=== PATIENT | female | born 1950 | race Caucasian/White ===

== ENCOUNTER 2019-09-27 13:09 | Inpatient (IN) | payer MEDICARE, SELFPAY ==
[2019-09-27] VITALS (14 sets, daily range): BP systolic 127–173; BP diastolic 53–88; PULSE 77–88; RESP 16–20; TEMP 36.3–37.6; O2SAT 97–100; BMI 18.9
--- NOTE | ~2019-09-27 | CT_ITS ---
EXAMINATION: CT brain wo con DATE: 09/27/2019 13:40 INDICATION: Syncope. Patient fell and struck head. TECHNIQUE: Computed tomography (CT) of the head was performed without intravenous contrast. The mA wa s adjusted according to patient size. Iterative reconstruction technique was employed. Exam dose: 60 5.33 mGy-cm total exam DLP. COMPARISON: 12/30/2018 CT brain FINDINGS: Bilateral vertebral artery and prominent carotid siphon internal carotid artery calcificati ons are noted. There is nonspecific diminished attenuation of the cerebral white matter, likely due to chronic small vessel ischemic changes. There are central and cortical cerebral and cerebellar atrophy. No intracranial mass lesion or hemorrhage or cerebrovascular accident is evident. No midline shift or mass effect. No subdural or epidural hematoma is detected. No fracture or bone destruction of the cranial vault. The mastoid air cells and sinuses are unremarkable. IMPRESSION: Cerebral atherosclerosis and chronic small vessel ischemic changes of the cerebral white matter Reviewed, dictated and finalized at [facility]. Reviewed, dictated and finalized at location [facility].
--- NOTE | ~2019-09-27 | US_ITS ---
EXAMINATION: US retroperitoneal comp EXAM DATE: 09/28/2019 09:46 INDICATION: Abnormal CT scan. TECHNIQUE: Multiple grayscale and Doppler images of the kidneys were obtained (by a technologist who performed the scan) and subsequently reviewed. Correlation is made to yesterday's CT abdomen pelvis. FINDINGS: Right kidney: There is normal contour and echogenicity. It measures 9.0 x 3.9 x 4.5 centimeters. Th ere are no focal renal lesions identified. There is no hydronephrosis. Left kidney: Measures 10.3 x 7.0 x 7.7. Lobular contour with shadowing from renal pelvic, calyceal st aghorn calculus, and heterogeneous complex fluid collection identified laterally to it, difficult to measure given its shape. There is debris layering within the bladder, correlate with urinalysis. Mild diffuse bladder wall thi ckening. Some fluid posterior to the bladder, probably free pelvic fluid. IMPRESSION: 1. Left renal staghorn calculus with lobular contour and adjacent complex fluid collections. Differ ential diagnosis includes acute or chronic infection/abscesses, hematoma, seroma. 2. Debris layering within bladder, correlate with urinalysis. Reviewed, dictated and finalized at location [facility]. IMPRESSION: 1. Left renal staghorn calculus with lobular contour and adjacent complex flui d collections. Differential diagnosis includes acute or chronic infection/absc esses, hematoma, seroma. 2. Debris layering within bladder, correlate with urinalysis.
--- NOTE | ~2019-09-27 | CT_ITS ---
EXAMINATION: CT abdomen pelvis wo con EXAM DATE: 09/27/2019 15:18 INDICATION: Generalized weakness. TECHNIQUE: Spiral CT of the abdomen and pelvis was performed without contrast. Axial, coronal and s agittal images were reviewed. The dose-length product (DLP) for this examination was 168.61 mGy-cm. The exposure was tailored according to patient size (auto mA exposure control), and iterative recons truction (ASIR) was used as additional dose reduction technique. Comparison is made to prior examinat ion from 07/26/2012. FINDINGS: The liver, spleen, adrenal glands and pancreas are unremarkable. Gallbladder is unremarkab le. No biliary obstruction. Large calcification casting the left renal calyces and pelvis with expa nded appearance to the left kidney, probably the result of chronic obstructive nephropathy, with lobu lar regions along the renal capsule posteriorly and laterally which could be complex cystic fluid col lections extending beyond the renal capsule. No emphysema/gas within these. These lobulations involve the posterior aspect of the abdominal wall, and also extend superficial to the left iliac crest, wit h this region measuring about 7 cm x 4 cm in greatest axial dimension. Nonspecific but could be hemat omas, seromas, chronic infection/abscess or less likely malignancy. The uterus is unremarkable. Th e bladder is unremarkable. There is no retroperitoneal or pelvic lymphadenopathy. There is extensi ve scattered arterial sclerotic disease. The appendix is normal. There is small to moderate-sized gastroesophageal hiatal hernia. There is e xpected amount of colonic stool. No free intraperitoneal gas. Small left pleural effusion. Linea r bibasilar atelectasis. There are no osteoblastic or osteolytic lesions identified. There is comple te loss of the T12 vertebral body height centrally with some retropulsion posteriorly, a chronic-appe aring burst fracture but new compared to prior study. Again there are mild to moderate compression fr actures at T11 and L2. T10 and L5 vertebral body compression fractures have been treated with vertebr oplasty. IMPRESSION: Left renal staghorn calculus with likely chronically expanded cyst, inflamed appearance t o the left kidney with multiple lobulations/collections extending posteriorly and inferiorly to the l eft renal capsule, involving the left flank wall and extending superficially just above the left carlos c crest. Fluid could be hematomas, seromas, chronic infection/abscess, less likely malignancy. Contra st-enhanced exam would be helpful, or if if patient unable to have intravenous contrast than ultrasou nd of the left kidney and this left lower back/flank fluid collection should be considered. Consider urinalysis, consult. Reviewed, dictated and finalized at location [facility]. IMPRESSION: Left renal staghorn calculus with likely chronically expanded cyst, inflamed appearance to the left kidney with multiple lobulations/collections e xtending posteriorly and inferiorly to the left renal capsule, involving the le ft flank wall and extending superficially just above the left iliac crest. Flui d could be hematomas, seromas, chronic infection/abscess, less likely malignanc y. Contrast-enhanced exam would be helpful, or if if patient unable to have int ravenous contrast than ultrasound of the left kidney and this left lower back/f lank fluid collection should be considered. Consider urinalysis, consult.
--- NOTE | ~2019-09-27 | NM_ITS ---
EXAMINATION: NM renal flow and function DATE: 09/29/2019 13:39 INDICATION: Left-sided xanthogranulomatous pyelonephritis. TECHNIQUE: 8.3 mCi Tc-99m MAG3 was administered IV. The patient was scanned in the supine position. A posterior abdominal radionuclide angiogram was obtained. A subsequent time course of static images of the kidneys, ureters, and bladder was obtained. COMPARISON: CT abdomen and pelvis 09/27/2019 FINDINGS: The posterior abdominal radionuclide angiogram and sequential static images show absence of the left kidney. Peak renal parenchymal uptake was 2 min in right kidney (normal peak 3-5 minutes). The relative early renal uptake was 100% on the right and 0% on the left (<40% is abnormal). No abn ormalities of the ureters or bladder are seen. T1/2 for clearance of activity from the right kidney and proximal collecting system was >>20 minutes. IMPRESSION: 1. Nonfunctioning left kidney. 2. Delayed contrast clearance from right kidney, likely secondary to decreased renal function and swain [place] patient positioning. Reviewed, dictated and finalized at location A. IMPRESSION: 1. Nonfunctioning left kidney. 2. Delayed contrast clearance from right kidney, likely secondary to decreased renal function and supine patient positioning.
--- NOTE | ~2019-09-27 | XR_ITS ---
XR chest 1V DATE: 09/27/2019 13:43 INDICATION: Syncope. Weakness. Patient fell and struck head. TECHNIQUE: AP chest COMPARISON: 07/04/2018 PA and lateral chest FINDINGS: Borderline heart size. Aortic calcification and unfolding. No hilar or mediastinal enlargem ent. There is a surgical clip at the base of the right lung. There is mild to moderate elevation of the ri ght leaf of the diaphragm and minimal atelectasis or fibrotic change at the right lung base. No pulmonary infiltrate or consolidation, pleural effusion or pulmonary vascular congestion or pneumo thorax is detected. Vertebroplasty at approximately T10. Probable compression fracture deformity at T6. Additional fractu res of the thoracic and lumbar spine are demonstrated to better advantage on the 2 view chest radiogr aphic examination of 07/04/2018. Diffuse osteopenia. IMPRESSION: No active pulmonary disease or significant change since 07/04/2018 Reviewed, dictated and finalized at location A.
--- NOTE | 2019-09-27 13:20 | ED.SYNCOPE ---
HPI - Syncope General Chief Complaint: Syncope Stated Complaint: syncopal episode Time Seen by Provider: 09/27/19 13:14 Source: patient Mode of arrival: EMS Limitations: no limitations History of Present Illness HPI narrative: A 69 y/o female presents to the ED, via EMS, with c/o gen weak, dizz, nausea no vomiting, diarrhea, decreased food and liquid intake. 1 week so SOB fel night cougdnt get up there all noght Related Data Home Medications Medication Instructions Recorded Confirmed alendronate 70 mg PO WEEKLY 09/27/19 sertraline 100 mg PO DAILY 09/27/19 tramadol 50 mg PO BID PRN 09/27/19 Allergies Allergy/AdvReac Type Severity Reaction Status Date / Time No Known Allergies Allergy Unknown Verified 09/27/19 13:12 [facility] Family History Family History (Updated 02/23/17 @ 14:45 by DOCTOR UNKNOWN) Mother Diabetes mellitus, Onset Age: 89 Cerebrovascular accident Father Family history of cardiovascular disease, Onset Age: 87 Acute myocardial infarction, Onset Age: 87 Family history of heart disease in male family member before age 55 Social History Social History Smoking status: Smoker, status unknown Alcohol intake: never Discharge Plan Discharge Prescriptions: No Action alendronate 70 mg Tablet 70 mg PO WEEKLY RF: 0 sertraline 100 mg Tablet 100 mg PO DAILY RF: 0 tramadol 50 mg Tablet 50 mg PO BID PRN (Reason: Pain) RF: 0
--- NOTE | 2019-09-27 13:23 | ED.WEAKNESS ---
HPI - Weakness General Chief complaint: Syncope Stated complaint: syncopal episode Time Seen by Provider: 09/27/19 13:14 Source: patient Mode of arrival: EMS Limitations: no limitations History of Present Illness HPI Narrative: A 69 y/o female presents to the ED, via EMS, with c/o generalized weakness. Pt states that the generalized weakness started 1 week ago and has been progressively worsening since. She notes that she fell on 09/23/19 and slept on the floor all night because she could not get up. Pt adds that yesterday EMS came to her home, but she did not want to be evaluated further at that time. Today the generalized weakness became severe, so she decided to come to the ED. She reports dizziness and nausea, but denies vomiting, diarrhea, urinary frequency, SOB, hematuria, dysuria, and decreased food and liquid intake. Complaint: generalized weakness Onset (ago): week(s) (1) Duration: progressively worsening Location: generalized Severity: severe Associated symptoms: other (dizziness, nausea) Related Data Home Medications Medication Instructions Recorded Confirmed alendronate 70 mg PO WEEKLY 09/27/19 sertraline 100 mg PO DAILY 09/27/19 tramadol 50 mg PO BID PRN 09/27/19 Allergies Allergy/AdvReac Type Severity Reaction Status Date / Time No Known Allergies Allergy Unknown Verified 09/27/19 13:12 Review of Systems Review of Systems: All systems reviewed & are unremarkable except as noted in HPI and below Constitutional: Constitutional: Reports weakness (generalized) and Denies other (decreased food and liquid intake) Respiratory: Respiratory: Denies dyspnea Gastrointestinal: Gastrointestinal: Denies diarrhea, Reports nausea and Denies vomiting Genitourinary: Genitourinary: Denies hematuria, Denies nocturia and Denies dysuria Neurologic: Reports dizziness PMFSH Past Medical History Medical History (Updated 09/27/19 @ 15:57 by Rj Baer MD) C. difficile diarrhea Chronic back pain COPD (chronic obstructive pulmonary disease) Depression Emphysema of lung GERD (gastroesophageal reflux disease) History of blood transfusion HTN (hypertension) Kidney stones Osteoarthritis Pleural effusion Rectal polyp Shingles Shoulder fracture, left Transverse myelitis UTI (urinary tract infection) Surgical History Surgical History (Updated 09/27/19 @ 14:02 by Rosalba Spencer) History of section History of lithotripsy Family History Family History Mother Diabetes mellitus, Onset Age: 89 Cerebrovascular accident Father Family history of cardiovascular disease, Onset Age: 87 Acute myocardial infarction, Onset Age: 87 Family history of heart disease in male family member before age 55 Social History Social History (Updated 09/27/19 @ 14:02 by Rosalba Spencer) Smoking status: Current every day smoker Tobacco type: cigarettes Second hand tobacco smoke exposure: Yes Alcohol intake: never Gender identity (if verbalized by the patient): Female Exam Const: General: ill appearing chronically and other (frail, elderly) HENMT: Mouth: Yes lip normal and Yes dry mucous membranes Eyes: Conjunctivae: conjunctivae normal Pupils: Equal, round and reactive pupils present Resp: Effort & Inspection: normal respiratory effort Auscultation: clear to auscultation bilaterally Cardio: Rate: regular rate Rhythm: regular rhythm Heart sounds: no murmurs GI: GI Palp: Yes Soft to palpation and No Tenderness to palpation present (GI) Auscultation: normal bowel sounds Back/Spine/Pelvis: Back: other (full ROM) Skin: General skin exam: dry skin, ecchymosis (scattered) and other (warm) Wounds: wounds noted laceration size (2cm) and other (superficial to left eyebrow) Neuro: General: patient oriented x3 (alert) Speech: normal speech Extrem: General: full ROM Psych: Mental Status: mental status grossly normal Affect: normal affect
--- NOTE | 2019-09-27 13:31 | ECG_ITS ---
Measurements Intervals [place] Rate: 83 P: 32 WV: 128 QRS: -27 QRSD: 82 T: 16 QT: 350 QTc: 413 Interpretive Statements SINUS RHYTHM LEFT VENTRICULAR HYPERTROPHY AND ST-T CHANGE BORDERLINE T WAVE ABNORMALITY- INFERIOR LEADS BASELINE ARTIFACT- AVF, V4-V6 BORDERLINE ECG Electronically Signed On 09-27-2019 14:44:02 CDT by Miguel Macias D.O.
[2019-09-27] MEDS: SODIUM CHLORIDE 0.9% IV 1,000 ML 999 ML IV CONT (13:50)
[2019-09-27 14:20] LABS: Immature Platelet Fraction Pct 1.7 % (0.9-11.2); Mean Corpuscular Hemoglobin 17.3 pg (26-34); Mean Corpuscular Volume 64.1 fl (80-100); Mean Platelet Volume 9.5 fl (7.4-10.4); Platelet Count Result 589 k/mm3 (150-375); Red Blood Count 3.12 M/mm3 (4.2-5.4); Red Cell Distribution Width 19.7 % (11.5-14.5); White Blood Count 35.1 K/mm3 (4.5-10.0)
[2019-09-27 14:24] LABS: Add Urine Microscopic? YES; Appearance Urine Turbid (Clear); Bilirubin Urine Negative (Negative); Blood Urine 1+ (Negative); Color Urine Yellow (Yellow); Glucose Urine UA Negative (Negative); Ketones Urine Negative (Negative); Leukocyte Esterase Ur 2+ LEU/UL (Negative); Mucus Urine Few /lpf; Nitrate Urine Negative (Negative); Protein Urine 3+ mg/dL (Negative); RBC Urine >75 /hpf (0-2); Specific Grav Ur 1.017 (1.001-1.035); Squamous Epithelial Cell Urine Many /hpf (Few); Urobilinogen Urine Negative mg/dL (<2.0); WBC Clumps Urine Present /HPF; WBC Urine >75 /hpf
[2019-09-27 14:27] LABS: Alanine Aminotransferase 30 U/L (4-35); Alkaline Phosphatase 233 U/L (38-126); Aspartate Amino Transferase 39 U/L (14-36); Bilirubin,Total 0.3 mg/dL (0.2-1.3); Blood Urea Nitrogen 42 mg/dL (7-17); Calcium 8.6 mg/dL (8.4-10.2); Carbon Dioxide 25 mmol/L (22-30); Chloride 102 mmol/L (98-107); Estimated CRCL calculation 20 ml/min; Estimated Glomerular Filt Rate 30; Glucose 176 mg/dL (65-105); Sodium 135 mmol/L (137-145)
[2019-09-27 14:49] LABS: Hemoglobin 5.4 g/dL (12.0-15.0)
[2019-09-27 14:53] LABS: Band Neutrophils Percent 7 % (0-6); Monocytes Absolute Manual 1.05 K/mm3 (0.1-0.90); Monocytes Percent Manual 3 % (3-9); Neutrophils Absolute Manual 32.64 K/mm3 (1.7-7.2); Neutrophils Percent Manual 86 % (46-73); Total Cells Counted 100
[2019-09-27 14:54] LABS: Platelet Estimate Increased (Adequate)
[2019-09-27 14:55] LABS: Anisocytosis 3+ (NORMAL); Hypochromasia 3+ (NORMAL)
[2019-09-27 14:56] LABS: Ovalocytes 1+ (NORMAL)
[2019-09-27 15:58] LABS: Hematocrit 17.1 % (37.0-47.0); Hemoglobin 4.8 g/dL (12.0-15.0)
--- NOTE | 2019-09-27 16:45 | ADMGEN ---
This patient, Kaylen Alva, was admitted to Medical Room 246-. Patient/family oriented to hospital policies and general routines including ID bracelet, bed and alarms, visiting hours, pain management, procedures, bathroom and other care routines, personal items, smoking policy, room service/diet, and visiting hours. Valuables list has been completed. Information on how to activate the Rapid Response Team has been discussed. Patient/Family are encouraged to report perceived risks to care and to ask questions if they do not understand what they are told or what they should do.
[2019-09-27 17:17] LABS: Folic Acid 10.4 ng/mL (2.76->20); Vitamin B12 > 1000.0 pg/mL (239-931)
[2019-09-27 17:38] LABS: Iron 12 ug/dL (37-170); Percent Iron Saturation 6 % (20-50)
--- NOTE | 2019-09-27 18:03 | PM.IMHP ---
H&P: HPI History of Present Illness Chief complaint: Anemia/weakness/UTI Narrative: Kaylen Alva is a 69 year old female who has a history of myelitis and has chronic back pain and chronic weakness weakness to her lower extremities. The patient has also had a history of having kidney stones in the past. The patient has had 2 falls since 09/23/2019. The patient fell on 09/22 20 in above the floor all night could get up. EMS came yesterday to her home and she did want any further evaluation at that time. Today she is very weak and has a laceration to her left forehead. No nausea no vomiting no diarrhea no fever no chills. Her temperature was normal. Her H&H is noted to be 5.4 and 20.0. Creatinine was noted to be 1.7. Blood sugar 176. Patient was found to be positive for UTI and was started on ceftriaxone. CT of the brain was read as her approval atherosclerosis and chronic small vessel ischemic changes of the cerebral white matter. Chest x-ray no active pulmonary disease or significant change since 07/04/2018 CT scan of the abdomen shows a left renal staghorn calculus which likely is chronic expanded cyst, inflamed appearance the left kidney with with multiple lobulations, collections extending posteriorly and inferiorly to the left renal capsule, involving the left flank wall and extending superficially just above the left iliac crest. Recommend CT scan with dye or ultrasound should consider consult. Date of service 09/27/2019 Review of Systems Review of Systems: Narrative: Patient is hard of hearing. All systems reviewed & are unremarkable except as noted in HPI and below Constitutional: Constitutional: Reports as per HPI and Reports no additional constitutional complaints Eyes: Eyes: Reports as per HPI and Reports no additional eye complaints ENT: Reports system reviewed and no additional complaints, except as documented and Reports Normal hearing present Cardiovascular: Cardiovascular: Reports no additional cardiovascular complaints Respiratory: Respiratory: Reports no additional respiratory complaints and Reports no additional respiratory complaints Gastrointestinal: Gastrointestinal: Reports as per HPI and Reports no additional gastrointestinal complaints Musculoskeletal: Musculoskeletal: Reports no additional musculoskeletal complaints Integumentary/Breasts: Skin/Breast: Reports system reviewed and no additional complaints, except as docu and Reports as per HPI Neurologic: Reports system reviewed and no additional complaints, except as documented (Hard of hearing left ear hearing aids at home.), Reports as per HPI and Reports dizziness Psychiatric: Psychiatric: Reports no additional psychiatric complaints and Reports as per HPI Comments: History of depression after Endocrine: Endocrine: Reports no additional endocrine complaints Hematologic/Lymphatic: Hematologic/Lymphatic: Reports no additional hematologic/lymphatic complaints Allergic/Immunologic: Allergic/Immunologic: Reports no additional allergic/immunologic complaints [facility] Past Medical History Medical History (Updated 09/27/19 @ 18:39 by Brooklynn Carson NP) C. difficile diarrhea Chronic back pain Depression Emphysema of lung Empyema Patient stated she had her lung script at least 3 times GERD (gastroesophageal reflux disease) History of blood transfusion HTN (hypertension) Kidney stones With a history of 2 lithotripsies and chronic kidney stones Myelitis Osteoarthritis Osteoporosis Pleural effusion Rectal polyp Shingles Shoulder fracture, left No surgery performed Transverse myelitis UTI (urinary tract infection) Surgical History Surgical History (Updated 09/27/19 @ 18:27 by Brooklynn Carson NP) H/O kyphoplasty History of section X1 History of lithotripsy X2 Family History Family History (Updated 09/27/19 @ 18:28 by Brooklynn Carson NP) Mother Diabetes mellitus, Onset Age: 89 Cerebrovascular acci
[2019-09-27 20:06] LABS: Immature Reticulocyte Fraction 20.5 % (3.0-15.9); Reticulocyte Hemoglobin Conten 16.5 pg (28.2-35.7); Reticulocyte Percent 1.57 % (0.7-4.3); Reticulocytes Absolute 0.04 B/L (32.2-175.7)
[2019-09-27 20:06] LABS: Hemoglobin 4.9 g/dL (12.0-15.0)
[2019-09-27 20:07] LABS: Hematocrit 17.4 % (37.0-47.0)
[2019-09-28] VITALS (18 sets, daily range): BP systolic 112–166; BP diastolic 56–86; PULSE 79–125; RESP 12–20; TEMP 35.7–37.4; O2SAT 96–100
--- NOTE | 2019-09-28 03:02 | PC.NURSE ---
This patient, Kaylen Alva, was received from room 246-1 on 09/27/19 at 2120. Personal belongings sent with patient. Belongings list checked and signed with receiving. Report received from Annie COLINDRES. Appropriate documentation sent with patient. Pt arrived to unit with blood Transfusing. Pt has no C/O pain/discomfort at time of arrival. Will continue to monitor pt closely. 09/27/19 2150- BERNADINE Valencia states that she spoke with pt's son, Messi. Messi was updated with pt's condition and informed of transfer.
--- NOTE | 2019-09-28 03:02 | PC.NURSE ---
pt transferred to [facility] room 207 at 09/27/2019 at 0778
[2019-09-28 04:03] LABS: Hematocrit 31.6 % (37.0-47.0); Hemoglobin 9.8 g/dL (12.0-15.0)
[2019-09-28] MEDS: TRAMADOL HCL 50 MG TABLET PO ×2 (05:58→14:48)
[2019-09-28] MEDS: LACTATED RINGERS 1,000 ML 50 ML IV CONT (05:59)
[2019-09-28 08:53] LABS: Hematocrit 32.3 % (37.0-47.0); Hemoglobin 10.2 g/dL (12.0-15.0)
[2019-09-28] MEDS: SERTRALINE HCL 50 MG TABLET 100 MG PO (09:55)
--- NOTE | 2019-09-28 10:43 | WPDURCON ---
Assessment and Plan Assessment and plan (1) UTI (urinary tract infection): Code(s): N39.0 - Urinary tract infection, site not specified Status: Acute Assessment and Plan: f/u U culture (2) Kidney stones: Code(s): N20.0 - Calculus of kidney Status: Chronic Assessment and Plan: Will need outpatient treatment (3) Anemia: Qualifiers: Anemia type: unspecified type Qualified Code(s): D64.9 - Anemia, unspecified Code(s): D64.9 - Anemia, unspecified Status: Acute Assessment and Plan: Kaylen Alva is a 69 year old female who has a h/o kidney stones. She has seen Dr Asencio in the past, last in 2017. She presented to the ER with generalized weakness and dizziness, especially with standing and walking. A CT stone study was performed that shows a 7 cm LEFT staghorn calculus and an edematous, hydronephrotic vs hematoma vs mass/lymphoma LEFT kidney. There are small RIGHT side kidney stones. I personally reviewed the images and report. Her Hgb was ~5 in the ER and I had them repeat this on the floor stat from the arm without the IV and this was accurate. She has been HDS. She received 2 U PRBC and has responded, most recent Hgb 10.2. Cr yesterday elevated at 1.7 so I did not get a CT with IV contrast. She denies a personal or family history of kidney or bladder cancer. No family h/o kidney stones. She denies gross hematuria or flank pain. No dysuria. She has preexisting incontinence. She denies feeling like she has a UTI. She has low back pain, in the middle. No abd pain, nausea, vomiting. Continue serial H&H. she has responded to 2U PRBC. Follow Cr and will plan to get CT urogram when possible. She is iron deficient and has elevated WBC. Consider iron replacement. If she is to clinically deteriorate or requires multiple blood transfusions, will need to transfer her to higher level of care in case there is a need to embolize her LEFT kidney and IR is not available at [facility]. Otherwise, if she clinically remains stable, will proceed with her care at [place]. Patient is aware and agrees. Urology Consult Note HPI Date Seen: 09/28/19 Requesting Physician: Rebecca William PA-C Primary Care Provider: Jovon Alvarez MD Consult Narrative Reason for consult: kidney stone, abnormal CT imaging, anemia Narrative: Kaylen Alva is a 69 year old female who has a h/o kidney stones. She has seen Dr Asencio in the past, last in 2017. She presented to the ER with generalized weakness and dizziness, especially with standing and walking, present for several weeks. A CT stone study 09/27/19 was performed that shows a 7 cm LEFT staghorn calculus and an edematous, hydronephrotic vs hematoma vs mass LEFT kidney. There are small RIGHT side kidney stones. I personally reviewed the images and report. Her Hgb was ~5 in the ER and I had them repeat this on the floor stat from the arm without the IV and this was accurate. She has been HDS. She received 2 U PRBC and has responded, most recent Hgb 10.2. Cr yesterday elevated at 1.7 so I did not get a CT with IV contrast. She denies a personal or family history of kidney or bladder cancer. No family h/o kidney stones. She denies gross hematuria or flank pain. No dysuria. She has preexisting incontinence. She denies feeling like she has a UTI. She has low back pain, in the middle. No abd pain, nausea, vomiting. mental status stable. She denies taking blood thinners. Review of Systems Review of Systems: All systems reviewed & are unremarkable except as noted in HPI and below (HPI) [facility] Past Medical History Medical History (Updated 09/27/19 @ 18:39 by Brooklynn Carson NP) C. difficile diarrhea Chronic back pain Depression Emphysema of lung Empyema Patient stated she had her lung script at least 3 times GERD (gastroesophageal reflux disease) History of blood transfusion HTN (hypertension) Kidney sto
--- NOTE | 2019-09-28 14:50 | PM.IMPN ---
Progress Note: A&P Assessment and Plan (1) UTI (urinary tract infection): Code(s): N39.0 - Urinary tract infection, site not specified Status: Acute Assessment and Plan: Patient was started on ceftriaxone after abnormal urinalysis. Cultures are pending. She has had multiple UTI's in the past. She reports feeling better today after some IV fluids and antibiotics. Will continue monitoring patients symptoms and continue IV antibiotics (2) Anemia: Qualifiers: Anemia type: unspecified type Qualified Code(s): D64.9 - Anemia, unspecified Code(s): D64.9 - Anemia, unspecified Status: Acute Assessment and Plan: Acute severe anemia on arrival with a hemoglobin at 4.8. She was given 2 Units of PRBCs with improvement of H&H to 9.8 this morning and then 10.2. I did anemia profile which showed anemia of chronic disease. Hematology was consulted for the profound anemia and leukocytosis. She is not currently on any blood thinners, and denies NSAID use, hematochezia, melena. Check stool for occult blood. Continue to monitor H&H daily since it is stable after transfusion. Transfuse again as needed. (3) Leukocytosis: Qualifiers: Leukocytosis type: unspecified Qualified Code(s): D72.829 - Elevated white blood cell count, unspecified Code(s): D72.829 - Elevated white blood cell count, unspecified Status: Acute Assessment and Plan: Patient's leukocytosis on arrival was 35. She denies any history of elevated white blood cell count the past. Hematology has been consulted for further evaluation and treatment. Will recheck CBC with diff in the morning. (4) Kidney stones: Code(s): N20.0 - Calculus of kidney Status: Chronic Assessment and Plan: Strain all urine. The patient has had lithotripsy x2 in the past. I did consult Urology as patient has a kidney stone and they recommended outpatient treatment. 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 Plus she has multiple low be relations, collections extending posteriorly and inferiorly to the left renal capsule. Renal US showed Left renal staghorn calculus with lobular contour and adjacent complex fluid collections. Differential diagnosis includes acute or chronic infection/abscesses, hematoma, seroma. Debris layering within bladder, correlate with urinalysis. Continue monitoring patients symptoms and urology's input is greatly appreciated. (5) Generalized weakness: Code(s): R53.1 - Weakness Status: Acute Assessment and Plan: Most likely related to the anemia. She also has a history of myelitis. Will order PT and OT for further evaluation on her weakness. She lives alone and may need a skilled rehab facility after discharge due to recent falls (6) Chronic back pain: Code(s): M54.9 - Dorsalgia, unspecified; G89.29 - Other chronic pain Status: Chronic Assessment and Plan: Continue tramadol. (7) Depression: Code(s): F32.9 - Major depressive disorder, single episode, unspecified Status: Chronic Assessment and Plan: Continue with sertraline (8) Multiple falls: Code(s): R29.6 - Repeated falls Status: Acute Assessment and Plan: Will order physical and occupational therapy. She may need skilled rehab facility for further treatment and to prevent further falls since she lives alone. Time Spent With Patient Time with patient: 25 - 35 minutes Subjective Date/time seen: 09/28/19 14:50 Interval history: Date of Service 09/28/2019: The patient reports feeling better today. She reports ove
[2019-09-28 16:20] LABS: Hematocrit 31.8 % (37.0-47.0); Hemoglobin 9.9 g/dL (12.0-15.0)
[2019-09-28 16:31] LABS: Blood Urea Nitrogen 32 mg/dL (7-17); Calcium 7.9 mg/dL (8.4-10.2); Carbon Dioxide 22 mmol/L (22-30); Chloride 106 mmol/L (98-107); Estimated Glomerular Filt Rate 34; Glucose 159 mg/dL (65-105); Potassium 3.7 mmol/L (3.4-5.0); Sodium 136 mmol/L (137-145)
[2019-09-29] VITALS (9 sets, daily range): BP systolic 135–159; BP diastolic 62–82; PULSE 68–92; RESP 16–20; TEMP 36.3–36.9; O2SAT 97–100; BMI 19.9
[2019-09-29 00:54] LABS: Hematocrit 31.7 % (37.0-47.0); Hemoglobin 9.9 g/dL (12.0-15.0)
[2019-09-29] MEDS: LACTATED RINGERS 1,000 ML 50 ML IV CONT (03:29)
[2019-09-29] MEDS: TRAMADOL HCL 50 MG TABLET PO (04:36)
[2019-09-29 05:01] LABS: Blood Urea Nitrogen 30 mg/dL (7-17); Calcium 7.8 mg/dL (8.4-10.2); Carbon Dioxide 23 mmol/L (22-30); Chloride 108 mmol/L (98-107); Estimated Glomerular Filt Rate 34; Glucose 96 mg/dL (65-105); Sodium 137 mmol/L (137-145)
--- NOTE | 2019-09-29 07:36 | WPDUROPN2 ---
Progress Note: A&P Assessment and Plan (1) UTI (urinary tract infection): Code(s): N39.0 - Urinary tract infection, site not specified Status: Acute Assessment and Plan: Cultures grown out E coli. Continue culture specific antibiotics. (2) Kidney stones: Code(s): N20.0 - Calculus of kidney Status: Chronic Assessment and Plan: Large staghorn calculus without obstruction. (3) Renal mass: Code(s): N28.89 - Other specified disorders of kidney and ureter Status: Acute Assessment and Plan: Diagnostic considerations are acute hemorrhage versus with xanthogranulomatous pyelonephritis. Will get a renal scan to evaluate function of the left kidney. Time Spent With Patient Time with patient: 15 - 25 minutes Subjective Subjective Date/Time Seen: 09/29/19 07:36 Resting comfortably this morning. Has few complaints. No dysuria. No flank pain. No fevers. I reviewed her CT scan it appears consistent with either hemorrhage or xanthogranulomatous pyelonephritis Review of Systems Constitutional: Constitutional: Reports weakness Respiratory: Respiratory: Reports no additional respiratory complaints Genitourinary: Genitourinary: Denies dysuria and Denies flank pain Exam Const: General: no acute distress Resp: Effort & Inspection: normal respiratory effort Psych: Affect: normal affect Objective Data Vital Signs Vital Signs: Vital Signs - 24 hr 09/28/19 08:00 09/28/19 08:40 09/28/19 10:00 Temperature 96.2 F L Pulse Rate 86 84 82 Respiratory Rate 16 Blood Pressure 141/63 H Pulse Oximetry 98 09/28/19 11:51 09/28/19 12:30 09/28/19 16:00 Temperature 96.7 F L 98.2 F Pulse Rate 81 81 92 Respiratory Rate 12 20 Blood Pressure 145/83 H 143/80 H Pulse Oximetry 99 100 09/28/19 16:54 09/28/19 18:00 09/28/19 20:00 Temperature 98.7 F Pulse Rate 88 82 79 Respiratory Rate 18 Blood Pressure 112/73 Pulse Oximetry 98 09/28/19 22:00 09/29/19 00:00 09/29/19 02:00 Temperature 97.4 F L Pulse Rate 86 68 81 Respiratory Rate 20 Blood Pressure 159/82 H Pulse Oximetry 98 09/29/19 04:00 09/29/19 05:46 Temperature 98.4 F Pulse Rate 79 78 Respiratory Rate 18 Blood Pressure 144/62 H Pulse Oximetry 99 Intake/Output Intake/Output: Intake & Output 09/26/19 09/27/19 09/28/19 09/29/19 23:59 23:59 23:59 23:59 Intake Total 1550 1120 760 Output Total 300 Balance 1250 1120 760 Meds/Results Medications: Active Medications Generic Name Dose Route Start Last Admin Trade Name Freq PRN Reason Stop Dose Admin Alendronate Sodium 70 mg 10/03/19 06:30 Fosamax PO Fr@0630 VINNY Lactated Ringer's 1,000 mls @ 50 mls/hr 09/27/19 15:15 09/29/19 03:29 Lr - Lactated Ringers Iv IV CONT 50 mls/hr .Q20H VINNY Administration Ceftriaxone Sodium/Dextrose 1 gm in 50 mls @ 100 mls/hr 09/28/19 14:00 09/28/19 15:30 Rocephin 1 Gm/D5w 50 Ml IVPB Infused Q24H VINNY Infusion Sertraline HCl 100 mg 09/28/19 09:00 09/28/19 09:55 Zoloft PO 100 mg DAILY VINNY Administration Tramadol HCl 50 mg 09/27/19 18:32 09/29/19 04:36 Ultram PO 50 mg BID PRN Administration Pain Radiology Results: ITS Impressions Head CT 09/27/19 13:41 IMPRESSION: Cerebral atherosclerosis and chronic small vessel ischemic changes of the cerebral white matter Chest X-Ray 09/27/19 13:46 IMPRESSION: No active pulmonary disease or significant change since 07/04/2018 Abdomen/Pelvis CT 09/27/19 15:18 IMPRESSION: Left renal staghorn calculus with likely chronically expanded cyst, inflamed appearance to the left kidney with multiple lobulations/collections extending posteriorly and inferiorly to the left renal capsule, involving the left flank wall and extending superficially just above the left iliac crest. Fluid could be hematomas, seromas, chronic infection/abscess, less likely malignancy. Contrast-enhan
[2019-09-29 08:12] LABS: Hematocrit 30.7 % (37.0-47.0); Hemoglobin 9.4 g/dL (12.0-15.0); Mean Corpuscular HGB Conc 30.6 g/dl (32-36); Mean Corpuscular Hemoglobin 22.2 pg (26-34); Mean Corpuscular Volume 72.4 fl (80-100); Mean Platelet Volume 8.9 fl (7.4-10.4); Platelet Count Result 482 k/mm3 (150-375); Red Blood Count 4.24 M/mm3 (4.2-5.4); Red Cell Distribution Width 27.2 % (11.5-14.5); White Blood Count 30.2 K/mm3 (4.5-10.0)
--- NOTE | 2019-09-29 08:43 | PM.IMPN ---
Progress Note: A&P Assessment and Plan (1) UTI (urinary tract infection): Code(s): N39.0 - Urinary tract infection, site not specified Status: Acute Assessment and Plan: Patient was started on ceftriaxone after abnormal urinalysis. Cultures are pending. She has had multiple UTI's in the past. UTI showed positive E. coli with sensitivities to Ceftriaxone. Will continue IV Ceftriaxone. (2) Anemia: Qualifiers: Anemia type: unspecified type Qualified Code(s): D64.9 - Anemia, unspecified Code(s): D64.9 - Anemia, unspecified Status: Acute Assessment and Plan: Acute severe anemia on arrival with a hemoglobin at 4.8. She was given 2 Units of PRBCs with improvement. H&H was 9.4/30.7 this morning, stable. I did anemia profile which showed anemia of chronic disease. Hematology was consulted for the profound anemia and leukocytosis. She is not currently on any blood thinners, and denies NSAID use, hematochezia, melena. Check stool for occult blood. Continue to monitor H&H daily since it is stable after transfusion. Transfuse again as needed. (3) Leukocytosis: Qualifiers: Leukocytosis type: unspecified Qualified Code(s): D72.829 - Elevated white blood cell count, unspecified Code(s): D72.829 - Elevated white blood cell count, unspecified Status: Acute Assessment and Plan: Patient's leukocytosis on arrival was 35. She denies any history of elevated white blood cell count the past. Hematology has been consulted for further evaluation and treatment. Today, WBC was 30.2, improved slightly. Will recheck CBC with diff in the morning. (4) Kidney stones: Code(s): N20.0 - Calculus of kidney Status: Chronic Assessment and Plan: Strain all urine. The patient has had lithotripsy x2 in the past. I did consult Urology as patient has a kidney stone and they recommended outpatient treatment. Renal US showed Left renal staghorn calculus with lobular contour and adjacent complex fluid collections. Differential diagnosis includes acute or chronic infection/abscesses, hematoma, seroma. Debris layering within bladder, correlate with urinalysis. Urology recommended getting a Renal Scan to evaluate left kidney function. Continue monitoring patients symptoms and urology's input is greatly appreciated. (5) Generalized weakness: Code(s): R53.1 - Weakness Status: Acute Assessment and Plan: Most likely related to the anemia. She also has a history of myelitis. Will order PT and OT for further evaluation on her weakness. She lives alone and may need a skilled rehab facility after discharge due to recent falls (6) Chronic back pain: Code(s): M54.9 - Dorsalgia, unspecified; G89.29 - Other chronic pain Status: Chronic Assessment and Plan: Continue tramadol. (7) Depression: Code(s): F32.9 - Major depressive disorder, single episode, unspecified Status: Chronic Assessment and Plan: Continue with sertraline (8) Multiple falls: Code(s): R29.6 - Repeated falls Status: Acute Assessment and Plan: Will order physical and occupational therapy. She may need skilled rehab facility for further treatment and to prevent further falls since she lives alone. Time Spent With Patient Time with patient: 25 - 35 minutes Subjective Date/time seen: 09/29/19 08:43 Interval history: Date of Service 09/29/2019: The patient reports feeling better today. She slept well last night. She denies any flank pain, fevers, c
[2019-09-29] MEDS: SERTRALINE HCL 50 MG TABLET 100 MG PO (09:23)
[2019-09-29] MEDS: polyethylene glycoL 3350 17 GM POWD.PACK PO (10:02)
--- NOTE | 2019-09-29 11:37 | PC.NURSE ---
This patient, Kaylen Alva, was transferred to [[id number]] on 09/29/19 at 1137. Personal belongings sent with patient. Belongings list checked and signed with receiving [ ]. Report given to [CARL COLINDRES]. Appropriate documentation sent with patient.
--- NOTE | 2019-09-29 12:00 | PC.NURSE ---
Pt received from IMU and now in room 249. Bed locked, alarm in place, call light in reach, and SCDs re-appplied.
--- NOTE | 2019-09-29 12:25 | PC.NURSE ---
Pt left the floor for NM scan.
--- NOTE | 2019-09-29 13:26 | PC.NURSE ---
Pt returned to floor from NM Scan. Bed alarm in place, call light in reach, and SCDs re-applied.
--- NOTE | 2019-09-29 15:35 | CONS_ITS ---
DATE OF CONSULTATION: 09/29/2019 REASON FOR CONSULTATION: Leukocytosis and anemia. HISTORY OF PRESENTING ILLNESS: This is a 69-year-old female who came into the hospital status post fall on September 23, 2019. She has been dealing with tiredness and fatigue along with dizziness and lightheadedness for a couple of months duration. She also has chronic lower back pain. She has been complaining of bilateral lower extremity weakness. On admission, labs were done that showed hemoglobin of 5.4. She denies any melena and hematochezia. Her colonoscopy was within 5 years ago according to the patient. She also found to have renal insufficiency. CT scan of the abdomen was performed that showed left renal staghorn calculus, which is chronic with some inflammation in the left kidney with possibility of abscess. She has been losing weight and has poor appetite. Denies any other complaint. REVIEW OF SYSTEMS: 12-point review of system was reviewed and as per HPI, otherwise negative. PAST MEDICAL HISTORY: History of chronic lower back pain, depression, COPD, GERD, hypertension, history of kidney stone myelitis, osteoarthritis, osteoporosis, UTIs. PAST SURGICAL HISTORY: Kyphoplasty, , lithotripsy. FAMILY HISTORY: Noncontributory. SOCIAL HISTORY: The patient has a history of smoking. Denies any alcohol use. MEDICATIONS: Reviewed. ALLERGIES: REVIEWED. PHYSICAL EXAMINATION: GENERAL: This patient is a tired-looking female, alert and oriented. VITAL SIGNS: Per nursing note. HEENT: Normocephalic, atraumatic. Clear oropharynx. LUNGS: Clear to auscultation bilaterally. CARDIOVASCULAR: Regular rate and rhythm. No murmurs. ABDOMEN: Soft, nontender, nondistended. Bowel sounds are positive in all 4 quadrants. No hepatosplenomegaly. EXTREMITIES: No edema. NEUROLOGIC: Exam is grossly intact. LABORATORY DATA: WBC 30.2, hemoglobin 9.4, MCV 72.4, platelet 482,000. Creatinine 1.5, calcium 7.8, iron 12, iron saturation 6%, ferritin 101. Vitamin B12 more than 1000. Serum protein electrophoresis ordered and pending. ASSESSMENT AND PLAN: 1. Leukocytosis. Likely reactive due to inflammation and infection. The patient had CT scan done on September 26 that showed no evidence of retroperitoneal or pelvic lymphadenopathy. There is a left renal staghorn calculus with multiple lobulation in the left kidney. This could represent chronic infection/abscess. Urology service was consulted and note is reviewed. The patient is on IV antibiotic with Rocephin. I will check sedimentation rate and C-reactive protein to confirm the reactive process. I do not believe it is bone marrow disorder like leukemia or lymphoma. 2. Multifactorial anemia. The patient does have renal insufficiency, which could contribute to anemia along with iron deficiency based on the iron studies as well as anemia of chronic inflammation. I will start her on IV iron replacement with Venofer. She may need growth factor support with Procrit as well. 3. Urinary tract infection. The patient is on Rocephin. We will follow along with you. TATI BLANDON M.D. [employer] D I MT: [place]
[2019-09-29] MEDS: IRON SUCROSE COMPLEX 500 MG in SODIUM CHLORIDE 0.9% IV 250 ML 78.6 MG IVPB (15:55)
[2019-09-29 16:15] LABS: Hematocrit 32.3 % (37.0-47.0); Hemoglobin 9.9 g/dL (12.0-15.0)
[2019-09-29 16:41] LABS: Erythrocyte Sedimentation Rate 122 mm/hr (0-20)
[2019-09-29 18:58] LABS: CRP 25.1 mg/dL (<1.0)
[2019-09-30 00:30] LABS: Hematocrit 33.7 % (37.0-47.0); Hemoglobin 10.3 g/dL (12.0-15.0)
[2019-09-30] MEDS: TRAMADOL HCL 50 MG TABLET PO ×2 (01:16→09:02)
[2019-09-30] MEDS: LACTATED RINGERS 1,000 ML 50 ML IV CONT (04:20)
[2019-09-30 05:18] LABS: Hematocrit 31.6 % (37.0-47.0); Hemoglobin 9.7 g/dL (12.0-15.0); Mean Corpuscular HGB Conc 30.7 g/dl (32-36); Mean Corpuscular Hemoglobin 22.4 pg (26-34); Platelet Count Result 463 k/mm3 (150-375); Red Blood Count 4.33 M/mm3 (4.2-5.4); Red Cell Distribution Width 27.9 % (11.5-14.5); White Blood Count 31.1 K/mm3 (4.5-10.0)
[2019-09-30 05:32] LABS: Blood Urea Nitrogen 27 mg/dL (7-17); Calcium 7.6 mg/dL (8.4-10.2); Carbon Dioxide 21 mmol/L (22-30); Chloride 107 mmol/L (98-107); Estimated Glomerular Filt Rate 40; Glucose 93 mg/dL (65-105); Potassium 3.9 mmol/L (3.4-5.0); Sodium 135 mmol/L (137-145)
[2019-09-30 06:00] VITALS: BP 146/69; PULSE 90; RESP 18; TEMP 37.8; O2SAT 97
--- NOTE | 2019-09-30 07:59 | WPDUROPN2 ---
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 She'll need left nephrectomy at some point. I've recommended she go to urologist at [facility] as this will be a difficult surgery. Discussed with pt. Subjective Subjective Date/Time Seen: 09/30/19 07:59 Comfortable, feeling stronger - no pain. Review of Systems Cardiovascular: Cardiovascular: Denies chest pain, Denies lightheadedness, Denies palpitations and Denies dyspnea Respiratory: Respiratory: Denies dyspnea Gastrointestinal: Gastrointestinal: Denies diarrhea, Denies nausea and Denies vomiting Genitourinary: Genitourinary: Denies hematuria and Denies dysuria Endocrine: Endocrine: Denies palpitations Exam Const: General: no acute distress Resp: Effort & Inspection: normal respiratory effort GI: Inspection: non-distended GI Palp: No abdominal tenderness and No Guarding due to palpation present (GI) Auscultation: normal bowel sounds Objective Data Vital Signs Vital Signs: Vital Signs - 24 hr 09/29/19 08:00 09/29/19 10:00 09/29/19 12:02 Temperature 98 F Pulse Rate 77 92 92 Respiratory Rate 16 16 Blood Pressure 145/73 H Pulse Oximetry 98 98 09/29/19 14:00 09/29/19 20:00 09/30/19 06:00 Temperature 98.2 F 98.5 F 100.1 F H Pulse Rate 79 80 90 Respiratory Rate 16 18 18 Blood Pressure 135/70 143/71 H 146/69 H Pulse Oximetry 100 97 97 Intake/Output Intake/Output: Intake & Output 09/27/19 09/28/19 09/29/19 09/30/19 23:59 23:59 23:59 23:59 Intake Total 1550 1120 2145 1060 Output Total 300 50 Balance 1250 1120 2145 1010 Meds/Results Medications: Active Medications Generic Name Dose Route Start Last Admin Trade Name Freq PRN Reason Stop Dose Admin Alendronate Sodium 70 mg 10/03/19 06:30 Fosamax PO Fr@0630 [facility] Docusate Sodium 100 mg 09/29/19 09:39 Colace Capsule PO Q12H PRN Constipation Lactated Ringer's 1,000 mls @ 50 mls/hr 09/27/19 15:15 09/30/19 04:20 Lr - Lactated Ringers Iv IV CONT 50 mls/hr .Q20H VINNY Administration Ceftriaxone Sodium/Dextrose 1 gm in 50 mls @ 100 mls/hr 09/28/19 14:00 09/29/19 14:43 Rocephin 1 Gm/D5w 50 Ml IVPB Infused Q24H VINNY Infusion Polyethylene Glycol 17 gm 09/29/19 09:40 09/29/19 10:02 Miralax PO 17 gm QAM VINNY Administration Sertraline HCl 100 mg 09/28/19 09:00 09/29/19 09:23 Zoloft PO 100 mg DAILY IVNNY Administration Tramadol HCl 50 mg 09/27/19 18:32 09/30/19 01:16 Ultram PO 50 mg BID PRN Administration Pain Radiology Results: ITS Impressions Head CT 09/27/19 13:41 IMPRESSION: Cerebral atherosclerosis and chronic small vessel ischemic changes of the cerebral white matter Chest X-Ray 09/27/19 13:46 IMPRESSION: No active pulmonary disease or significant change since 07/04/2018 Abdomen/Pelvis CT 09/27/19 15:18 IMPRESSION: Left renal staghorn calculus with likely chronically expanded cyst, inflamed appearance to the left kidney with multiple lobulations/collections extending posteriorly and inferiorly to the left renal capsule, involving the left flank wall and extending superficially just above the left iliac crest. Fluid could be hematomas, seromas, chronic infection/abscess, less likely malignancy. Contrast-enhanced exam would be helpful, or if if patient unable to have intravenous contrast than ultrasound of the left kidney and this left lower back/flank fluid collection should be considered. Consider urinalysis, consult. Retroperitoneum Ultrasound 09/28/19 14:54 IMPRESSION: 1. Left renal staghorn calculus with lobular contour and adjacent complex fluid collections. Differential diagnosis includes acute or chronic infection/abscesses, hematoma,
[2019-09-30 08:00] VITALS: PULSE 90; RESP 18; O2SAT 97
[2019-09-30] MEDS: polyethylene glycoL 3350 17 GM POWD.PACK PO (08:42)
[2019-09-30] MEDS: DOCUSATE SODIUM 100 MG CAPSULE PO (08:43)
[2019-09-30] MEDS: SERTRALINE HCL 50 MG TABLET 100 MG PO (09:07)
--- NOTE | 2019-09-30 11:07 | PM.IMPN ---
Progress Note: A&P Assessment and Plan (1) UTI (urinary tract infection): Code(s): N39.0 - Urinary tract infection, site not specified Status: Acute Assessment and Plan: UC growing E. Coli sensitive to Rocephin. Started on IV Rocephin daily from the ER on 09/26. WBC 31.1k today; up but relatively stable. 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 She was given 2 Units of PRBCs with improvement. H&H was 9.7/31.6 this morning, stable. Hematology was consulted for the profound anemia and leukocytosis; input greatly appreciated. She is not currently on any blood thinners, and denies NSAID use, hematochezia, melena. No obvious signs of og blood loss. Stool occult to be collected Continue to monitor H&H daily since it is stable after transfusion. Transfuse again as needed. F/u with PCP as outpatient (3) Leukocytosis: Qualifiers: Leukocytosis type: unspecified Qualified Code(s): D72.829 - Elevated white blood cell count, unspecified Code(s): D72.829 - Elevated white blood cell count, unspecified Status: Acute Assessment and Plan: Patient's leukocytosis on arrival was 35k. Down to 31.1 today; still elevated but relatively stable. Likely in part due to UTI and xanthogranulomatous pyelonephritis. Patient had fever of 100.1 today, but otherwise afebrile and VSS Trend tomorrow and as outpatient Monitor (4) Kidney stones: Code(s): N20.0 - Calculus of kidney Status: Chronic Assessment and Plan: Strain all urine. The patient has had lithotripsy x2 in the past. Renal US showed Left renal staghorn calculus with lobular contour and adjacent complex fluid collections. Urology consulted and appreciate input. Patient has findings suggestive of xanthogranulomatous pyelonephritis as described above. She will likely need f/u with a Urologist for surgery in the future; she wishes to go to [facility] in the future which Dr. Asencio' group services. Patient currently appears to be stable Will have her follow up with Urology as outpatient after discharge Continue to monitor (5) Generalized weakness: Code(s): R53.1 - Weakness Status: Acute Assessment and Plan: Most likely related to the anemia. She also has a history of myelitis. Continue PT/OT Plan on SNF placement for further rehab which was recommended to her today and she seems open to rehab [facility] working on [facility] bed (6) Chronic back pain: Code(s): M54.9 - Dorsalgia, unspecified; G89.29 - Other chronic pain Status: Chronic Assessment and Plan: Reasonably controlled today Continue tramadol. (7) Depression: Code(s): F32.9 - Major depressive disorder, single episode, unspecified Status: Chronic Assessment and Plan: No acute issues Continue with sertraline (8) Multiple falls: Code(s): R29.6 - Repeated falls Status: Acute Assessment and Plan: As above, continue with PT/OT SNF rehab as patient lives at home and at risk for future falls; awaiting placement Subjective Date/time seen: 09/30/19 11:07 Interval history: Patient is
[2019-09-30 14:00] VITALS: BP 136/71; PULSE 80; RESP 16; TEMP 37.1; O2SAT 100
[2019-09-30 14:26] LABS: IFOB Positive Control Positive; Immunochemical Fecal Occult Bl Positive (N)
[2019-09-30 20:00] VITALS: BP 130/68; PULSE 80; RESP 18; TEMP 36.9; O2SAT 99
[2019-10-01] MEDS: LACTATED RINGERS 1,000 ML 50 ML IV CONT ×2 (01:22→22:07)
[2019-10-01 03:35] LABS: Haptoglobin 340 mg/dL (43-212)
[2019-10-01] MEDS: TRAMADOL HCL 50 MG TABLET PO ×2 (05:11→19:43)
[2019-10-01 05:51] LABS: Hematocrit 30.1 % (37.0-47.0); Hemoglobin 9.4 g/dL (12.0-15.0); Mean Corpuscular HGB Conc 31.2 g/dl (32-36); Mean Corpuscular Hemoglobin 22.9 pg (26-34); Mean Corpuscular Volume 73.4 fl (80-100); Mean Platelet Volume 9.1 fl (7.4-10.4); Platelet Count Result 452 k/mm3 (150-375); Red Cell Distribution Width 28.5 % (11.5-14.5); White Blood Count 26.8 K/mm3 (4.5-10.0)
[2019-10-01 06:02] VITALS: BP 157/72; PULSE 89; RESP 18; TEMP 37.6; O2SAT 97
[2019-10-01 06:14] LABS: Blood Urea Nitrogen 25 mg/dL (7-17); Calcium 7.6 mg/dL (8.4-10.2); Carbon Dioxide 21 mmol/L (22-30); Chloride 107 mmol/L (98-107); Estimated Glomerular Filt Rate 37; Glucose 78 mg/dL (65-105); Sodium 136 mmol/L (137-145)
[2019-10-01] MEDS: SERTRALINE HCL 50 MG TABLET 100 MG PO (07:57)
--- NOTE | 2019-10-01 10:45 | PM.IMPN ---
Progress Note: A&P Assessment and Plan (1) UTI (urinary tract infection): Code(s): N39.0 - Urinary tract infection, site not specified Status: Acute Assessment and Plan: UC growing E. Coli sensitive to Rocephin. Started on IV Rocephin daily from the ER on 09/26. WBC 26.8k today; downtrending. 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 She was given 2 Units of PRBCs with improvement. H&H was 9.4/30.1 this morning, stable. Hematology was consulted for the profound anemia and leukocytosis; input greatly appreciated. She is not currently on any blood thinners, and denies NSAID use, hematochezia, melena. No obvious signs of og blood loss. Stool occult positive, but again no og blood loss, melena noted. Continue to monitor H&H daily since it is stable after transfusion. Transfuse again as needed. F/u with PCP as outpatient (3) Leukocytosis: Qualifiers: Leukocytosis type: unspecified Qualified Code(s): D72.829 - Elevated white blood cell count, unspecified Code(s): D72.829 - Elevated white blood cell count, unspecified Status: Acute Assessment and Plan: Patient's leukocytosis on arrival was 35k. Down to 26.8k today; still elevated but downtrending. Likely in part due to UTI/xanthogranulomatous pyelonephritis. Patient had fever of 99.7 today and yesterday morning, but otherwise afebrile and VSS Trend tomorrow and as outpatient Monitor (4) Kidney stones: Code(s): N20.0 - Calculus of kidney Status: Chronic Assessment and Plan: Strain all urine. The patient has had lithotripsy x2 in the past. Renal US showed Left renal staghorn calculus with lobular contour and adjacent complex fluid collections. Urology consulted and appreciate input. Patient has findings suggestive of xanthogranulomatous pyelonephritis as described above. She will likely need f/u with a Urologist for surgery in the future, possibly nephrectomy; she wishes to go to [facility] in the future which Dr. Asencio' group services. Patient currently appears to be stable Will have her follow up with Urology as outpatient after discharge Continue to monitor (5) Generalized weakness: Code(s): R53.1 - Weakness Status: Acute Assessment and Plan: Most likely related to the anemia. She also has a history of myelitis. Continue PT/OT Plan on [place] [facility] for further PT/OT (6) Chronic back pain: Code(s): M54.9 - Dorsalgia, unspecified; G89.29 - Other chronic pain Status: Chronic Assessment and Plan: Reasonably controlled today Continue tramadol. (7) Depression: Code(s): F32.9 - Major depressive disorder, single episode, unspecified Status: Chronic Assessment and Plan: No acute issues Continue with sertraline (8) Multiple falls: Code(s): R29.6 - Repeated falls Status: Acute Assessment and Plan: As above, continue with PT/OT SNF rehab as patient lives at home and at risk for future falls;Will do [place] [facility] bed at discharge
[2019-10-01 14:00] VITALS: BP 155/93; PULSE 87; RESP 16; TEMP 36.6; O2SAT 98
--- NOTE | 2019-10-01 16:13 | WPDONCPN ---
Progress Note: A/P - Additional Plan Multifactorial anemia. This is secondary to iron deficiency and also anemia of chronic disease and inflammation with underlying infection and renal disease.. Hemoccult stool was positive but patient denies any bleeding and melena. Patient is not status post IV iron infusion. Hemoglobin remains stable. I plan to see her back in my office and due to 3 weeks after discharge for repeat blood check. She should go home on oral iron replacement. Renal calculus with UTI. Patient is on IV antibiotic. Urology input is noted for possible nephrectomy. - Time Spent With Patient Total time spent is greater than 50% in coordination of care (as documented) at patient's floor/unit and/or counseling patient: 15 - 25 minutes Subjective Interval history: Multifactorial anemia with iron deficiency and anemia of chronic inflammation Renal calculus with abscess UTI Review of Systems - Review of Systems Patient looks quite comfortable. He denies any abdominal pain. Denies any fevers and chills. Denies any hematuria and other bleeding. - Neurologic Reports system reviewed and no additional complaints, except as documented (Hard of hearing left ear hearing aids at home.), Reports weakness Exam Vital signs: Temp Pulse Resp BP Pulse Ox 36.6 C 87 16 155/93 H 98 10/01/19 14:00 10/01/19 14:00 10/01/19 14:00 10/01/19 14:00 10/01/19 14:00 Narrative: Lungs are clear to auscultation bilaterally Cardiovascular regular rate rhythm no murmurs Abdomen soft nontender nondistended Extremities no edema PN: Objective Data - Labs CBC & Chem 7: 10/01/19 04:58 10/01/19 04:58 Labs: Laboratory Results - last 24 hr 09/27/19 10/01/19 10/01/19 19:53 04:58 04:58 WBC 26.8 H RBC 4.10 L Hgb 9.4 L Hct 30.1 L MCV 73.4 L MCH 22.9 L MCHC 31.2 L RDW 28.5 H Plt Count 452 H MPV 9.1 Haptoglobin 340 H Sodium 136 L Potassium 4.0 Chloride 107 Carbon Dioxide 21 L BUN 25 H Creatinine 1.40 H Estim Creat Clear Calc Not Reportable Estimated GFR 37 L Glucose 78 Calcium 7.6 L Magnesium 2.0
[2019-10-01] MEDS: BENZOCAINE/MENTHOL (*BKC) 18 EA LOZENGE 1 LOZENGE PO (19:46)
[2019-10-01 20:00] VITALS: BP 151/73; PULSE 54; RESP 16; TEMP 36.8; O2SAT 97
[2019-10-01 23:20] LABS: Alpha 1 Globulin 0.7 g/dL (0.2-0.3); Alpha 2 Globulin 0.8 g/dL (0.5-0.9); Beta 1 Globulin 0.3 g/dL (0.4-0.6); Gamma Globulin 1.1 g/dL (0.8-1.7); Protein, Total 5.2 g/dL (6.1-8.1)
[2019-10-02 05:11] LABS: Basophils Absolute Auto 0.1 K/mm3 (0.0-0.1); Basophils Percent Auto 0.4 % (0.2-1.2); Eosinophils Absolute Auto 0.2 K/mm3 (0-0.3); Eosinophils Percent Auto 0.6 % (0-4.4); Hemoglobin 9.3 g/dL (12.0-15.0); Immature Granulocyte Absolute 0.97 K/mm3 (0.00-0.031); Immature Granulocyte Percent A 3.8 % (0-0.5); Lymphocytes Absolute Auto 0.94 K/mm3 (0.9-3.2); Lymphocytes Percent Auto 3.7 % (18.3-44.2); Mean Corpuscular Hemoglobin 22.5 pg (26-34); Mean Corpuscular Volume 72.6 fl (80-100); Mean Platelet Volume 9.2 fl (7.4-10.4); Monocytes Absolute Auto 1.4 K/mm3 (0.1-0.6); Monocytes Percent Auto 5.4 % (2.6-8.5); Neutrophils Absolute Auto 22.2 K/mm3 (1.3-6.7); Neutrophils Percent Auto 86.1 % (45.5-73.1); Platelet Count Result 461 k/mm3 (150-375); Red Blood Count 4.13 M/mm3 (4.2-5.4); Red Cell Distribution Width 28.9 % (11.5-14.5); White Blood Count 25.8 K/mm3 (4.5-10.0)
[2019-10-02 05:23] LABS: Blood Urea Nitrogen 23 mg/dL (7-17); Calcium 7.7 mg/dL (8.4-10.2); Carbon Dioxide 22 mmol/L (22-30); Chloride 105 mmol/L (98-107); Estimated Glomerular Filt Rate 44; Glucose 98 mg/dL (65-105); Potassium 4.1 mmol/L (3.4-5.0); Sodium 134 mmol/L (137-145)
[2019-10-02 05:55] VITALS: BP 157/74; PULSE 88; RESP 18; TEMP 36.1; O2SAT 98
[2019-10-02 06:25] LABS: Anisocytosis 2+ (NORMAL); Hypochromasia 1+ (NORMAL); Platelet Estimate Adequate (Adequate)
--- NOTE | 2019-10-02 08:57 | PCOTNOTE ---
Attempted to see patient this am, however patient refused. Pt refused activity out of bed stating, Listen to me. Referring to her cough. Encouraged patient to sit up and benefits to health being upright and out of bed. Pt replied, Look at me. I'm not laying down. I'm sitting up in bed. No, I'm not gonna do it today.
[2019-10-02] MEDS: SERTRALINE HCL 50 MG TABLET 100 MG PO (09:23)
--- NOTE | 2019-10-02 11:08 | PM.IMPN ---
Progress Note: A&P Assessment and Plan (1) UTI (urinary tract infection): Code(s): N39.0 - Urinary tract infection, site not specified Status: Acute Assessment and Plan: Complicated with likely xanthogranulomatous pyelonephritis with extensive involvement of left kidney. UC growing E. Coli sensitive to Rocephin. Started on IV Rocephin daily from the ER on 09/26. WBC 25.8k today; downtrending though still significantly elevated. Discussed case with Radiologist who did not recommend further imaging, but rather possibility of a drain. Continue IV rocephin. Will discuss case Urology for further input on matter to see if this needs to be addressed sooner rather than later. Plan on trending WBC for now Will plan on 14 days total antibiotics; 7 days IV Rocephin and then 7 days cefdinir given complicated UTI (2) Anemia: Qualifiers: Anemia type: unspecified type Qualified Code(s): D64.9 - Anemia, unspecified Code(s): D64.9 - Anemia, unspecified Status: Acute Assessment and Plan: Acute severe anemia on arrival with a hemoglobin at 4.8. She was given 2 Units of PRBCs with improvement. H&H was 9.3/30.0 this morning, stable. Hematology was consulted for the profound anemia and leukocytosis; input greatly appreciated. She is not currently on any blood thinners, and denies NSAID use, hematochezia, melena. No obvious signs of og blood loss. Stool occult positive, but again no og blood loss noted by patient Continue to monitor H&H daily since it is stable after transfusion. Transfuse again as needed. F/u with PCP as outpatient (3) Leukocytosis: Qualifiers: Leukocytosis type: unspecified Qualified Code(s): D72.829 - Elevated white blood cell count, unspecified Code(s): D72.829 - Elevated white blood cell count, unspecified Status: Acute Assessment and Plan: Patient's leukocytosis on arrival was 35k. Down to 25.8k today; still elevated but slightly downtrending. Likely due to complicated UTI/xanthogranulomatous pyelonephritis. Patient afebrile since yesterday morning, VSS Trend tomorrow and as outpatient Monitor (4) Kidney stones: Code(s): N20.0 - Calculus of kidney Status: Chronic Assessment and Plan: Strain all urine. The patient has had lithotripsy x2 in the past. Renal US showed Left renal staghorn calculus with lobular contour and adjacent complex fluid collections. Urology consulted and appreciate input. Patient has findings suggestive of xanthogranulomatous pyelonephritis as described above. She will likely need f/u with a Urologist for surgery in the future, possibly nephrectomy; she wishes to go to [facility] in the future which Dr. Asencio' group services. Patient currently appears to be stable. Will discuss with Urology plan for xanthogranulomatous pyelonephritis with persistent leukocytosis despite IV antibiotics Continue to monitor (5) Generalized weakness: Code(s): R53.1 - Weakness Status: Acute Assessment and Plan: Most likely related to the anemia. She also has a history of myelitis. Continue PT/OT Plan on [place] [facility] for further PT/OT once discharged (6) Chronic back pain: Code(s): M54.9 - Dorsalgia, unspecified; G89.29 - Other chronic pain Status: Chronic Assessment and Plan: Reasonably controlled today Continue tramadol. (7) Depression: Code(s): F32.9 - Major depressive disorder, single episode, unspecified Status: Chronic Assessment and Plan: No acute issues Continue with sertraline (8) Multiple falls: Cod
[2019-10-02 11:09] VITALS: BP 134/86
[2019-10-02 11:11] VITALS: BP 130/82
[2019-10-02 11:14] VITALS: BP 128/78
--- NOTE | 2019-10-02 12:19 | PCPTNOTE ---
Transfers and gait were not performed during P.T. treatment today due to patients c/o increased dizziness while sitting up on EOB. C/o dizziness did not subside after prolonged sitting on EOB.
--- NOTE | 2019-10-02 13:30 | WPDUROPN2 ---
Progress Note: A&P Assessment and Plan (1) XGP (xanthogranulomatous pyelonephritis): Code(s): N11.8 - Other chronic tubulo-interstitial nephritis Status: Acute Assessment and Plan: Plans for mgmt. of left XGP discussed with hospitalists PA. Agree with plans for 2-week course of abx. I'm comfortable with transefer to rehab. while getting abx. No indication for drainage left kidney. Will f/u with my partner, Dr. Isak Bassett, to discuss possible nephectomy. Subjective Subjective Date/Time Seen: 10/02/19 13:30 Comfortable Review of Systems Cardiovascular: Cardiovascular: Denies chest pain, Denies lightheadedness, Denies palpitations and Denies dyspnea Respiratory: Respiratory: Denies dyspnea Gastrointestinal: Gastrointestinal: Denies diarrhea, Denies nausea and Denies vomiting Genitourinary: Genitourinary: Denies hematuria and Denies dysuria Endocrine: Endocrine: Denies palpitations Exam Const: General: no acute distress Resp: Effort & Inspection: normal respiratory effort GI: Inspection: non-distended GI Palp: No abdominal tenderness and No Guarding due to palpation present (GI) Auscultation: normal bowel sounds Objective Data Vital Signs Vital Signs: Vital Signs - 24 hr 10/01/19 14:00 10/01/19 20:00 10/02/19 05:55 Temperature 97.8 F 98.3 F 97 F L Pulse Rate 87 54 L 88 Respiratory Rate 16 16 18 Blood Pressure 155/93 H 151/73 H 157/74 H Pulse Oximetry 98 97 98 Intake/Output Intake/Output: Intake & Output 09/29/19 09/30/19 10/01/19 10/02/19 23:59 23:59 23:59 23:59 Intake Total 2145 2510 3230 1010 Output Total 50 Balance 2145 2460 3230 1010 Meds/Results Medications: Active Medications Generic Name Dose Route Start Last Admin Trade Name Freq PRN Reason Stop Dose Admin Alendronate Sodium 70 mg 10/03/19 06:30 Fosamax PO Fr@0630 VINNY Benzocaine 1 lozenge 10/01/19 14:09 10/01/19 19:46 Chloraseptic Lozenge PO 1 lozenge PRN PRN Administration Sore Throat Docusate Sodium 100 mg 09/29/19 09:39 09/30/19 08:43 Colace Capsule PO 100 mg Q12H PRN Administration Constipation Lactated Ringer's 1,000 mls @ 50 mls/hr 09/27/19 15:15 10/02/19 11:25 Lr - Lactated Ringers Iv IV CONT Infused .Q20H VINNY Infusion Ceftriaxone Sodium/Dextrose 1 gm in 50 mls @ 100 mls/hr 09/28/19 14:00 10/01/19 14:31 Rocephin 1 Gm/D5w 50 Ml IVPB Infused Q24H VINNY Infusion Polyethylene Glycol 17 gm 09/29/19 09:40 09/30/19 08:42 Miralax PO 17 gm QAM VINNY Administration Sertraline HCl 100 mg 09/28/19 09:00 10/02/19 09:23 Zoloft PO 100 mg DAILY VINNY Administration Tramadol HCl 50 mg 09/27/19 18:32 10/01/19 19:43 Ultram PO 50 mg BID PRN Administration Pain Radiology Results: ITS Impressions Head CT 09/27/19 13:41 IMPRESSION: Cerebral atherosclerosis and chronic small vessel ischemic changes of the cerebral white matter Chest X-Ray 09/27/19 13:46 IMPRESSION: No active pulmonary disease or significant change since 07/04/2018 Abdomen/Pelvis CT 09/27/19 15:18 IMPRESSION: Left renal staghorn calculus with likely chronically expanded cyst, inflamed appearance to the left kidney with multiple lobulations/collections extending posteriorly and inferiorly to the left renal capsule, involving the left flank wall and extending superficially just above the left iliac crest. Fluid could be hematomas, seromas, chronic infection/abscess, less likely malignancy. Contrast-enhanced exam would be helpful, or if if patient unable to have intravenous contrast than ultrasound of the left kidney and this left lower back/flank fluid collection should be considered. Consider urinalysis, consult. Retroperitoneum Ultrasound 09/28/19 14:54 IMPRESSION: 1. Left renal staghorn calculus with lobular contour and adjacent complex fluid collections. Differential diagnosis includes acute or chronic infection/a
[2019-10-02 14:00] VITALS: BP 154/78; PULSE 103; RESP 18; TEMP 36.7; O2SAT 98
--- NOTE | 2019-10-02 15:30 | PM.DS ---
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 UC growing E. Coli sensitive to Rocephin. Started on IV Rocephin daily from the ER on 09/26. WBC 25.8k today; downtrending though still significantly elevated. Discussed case with Urology and patient okay for discharge to [facility] from Urology standpoint. Follow up with Urology, Dr. Bassett in 2 week for further work up for possible surgery Will plan on 14 days total antibiotics; 7 days IV Rocephin total (09/26 - 10/02) and then 7 days cefdinir (10/03-10/09) given complicated UTI (2) Anemia: Qualifiers: Anemia type: unspecified type Qualified Code(s): D64.9 - Anemia, unspecified Code(s): D64.9 - Anemia, unspecified Status: Acute Assessment and Plan: Acute severe anemia on arrival with a hemoglobin at 4.8. She was given 2 Units of PRBCs with improvement. H&H was 9.3/30.0 this morning, stable. Hematology was consulted for the profound anemia and leukocytosis; input greatly appreciated. She is not currently on any blood thinners, and denies NSAID use, hematochezia, melena. No obvious signs of og blood loss. Stool occult positive, but again no og blood loss noted by patient Transfuse again as needed. F/u with PCP as outpatient (3) Leukocytosis: Qualifiers: Leukocytosis type: unspecified Qualified Code(s): D72.829 - Elevated white blood cell count, unspecified Code(s): D72.829 - Elevated white blood cell count, unspecified Status: Acute Assessment and Plan: Patient's leukocytosis on arrival was 35k. Down to 25.8k today; still elevated but slightly downtrending. Likely due to complicated UTI/xanthogranulomatous pyelonephritis. Patient afebrile since yesterday morning, VSS Monitor (4) Kidney stones: Code(s): N20.0 - Calculus of kidney Status: Chronic Assessment and Plan: Strain all urine. The patient has had lithotripsy x2 in the past. Renal US showed Left renal staghorn calculus with lobular contour and adjacent complex fluid collections. Urology consulted and appreciate input. Patient has findings suggestive of xanthogranulomatous pyelonephritis as described above. She will likely need f/u with a Urologist for surgery in the future, possibly nephrectomy; she wishes to go to [facility] in the future which Dr. Asencio' group services. Patient currently appears to be stable. Please see above (5) Generalized weakness: Code(s): R53.1 - Weakness Status: Acute Assessment and Plan: Most likely related to the anemia. She also has a history of myelitis. Plan on [place] [facility] for further PT/OT once discharged (6) Chronic back pain: Code(s): M54.9 - Dorsalgia, unspecified; G89.29 - Other chronic pain Status: Chronic Assessment and Plan: Reasonably controlled today Continue tramadol. (7) Depression: Code(s): F32.9 - Major depressive disorder, single episode, unspecified Status: Chronic Assessment and Plan: No acute issues Continue with sertraline (8) Multiple falls: Code(s): R29.6 - Repeated falls Status: Acute Assessment and Plan: As above, continue with PT/OT SNF rehab as patient lives at home and at risk for future falls;Will do [place] swing bed at discharge _
--- NOTE | 2019-10-02 16:15 | PC.NURSE ---
Report called to BERNADINE Juarez at [facility]. All questions and concerns answered at this time.
[2019-10-04 13:34] LABS: Soluble Transferrin Receptor 2.42 mg/L (0.76-1.76)
[2019-10-04 15:18] LABS: Creatinine, Random Urine 68 mg/dL (20-275); Total Protein/Creatinine Ratio 2338 mg/g creat (21-161)
== END 2019-10-02 18:27 | disposition swing bed (61) | DRG 690 ==
LOC: ANHED 15:57 → ANH2MED 16:09 → ANHIMU 21:45 → ANH2MED 09-29 14:34 → ANHIMU 10-03 13:59
PROVIDERS: Internal Medicine; Internal Medicine Hematology & Oncology; Nurse Practitioner; Surgery; Admitting Provider Family Medicine; Emergency Provider Emergency Medicine; PCP Emergency Medicine; Visit Provider Physician Assistant
DX: N39.0 Urinary tract infection, site not specified (principal); G37.3 Acute transverse myelitis in demyelinating disease of central nervous system; N11.8 Other chronic tubulo-interstitial nephritis; B96.20 Unspecified Escherichia coli [E. coli] as the cause of diseases classified elsewhere; N20.0 Calculus of kidney; D64.9 Anemia, unspecified; D72.829 Elevated white blood cell count, unspecified; R00.0 Tachycardia, unspecified; F32.9 Major depressive disorder, single episode, unspecified; M54.9 Dorsalgia, unspecified; G89.29 Other chronic pain; J43.9 Emphysema, unspecified; K21.9 Gastro-esophageal reflux disease without esophagitis; M19.90 Unspecified osteoarthritis, unspecified site; R29.6 Repeated falls; M81.0 Age-related osteoporosis without current pathological fracture; Z87.891 Personal history of nicotine dependence
CPT/HCPCS: 36415; 36430; 51701; 70450; 71045; 74176; 76770; 78707; 80048; 80053; 81001; 82274; 82570; 82607; 82728; 82746; 83010; 83540; 83550; 83735; 84155; 84156; 84165; 84166; 84238; 85014; 85018; 85025; 85027; 85046; 85055; 85652; 86140; 86850; 86860; 86870; 86880; 86900; 86901; 86920; 87077; 87086; 87088; 87186; 93005; 96361; 96365; 97110; 97116; 97161; 97165; 97530; 97535; 99285; A9270; A9562; J0696; J1756; J7030; J7050; J7120; P9016

== ENCOUNTER 2019-10-02 19:11 | Inpatient (IN) | payer MEDICARE, SELFPAY ==
--- NOTE | ~2019-10-02 | CT_ITS ---
EXAMINATION: CT abd pelvis lumbar w con DATE: 10/15/2019 10:27 INDICATION: Purulent drainage from a hematoma at the left hip/flank post fall. Low back pain. TECHNIQUE: Computed tomography (CT) of the abdomen, pelvis and lumbar spine was performed with 100 mL Omnipaque-350 intravenous contrast. Automated exposure control and iterative reconstruction techniqu e were employed. The dose-length product was 179.39 mGy-cm. COMPARISON: 09/27/2019 FINDINGS: Abdomen and pelvis: Small left pleural effusion. Surgical clip with bronchiectasis and scarring along the base of the rig ht middle lobe. Heart size is normal. Atherosclerotic coronary artery calcifications. Very small heather cardial effusion. Moderate-sized sliding-type hiatal hernia. There is wall thickening in the fluid-fi lled distal esophagus likely related to reflux. Liver, gallbladder, spleen, pancreas and right kidney are normal. Large staghorn calculus filling the left renal pelvis and extending into the calyces whe re there is mild hydronephrosis. Secondary xanthogranulomatous pyelonephritis with parenchymal destru ction in the lower pole of the left kidney and multilobulated peripherally enhancing abscess extendin g to the inferior perirenal fat and through the posterior abdominal wall to communicate with a large rim-enhancing abscess in the subcutaneous tissues along the left flank which measures 13.0 x 11.2 x 7 .2 cm. Bowels including the appendix are normal. Bladder, uterus and left adnexa are unremarkable. 2 cm right adnexal cyst. No free intraperitoneal gas or fluid. A few mildly prominent left periaortic l ymph nodes which are likely reactive. No pathologically enlarged abdominal or pelvic lymphadenopathy. Extensive calcified atherosclerosis of the aorta and many of the other arteries. Lumbar spine: Multiple chronic compression and burst fractures in the lumbar and lower thoracic spine most severe a t T12 where there is near-complete central vertebral body height loss as well as 8 mm retropulsion re sulting in moderate central canal stenosis at this level. There is associated mild focal kyphosis. 20 % anterior vertebral body height loss at T10 where there is been prior vertebroplasty as well as T11 and L2. 60% central vertebral body height loss at L5 where there is also been prior vertebroplasty. N o acute fracture. The following disc levels are specifically discussed: T11-T12: Disc is mildly bulging. Retropulsion of the posterior wall of the T12 vertebral body. There is mild bilateral facet joint osteoarthritis. There is no neural foraminal stenosis. There is mild ce ntral canal stenosis at the level of the disc space, moderate central canal stenosis at the cephalad aspect of T12. T12-L1: The disc does not extend beyond the endplate margin. There is mild bilateral facet joint oste oarthritis. There is mild bilateral neural foraminal stenosis. There is no central canal stenosis. L1-L2: Disc is bulging. There is mild bilateral facet joint osteoarthritis. There is mild bilateral n eural foraminal stenosis. There is mild central canal stenosis. L2-L3: Disc is bulging. There is mild bilateral facet joint osteoarthritis. There is mild to moderate bilateral neural foraminal stenosis. There is mild central canal stenosis. L3-L4: Disc is bulging. There is mild bilateral facet joint osteoarthritis. There is mild bilateral n eural foraminal stenosis. There is mild central canal stenosis. L4-L5: Disc is bulging. There is moderate left and severe right facet joint osteoarthritis. There is moderate bilateral neural foraminal stenosis. There is moderate central canal stenosis. L5-S1: Disc is bulging. There is moderate right and severe left facet joint osteoarthritis. There is moderate right and mild to moderate left neural foraminal stenosis. There is mild central canal steno sis. IMPRESSION: 1. Large left renal staghorn calculus with
[2019-10-02 19:35] VITALS: BMI 22.1
--- NOTE | 2019-10-02 19:38 | PC.NURSE ---
Admitted for SSB to , diagnosis of weakness, status post fall with low H/H and syncope, denies needs on arrival, states is incontinent and wears depends, states cannot always get to bathroom on time, no edema, thigh high debra hose on, no distress, multiple areas of bruising noted to skin, laceration healing to left brow, protective dressing noted to left upper arm and buttocks, oriented to room, call light explained, side rails up for safety
[2019-10-02 19:50] VITALS: BP 171/88; PULSE 90; RESP 18; TEMP 37.4; O2SAT 97
--- NOTE | 2019-10-02 21:21 | PC.NURSE ---
Requesting pain medication for chronic back pain, states takes tramadol for this, advised we are waiting on physician to do medication orders and when completed will bring pain medication to her as soon as available
[2019-10-02 23:41] VITALS: BP 167/90; PULSE 98; RESP 20; TEMP 36.1; O2SAT 98
[2019-10-03] MEDS: ACETAMINOPHEN 325 MG TABLET 650 MG PO (00:18)
--- NOTE | 2019-10-03 01:17 | PC.NURSE ---
.Sleeping, resp even. No signs of discomfort noted. Call galloway @ hand.
--- NOTE | 2019-10-03 02:28 | PC.NURSE ---
[facility] care provided.
[2019-10-03 04:00] VITALS: BP 154/82; PULSE 82; RESP 20; TEMP 36.6; O2SAT 97
--- NOTE | 2019-10-03 04:15 | PC.NURSE ---
[facility] care provided.
[2019-10-03 05:28] LABS: Hematocrit 34.6 % (35.0-42.0); Hemoglobin 10.6 g/dL (11.7-13.8); Mean Corpuscular HGB Conc 30.6 g/dL (32.0-36.0); Mean Corpuscular Hemoglobin 22.6 pg (27.0-31.0); Mean Corpuscular Volume 73.6 fL (78.0-102.0); Mean Platelet Volume 8.7 fl (9.2-11.8); Platelet Count Result 461 K/mm3 (150-420); Red Cell Distribution Width 29.2 % (11.6-14.4)
[2019-10-03 05:37] LABS: Anion Gap 12.9 mmol/L (7-16); Blood Urea Nitrogen 24 mg/dL (7-18); Carbon Dioxide 23 mmol/L (21-32); Chloride 103 mmol/L (98-108); Estimated Glomerular Filt Rate 37; Glucose 93 mg/dL (70-99); Osmolality Calculated 284 mOsm/kg (285-295); Potassium 3.9 mmol/L (3.5-5.1); Sodium 135 mmol/L (136-145)
[2019-10-03 05:45] LABS: White Blood Count 26.2 K/mm3 (4.8-10.8)
[2019-10-03 05:47] LABS: Band Neutrophils Percent 3 % (0-6); Basophils Percent Manual 0 % (0-1); Eosinophils Percent Manual 0 % (1-6); Lymphocytes Absolute Manual 1.57 K/mm3 (1.1-4.5); Lymphocytes Percent Manual 6 % (18-44); Monocytes Absolute Manual 1.04 K/mm3 (0.1-0.90); Monocytes Percent Manual 4 % (3-9); Neutrophils Absolute Manual 23.58 K/mm3 (1.7-7.2); Neutrophils Percent Manual 87 % (46-73); Platelet Estimate Adequate (Adequate)
--- NOTE | 2019-10-03 06:19 | PC.NURSE ---
Sleeping, awake for positioning. Toileting offered. Pt stated she was incontinent. [facility] care provided.
--- NOTE | 2019-10-03 07:15 | PC.NURSE ---
Incontinent of urine, smear of stool, cleaned and dry attends applied, states abdomen feeling cramping today, doesn't know when she is going to go to the bathroom
[2019-10-03 07:39] VITALS: BP 159/91; PULSE 84; RESP 18; TEMP 37
--- NOTE | 2019-10-03 08:18 | PC.NURSE ---
Gait belt used and contact guard assist, leans to back, legs weak, able to get to half a sitting position in bed, needed help to get up to sit up straight, able to stand but unsteady, walker used to get to chair,
--- NOTE | 2019-10-03 08:53 | PC.NURSE ---
Comfortable in chair, denies needs, did not eat well
[2019-10-03] MEDS: SERTRALINE HCL 50 MG TABLET 100 MG PO (09:17)
[2019-10-03] MEDS: ENOXAPARIN 40 MG/0.4 ML SYRINGE SUB-Q (09:17)
[2019-10-03] MEDS: FERROUS SULFATE 324 MG TABLET PO (09:17)
--- NOTE | 2019-10-03 10:49 | PC.NURSE ---
Resting in bed, denies needs, awaiting PT for evaluation
--- NOTE | 2019-10-03 11:00 | PC.NURSE ---
depends changed, noted moderate solid BM with urine
--- NOTE | 2019-10-03 11:12 | PM.IMHP ---
H&P: HPI History of Present Illness Chief complaint: Rehab Narrative: Kaylen Alva is a 69 year old female that was admitted to [facility] on 09/27/2019 due to anemia, generalized weakness, UTI and pyelonephritis . Patient has a past medical history of C diff, back pain, depression, emphysema, GERD, hypertension, kidney stones( 2 lithotripsies and chronic kidney stones), myelitis, osteoarthritis, osteoporosis, pleural effusion, rectal polyps, shingles, left shoulder fracture, UTI, transverse myelitis. prior to admission patient had 2 falls since 09/22/2019. according to patient when she had the 1st fall she slipped on something, she is unsure what she slipped on and the 2nd fall she was attempting to let her dog out and fell down stairs. On the 2nd fall she did sustain a left head laceration. the following day after the 2nd fall she did proceed to the ED due to generalized weakness. While in the ED a CT of the head was completed and it was negative for infarct or hemorrhage her hemoglobin was noted to be at 5.4 at that time she was transfused with 2 units of PRBCs her white count was also elevated. While she was on patient urology was consulted at that time she was diagnosed with xanthogranulomatous pyelonephritis she was also placed on IV antibiotics Rocephin that she is to complete complete until tomorrow she was then started cefdinir. She also has to follow up with Dr. Isak potts for possible nephrectomy in 2-3 weeks to continue antibiotics. She was also consulted by hematology due to her anemia it was suggested that she start on iron supplement . vital signs today are 159/91, 84, 18, 37.0 and 97% on room air. Patient has multiple skin tears in multiple upper body bruising she also has a ulcer on her coccyx in the skin tear to her mid lower back. Patient admitted in swing bed for rehabilitation due to decreased balance decreased mobility in severe limited function endurant and/or mobility. Review of Systems Constitutional: Constitutional: Reports fatigue, Reports lethargy and Reports weakness Eyes: Eyes: Denies change in vision, Denies diplopia and Denies other visual disturbances Cardiovascular: Cardiovascular: Reports no additional cardiovascular complaints, Denies syncope, Denies edema, Denies leg edema, Denies dyspnea on exertion, Denies orthopnea and Denies paroxysmal nocturnal dyspnea Respiratory: Respiratory: Reports no additional respiratory complaints, Denies cough, Denies dyspnea and Denies wheezing Gastrointestinal: Gastrointestinal: Reports no additional gastrointestinal complaints, Denies melena, Denies hematochezia, Denies change in stool character, Denies heartburn, Denies diarrhea, Denies nausea and Denies vomiting Genitourinary: Genitourinary: Reports no additional female genitourinary complaints and Denies hematuria Musculoskeletal: Musculoskeletal: Reports arthralgias ( lower back) Integumentary/Breasts: Skin/Breast: Reports skin ulcer ( coccyx) Neurologic: Denies Abnormal speech present, Denies vertigo, Reports dizziness ( patient noted that when she stands up too quickly she gets dizzy) and Reports syncope Psychiatric: Psychiatric: Reports no additional psychiatric complaints, Denies anxiety, Denies confusion, Denies depression, Denies hopelessness and Denies irritability Hematologic/Lymphatic: Hematologic/Lymphatic: Reports easy bruising Allergic/Immunologic: Allergic/Immunologic: Reports no additional allergic/immunologic complaints [facility] Past Medical History Medical History (Updated 10/01/19 @ 16:16 by Maxx Garcia MD) C. difficile diarrhea Chronic back pain Depression Emphysema of lung Empyema Patient stated she had her lung script at least 3 times GERD (gastroesophageal reflux disease) History of blood transfusion HTN (hypertension) Kidney stones With a history of 2 lithotripsies and chronic kidney stones Myelitis Osteoarthritis Osteoporosis Pleural effusion Rectal polyp Shingles
[2019-10-03] MEDS: ALENDRONATE SODIUM 70 MG TABLET PO (11:33)
[2019-10-03] MEDS: TRAMADOL HCL 50 MG TABLET PO (11:35)
--- NOTE | 2019-10-03 11:37 | PC.NURSE ---
Resting in chair with legs elevated, worked with PT department just now, tolerated fair, tramadol given for back pain
[2019-10-03 12:00] VITALS: RESP 18
--- NOTE | 2019-10-03 12:05 | PC.NURSE ---
remains in chair for lunch, able to feed self
--- NOTE | 2019-10-03 12:45 | PC.NURSE ---
SBA use of gait belt and walker with contact guard assist, tolerated well, better movement than this am, just feels nauseated at this time
[2019-10-03] MEDS: AMLODIPINE BESYLATE 5 MG TABLET 2.5 MG PO (14:09)
[2019-10-03] MEDS: LIDOCAINE 5% PATCH 1 PATCH TRANSDERM (14:10)
--- NOTE | 2019-10-03 14:21 | PC.NURSE ---
Resting in bed, lido patch to lower back, depends dry at this time
[2019-10-03 15:55] VITALS: BP 154/81; PULSE 87; RESP 16; TEMP 37.2; O2SAT 98
--- NOTE | 2019-10-03 20:20 | PM.EVENT ---
Event Note Event Note Event Note: 69-year-old woman with a history of kidney stones admitted to a swing bed today for IV antibiotics and rehabilitation for weakness after being diagnosed with pyelonephritis and I staghorn calculus of her left kidney. Plan is to give her a total of 2 weeks of antibiotics before follow-up with urology and possible nephrectomy. Comfortable appearing, alert and oriented. Lungs are clear to auscultation without increased work of breathing. Regular rate and rhythm without murmur rub or gallop. Distal pulses are full and symmetric. Extremities are warm and dry. Abdomen soft and minimally tender. Positive bowel sounds. IV antibiotics and rehab for strengthening. I have examined the patient reviewed the chart. I discussed the patient with Sebastian Will APN and agree with her assessment plan.
[2019-10-03] MEDS: TRAZODONE HCL 50 MG TABLET PO (21:19)
[2019-10-04] VITALS: BP 130/70; PULSE 83; RESP 16; TEMP 36.6; O2SAT 97
--- NOTE | 2019-10-04 01:03 | PC.NURSE ---
Sleeping, resp even. Call galloway @ hand.
--- NOTE | 2019-10-04 03:23 | PC.NURSE ---
[facility] care provided.
[2019-10-04] MEDS: PANTOPRAZOLE 40 MG TABLET PO (05:45)
[2019-10-04 06:24] LABS: Hematocrit 30.2 % (35.0-42.0); Hemoglobin 9.5 g/dL (11.7-13.8); Mean Corpuscular HGB Conc 31.5 g/dL (32.0-36.0); Mean Corpuscular Hemoglobin 23.1 pg (27.0-31.0); Mean Corpuscular Volume 73.5 fL (78.0-102.0); Mean Platelet Volume 9.1 fl (9.2-11.8); Platelet Count Result 470 K/mm3 (150-420); Red Blood Count 4.11 M/mm3 (4.20-5.40); Red Cell Distribution Width 29.5 % (11.6-14.4)
[2019-10-04 06:30] LABS: White Blood Count 21.6 K/mm3 (4.8-10.8)
--- NOTE | 2019-10-04 06:34 | PC.NURSE ---
0615 Lab called to report critical WBC of 21.6.
[2019-10-04 06:39] LABS: Alanine Aminotransferase 33 U/L (14-59); Albumin Level 1.6 g/dL (3.4-5.0); Alkaline Phosphatase 179 U/L (46-116); Anion Gap 13.9 mmol/L (7-16); Aspartate Amino Transferase 25 U/L (15-37); Bilirubin,Total 0.4 mg/dL (0.00-1.00); Blood Urea Nitrogen 25 mg/dL (7-18); Calcium 7.8 mg/dL (8.5-10.1); Carbon Dioxide 23 mmol/L (21-32); Chloride 104 mmol/L (98-108); Estimated Glomerular Filt Rate 36; Glucose 89 mg/dL (70-99); Osmolality Calculated 287 mOsm/kg (285-295); Potassium 3.9 mmol/L (3.5-5.1); Sodium 137 mmol/L (136-145); Total Protein 5.7 g/dL (6.4-8.2)
--- NOTE | 2019-10-04 06:47 | PC.NURSE ---
[address] Taylor to report critical lab values but he was unavailable.
[2019-10-04 07:28] VITALS: BP 144/85; PULSE 91; RESP 18; TEMP 37.1; O2SAT 95
--- NOTE | 2019-10-04 08:10 | PC.NURSE ---
Assisted up to chair for breakfast, used walker and 2 stand by assist, moves slowly
[2019-10-04] MEDS: LIDOCAINE 5% PATCH 1 PATCH TRANSDERM (09:34)
[2019-10-04] MEDS: CEFDINIR 300 MG CAPSULE PO ×2 (09:34→20:57)
[2019-10-04] MEDS: SERTRALINE HCL 50 MG TABLET 100 MG PO (09:35)
[2019-10-04] MEDS: ENOXAPARIN 40 MG/0.4 ML SYRINGE SUB-Q (09:36)
[2019-10-04] MEDS: FERROUS SULFATE 324 MG TABLET PO (09:36)
[2019-10-04] MEDS: AMLODIPINE BESYLATE 5 MG TABLET 2.5 MG PO (09:36)
--- NOTE | 2019-10-04 11:13 | WPDPN ---
Objective Data Vital Signs Vital Signs: Vital Signs - 24 hr 10/03/19 12:00 10/03/19 15:55 10/04/19 00:00 Temperature 37.2 C 36.6 C Pulse Rate 87 83 Respiratory Rate 18 16 16 Blood Pressure 154/81 H 130/70 Pulse Oximetry 98 97 10/04/19 07:28 Temperature 37.1 C Pulse Rate 91 Respiratory Rate 18 Blood Pressure 144/85 H Pulse Oximetry 95 Intake/Output Intake/Output: Intake & Output 10/01/19 10/02/19 10/03/19 10/04/19 23:59 23:59 23:59 23:59 Intake Total 295 170 Balance 295 170 Meds/Results Medications: Active Medications Generic Name Dose Route Start Last Admin Trade Name Freq PRN Reason Stop Dose Admin Acetaminophen 650 mg 10/02/19 23:29 10/03/19 00:18 Tylenol Tablet PO 650 mg Q4H PRN Administration Mild Pain (1-3) or Fever Acetaminophen 1,000 mg 10/03/19 12:24 Tylenol Tablet PO Q6H PRN Moderate Pain (4-6) Alendronate Sodium 70 mg 10/03/19 09:00 10/03/19 11:33 Fosamax PO 70 mg WEEKLY VINNY Administration Amlodipine Besylate 2.5 mg 10/04/19 09:00 10/04/19 09:36 Norvasc PO 2.5 mg QAM VINNY Administration Cefdinir 300 mg 10/04/19 09:00 10/04/19 09:34 Omnicef PO 10/10/19 21:00 300 mg Q12HR VINNY Administration Enoxaparin Sodium 40 mg 10/03/19 09:00 10/04/19 09:36 Lovenox SUB-Q 40 mg DAILY VINNY Administration Ferrous Sulfate 324 mg 10/03/19 09:00 10/04/19 09:36 Ferrous Sulfate PO 324 mg DAILY VINNY Administration Lidocaine 1 patch 10/04/19 09:00 10/04/19 09:34 Lidoderm TRANSDERM 1 patch DAILY VINNY Administration Ondansetron HCl 4 mg 10/03/19 12:24 Zofran Odt PO Q6H PRN Nausea And Vomiting Pantoprazole Sodium 40 mg 10/04/19 06:30 10/04/19 05:45 Protonix PO 40 mg DAILY@0630 VINNY Administration Polyethylene Glycol 17 gm 10/03/19 09:00 Miralax PO BID PRN Constipation Sertraline HCl 100 mg 10/03/19 09:00 10/04/19 09:35 Zoloft PO 100 mg DAILY VINNY Administration Tramadol HCl 50 mg 10/03/19 07:02 10/03/19 11:35 Ultram PO 50 mg BID PRN Administration Pain Trazodone HCl 50 mg 10/03/19 12:24 10/03/19 21:19 Desyrel PO 50 mg HS PRN Administration Insomnia Labs Labs: Laboratory Results - last 24 hr 10/04/19 10/04/19 06:12 06:12 WBC 21.6 H* RBC 4.11 L Hgb 9.5 L Hct 30.2 L MCV 73.5 L MCH 23.1 L MCHC 31.5 L RDW 29.5 H Plt Count 470 H MPV 9.1 L Sodium 137 Potassium 3.9 Chloride 104 Carbon Dioxide 23 Anion Gap 13.9 BUN 25 H Creatinine 1.44 H Estim Creat Clear Calc Not Reportable Estimated GFR 36 L Glucose 89 Calculated Osmolality 287 Calcium 7.8 L Total Bilirubin 0.4 AST 25 ALT 33 Alkaline Phosphatase 179 H Total Protein 5.7 L Albumin 1.6 L
--- NOTE | 2019-10-04 12:00 | PC.NURSE ---
Remains in chair, legs lowered and assisted to sit up straighter in chair, lunch provided to patient
--- NOTE | 2019-10-04 13:29 | PC.NURSE ---
Assisted back to bed, used walker and SBA with gait belt, tolerated well, feeling tired, denies pain, dressing to upper arms in tact
[2019-10-04] MEDS: TRAMADOL HCL 50 MG TABLET PO (15:19)
[2019-10-04 15:33] VITALS: BP 144/78; PULSE 78; RESP 20; TEMP 36.7; O2SAT 98
--- NOTE | 2019-10-04 15:35 | PC.NURSE ---
Resting in bed, tramadol given for back pain
--- NOTE | 2019-10-04 18:01 | PC.NURSE ---
Resting quietly, denies needs
--- NOTE | 2019-10-04 19:05 | PC.NURSE ---
Patient appears to be sleeping by the rise and fall of her chest. Respirations even and unlabored. No distress noted. Call light in reach.
--- NOTE | 2019-10-04 20:00 | PC.NURSE ---
Patient awakened easily for assessment. Respirations even and unlabored. Patient incontinent of bowel and bladder. Small bm. Patient denies pain @ this time. No distress noted. Call light in reach.
--- NOTE | 2019-10-04 21:05 | PC.NURSE ---
Patient took HS med without difficulty. Denies pain/complaints/needs @ this time. No distress noted. Call light in reach.
--- NOTE | 2019-10-04 22:05 | PC.NURSE ---
Patient T&P and depend changed. Patient incontinent of urine. Barrier cream applied. Respirations even and unlabored. Denies pain/complaints/needs @ this time. No distress noted. Call light in reach.
--- NOTE | 2019-10-04 23:10 | PC.NURSE ---
Patient appears to be sleeping by the rise and fall of her chest. Respirations even and unlabored. No distress noted. Call light in reach.
[2019-10-05] VITALS: BP 146/78; PULSE 90; RESP 18; TEMP 37.3; O2SAT 94
--- NOTE | 2019-10-05 01:05 | PC.NURSE ---
Patient appears to be sleeping by the rise and fall of her chest. Respirations even and unlabored. No distress noted. Call light in reach.
--- NOTE | 2019-10-05 02:05 | PC.NURSE ---
Patient awakened easily. T&P with patients assistance. Depend dry and patient denies need to void. No distress noted. Call light in reach.
--- NOTE | 2019-10-05 03:00 | PC.NURSE ---
Patient appears to be sleeping by the rise and fall of her chest. Respirations even and unlabored. No distress noted. Call light in reach.
--- NOTE | 2019-10-05 05:15 | PC.NURSE ---
Patient appears to be sleeping by the rise and fall of her chest. Respirations even and unlabored. No distress noted. Call light in reach.
[2019-10-05] MEDS: PANTOPRAZOLE 40 MG TABLET PO (05:47)
--- NOTE | 2019-10-05 06:00 | PC.NURSE ---
Patient took AM med without difficulty. Patient T&P and depend changed. Patient incontinent of urine. Barrier cream applied. Respirations even and unlabored. Denies pain/complaints/needs @ this time. No distress noted. Call light in reach.
[2019-10-05 06:08] LABS: Hematocrit 28.8 % (35.0-42.0); Mean Corpuscular HGB Conc 31.3 g/dL (32.0-36.0); Mean Corpuscular Hemoglobin 23.1 pg (27.0-31.0); Platelet Count Result 407 K/mm3 (150-420); Red Blood Count 3.89 M/mm3 (4.20-5.40); Red Cell Distribution Width 29.2 % (11.6-14.4); White Blood Count 17.4 K/mm3 (4.8-10.8)
[2019-10-05 07:29] VITALS: PULSE 88; RESP 18; TEMP 37.7; O2SAT 95
--- NOTE | 2019-10-05 07:55 | PC.NURSE ---
contact guard assist and use of walker to get from bed to chair, slow to move
[2019-10-05] MEDS: CEFDINIR 300 MG CAPSULE PO ×2 (09:26→20:30)
[2019-10-05] MEDS: SERTRALINE HCL 50 MG TABLET 100 MG PO (09:26)
[2019-10-05] MEDS: TRAMADOL HCL 50 MG TABLET PO (09:26)
[2019-10-05] MEDS: FERROUS SULFATE 324 MG TABLET PO (09:27)
[2019-10-05] MEDS: AMLODIPINE BESYLATE 5 MG TABLET 2.5 MG PO (09:27)
[2019-10-05] MEDS: ENOXAPARIN 40 MG/0.4 ML SYRINGE SUB-Q (09:28)
[2019-10-05] MEDS: LIDOCAINE 5% PATCH 1 PATCH TRANSDERM (09:28)
--- NOTE | 2019-10-05 10:45 | PC.NURSE ---
Resting in bed, denies needs, heels off bed on pillow
--- NOTE | 2019-10-05 12:00 | PC.NURSE ---
Up to chair for lunch, denies needs, SBA and use of walker
--- NOTE | 2019-10-05 13:30 | PC.NURSE ---
Remains in chair with legs elevated
--- NOTE | 2019-10-05 15:00 | PC.NURSE ---
Assisted up from chair and to bed, used walker, tolerated well
[2019-10-05 16:00] VITALS: BP 123/75; PULSE 90; RESP 20; TEMP 37.6; O2SAT 97
--- NOTE | 2019-10-05 17:01 | PC.NURSE ---
Resting in bed, doesn't wish to get up for dinner,
--- NOTE | 2019-10-05 18:02 | PC.NURSE ---
Denies needs, son to bring walker in, currently on phone texting family
--- NOTE | 2019-10-05 19:10 | PC.NURSE ---
Patient appears to be sleeping by the rise and fall of her chest. Respirations even and unlabored. No distress noted. Call light in reach.
--- NOTE | 2019-10-05 22:10 | PC.NURSE ---
Patient appears to be sleeping by the rise and fall of her chest. Respirations even and unlabored. No distress noted. Call light in reach.
--- NOTE | 2019-10-05 23:00 | PC.NURSE ---
Patient appears to be sleeping by the rise and fall of her chest. Respirations even and unlabored. No distress noted. Call light in reach.
[2019-10-06] VITALS: BP 146/74; PULSE 90; RESP 16; TEMP 36.9; O2SAT 100
--- NOTE | 2019-10-06 | PC.NURSE ---
Patient awakened easily for VS. Respirations even and unlabored. Denies pain/complaints/needs @ this time. Patient able to roll side to side with little assistance for incontinence care to be provided. No distress noted. Call light in reach.
--- NOTE | 2019-10-06 01:10 | PC.NURSE ---
Patient appears to be sleeping by the rise and fall of her chest. Respirations even and unlabored. No distress noted. Call light in reach.
--- NOTE | 2019-10-06 02:15 | PC.NURSE ---
Patient assisted with turning side to side when nurse did incontinence care. Patient reports she has been sleeping well. Denies pain/complaints/needs @ this time. No distress noted. Call light in reach.
--- NOTE | 2019-10-06 03:00 | PC.NURSE ---
Patient appears to be sleeping by the rise and fall of her chest. Respirations even and unlabored. No distress noted. Call light in reach.
--- NOTE | 2019-10-06 04:10 | PC.NURSE ---
Patient incontinent of urine with incontinence care provided. Patient able to roll side to side well for cares. Denies pain/complaints/needs @ this time. No distress noted. Call light in reach.
--- NOTE | 2019-10-06 05:05 | PC.NURSE ---
Patient appears to be sleeping by the rise and fall of her chest. Respirations even and unlabored. No distress noted. Call light in reach.
[2019-10-06 05:41] LABS: Hematocrit 29.9 % (35.0-42.0); Hemoglobin 9.3 g/dL (11.7-13.8); Mean Corpuscular HGB Conc 31.1 g/dL (32.0-36.0); Mean Corpuscular Hemoglobin 23.1 pg (27.0-31.0); Mean Corpuscular Volume 74.4 fL (78.0-102.0); Mean Platelet Volume 9.3 fl (9.2-11.8); Platelet Count Result 407 K/mm3 (150-420); Red Blood Count 4.02 M/mm3 (4.20-5.40); Red Cell Distribution Width 29.4 % (11.6-14.4); White Blood Count 18.2 K/mm3 (4.8-10.8)
[2019-10-06] MEDS: PANTOPRAZOLE 40 MG TABLET PO (05:42)
[2019-10-06 08:00] VITALS: BP 142/74; PULSE 93; RESP 18; TEMP 37.2; O2SAT 96
[2019-10-06] MEDS: AMLODIPINE BESYLATE 5 MG TABLET 2.5 MG PO (09:40)
[2019-10-06] MEDS: SERTRALINE HCL 50 MG TABLET 100 MG PO (09:40)
[2019-10-06] MEDS: FERROUS SULFATE 324 MG TABLET PO (09:40)
[2019-10-06] MEDS: CEFDINIR 300 MG CAPSULE PO ×2 (09:41→21:10)
[2019-10-06] MEDS: LIDOCAINE 5% PATCH 1 PATCH TRANSDERM (09:41)
[2019-10-06] MEDS: ENOXAPARIN 40 MG/0.4 ML SYRINGE SUB-Q (09:41)
--- NOTE | 2019-10-06 12:01 | P.PNIM_ITS ---
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 Isak Bassett, urology in 2 weeks after discharge * possible nephrectomy in the future * patient wishes to go home [facility] in the future Dr. Asencio group service * white count today 26.2. complete a daily CBC to monitor wbc's * continue 14 days total antibiotics days of IV Rocephin total in 7 days cefdinir * Rocephin will end today cefdinir 300 mg q.8 hours started for 10/03 and end 10/09 (2) Multiple falls: Code(s): R29.6 - Repeated falls Status: Acute Assessment and Plan: * Patient has been admitted to swing bed for rehab * patient plans to discharge to assisted * patient will use appropriate DME for safe transfer and ambulation (3) Chronic back pain: Code(s): M54.9 - Dorsalgia, unspecified; G89.29 - Other chronic pain Status: Chronic Assessment and Plan: * continue pain medication Tylenol and tramadol * will also start lidocaine patch. * continue physical therapy/occupational therapy (4) UTI (urinary tract infection): Code(s): N39.0 - Urinary tract infection, site not specified Status: Acute Assessment and Plan: * possibly secondary to XGP * UA with a growth E coli * culture indicates sensitive to Rocephin continue Rocephin until tomorrow started in ER * white count today 26.2. complete a daily CBC to monitor wbc's * continue 14 days total antibiotics days of IV Rocephin total in 7 days cefdinir * Rocephin will end today cefdinir 300 mg q.8 hours started for 10/03 and end 10/09 (5) Kidney stones: Code(s): N20.0 - Calculus of kidney Status: Chronic Assessment and Plan: * litthotripsy x2 in the past * strain all urine * renal us indicate- * Left renal staghorn calculus with lobular contour and adjacent complex fluid collections * urology was consulted- patient to follow-up with Dr. Isak Bassett, urology in 2 weeks after discharge * possible nephrectomy in the future * patient wishes to go home [facility] in the future Dr. Asencio group service (6) HTN (hypertension): Code(s): I10 - Essential (primary) hypertension Status: Chronic Assessment and Plan: * blood pressure 159/91 * started Norvasc * vital signs as ordered * adjust medication as needed (7) Anemia: Qualifiers: Anemia type: unspecified type Qualified Code(s): D64.9 - Anemia, unspecified Code(s): D64.9 - Anemia, unspecified Status: Acute Assessment and Plan: * hemoglobin stable currently at 10.6. patient transfused with 2 units of PRBCs while as an inpatient [facility] * patient to follow-up with Dr. Garcia, beater and pulper feeder call to set up an appointment * will monitor hemoglobin hematocrit * occult blood positive no active bleeding noted * per beater and pulper feeder continue iron supplements (8) Generalized weakness: Code(s): R53.1 - Weakness Status: Acute Assessment and Plan: * Exhibit tolerance during physical activity as evidenced by a normal fluctuation of vital signs during physical activity. * Patient will be ability to perform required activities of daily living. * Provide appropriate nutrition for healing and strength. * Use appropriate DME to prevent falls and for safety * Continue physical therapy/occupational therapy. (9) Leukocytosis:
--- NOTE | 2019-10-06 12:01 | PM.IMPN ---
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 Isak Bassett, urology in 2 weeks after discharge possible nephrectomy in the future patient wishes to go home [facility] in the future Dr. Asencio group service white count today 26.2. complete a daily CBC to monitor wbc's continue 14 days total antibiotics days of IV Rocephin total in 7 days cefdinir Rocephin will end today cefdinir 300 mg q.8 hours started for 10/03 and end 10/09 (2) Multiple falls: Code(s): R29.6 - Repeated falls Status: Acute Assessment and Plan: Patient has been admitted to swing bed for rehab patient plans to discharge to assisted patient will use appropriate DME for safe transfer and ambulation (3) Chronic back pain: Code(s): M54.9 - Dorsalgia, unspecified; G89.29 - Other chronic pain Status: Chronic Assessment and Plan: continue pain medication Tylenol and tramadol will also start lidocaine patch. continue physical therapy/occupational therapy (4) UTI (urinary tract infection): Code(s): N39.0 - Urinary tract infection, site not specified Status: Acute Assessment and Plan: possibly secondary to XGP UA with a growth E coli culture indicates sensitive to Rocephin continue Rocephin until tomorrow started in ER white count today 26.2. complete a daily CBC to monitor wbc's continue 14 days total antibiotics days of IV Rocephin total in 7 days cefdinir Rocephin will end today cefdinir 300 mg q.8 hours started for 10/03 and end 10/09 (5) Kidney stones: Code(s): N20.0 - Calculus of kidney Status: Chronic Assessment and Plan: litthotripsy x2 in the past strain all urine renal us indicate- Left renal staghorn calculus with lobular contour and adjacent complex fluid collections urology was consulted- patient to follow-up with Dr. Isak Bassett, urology in 2 weeks after discharge possible nephrectomy in the future patient wishes to go home [facility] in the future Dr. Luis M garcía service (6) HTN (hypertension): Code(s): I10 - Essential (primary) hypertension Status: Chronic Assessment and Plan: blood pressure 159/91 started Norvasc vital signs as ordered adjust medication as needed (7) Anemia: Qualifiers: Anemia type: unspecified type Qualified Code(s): D64.9 - Anemia, unspecified Code(s): D64.9 - Anemia, unspecified Status: Acute Assessment and Plan: hemoglobin stable currently at 10.6. patient transfused with 2 units of PRBCs while as an inpatient [place] patient to follow-up with Dr. Garcia, information assurance call to set up an appointment will monitor hemoglobin hematocrit occult blood positive no active bleeding noted per information assurance continue iron supplements (8) Generalized weakness: Code(s): R53.1 - Weakness Status: Acute Assessment and Plan: Exhibit tolerance during physical activity as evidenced by a normal fluctuation of vital signs during physical activity. Patient will be ability to perform required activities of daily living. Provide appropriate nutrition for healing and strength. Use appropriate DME to prevent falls and for safety Continue physical therapy/occupational therapy. (9) Leukocytosis: Qualifiers: Leukocytosis type: unspecified Qualified Code(s): D72.829 - Elevated white blood cell count, unspecified Code(s): D72.829 - Elevated white blood cell count, unspecified Status: Acute Assessment and Plan: secondary to XGP patient leukocytes at [facility] 35 K WBCs are trending down today 26 K patient currently afebrile will continue to monitor wbc's (10) Depression: Code(s
[2019-10-06] MEDS: TRAMADOL HCL 50 MG TABLET PO (14:17)
[2019-10-06 23:55] VITALS: BP 130/69; PULSE 81; RESP 16; TEMP 37; O2SAT 98
--- NOTE | 2019-10-07 00:56 | PC.NURSE ---
Sleeping, resp even. Call galloway @ hand.
--- NOTE | 2019-10-07 03:21 | PC.NURSE ---
[facility] care provided.
[2019-10-07] MEDS: PANTOPRAZOLE 40 MG TABLET PO (06:02)
[2019-10-07 08:00] VITALS: BP 129/74; PULSE 85; RESP 18; TEMP 36.5; O2SAT 98
[2019-10-07] MEDS: ENOXAPARIN 40 MG/0.4 ML SYRINGE SUB-Q (09:30)
[2019-10-07] MEDS: LIDOCAINE 5% PATCH 1 PATCH TRANSDERM (09:30)
[2019-10-07] MEDS: AMLODIPINE BESYLATE 5 MG TABLET 2.5 MG PO (09:30)
[2019-10-07] MEDS: FERROUS SULFATE 324 MG TABLET PO (09:30)
[2019-10-07] MEDS: polyethylene glycoL 3350 17 GM POWD.PACK PO (09:30)
[2019-10-07] MEDS: SERTRALINE HCL 50 MG TABLET 100 MG PO (09:31)
[2019-10-07] MEDS: ACETAMINOPHEN 500 MG TABLET 1000 MG PO (09:31)
--- NOTE | 2019-10-07 09:54 | P.PNIM_ITS ---
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 Isak Bassett, urology in 2 weeks after discharge * possible nephrectomy in the future * patient wishes to go home [facility] in the future Dr. Asencio group service * white count continues to trend down. complete a daily CBC to monitor wbc's * continue 14 days total antibiotics days of IV Rocephin total in 7 days cefdinir * Rocephin will end today cefdinir 300 mg q.8 hours started for 10/03 and end 10/09 (2) Multiple falls: Code(s): R29.6 - Repeated falls Status: Acute Assessment and Plan: * Patient has been admitted to swing bed for rehab * patient plans to discharge to assisted * patient will use appropriate DME for safe transfer and ambulation (3) Chronic back pain: Code(s): M54.9 - Dorsalgia, unspecified; G89.29 - Other chronic pain Status: Chronic Assessment and Plan: * continue pain medication Tylenol and tramadol * will also start lidocaine patch. * continue physical therapy/occupational therapy (4) UTI (urinary tract infection): Code(s): N39.0 - Urinary tract infection, site not specified Status: Acute Assessment and Plan: * possibly secondary to XGP * UA with a growth E coli * culture indicates sensitive to Rocephin continue Rocephin until tomorrow started in ER * white count today 26.2. complete a daily CBC to monitor wbc's * continue 14 days total antibiotics days of IV Rocephin total in 7 days cefdinir * Rocephin will end today cefdinir 300 mg q.8 hours started for 10/03 and end 10/09 (5) Kidney stones: Code(s): N20.0 - Calculus of kidney Status: Chronic Assessment and Plan: * litthotripsy x2 in the past * strain all urine * renal us indicate- * Left renal staghorn calculus with lobular contour and adjacent complex fluid collections * urology was consulted- patient to follow-up with Dr. Isak Bassett, urology in 2 weeks after discharge * possible nephrectomy in the future * patient wishes to go home [facility] in the future Dr. Asencio group service (6) HTN (hypertension): Code(s): I10 - Essential (primary) hypertension Status: Chronic Assessment and Plan: * blood pressure stable * started Norvasc * vital signs as ordered * adjust medication as needed (7) Anemia: Qualifiers: Anemia type: unspecified type Qualified Code(s): D64.9 - Anemia, unspecified Code(s): D64.9 - Anemia, unspecified Status: Acute Assessment and Plan: * hemoglobin stable currently at 10.6. patient transfused with 2 units of PRBCs while as an inpatient [facility] * patient to follow-up with Dr. Garcia, antenna installer call to set up an appointment * will monitor hemoglobin hematocrit * occult blood positive no active bleeding noted * per antenna installer continue iron supplements (8) Generalized weakness: Code(s): R53.1 - Weakness Status: Acute Assessment and Plan: * Exhibit tolerance during physical activity as evidenced by a normal fluctuation of vital signs during physical activity. * Patient will be ability to perform required activities of daily living. * Provide appropriate nutrition for healing and strength. * Use appropriate DME to prevent falls and for safety * Continue physical therapy/occupational therapy. (9) Leuko
--- NOTE | 2019-10-07 09:54 | PM.IMPN ---
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 Isak Bassett, urology in 2 weeks after discharge possible nephrectomy in the future patient wishes to go home [facility] in the future Dr. Asencio group service white count continues to trend down. complete a daily CBC to monitor wbc's continue 14 days total antibiotics days of IV Rocephin total in 7 days cefdinir Rocephin will end today cefdinir 300 mg q.8 hours started for 10/03 and end 10/09 (2) Multiple falls: Code(s): R29.6 - Repeated falls Status: Acute Assessment and Plan: Patient has been admitted to swing bed for rehab patient plans to discharge to assisted patient will use appropriate DME for safe transfer and ambulation (3) Chronic back pain: Code(s): M54.9 - Dorsalgia, unspecified; G89.29 - Other chronic pain Status: Chronic Assessment and Plan: continue pain medication Tylenol and tramadol will also start lidocaine patch. continue physical therapy/occupational therapy (4) UTI (urinary tract infection): Code(s): N39.0 - Urinary tract infection, site not specified Status: Acute Assessment and Plan: possibly secondary to XGP UA with a growth E coli culture indicates sensitive to Rocephin continue Rocephin until tomorrow started in ER white count today 26.2. complete a daily CBC to monitor wbc's continue 14 days total antibiotics days of IV Rocephin total in 7 days cefdinir Rocephin will end today cefdinir 300 mg q.8 hours started for 10/03 and end 10/09 (5) Kidney stones: Code(s): N20.0 - Calculus of kidney Status: Chronic Assessment and Plan: litthotripsy x2 in the past strain all urine renal us indicate- Left renal staghorn calculus with lobular contour and adjacent complex fluid collections urology was consulted- patient to follow-up with Dr. Isak Bassett, urology in 2 weeks after discharge possible nephrectomy in the future patient wishes to go home [facility] in the future Dr. Luis M garcía service (6) HTN (hypertension): Code(s): I10 - Essential (primary) hypertension Status: Chronic Assessment and Plan: blood pressure stable started Norvasc vital signs as ordered adjust medication as needed (7) Anemia: Qualifiers: Anemia type: unspecified type Qualified Code(s): D64.9 - Anemia, unspecified Code(s): D64.9 - Anemia, unspecified Status: Acute Assessment and Plan: hemoglobin stable currently at 10.6. patient transfused with 2 units of PRBCs while as an inpatient [place] patient to follow-up with Dr. Garcia, [employer] call to set up an appointment will monitor hemoglobin hematocrit occult blood positive no active bleeding noted per [employer] continue iron supplements (8) Generalized weakness: Code(s): R53.1 - Weakness Status: Acute Assessment and Plan: Exhibit tolerance during physical activity as evidenced by a normal fluctuation of vital signs during physical activity. Patient will be ability to perform required activities of daily living. Provide appropriate nutrition for healing and strength. Use appropriate DME to prevent falls and for safety Continue physical therapy/occupational therapy. (9) Leukocytosis: Qualifiers: Leukocytosis type: unspecified Qualified Code(s): D72.829 - Elevated white blood cell count, unspecified Code(s): D72.829 - Elevated white blood cell count, unspecified Status: Acute Assessment and Plan: secondary to XGP patient leukocytes at [facility] [address] WBCs are trending down patient currently afebrile will continue to monitor wbc's (10) Depression: C
[2019-10-07] MEDS: DOCUSATE SODIUM 100 MG CAPSULE PO ×2 (10:03→20:52)
[2019-10-07] MEDS: CEFDINIR 300 MG CAPSULE PO ×2 (10:03→20:52)
--- NOTE | 2019-10-07 10:57 | PM.EVENT ---
Event Note Event Note Event Note: Spoke with PT/OT patient will discharge next week. Refer to PT notes for update.
[2019-10-07 11:21] LABS: Hematocrit 31.7 % (35.0-42.0); Hemoglobin 9.6 g/dL (11.7-13.8); Mean Corpuscular HGB Conc 30.3 g/dL (32.0-36.0); Mean Corpuscular Hemoglobin 22.9 pg (27.0-31.0); Mean Corpuscular Volume 75.7 fL (78.0-102.0); Mean Platelet Volume 9.7 fl (9.2-11.8); Platelet Count Result 405 K/mm3 (150-420); Red Blood Count 4.19 M/mm3 (4.20-5.40); Red Cell Distribution Width 29.3 % (11.6-14.4); White Blood Count 16.4 K/mm3 (4.8-10.8)
[2019-10-07 11:32] LABS: Blood Urea Nitrogen 31 mg/dL (7-18); Calcium 7.9 mg/dL (8.5-10.1); Carbon Dioxide 25 mmol/L (21-32); Chloride 103 mmol/L (98-108); Estimated Glomerular Filt Rate 34; Glucose 152 mg/dL (70-99); Osmolality Calculated 293 mOsm/kg (285-295); Sodium 137 mmol/L (136-145)
[2019-10-07 11:50] LABS: BNP 531 pg/mL (0-100)
[2019-10-07 16:00] VITALS: BP 123/63; PULSE 75; RESP 16; TEMP 36.3; O2SAT 98
[2019-10-07] MEDS: TRAMADOL HCL 50 MG TABLET PO (18:22)
--- NOTE | 2019-10-07 20:00 | PC.NURSE ---
Registered Safety Engineer assisted patient from her chair to the bed. She ambulated from the chair to the bed with a walker and gait belt. Gait is weak. She required minimal assistance to get to a standing position. She required total assistance to get her legs into the bed. Patient refused to use the bathroom before going to bed. Call light is within reach.
[2019-10-08] VITALS: BP 129/69; PULSE 88; RESP 18; TEMP 37.2; O2SAT 97
--- NOTE | 2019-10-08 00:36 | PC.NURSE ---
Patient found to be incontinent of urine at this time. Patient has refused to ambulate to the bathroom since staff writer began shift and she refused at this time to ambulate to the bathroom. She states it is easier to void and be changed. She admits that she is able to tell when she need so use the bathroom but that she is not calling nurse and going in her depend. Quality Process Engineer informed the patient that she needed to call and use the bathroom when she needed to go. Patient verbalized understanding. Patient was able to change depend in bed by lifting up her buttocks and pulling it up. Call light is within reach.
--- NOTE | 2019-10-08 02:30 | PC.NURSE ---
Patient resting in bed awake. Patient denies needing to use the bathroom and she denies being wet. She refuses assistance with repositioning at this time. Per patient request two covers were removed from patient bed at this time. Patient has call light within reach.
--- NOTE | 2019-10-08 04:30 | PC.NURSE ---
Patient appears to be sleeping. No signs of distress are observed. Call light is within reach.
[2019-10-08] MEDS: PANTOPRAZOLE 40 MG TABLET PO (06:00)
--- NOTE | 2019-10-08 06:14 | PC.NURSE ---
Patient ambulated to the bathroom with assist of one, gait belt and wheeled walker. Gait is weak and unsteady this morning. Patient required assistance from video games storywriter to get to a sitting position. She was able to get legs back into bed independently. Patient took AM pill whole, no problems swallowing observed. Call light is within reach.
[2019-10-08 07:35] VITALS: BP 131/72; PULSE 80; RESP 20; TEMP 36.5; O2SAT 96
[2019-10-08] MEDS: DOCUSATE SODIUM 100 MG CAPSULE PO ×2 (09:05→20:58)
[2019-10-08] MEDS: CEFDINIR 300 MG CAPSULE PO ×2 (09:05→20:58)
[2019-10-08] MEDS: AMLODIPINE BESYLATE 5 MG TABLET 2.5 MG PO (09:06)
[2019-10-08] MEDS: SERTRALINE HCL 50 MG TABLET 100 MG PO (09:06)
[2019-10-08] MEDS: FERROUS SULFATE 324 MG TABLET PO (09:06)
[2019-10-08] MEDS: LIDOCAINE 5% PATCH 1 PATCH TRANSDERM (09:06)
[2019-10-08] MEDS: ENOXAPARIN 40 MG/0.4 ML SYRINGE SUB-Q (09:06)
[2019-10-08 11:41] LABS: Hematocrit 31.4 % (35.0-42.0); Hemoglobin 9.3 g/dL (11.7-13.8); Mean Corpuscular HGB Conc 29.6 g/dL (32.0-36.0); Mean Corpuscular Hemoglobin 22.9 pg (27.0-31.0); Mean Corpuscular Volume 77.3 fL (78.0-102.0); Mean Platelet Volume 9.6 fl (9.2-11.8); Platelet Count Result 437 K/mm3 (150-420); Red Blood Count 4.06 M/mm3 (4.20-5.40); Red Cell Distribution Width 29.7 % (11.6-14.4)
[2019-10-08 11:49] LABS: White Blood Count 20.5 K/mm3 (4.8-10.8)
[2019-10-08 16:00] VITALS: BP 139/77; PULSE 89; RESP 18; TEMP 37.1; O2SAT 98
--- NOTE | 2019-10-08 16:11 | P.PNIM_ITS ---
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 Isak Bassett, urology in 2 weeks after discharge * possible nephrectomy in the future * patient wishes to go home, then return to [facility] in the future for Dr. Asencio group follow up visits. * white count continues to be monitored. complete a daily CBC to monitor wbc's * continue 14 days total antibiotics days of IV Rocephin total THEN 7-10 days cefdinir * Rocephin ended 10/02, then cefdinir 300 mg q.8 hours started for 10/03 <Kelsie Monet NP - Last Filed: 10/08/19 17:53> (2) Multiple falls: Code(s): R29.6 - Repeated falls <Kelsie Monet NP - Last Filed: 10/08/19 17:53> Status: Acute <Kelsie Monet NP - Last Filed: 10/08/19 17:53> Assessment and Plan: * Patient has been admitted to swing bed for rehab * patient plans to discharge to assisted * patient will use appropriate DME for safe transfer and ambulation <Kelsie Monet NP - Last Filed: 10/08/19 17:53> (3) Chronic back pain: Code(s): M54.9 - Dorsalgia, unspecified; G89.29 - Other chronic pain <Kelsie Monet NP - Last Filed: 10/08/19 17:53> Status: Chronic <Kelsie Monet NP - Last Filed: 10/08/19 17:53> Assessment and Plan: * continue pain medication Tylenol and tramadol * will also start lidocaine patch. * continue physical therapy/occupational therapy <Kelsie Monet NP - Last Filed: 10/08/19 17:53> (4) UTI (urinary tract infection): Code(s): N39.0 - Urinary tract infection, site not specified <Kelsie Monet NP - Last Filed: 10/08/19 17:53> Status: Acute <Kelsie Monet NP - Last Filed: 10/08/19 17:53> Assessment and Plan: * possibly secondary to pyleonephritis * UA with a growth E coli * culture indicates sensitive to Rocephin * white count today 20 * complete a daily CBC to monitor wbc's * antibiotics of IV Rocephin then oral cefdinir * may need to repeat Cultures, if WBC continues to rise. * no fevers ntoed for past 24-48 hours, no pain complaints as well. <Kelsie Monet NP - Last Filed: 10/08/19 17:53> (5) Kidney stones: Code(s): N20.0 - Calculus of kidney <Kelsie Monet NP - Last Filed: 17:53> Status: Chronic <Kelsie Monet NP - Last Filed: 10/08/19 17:53> Assessment and Plan: * litthotripsy x2 in the past * strain all urine * renal us indicate- * Left renal staghorn calculus with lobular contour and adjacent complex fluid collections * urology was consulted- patient to follow-up with Dr. Isak Bassett, urology in 2 weeks after discharge * possible nephrectomy in the future * patient wishes to go home [facility] in the future Dr. Asencio group service <Kelsie Monet NP - Last Filed: 10/08/19 17:53> (6) HTN (hypertension): Code(s): I10 - Essential (primary) hypertension <Kelsie Monet NP - Last Filed: 10/08/19 17:53> Status: Chronic <Kelsie Monet NP - Last Filed: 10/08/19 17:53> Assessment and Plan: * blood pressure stable * started Norvasc * vital signs as ordered * adjust medication as needed <Kelsie Mnoet NP - Last Filed: 10/08/19 17:53> (7) Anemia: Qualifiers: Anemia type: unspecif
--- NOTE | 2019-10-08 16:11 | PM.IMPN ---
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 Isak Bassett, urology in 2 weeks after discharge possible nephrectomy in the future patient wishes to go home, then return to [facility] in the future for Dr. Asencio group follow up visits. white count continues to be monitored. complete a daily CBC to monitor wbc's continue 14 days total antibiotics days of IV Rocephin total THEN 7-10 days cefdinir Rocephin ended 10/02, then cefdinir 300 mg q.8 hours started for 10/03 <Kelsie Monet NP - Last Filed: 10/08/19 17:53> (2) Multiple falls: Code(s): R29.6 - Repeated falls <Kelsie Monet NP - Last Filed: 10/08/19 17:53> Status: Acute <Kelsie Monet NP - Last Filed: 10/08/19 17:53> Assessment and Plan: Patient has been admitted to swing bed for rehab patient plans to discharge to assisted patient will use appropriate DME for safe transfer and ambulation <Kelsie Monet NP - Last Filed: 10/08/19 17:53> (3) Chronic back pain: Code(s): M54.9 - Dorsalgia, unspecified; G89.29 - Other chronic pain <Kelsie Monet NP - Last Filed: 10/08/19 17:53> Status: Chronic <Kelsie Monet NP - Last Filed: 10/08/19 17:53> Assessment and Plan: continue pain medication Tylenol and tramadol will also start lidocaine patch. continue physical therapy/occupational therapy <Kelsie Monet NP - Last Filed: 10/08/19 17:53> (4) UTI (urinary tract infection): Code(s): N39.0 - Urinary tract infection, site not specified <Kelsie Monet NP - Last Filed: 10/08/19 17:53> Status: Acute <Kelsie Monet NP - Last Filed: 10/08/19 17:53> Assessment and Plan: possibly secondary to pyleonephritis UA with a growth E coli culture indicates sensitive to Rocephin white count today 20 complete a daily CBC to monitor wbc's antibiotics of IV Rocephin then oral cefdinir may need to repeat Cultures, if WBC continues to rise. no fevers ntoed for past 24-48 hours, no pain complaints as well. <Kelsie Monet NP - Last Filed: 10/08/19 17:53> (5) Kidney stones: Code(s): N20.0 - Calculus of kidney <Kelsie Monet NP - Last Filed: 10/08/19 17:53> Status: Chronic <Kelsie Monet NP - Last Filed: 10/08/19 17:53> Assessment and Plan: litthotripsy x2 in the past strain all urine renal us indicate- Left renal staghorn calculus with lobular contour and adjacent complex fluid collections urology was consulted- patient to follow-up with Dr. Isak Bassett, urology in 2 weeks after discharge possible nephrectomy in the future patient wishes to go home [facility] in the future Dr. Asencio group service <Kelsie Monet NP - Last Filed: 10/08/19 17:53> (6) HTN (hypertension): Code(s): I10 - Essential (primary) hypertension <Kelsie Monet NP - Last Filed: 10/08/19 17:53> Status: Chronic <Kelsie Monet NP - Last Filed: 10/08/19 17:53> Assessment and Plan: blood pressure stable started Norvasc vital signs as ordered adjust medication as needed <Kelsie Monet NP - Last Filed: 10/08/19 17:53> (7) Anemia: Qualifiers: Anemia type: unspecified type Qualified Code(s): D64.9 - Anemia, unspecified <Kelsie Monet NP - Last Filed: 10/08/19 17:53> Code(s): D64.9 - Anemia, unspecified <Kelsie Monet NP - Last Filed: 10/08/19 17:53> Status: Acute <Kelsie Monet, BRUSHER HAND - Last Filed: 10/08/19 17:53> Assessment and Plan: hemoglobin stable was 9.3 on 10/07. patient transf
[2019-10-08] MEDS: TRAMADOL HCL 50 MG TABLET PO (18:39)
--- NOTE | 2019-10-08 19:46 | PC.NURSE ---
Resting in bed, denies needs, denies need to void, states was just up to void
--- NOTE | 2019-10-08 21:00 | PC.NURSE ---
Offerred to toilet patient, denies need, states is dry at this time
--- NOTE | 2019-10-08 22:28 | PC.NURSE ---
Resting in bed, denies needs, call light in reach of patient
[2019-10-09] VITALS: BP 129/60; PULSE 80; RESP 16; TEMP 36.7; O2SAT 97
--- NOTE | 2019-10-09 00:40 | PC.NURSE ---
Patient ambulated to the bathroom with assist of one, a gait belt, and wheeled walker. Her gait is weak.
[2019-10-09] MEDS: PANTOPRAZOLE 40 MG TABLET PO (06:41)
--- NOTE | 2019-10-09 06:50 | PC.NURSE ---
Patient Ambulated to the bathroom with assist of one, gait belt and wheeled walker.
[2019-10-09 07:27] VITALS: BP 132/70; PULSE 76; RESP 20; TEMP 36.5; O2SAT 96
--- NOTE | 2019-10-09 07:55 | PC.NURSE ---
SBA up to chair for breakfast, mod assist to get from laying to sitting, minimal assist from sitting to standing, used own 4 wheeled walker to get to bed, lost balance x1, no injury, using gait belt and SBA for safety
[2019-10-09] MEDS: SERTRALINE HCL 50 MG TABLET 100 MG PO (09:09)
[2019-10-09] MEDS: DOCUSATE SODIUM 100 MG CAPSULE PO ×2 (09:09→21:42)
[2019-10-09] MEDS: AMLODIPINE BESYLATE 5 MG TABLET 2.5 MG PO (09:09)
[2019-10-09] MEDS: CEFDINIR 300 MG CAPSULE PO (09:09)
[2019-10-09] MEDS: LIDOCAINE 5% PATCH 1 PATCH TRANSDERM (09:09)
[2019-10-09] MEDS: FERROUS SULFATE 324 MG TABLET PO (09:09)
[2019-10-09] MEDS: ENOXAPARIN 40 MG/0.4 ML SYRINGE SUB-Q (09:09)
--- NOTE | 2019-10-09 09:17 | PC.NURSE ---
SBA and use of walker to get from chair to bed, ate well for breakfast
--- NOTE | 2019-10-09 09:55 | PC.NURSE ---
Up in soliz ambulating with therapy and wheeled walker,
--- NOTE | 2019-10-09 11:35 | PC.NURSE ---
dressing to bilateral arms removed, cleansed and left open to air per hospitalist recommendation
[2019-10-09 11:36] LABS: Basophils Absolute Auto 0.05 K/mm3 (0.00-0.10); Basophils Percent Auto 0.3 % (0.0-1.0); Eosinophils Absolute Auto 0.07 K/mm3 (0.02-0.50); Eosinophils Percent Auto 0.5 % (1.0-6.0); Hematocrit 29.5 % (35.0-42.0); Hemoglobin 8.9 g/dL (11.7-13.8); Immature Granulocyte Absolute 0.33 K/mm3 (0.00-0.00); Immature Granulocyte Percent A 2.2 % (0.0-0.0); Lymphocytes Absolute Auto 0.87 K/mm3 (1.10-4.50); Lymphocytes Percent Auto 5.8 % (18.0-42.0); Mean Corpuscular HGB Conc 30.2 g/dL (32.0-36.0); Mean Corpuscular Hemoglobin 22.9 pg (27.0-31.0); Mean Corpuscular Volume 75.8 fL (78.0-102.0); Mean Platelet Volume 9.2 fl (9.2-11.8); Monocytes Absolute Auto 0.84 K/mm3 (0.10-0.90); Monocytes Percent Auto 5.6 % (2.0-11.0); Neutrophils Absolute Auto 12.8 K/mm3 (1.7-7.2); Neutrophils Percent Auto 85.6 % (50.0-70.0); Platelet Count Result 427 K/mm3 (150-420); Red Blood Count 3.89 M/mm3 (4.20-5.40); Red Cell Distribution Width 29.4 % (11.6-14.4)
[2019-10-09 11:56] LABS: Lactic Acid 1.5 mmol/L (0.4-2.0)
[2019-10-09 12:01] LABS: BNP 720 pg/mL (0-100)
[2019-10-09 12:03] LABS: Magnesium 2.3 mg/dL (1.8-2.4); Phosphorus 2.6 mg/dL (2.6-4.7)
--- NOTE | 2019-10-09 12:27 | PC.NURSE ---
SBA and use of walker to chair for lunch
--- NOTE | 2019-10-09 13:34 | P.PNIM_ITS ---
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 Isak Bassett, urology in 2 weeks after discharge * possible nephrectomy in the future * patient wishes to go home, then return to [facility] in the future for Dr. Asencio group follow up visits. * white count continues to be monitored. complete a daily CBC to monitor wbc's * continue 14 days total antibiotics days of IV Rocephin total THEN 7-10 days cefdinir * Rocephin ended 10/02, then cefdinir 300 mg q.8 hours started for 10/03 * white count is ranging from 15-16 to 20. It appears that her urine culture at [place] was more sensitive to Rocephin than cefdinir, and with the rise of white count to 20 yesterday we have decided to go back to IV Rocephin today. Ordered repeat blood urine and sputum cultures. No fevers for the past 24 hours. (2) Multiple falls: Code(s): R29.6 - Repeated falls Status: Acute Assessment and Plan: * Patient has been admitted to swing bed for rehab * patient plans to discharge to assisted * patient will use appropriate DME for safe transfer and ambulation (3) Chronic back pain: Code(s): M54.9 - Dorsalgia, unspecified; G89.29 - Other chronic pain Status: Chronic Assessment and Plan: * continue pain medication Tylenol and tramadol * will also start lidocaine patch. * continue physical therapy/occupational therapy (4) UTI (urinary tract infection): Code(s): N39.0 - Urinary tract infection, site not specified Status: Acute Assessment and Plan: * possibly secondary to pyleonephritis * UA with a growth E coli * culture indicates sensitive to Rocephin * white count today 20 * complete a daily CBC to monitor wbc's * antibiotics of IV Rocephin then oral cefdinir * may need to repeat Cultures, if WBC continues to rise. * no fevers ntoed for past 24-48 hours, no pain complaints as well. (5) Kidney stones: Code(s): N20.0 - Calculus of kidney Status: Chronic Assessment and Plan: * litthotripsy x2 in the past * strain all urine * renal us indicate- * Left renal staghorn calculus with lobular contour and adjacent complex fluid collections * urology was consulted- patient to follow-up with Dr. Isak Bassett, urology in 2 weeks after discharge * possible nephrectomy in the future * patient wishes to go home [facility] in the future Dr. Asencio group service (6) HTN (hypertension): Code(s): I10 - Essential (primary) hypertension Status: Chronic Assessment and Plan: * blood pressure stable * started Norvasc * vital signs as ordered * adjust medication as needed (7) Anemia: Qualifiers: Anemia type: unspecified type Qualified Code(s): D64.9 - Anemia, unspecified Code(s): D64.9 - Anemia, unspecified Status: Acute Assessment and Plan: * hemoglobin stable was 9.3 on 10/07. * patient transfused with 2 units of PRBCs while as an inpatient [place] * patient to follow-up with Dr. Garcia, plastics bench mechanic call to set up an appointment * will monitor hemoglobin hematocrit * occult blood positive no active bleeding noted * per plastics bench mechanic continue iron supplements and daily Vit C supplement * repeating daily CBCs * Her pathology smear from October 02 showed a low MCV with hypochromic RBCs and an increased RDW with increased platelets. This suggests possible i
--- NOTE | 2019-10-09 13:34 | PM.IMPN ---
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 Isak Bassett, urology in 2 weeks after discharge possible nephrectomy in the future patient wishes to go home, then return to [facility] in the future for Dr. Asencio group follow up visits. white count continues to be monitored. complete a daily CBC to monitor wbc's continue 14 days total antibiotics days of IV Rocephin total THEN 7-10 days cefdinir Rocephin ended 10/02, then cefdinir 300 mg q.8 hours started for 10/03 white count is ranging from 15-16 to 20. It appears that her urine culture at [place] was more sensitive to Rocephin than cefdinir, and with the rise of white count to 20 yesterday we have decided to go back to IV Rocephin today. Ordered repeat blood urine and sputum cultures. No fevers for the past 24 hours. (2) Multiple falls: Code(s): R29.6 - Repeated falls Status: Acute Assessment and Plan: Patient has been admitted to swing bed for rehab patient plans to discharge to assisted patient will use appropriate DME for safe transfer and ambulation (3) Chronic back pain: Code(s): M54.9 - Dorsalgia, unspecified; G89.29 - Other chronic pain Status: Chronic Assessment and Plan: continue pain medication Tylenol and tramadol will also start lidocaine patch. continue physical therapy/occupational therapy (4) UTI (urinary tract infection): Code(s): N39.0 - Urinary tract infection, site not specified Status: Acute Assessment and Plan: possibly secondary to pyleonephritis UA with a growth E coli culture indicates sensitive to Rocephin white count today 20 complete a daily CBC to monitor wbc's antibiotics of IV Rocephin then oral cefdinir may need to repeat Cultures, if WBC continues to rise. no fevers ntoed for past 24-48 hours, no pain complaints as well. (5) Kidney stones: Code(s): N20.0 - Calculus of kidney Status: Chronic Assessment and Plan: litthotripsy x2 in the past strain all urine renal us indicate- Left renal staghorn calculus with lobular contour and adjacent complex fluid collections urology was consulted- patient to follow-up with Dr. Isak Bassett, urology in 2 weeks after discharge possible nephrectomy in the future patient wishes to go home [facility] in the future Dr. Asencio group service (6) HTN (hypertension): Code(s): I10 - Essential (primary) hypertension Status: Chronic Assessment and Plan: blood pressure stable started Norvasc vital signs as ordered adjust medication as needed (7) Anemia: Qualifiers: Anemia type: unspecified type Qualified Code(s): D64.9 - Anemia, unspecified Code(s): D64.9 - Anemia, unspecified Status: Acute Assessment and Plan: hemoglobin stable was 9.3 on 10/07. patient transfused with 2 units of PRBCs while as an inpatient [place] patient to follow-up with Dr. Garcia, [employer] multi sensor operator call to set up an appointment will monitor hemoglobin hematocrit occult blood positive no active bleeding noted per [employer] multi sensor operator continue iron supplements and daily Vit C supplement repeating daily CBCs Her pathology smear from October 02 showed a low MCV with hypochromic RBCs and an increased RDW with increased platelets. This suggests possible iron deficiency anemia. Ordered an iron, TIBC and ferritin for the morning labs. (8) Generalized weakness: Code(s): R53.1 - Weakness Status: Acute Assessment and Plan: Exhibit tolerance during physical activity as evidenced by a normal fluctuation of vital signs during physical activity. Patient will be ability to perform required activities of daily living. Provide appropriate nutrit
--- NOTE | 2019-10-09 13:55 | PC.NURSE ---
urine obtained for culture, cloudy
[2019-10-09] MEDS: ASCORBIC ACID 500 MG TABLET PO (14:03)
--- NOTE | 2019-10-09 14:11 | PC.NURSE ---
Resting in bed, denies needs, feeling tired
--- NOTE | 2019-10-09 15:27 | PC.NURSE ---
pt working with therapy, requests pain pill when finished
[2019-10-09] MEDS: TRAMADOL HCL 50 MG TABLET PO (15:57)
[2019-10-09 16:00] VITALS: BP 143/72; PULSE 88; RESP 16; TEMP 37.3; O2SAT 99
[2019-10-09] MEDS: BACITRACIN/POLYMYXIN B OINT 15 GM TUBE 1 APPLIC TOPICAL (18:37)
[2019-10-09] MEDS: TRAZODONE HCL 50 MG TABLET PO (21:42)
[2019-10-10] VITALS: BP 131/74; PULSE 83; RESP 20; TEMP 36.8; O2SAT 98
--- NOTE | 2019-10-10 01:19 | PC.NURSE ---
Patient ambulated to the bathrooom with assist of one, a gait , belt, and a wheeled walker. Patient required assistance from scientific writer to get to a sitting position to get out of bed. Her gait walking to the bathroom was very weak and unsteady. Her gait returning to bed was weak but steady. Patient was able to get herself into the bed. Call light is within reach.
[2019-10-10 05:39] LABS: Hematocrit 28.6 % (35.0-42.0); Hemoglobin 8.7 g/dL (11.7-13.8); Mean Corpuscular HGB Conc 30.4 g/dL (32.0-36.0); Mean Corpuscular Volume 75.7 fL (78.0-102.0); Mean Platelet Volume 9.5 fl (9.2-11.8); Platelet Count Result 465 K/mm3 (150-420); Red Blood Count 3.78 M/mm3 (4.20-5.40); Red Cell Distribution Width 29.6 % (11.6-14.4); White Blood Count 14.9 K/mm3 (4.8-10.8)
[2019-10-10 06:09] LABS: Alanine Aminotransferase 34 U/L (14-59); Albumin Level 1.9 g/dL (3.4-5.0); Alkaline Phosphatase 161 U/L (46-116); Anion Gap 13.5 mmol/L (7-16); Aspartate Amino Transferase 22 U/L (15-37); Bilirubin,Total 0.2 mg/dL (0.00-1.00); Blood Urea Nitrogen 31 mg/dL (7-18); Calcium 7.8 mg/dL (8.5-10.1); Carbon Dioxide 26 mmol/L (21-32); Chloride 105 mmol/L (98-108); Estimated Glomerular Filt Rate 34; Glucose 83 mg/dL (70-99); Osmolality Calculated 295 mOsm/kg (285-295); Potassium 4.5 mmol/L (3.5-5.1); Sodium 140 mmol/L (136-145); Total Protein 5.7 g/dL (6.4-8.2)
[2019-10-10 06:11] LABS: Ferritin 573 ng/mL (8-252)
[2019-10-10] MEDS: PANTOPRAZOLE 40 MG TABLET PO (06:21)
[2019-10-10 06:22] LABS: Iron 15 ug/dL (50-170); Percent Iron Saturation 10 % (12-57)
[2019-10-10 07:30] VITALS: BP 127/73; PULSE 82; RESP 18; TEMP 36.9; O2SAT 96
--- NOTE | 2019-10-10 08:10 | PC.NURSE ---
Assisted to dress, [place] hose on, attends dry at this time, SBA up to chair for breakfast, feeds self, uses home walker and tolerated well, does get tired easily, gait more steady this am
[2019-10-10] MEDS: ASCORBIC ACID 500 MG TABLET PO (09:18)
[2019-10-10] MEDS: LIDOCAINE 5% PATCH 1 PATCH TRANSDERM (09:18)
[2019-10-10] MEDS: FERROUS SULFATE 324 MG TABLET PO (09:19)
[2019-10-10] MEDS: AMLODIPINE BESYLATE 5 MG TABLET 2.5 MG PO (09:19)
[2019-10-10] MEDS: SERTRALINE HCL 50 MG TABLET 100 MG PO (09:19)
[2019-10-10] MEDS: DOCUSATE SODIUM 100 MG CAPSULE PO ×2 (09:19→20:34)
--- NOTE | 2019-10-10 09:27 | PC.NURSE ---
In chair with legs elevated, ate pretty good for breakfast, denies needs
[2019-10-10] MEDS: IRON SUCROSE COMPLEX 100 MG in SODIUM CHLORIDE 0.9% IV 50 ML 50 MG IVPB (10:56)
[2019-10-10] MEDS: ALENDRONATE SODIUM 70 MG TABLET PO (11:41)
--- NOTE | 2019-10-10 13:06 | PC.NURSE ---
Resting in bed, hob elevated, denies needs
--- NOTE | 2019-10-10 13:58 | PC.NURSE ---
In bed resting denies needs, hob elevated, call light inr each
--- NOTE | 2019-10-10 13:59 | P.PNIM_ITS ---
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 Isak Bassett, urology in 2 weeks after discharge * possible nephrectomy in the future * patient wishes to go home, then return to [facility] in the future for Dr. Asencio group follow up visits. * white count continues to be monitored. complete a daily CBC to monitor wbc's * continue 14 days total antibiotics days of IV Rocephin total THEN 7-10 days cefdinir * Rocephin ended 10/02, then cefdinir 300 mg q.8 hours started for 10/03 * white count is ranging from 15-16 to 20. It appears that her urine culture at [place] was more sensitive to Rocephin than cefdinir, and with the rise of white count to 20 yesterday we have decided to go back to IV Rocephin today. Ordered repeat blood urine and sputum cultures. No fevers for the past 24 hours. (2) Multiple falls: Code(s): R29.6 - Repeated falls Status: Acute Assessment and Plan: * Patient has been admitted to swing bed for rehab * patient plans to discharge to assisted * patient will use appropriate DME for safe transfer and ambulation (3) Chronic back pain: Code(s): M54.9 - Dorsalgia, unspecified; G89.29 - Other chronic pain Status: Chronic Assessment and Plan: * continue pain medication Tylenol and tramadol * will also start lidocaine patch. * continue physical therapy/occupational therapy (4) UTI (urinary tract infection): Code(s): N39.0 - Urinary tract infection, site not specified Status: Acute Assessment and Plan: * possibly secondary to pyleonephritis * UA with a growth E coli * culture indicates sensitive to Rocephin * white count today 20 * complete a daily CBC to monitor wbc's * antibiotics of IV Rocephin then oral cefdinir * may need to repeat Cultures, if WBC continues to rise. * no fevers ntoed for past 24-48 hours, no pain complaints as well. (5) Kidney stones: Code(s): N20.0 - Calculus of kidney Status: Chronic Assessment and Plan: * litthotripsy x2 in the past * strain all urine * renal us indicate- * Left renal staghorn calculus with lobular contour and adjacent complex fluid collections * urology was consulted- patient to follow-up with Dr. Isak Bassett, urology in 2 weeks after discharge * possible nephrectomy in the future * patient wishes to go home [facility] in the future Dr. Asencio group service (6) HTN (hypertension): Code(s): I10 - Essential (primary) hypertension Status: Chronic Assessment and Plan: * blood pressure stable * started Norvasc * vital signs as ordered * adjust medication as needed (7) Anemia: Qualifiers: Anemia type: unspecified type Qualified Code(s): D64.9 - Anemia, unspecified Code(s): D64.9 - Anemia, unspecified Status: Acute Assessment and Plan: * hemoglobin stable was 9.3 on 10/07. * patient transfused with 2 units of PRBCs while as an inpatient [facility] * patient to follow-up with Dr. Garcia, adhesive bandage making operator call to set up an appointment * will monitor hemoglobin hematocrit * occult blood positive no active bleeding noted * per adhesive bandage making operator continue iron supplements and daily Vit C supplement * repeating daily CBCs * Her pathology smear from October 02 showed a low MCV with hypochromic RBCs and an increased RDW with increased platelets. This suggests possible i
--- NOTE | 2019-10-10 13:59 | PM.IMPN ---
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 Isak Bassett, urology in 2 weeks after discharge possible nephrectomy in the future patient wishes to go home, then return to [facility] in the future for Dr. Asencio group follow up visits. white count continues to be monitored. complete a daily CBC to monitor wbc's continue 14 days total antibiotics days of IV Rocephin total THEN 7-10 days cefdinir Rocephin ended 10/02, then cefdinir 300 mg q.8 hours started for 10/03 white count is ranging from 15-16 to 20. It appears that her urine culture at [place] was more sensitive to Rocephin than cefdinir, and with the rise of white count to 20 yesterday we have decided to go back to IV Rocephin today. Ordered repeat blood urine and sputum cultures. No fevers for the past 24 hours. (2) Multiple falls: Code(s): R29.6 - Repeated falls Status: Acute Assessment and Plan: Patient has been admitted to swing bed for rehab patient plans to discharge to assisted patient will use appropriate DME for safe transfer and ambulation (3) Chronic back pain: Code(s): M54.9 - Dorsalgia, unspecified; G89.29 - Other chronic pain Status: Chronic Assessment and Plan: continue pain medication Tylenol and tramadol will also start lidocaine patch. continue physical therapy/occupational therapy (4) UTI (urinary tract infection): Code(s): N39.0 - Urinary tract infection, site not specified Status: Acute Assessment and Plan: possibly secondary to pyleonephritis UA with a growth E coli culture indicates sensitive to Rocephin white count today 20 complete a daily CBC to monitor wbc's antibiotics of IV Rocephin then oral cefdinir may need to repeat Cultures, if WBC continues to rise. no fevers ntoed for past 24-48 hours, no pain complaints as well. (5) Kidney stones: Code(s): N20.0 - Calculus of kidney Status: Chronic Assessment and Plan: litthotripsy x2 in the past strain all urine renal us indicate- Left renal staghorn calculus with lobular contour and adjacent complex fluid collections urology was consulted- patient to follow-up with Dr. Isak Bassett, urology in 2 weeks after discharge possible nephrectomy in the future patient wishes to go home [facility] in the future Dr. Asencio group service (6) HTN (hypertension): Code(s): I10 - Essential (primary) hypertension Status: Chronic Assessment and Plan: blood pressure stable started Norvasc vital signs as ordered adjust medication as needed (7) Anemia: Qualifiers: Anemia type: unspecified type Qualified Code(s): D64.9 - Anemia, unspecified Code(s): D64.9 - Anemia, unspecified Status: Acute Assessment and Plan: hemoglobin stable was 9.3 on 10/07. patient transfused with 2 units of PRBCs while as an inpatient [facility] patient to follow-up with Dr. Garcia, extracorporeal technician call to set up an appointment will monitor hemoglobin hematocrit occult blood positive no active bleeding noted per extracorporeal technician continue iron supplements and daily Vit C supplement repeating daily CBCs Her pathology smear from October 02 showed a low MCV with hypochromic RBCs and an increased RDW with increased platelets. This suggests possible iron deficiency anemia. iron panel was low for Iron/TIBC/%sat, so I have ordered Venofer 100 mg IV for 3 days. (8) Generalized weakness: Code(s): R53.1 - Weakness Status: Acute Assessment and Plan: Exhibit tolerance during physical activity as evidenced by a normal fluctuation of vital signs during physical activity. Patient will be ability to perform required activities of daily li
[2019-10-10 14:59] VITALS: BP 154/78; PULSE 92; RESP 18; TEMP 37.4; O2SAT 96
--- NOTE | 2019-10-10 16:44 | PC.NURSE ---
SBA used and up with walker to chair for dinner
[2019-10-10] MEDS: BACITRACIN/POLYMYXIN B OINT 15 GM TUBE 1 APPLIC TOPICAL (19:07)
[2019-10-11] VITALS: BP 129/74; PULSE 95; RESP 18; TEMP 37.6; O2SAT 97
--- NOTE | 2019-10-11 02:45 | PC.NURSE ---
Sleeping, skin pink, respirations easy/unlabored and regular
[2019-10-11] MEDS: PANTOPRAZOLE 40 MG TABLET PO (05:38)
[2019-10-11 08:00] VITALS: BP 139/76; PULSE 92; RESP 18; TEMP 37.3; O2SAT 98
[2019-10-11] MEDS: LIDOCAINE 5% PATCH 1 PATCH TRANSDERM (09:21)
[2019-10-11] MEDS: AMLODIPINE BESYLATE 5 MG TABLET 2.5 MG PO (09:22)
[2019-10-11] MEDS: FERROUS SULFATE 324 MG TABLET PO (09:22)
[2019-10-11] MEDS: DOCUSATE SODIUM 100 MG CAPSULE PO (09:22)
[2019-10-11] MEDS: SERTRALINE HCL 50 MG TABLET 100 MG PO (09:22)
[2019-10-11] MEDS: ASCORBIC ACID 500 MG TABLET PO (09:22)
[2019-10-11] MEDS: IRON SUCROSE COMPLEX 100 MG in SODIUM CHLORIDE 0.9% IV 50 ML IVPB (09:36)
[2019-10-11 16:00] VITALS: BP 131/67; PULSE 94; RESP 18; TEMP 36.6; O2SAT 98
[2019-10-11] MEDS: BACITRACIN/POLYMYXIN B OINT 15 GM TUBE 1 APPLIC TOPICAL (18:38)
[2019-10-11] MEDS: TRAMADOL HCL 50 MG TABLET PO (18:59)
[2019-10-12] VITALS: BP 144/83; PULSE 70; RESP 14; TEMP 37.1; O2SAT 100
[2019-10-12] MEDS: PANTOPRAZOLE 40 MG TABLET PO (06:31)
[2019-10-12 07:57] VITALS: BP 133/79; PULSE 84; RESP 18; TEMP 36.7; O2SAT 98
[2019-10-12] MEDS: DOCUSATE SODIUM 100 MG CAPSULE PO ×2 (08:47→20:52)
[2019-10-12] MEDS: LIDOCAINE 5% PATCH 1 PATCH TRANSDERM (08:47)
[2019-10-12] MEDS: ACETAMINOPHEN 500 MG TABLET 1000 MG PO (08:47)
[2019-10-12] MEDS: AMLODIPINE BESYLATE 5 MG TABLET 2.5 MG PO (08:48)
[2019-10-12] MEDS: FERROUS SULFATE 324 MG TABLET PO (08:48)
[2019-10-12] MEDS: ASCORBIC ACID 500 MG TABLET PO (08:48)
[2019-10-12] MEDS: SERTRALINE HCL 50 MG TABLET 100 MG PO (08:48)
[2019-10-12] MEDS: IRON SUCROSE COMPLEX 100 MG in SODIUM CHLORIDE 0.9% IV 50 ML IVPB (09:09)
[2019-10-12 16:00] VITALS: BP 137/73; PULSE 83; RESP 18; TEMP 36.7
[2019-10-12] MEDS: TRAMADOL HCL 50 MG TABLET PO (18:31)
[2019-10-12] MEDS: BACITRACIN/POLYMYXIN B OINT 15 GM TUBE 1 APPLIC TOPICAL (18:32)
[2019-10-13] VITALS: BP 133/67; PULSE 90; RESP 12; TEMP 36.6; O2SAT 98
[2019-10-13 05:30] LABS: Hematocrit 29.8 % (35.0-42.0); Mean Corpuscular HGB Conc 30.2 g/dL (32.0-36.0); Mean Corpuscular Hemoglobin 22.8 pg (27.0-31.0); Mean Corpuscular Volume 75.6 fL (78.0-102.0); Mean Platelet Volume 8.8 fl (9.2-11.8); Platelet Count Result 438 K/mm3 (150-420); Red Blood Count 3.94 M/mm3 (4.20-5.40); Red Cell Distribution Width 29.5 % (11.6-14.4)
[2019-10-13 05:50] LABS: Alanine Aminotransferase 30 U/L (14-59); Alkaline Phosphatase 164 U/L (46-116); Anion Gap 13.4 mmol/L (7-16); Aspartate Amino Transferase 23 U/L (15-37); Bilirubin,Total 0.2 mg/dL (0.00-1.00); Blood Urea Nitrogen 30 mg/dL (7-18); Calcium 7.7 mg/dL (8.5-10.1); Carbon Dioxide 26 mmol/L (21-32); Chloride 104 mmol/L (98-108); Estimated Glomerular Filt Rate 33; Glucose 89 mg/dL (70-99); Osmolality Calculated 293 mOsm/kg (285-295); Potassium 4.4 mmol/L (3.5-5.1); Sodium 139 mmol/L (136-145); Total Protein 5.8 g/dL (6.4-8.2)
[2019-10-13 05:57] LABS: BNP 568 pg/mL (0-100)
[2019-10-13] MEDS: PANTOPRAZOLE 40 MG TABLET PO (06:00)
[2019-10-13 07:22] VITALS: BP 123/69; PULSE 88; RESP 14; TEMP 36.6; O2SAT 98
[2019-10-13] MEDS: ASCORBIC ACID 500 MG TABLET PO (08:23)
[2019-10-13] MEDS: AMLODIPINE BESYLATE 5 MG TABLET 2.5 MG PO (08:23)
[2019-10-13] MEDS: DOCUSATE SODIUM 100 MG CAPSULE PO ×2 (08:23→21:00)
[2019-10-13] MEDS: LIDOCAINE 5% PATCH 1 PATCH TRANSDERM (08:24)
[2019-10-13] MEDS: SERTRALINE HCL 50 MG TABLET 100 MG PO (08:24)
[2019-10-13] MEDS: FERROUS SULFATE 324 MG TABLET PO (08:24)
--- NOTE | 2019-10-13 09:27 | P.PNIM_ITS ---
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 Isak Bassett, urology in 2 weeks after discharge * possible nephrectomy in the future * patient wishes to go home, then return to [facility] in the future for Dr. Asencio group follow up visits. * white count continues to be monitored. complete a daily CBC to monitor wbc's * Her white count is staying stable 14.9 on the 17 and 15.0 today. Changed her from IV Rocephin to oral cefdinir 300 mg q.12 hours for 14 days as this is a complicated UTI with a history of pyelonephritis. Her creatinine is staying stable as well 1. 5 to then 1.51 and then today 1.53. * Rocephin ended 10/12 * white count is ranging from 15-16 Ordered repeat blood urine and sputum cultures - showed no growth. No fevers for the past 24 hours. (2) Multiple falls: Code(s): R29.6 - Repeated falls Status: Acute Assessment and Plan: * Patient has been admitted to swing bed for rehab * patient plans to discharge to assisted * patient will use appropriate DME for safe transfer and ambulation (3) Chronic back pain: Code(s): M54.9 - Dorsalgia, unspecified; G89.29 - Other chronic pain Status: Chronic Assessment and Plan: * continue pain medication Tylenol and tramadol * will also start lidocaine patch. * continue physical therapy/occupational therapy (4) UTI (urinary tract infection): Code(s): N39.0 - Urinary tract infection, site not specified Status: Acute Assessment and Plan: * possibly secondary to pyleonephritis * UA with a growth E coli * culture indicates sensitive to Rocephin * Her white count is staying stable 14.9 on the and 15.0 today. Changed her from IV Rocephin to oral cefdinir 300 mg q.12 hours for 14 days as this is a complicated UTI with a history of pyelonephritis. Her creatinine is staying stable as well 1. 5 to then 1.51 and then today 1.53. * complete a daily CBC to monitor wbc's * repeat Cultures with no growth * no fevers ntoed for past 24-48 hours, no pain complaints as well. (5) Kidney stones: Code(s): N20.0 - Calculus of kidney Status: Chronic Assessment and Plan: * litthotripsy x2 in the past * strain all urine * renal us indicate- * Left renal staghorn calculus with lobular contour and adjacent complex fluid collections * urology was consulted- patient to follow-up with Dr. Isak Bassett, urology in 2 weeks after discharge * possible nephrectomy in the future * patient wishes to go home [facility] in the future Dr. Asencio group service (6) HTN (hypertension): Code(s): I10 - Essential (primary) hypertension Status: Chronic Assessment and Plan: * blood pressure stable * started Norvasc * vital signs as ordered * adjust medication as needed (7) Anemia: Qualifiers: Anemia type: unspecified type Qualified Code(s): D64.9 - Anemia, unspecified Code(s): D64.9 - Anemia, unspecified Status: Acute Assessment and Plan: * hemoglobin stable was 9.3 on 10/07 and 9.0 today. * patient transfused with 2 units of PRBCs while as an inpatient [facility] * patient to follow-up with Dr. Garcia, water operator call to set up an appo intment * will monitor hemoglobin hematocrit * occult blood positive no active bleeding noted * per water operator continue iron supplements and daily Vit C supplement
--- NOTE | 2019-10-13 09:27 | PM.IMPN ---
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 Isak Bassett, urology in 2 weeks after discharge possible nephrectomy in the future patient wishes to go home, then return to [facility] in the future for Dr. Asencio group follow up visits. white count continues to be monitored. complete a daily CBC to monitor wbc's Her white count is staying stable 14.9 on the 17th and 15.0 today. Changed her from IV Rocephin to oral cefdinir 300 mg q.12 hours for 14 days as this is a complicated UTI with a history of pyelonephritis. Her creatinine is staying stable as well 1. 5 to then 1.51 and then today 1.53. Rocephin ended 10/12 white count is ranging from 15-16 Ordered repeat blood urine and sputum cultures - showed no growth. No fevers for the past 24 hours. (2) Multiple falls: Code(s): R29.6 - Repeated falls Status: Acute Assessment and Plan: Patient has been admitted to swing bed for rehab patient plans to discharge to assisted patient will use appropriate DME for safe transfer and ambulation (3) Chronic back pain: Code(s): M54.9 - Dorsalgia, unspecified; G89.29 - Other chronic pain Status: Chronic Assessment and Plan: continue pain medication Tylenol and tramadol will also start lidocaine patch. continue physical therapy/occupational therapy (4) UTI (urinary tract infection): Code(s): N39.0 - Urinary tract infection, site not specified Status: Acute Assessment and Plan: possibly secondary to pyleonephritis UA with a growth E coli culture indicates sensitive to Rocephin Her white count is staying stable 14.9 on the and 15.0 today. Changed her from IV Rocephin to oral cefdinir 300 mg q.12 hours for 14 days as this is a complicated UTI with a history of pyelonephritis. Her creatinine is staying stable as well 1. 5 to then 1.51 and then today 1.53. complete a daily CBC to monitor wbc's repeat Cultures with no growth no fevers ntoed for past 24-48 hours, no pain complaints as well. (5) Kidney stones: Code(s): N20.0 - Calculus of kidney Status: Chronic Assessment and Plan: litthotripsy x2 in the past strain all urine renal us indicate- Left renal staghorn calculus with lobular contour and adjacent complex fluid collections urology was consulted- patient to follow-up with Dr. Isak Bassett, urology in 2 weeks after discharge possible nephrectomy in the future patient wishes to go home [facility] in the future Dr. Asencio group service (6) HTN (hypertension): Code(s): I10 - Essential (primary) hypertension Status: Chronic Assessment and Plan: blood pressure stable started Norvasc vital signs as ordered adjust medication as needed (7) Anemia: Qualifiers: Anemia type: unspecified type Qualified Code(s): D64.9 - Anemia, unspecified Code(s): D64.9 - Anemia, unspecified Status: Acute Assessment and Plan: hemoglobin stable was 9.3 on 10/07 and 9.0 today. patient transfused with 2 units of PRBCs while as an inpatient [facility] patient to follow-up with Dr. Garcia, facilities coordinator call to set up an appointment will monitor hemoglobin hematocrit occult blood positive no active bleeding noted per facilities coordinator continue iron supplements and daily Vit C supplement repeating daily CBCs Her pathology smear from October 02 showed a low MCV with hypochromic RBCs and an increased RDW with increased platelets. This suggests possible iron deficiency anemia. iron panel was low for Iron/TIBC/%sat, so I have ordered Venofer 100 mg IV for 3 days. (8) Generalized weakness: Code(s): R53.1 - Weakness Status: Acute Assessment and Plan: Exhibit
[2019-10-13] MEDS: CEFDINIR 300 MG CAPSULE PO ×2 (10:13→21:00)
[2019-10-13] MEDS: SACCHAROMYCES BOULARDII 250 MG CAPSULE PO ×2 (11:15→17:02)
[2019-10-13 15:40] VITALS: BP 133/76; PULSE 96; RESP 16; TEMP 37.8; O2SAT 99
--- NOTE | 2019-10-13 15:42 | PC.NURSE ---
Patient awake and resting in bed watching TV. Alert and oriented x3. Answers questions appropriately. Denies pain, SOB, nausea. States I feel fine . Siderails up x2. Call light and telephone placed within reach.
[2019-10-13 15:49] VITALS: TEMP 36.7
[2019-10-13] MEDS: BACITRACIN/POLYMYXIN B OINT 15 GM TUBE 1 APPLIC TOPICAL (19:12)
--- NOTE | 2019-10-13 19:43 | PC.NURSE ---
Patient fed self supper. Alert and talkative when this service writer advisor was in room. Able to take medications without difficulty. No cough noted, unable to obtain sputum for sputum culture.
[2019-10-14] VITALS: BP 105/65; PULSE 87; RESP 14; TEMP 36.9; O2SAT 98
[2019-10-14] MEDS: PANTOPRAZOLE 40 MG TABLET PO (05:44)
[2019-10-14 07:34] VITALS: BP 142/79; PULSE 88; RESP 18; TEMP 36.8; O2SAT 95
--- NOTE | 2019-10-14 08:00 | PC.NURSE ---
Up in chair per OT department, dressed and bathed with assist of OT department
[2019-10-14] MEDS: LIDOCAINE 5% PATCH 1 PATCH TRANSDERM (08:48)
[2019-10-14] MEDS: SERTRALINE HCL 50 MG TABLET 100 MG PO (08:49)
[2019-10-14] MEDS: AMLODIPINE BESYLATE 5 MG TABLET 2.5 MG PO (08:49)
[2019-10-14] MEDS: ASCORBIC ACID 500 MG TABLET PO (08:49)
[2019-10-14] MEDS: DOCUSATE SODIUM 100 MG CAPSULE PO ×2 (08:49→20:46)
[2019-10-14] MEDS: SACCHAROMYCES BOULARDII 250 MG CAPSULE PO ×2 (08:49→17:06)
[2019-10-14] MEDS: CEFDINIR 300 MG CAPSULE PO ×2 (08:49→20:46)
--- NOTE | 2019-10-14 08:54 | PC.NURSE ---
AM meds administered, in chair, denies needs,
--- NOTE | 2019-10-14 10:30 | PC.NURSE ---
Resting in bed, no needs voiced
--- NOTE | 2019-10-14 11:39 | PC.NURSE ---
napping off and on
--- NOTE | 2019-10-14 11:52 | P.PNCROSS_ITS ---
Event Note Event Note Event Note: During rounds today, I was informed by school childcare attendant that Ms. Alva was qualified to stay until October 21 for further PT OT, antibiotics, monitoring of renal function and white count on a routine and regular basis, and rehab. <Kelsie Monet, SOFTWARE QA SYSTEM SPECIALIST - Last Filed: 10/14/19 11:53>
--- NOTE | 2019-10-14 11:52 | PM.EVENT ---
Event Note Event Note Event Note: During rounds today, I was informed by body care manager that Ms. Alva was qualified to stay until October 21 for further PT OT, antibiotics, monitoring of renal function and white count on a routine and regular basis, and rehab. <Kelsie Monet, TRACK LAYING EQUIPMENT OPERATOR - Last Filed: 10/14/19 11:53>
[2019-10-14 15:52] VITALS: PULSE 91; RESP 18; TEMP 36.7; O2SAT 95
[2019-10-14 15:55] VITALS: BP 121/77
[2019-10-14] MEDS: BACITRACIN/POLYMYXIN B OINT 15 GM TUBE 1 APPLIC TOPICAL (17:07)
--- NOTE | 2019-10-14 18:14 | PC.NURSE ---
Ate fair, resting in bed, requesting pain medication at bedtime
[2019-10-14] MEDS: TRAMADOL HCL 50 MG TABLET PO (20:46)
[2019-10-15] VITALS: BP 130/72; PULSE 88; RESP 18; TEMP 36.7; O2SAT 97
[2019-10-15] MEDS: PANTOPRAZOLE 40 MG TABLET PO (06:11)
[2019-10-15 07:10] VITALS: BP 124/77; PULSE 90; RESP 20; TEMP 36.9; O2SAT 96
--- NOTE | 2019-10-15 07:10 | PC.NURSE ---
When assisting patient up from bed to go to toilet noted to have left flank area where bruising and edema has been since admit that there are about 4 pinpoint pustules noted, oozing pus, area cleansed and dressing applied, to bathroom to void, back to bed and oozing noted to be large amount, mild odor, denies pain to area, cleansed with remington cleanse and reported, culture obtained, used telfa, gauze and abd dressing to secure drainage at this time, photo obtained of area with consent signed
--- NOTE | 2019-10-15 08:34 | PC.NURSE ---
Dr Taylor in to view wound to left hip/flank
--- NOTE | 2019-10-15 08:40 | PC.NURSE ---
Dressing changed to left flank region, large amount of drainage continues, will monitor closely
[2019-10-15] MEDS: LIDOCAINE 5% PATCH 1 PATCH TRANSDERM (09:12)
[2019-10-15] MEDS: AMLODIPINE BESYLATE 5 MG TABLET 2.5 MG PO (09:13)
[2019-10-15] MEDS: ASCORBIC ACID 500 MG TABLET PO (09:13)
[2019-10-15] MEDS: DOCUSATE SODIUM 100 MG CAPSULE PO (09:13)
[2019-10-15] MEDS: SACCHAROMYCES BOULARDII 250 MG CAPSULE PO ×2 (09:13→17:14)
[2019-10-15] MEDS: CEFDINIR 300 MG CAPSULE PO (09:13)
[2019-10-15] MEDS: SERTRALINE HCL 50 MG TABLET 100 MG PO (09:13)
[2019-10-15 10:01] LABS: Hematocrit 31.3 % (35.0-42.0); Hemoglobin 9.5 g/dL (11.7-13.8); Mean Corpuscular HGB Conc 30.4 g/dL (32.0-36.0); Mean Corpuscular Hemoglobin 23.2 pg (27.0-31.0); Mean Corpuscular Volume 76.5 fL (78.0-102.0); Mean Platelet Volume 9.2 fl (9.2-11.8); Platelet Count Result 488 K/mm3 (150-420); Red Blood Count 4.09 M/mm3 (4.20-5.40); Red Cell Distribution Width 29.8 % (11.6-14.4)
[2019-10-15 10:03] LABS: White Blood Count 22.9 K/mm3 (4.8-10.8)
[2019-10-15 10:14] LABS: Alanine Aminotransferase 27 U/L (14-59); Alkaline Phosphatase 172 U/L (46-116); Anion Gap 17.1 mmol/L (7-16); Aspartate Amino Transferase 24 U/L (15-37); Bilirubin,Total 0.2 mg/dL (0.00-1.00); Blood Urea Nitrogen 33 mg/dL (7-18); Calcium 8.2 mg/dL (8.5-10.1); Carbon Dioxide 23 mmol/L (21-32); Chloride 102 mmol/L (98-108); Estimated Glomerular Filt Rate 29; Glucose 251 mg/dL (70-99); Osmolality Calculated 301 mOsm/kg (285-295); Potassium 4.1 mmol/L (3.5-5.1); Sodium 138 mmol/L (136-145); Total Protein 6.8 g/dL (6.4-8.2)
[2019-10-15 10:15] LABS: CRP 17.1 mg/dL (0.0-0.9)
[2019-10-15 10:20] LABS: BNP 757 pg/mL (0-100)
--- NOTE | 2019-10-15 10:36 | PCPTNOTE ---
10/15/19 - patient refused AM visit due to fatigue and feeling sick from CT dye. DylonTF
--- NOTE | 2019-10-15 10:55 | PCOTNOTE ---
Attempted to see patient for OT however patient reports feeling nausous secondary to having CT. Will attempt this pm. MS
--- NOTE | 2019-10-15 11:06 | PC.NURSE ---
Dressing change completed at this time, drainage continues, hospitalist aware, awaiting orders
[2019-10-15 12:07] LABS: Lactic Acid Reflex 2.3 mmol/L (0.4-2.0)
[2019-10-15] MEDS: FERROUS SULFATE 324 MG TABLET PO (12:48)
--- NOTE | 2019-10-15 12:53 | PC.NURSE ---
Incontinent of urine, dressing to left flank dry and intact at this time, patient assisted to change attends
[2019-10-15 12:56] LABS: Reflex Lactic Acid Yes or No Add Lactic
--- NOTE | 2019-10-15 13:18 | PC.NURSE ---
Patient aware of ct results regarding abscess to flank region and size of area, recommending transfer back to [facility] to have urology and surgeon review abscess for possible I/D of the area
[2019-10-15 13:35] LABS: Lactic Acid 1.2 mmol/L (0.4-2.0)
--- NOTE | 2019-10-15 14:30 | PC.NURSE ---
Resting in bed, awaiting acceptance at [facility] for transfer due to abscess
--- NOTE | 2019-10-15 14:34 | PCOTNOTE ---
Per JOB COMPOSITOR, hold therapy as patient is being transferred out to another medical facility. Discharge skilled OT services. MS
[2019-10-15 16:00] VITALS: BP 137/76; PULSE 87; RESP 16; TEMP 36.6; O2SAT 97
--- NOTE | 2019-10-15 16:09 | P.DS_ITS ---
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 Isak Bassett, urology in 2 weeks after discharge * possible nephrectomy in the future * patient wishes to go home, then return to [facility] in the future for Dr. Asencio group follow up visits. * white count continues to be monitored. complete a daily CBC to monitor wbc's * Her white count is staying stable 14.9 on the and 15.0 today. Changed her from IV Rocephin to oral cefdinir 300 mg q.12 hours for 14 days as this is a complicated UTI with a history of pyelonephritis. Her creatinine is staying stable as well 1. 5 to then 1.51 and then today 1.53. * Rocephin ended 10/12 * white count is ranging from 15-16 Ordered repeat blood urine and sputum cultures - showed no growth. No fevers for the past 24 hours. * patient is to being transfer to [facility] under the care of Dr. Bassett for possible surgery for surgical procedure due to an abscess that measures 13 x 11 x 7.4 in her inferior Prerienal fat and posterior abdominal wall (2) Multiple falls: Code(s): R29.6 - Repeated falls Status: Acute Assessment and Plan: * Patient has been admitted to swing bed for rehab * patient plans to discharge to assisted * patient will use appropriate DME for safe transfer and ambulation * patient is to being transfer to [facility] under the care of Dr. Bassett for possible surgery for surgical procedure due to an abscess that measures 13 x 11 x 7.4 in her inferior Prerienal fat and posterior abdominal wall (3) Chronic back pain: Code(s): M54.9 - Dorsalgia, unspecified; G89.29 - Other chronic pain Status: Chronic Assessment and Plan: * continue pain medication Tylenol and tramadol * will also start lidocaine patch. * continue physical therapy/occupational therapy * patient is to being transfer to [facility] under the care of Dr. Bassett for possible surgery for surgical procedure due to an abscess that measures 13 x 11 x 7.4 in her inferior Prerienal fat and posterior abdominal wall (4) UTI (urinary tract infection): Code(s): N39.0 - Urinary tract infection, site not specified Status: Acute Assessment and Plan: * possibly secondary to pyleonephritis * UA with a growth E coli * culture indicates sensitive to Rocephin * complete a daily CBC to monitor wbc's * repeat Cultures with no growth * patient is to being transfer to [facility] under the care of Dr. Bassett for possible surgery for surgical procedure due to an abscess that measures 13 x 11 x 7.4 in her inferior Prerienal fat and posterior abdominal wall (5) Kidney stones: Code(s): N20.0 - Calculus of kidney Status: Chronic Assessment and Plan: * litthotripsy x2 in the past * strain all urine * renal us indicate- * Left renal staghorn calculus with lobular contour and adjacent complex fluid collections * urology was consulted- patient to follow-up with Dr. Isak Bassett, urology in 2 weeks after discharge * possible nephrectomy in the future * patient wishes to go home [facility] in the future Dr. Asencio group service * patient is to being transfer to [facility] under the care of Dr. Bassett for possible surgery for surgical procedure due to an abscess that measures 13 x 11 x 7.4 in her inferior Prerienal fat and posterior abdominal wall (6) HTN (hyperte
--- NOTE | 2019-10-15 16:09 | PM.DS ---
DS: Diagnosis Admitting Diagnosis Admitting Diagnosis: Other chronic tubulo-interstitial nephritis Discharge Diagnosis (1) XGP (xanthogranulomatous pyelonephritis): Code(s): N11.8 - Other chronic tubulo-interstitial nephritis Status: Acute Assessment and Plan: urology was consulted- patient to follow-up with Dr. Isak Bassett, urology in 2 weeks after discharge possible nephrectomy in the future patient wishes to go home, then return to [facility] in the future for Dr. Asencio group follow up visits. white count continues to be monitored. complete a daily CBC to monitor wbc's Her white count is staying stable 14.9 on the and 15.0 today. Changed her from IV Rocephin to oral cefdinir 300 mg q.12 hours for 14 days as this is a complicated UTI with a history of pyelonephritis. Her creatinine is staying stable as well 1. 5 to then 1.51 and then today 1.53. Rocephin ended 10/12 white count is ranging from 15-16 Ordered repeat blood urine and sputum cultures - showed no growth. No fevers for the past 24 hours. patient is to being transfer to [facility] under the care of Dr. Bassett for possible surgery for surgical procedure due to an abscess that measures 13 x 11 x 7.4 in her inferior Prerienal fat and posterior abdominal wall (2) Multiple falls: Code(s): R29.6 - Repeated falls Status: Acute Assessment and Plan: Patient has been admitted to swing bed for rehab patient plans to discharge to assisted patient will use appropriate DME for safe transfer and ambulation patient is to being transfer to [facility] under the care of Dr. Basestt for possible surgery for surgical procedure due to an abscess that measures 13 x 11 x 7.4 in her inferior Prerienal fat and posterior abdominal wall (3) Chronic back pain: Code(s): M54.9 - Dorsalgia, unspecified; G89.29 - Other chronic pain Status: Chronic Assessment and Plan: continue pain medication Tylenol and tramadol will also start lidocaine patch. continue physical therapy/occupational therapy patient is to being transfer to [facility] under the care of Dr. Bassett for possible surgery for surgical procedure due to an abscess that measures 13 x 11 x 7.4 in her inferior Prerienal fat and posterior abdominal wall (4) UTI (urinary tract infection): Code(s): N39.0 - Urinary tract infection, site not specified Status: Acute Assessment and Plan: possibly secondary to pyleonephritis UA with a growth E coli culture indicates sensitive to Rocephin complete a daily CBC to monitor wbc's repeat Cultures with no growth patient is to being transfer to [facility] under the care of Dr. Bassett for possible surgery for surgical procedure due to an abscess that measures 13 x 11 x 7.4 in her inferior Prerienal fat and posterior abdominal wall (5) Kidney stones: Code(s): N20.0 - Calculus of kidney Status: Chronic Assessment and Plan: litthotripsy x2 in the past strain all urine renal us indicate- Left renal staghorn calculus with lobular contour and adjacent complex fluid collections urology was consulted- patient to follow-up with Dr. Isak Bassett, urology in 2 weeks after discharge possible nephrectomy in the future patient wishes to go home [facility] in the future Dr. Asencio group service patient is to being transfer to [facility] under the care of Dr. Bassett for possible surgery for surgical procedure due to an abscess that measures 13 x 11 x 7.4 in her inferior Prerienal fat and posterior abdominal wall (6) HTN (hypertension): Code(s): I10 - Essential (primary) hypertension Status: Chronic Assessment and Plan: blood pressure stable started Norvasc vital signs as ordered (7) Anemia: Qualifiers: Anemia type: unspecified type Qualified Code(s): D64.9 - Anemia, unspecified Code(s): D64.9 - Anemia, unspecified Status: A
--- NOTE | 2019-10-15 17:07 | PC.NURSE ---
ATTEMPTED TO CALL RE[facility] [phone]. NURSE UNAVAILABLE WILL RETURN CALL.
--- NOTE | 2019-10-15 18:03 | PC.NURSE ---
REPORT CALLED TO BERNADINE MCLEAN AT [facility]. REPORT ACCEPTED. CHARGE NURSE NOTIFYING AMBULANCE SERVICE, [facility].
--- NOTE | 2019-10-15 18:40 | PC.NURSE ---
ASSISTED PATIENT FROM BED TO BATHROOM WITH WHEELED WALKER. SOON PATIENT STOOD UP AND BEGAN MOVING PRESSURE FROM MOVEMENT CAUSED ABSCESSED AREA TO PROFUSELY DRAIN THROUGH DRESSING. PT DENIES PAIN OR ANY DISCOMFORT. SITE CLEANSED AND NEW DRESSING APPLIED AND REINFORCED WITH 2 ABD PADS.PT HAS BELONGINGS THAT SHE IS CALLING HER SISTER TO AMBULANCE DISPATCHER, CHARGE NURSE MARIO AWARE. PT PLACED IN GOWN AND ASSISTED BACK TO BED. AWAITING EMS FOR TRANSPORT.
--- NOTE | 2019-10-15 18:55 | PC.NURSE ---
[facility] EMS CREW ARRIVED TO ROOM TO TRANSPORT PATIENT TO [facility]. REPORT GIVEN. ALL QUESTIONS ANSWERED. ALL PAPERWORK SENT WITH EMS. PT BELONGINGS WITH PATIENT. PT ASSISTED WITH W/W TO STRETCHER WITHOUT DIFFICULTY. PT REPORTS NO CONCERNS. ALERT AND ORIENTED AND WITHOUT DISTRESS.
--- NOTE | 2019-10-15 19:25 | P.PNCROSS_ITS ---
Event Note Event Note Event Note: The patient states she has not been feeling well in his back pain. Fluctuant draining mass discovered on her left flank this morning. She has had no fever. Alert and oriented, [id number] acute distress. Lungs clear to auscultation bilaterally. Regular rate rhythm without murmur rub or gallop. Abdomen is mildly tender in the left flank. No masses or rigidity. 10 x 12 fluctuant mass with a central ostium draining white pus overlying the left iliac crest. CT scan shows that this abscess is contiguous with the perinephric fat on the left. Surgical remedy is indicated and she will be transferred to Dr. Bassett's care at [facility]. I have reviewed the chart and examined the patient. I discussed the patient's care with Sebastian Omalley and agree with her assessment and plan.
== END 2019-10-15 18:55 | disposition short-term general hospital (02) | DRG 690 ==
PROVIDERS: Nurse Practitioner; Admitting Provider Family Medicine; Visit Provider Family Medicine
DX: N11.8 Other chronic tubulo-interstitial nephritis (principal); N39.0 Urinary tract infection, site not specified; N15.1 Renal and perinephric abscess; N20.0 Calculus of kidney; R53.1 Weakness; D64.9 Anemia, unspecified; L89.159 Pressure ulcer of sacral region, unspecified stage; J43.9 Emphysema, unspecified; K21.9 Gastro-esophageal reflux disease without esophagitis; I10 Essential (primary) hypertension; M81.0 Age-related osteoporosis without current pathological fracture; M54.9 Dorsalgia, unspecified; G89.29 Other chronic pain; M47.816 Spondylosis without myelopathy or radiculopathy, lumbar region; F32.9 Major depressive disorder, single episode, unspecified; R29.6 Repeated falls; Z87.891 Personal history of nicotine dependence; S41.102D Unspecified open wound of left upper arm, subsequent encounter; S41.101D Unspecified open wound of right upper arm, subsequent encounter
CPT/HCPCS: 36415; 72132; 74177; 80048; 80053; 82728; 83540; 83550; 83605; 83735; 83880; 84100; 85025; 85027; 86140; 87040; 87070; 87077; 87086; 87088; 87205; 97110; 97116; 97161; 97165; 97530; 97535; A9270; J0696; J1650; J1756; Q9965

== ENCOUNTER 2019-10-26 18:28 | Inpatient (IN) | payer MEDICARE, SELFPAY ==
--- NOTE | ~2019-10-26 | CT_ITS ---
EXAMINATION: CT [facility] EXAM DATE: 11/01/2019 20:31 INDICATION abnormal chest x-ray. Fever. TECHNIQUE: Spiral CT of the chest without contrast. HRCT. Axial, coronal and sagittal images were re viewed. Coronal maximum intensity pixel images of chest reviewed. The dose-length product (DLP) for this examination was 123.32 mGy-cm. The exposure was tailored according to patient size (auto mA ex posure control), and iterative reconstruction (ASIR) was used as additional dose reduction technique. Comparison is made to prior examination from 12/30/2017. FINDINGS: There is mild to moderate emphysema. There is small to moderate left pleural effusion wit h adjacent compressive atelectasis. Smaller amount of right middle lobe and lingular opacity likely a lso atelectasis. No confluent consolidation. Small pericardial effusion. There is moderate sliding ga stroesophageal hiatal hernia. Tracheobronchial tree is patent. There is no mediastinal, hilar or a xillary lymphadenopathy. There is no pneumothorax. Heart normal in size. There is moderate ivette nary arterial calcification, arterial sclerosis. Probable interval left nephrectomy. Chronic L1 burst fracture, T11 and T12 compression fractures with methylmethacrylate at the T11 level , from vertebroplasty. Mild to moderate compression fractures several other mid thoracic levels have developed compared to prior study. No intralobular septal thickening on the HRCT. IMPRESSION: 1. Small to moderate left pleural effusion, adjacent compressive atelectasis. 2. Mild to moderate emphysema. 3. Moderate sized gastroesophageal hiatal hernia. Reviewed, dictated and finalized at location .
--- NOTE | ~2019-10-26 | XR_ITS ---
EXAMINATION: XR chest 1V portable EXAM DATE: 11/01/2019 17:09 INDICATION: Fever. TECHNIQUE: Portable AP frontal chest x-ray was obtained. Comparison is made to prior examination from 09/27/2019. FINDINGS: Interval development of silhouetting of the left hemidiaphragm behind the heart, suspicious for subsegmental retrocardiac consolidation. There are no pleural effusions. Cardiac silhouette is prominent but magnified on this AP technique. There is no pneumothorax suspected. The bones are os teopenic. There are bony degenerative changes. Treated lower thoracic compression fracture. There is aortic arteriosclerosis. IMPRESSION: Probable retrocardiac segmental pneumonia. Reviewed, dictated and finalized at location A.
[2019-10-26 18:53] VITALS: BMI 19.6
--- NOTE | 2019-10-26 19:14 | ADMGEN ---
This patient, Kaylen Alva, was admitted to 2nd Floor Room 202-1. Patient/family oriented to hospital policies and general routines including ID bracelet, bed and alarms, visiting hours, pain management, procedures, bathroom and other care routines, personal items, smoking policy, room service/diet, and visiting hours. Valuables list has been completed. Medication is in med room, wound vac unable to be applied at this time due to missing collection piece, charge nurse calling wound vac company to resolve Information on how to activate the Rapid Response Team has been discussed. Patient/Family are encouraged to report perceived risks to care and to ask questions if they do not understand what they are told or what they should do.
[2019-10-26 19:22] VITALS: BP 147/84; PULSE 88; RESP 16; TEMP 36.7; O2SAT 98
[2019-10-26 19:36] VITALS: RESP 16
--- NOTE | 2019-10-26 19:40 | PC.NURSE ---
charge nurse has been in contact with wound vac company due to absence of collection device on pump, company states 2 should have been included but since there are none here they will send some, eta is sunday, charge nurse on phone to dr johnson to see what dressing should be used instead
--- NOTE | 2019-10-26 20:56 | PC.NURSE ---
Patients wound vac did not have canister included in box. Contacted [employer]. Canisters ordered with arrival date of 10/28/2019. Foam and wound dressing removed and wet to dry applied. Contacted [employer]ERIAL ASSIST[employer] with information Requested canister delivery be expedited. [employer] will deliver overnight.
[2019-10-26] MEDS: metroNIDAZOLE 250 MG TABLET 500 MG PO (21:06)
[2019-10-26] MEDS: TRAMADOL HCL 50 MG TABLET PO (21:06)
--- NOTE | 2019-10-26 22:30 | PC.NURSE ---
Canisters arrived. Wound vac applied as directed. Setting at 125 continous
[2019-10-27 03:22] VITALS: BP 110/65; PULSE 88; TEMP 36.6; O2SAT 97
[2019-10-27] MEDS: metroNIDAZOLE 250 MG TABLET 500 MG PO ×3 (04:46→20:30)
[2019-10-27 07:10] VITALS: BP 133/71; PULSE 85; RESP 18; TEMP 36.6; O2SAT 97
[2019-10-27] MEDS: PANTOPRAZOLE 40 MG TABLET PO (08:53)
[2019-10-27] MEDS: SERTRALINE HCL 50 MG TABLET 100 MG PO (08:53)
[2019-10-27] MEDS: AMLODIPINE BESYLATE 5 MG TABLET 2.5 MG PO (08:54)
--- NOTE | 2019-10-27 09:05 | PM.IMHP ---
H&P: [facility] History of Present Illness Chief complaint: transfer Narrative: Kaylen Alva is a 69 year old female admitted last night for swing rehabilitation due to physical deconditioning and generalized weakness after prolonged hospitalization. She is status post a hand assisted laparoscopic left nephrectomy on October 20 as well as washout and I & D of flank abscess at the same time , and has been left open to heal with expected wound VAC therapy. her October 15 Kidney abscess cultures showed a growth of bacterioides fragilis, beta lactamase positive, but her October 15 blood cultures x2 showed no growth. She was discharged from [facility] on Cefdinir 300 mg PO twice a day for 4 days and Flagyl 500 mg p.o. t.i.d. for 5 days. She was diagnosed with an XGP nonfunctioning kidney prior to this surgery and had been receiving rehabilitation here when an abscess had formed and she was sent back to [facility] for re-evaluation. Today Kaylen is doing well, resting flat on her back in her bed. She has makeup on, she stated that she felt well enough today to put makeup on. She does have some discomfort to the sites on her back, her surgical sites and wound VAC sites but the discomfort is only with repositioning or turning herself in bed. Otherwise she is doing remarkably well and able to rest on her back. Her white count today was 13.5, much improved since her last admission. No fevers noted, and no chills. Her potassium is 3.9 today in her sodium 142, and her creatinine at 1.45 was better than her last hospitalization here. Her CRP today was 5.4 also improved and her BNP is better at 461. Her Mag and phos are within normal limits. She has a wound VAC in place, the black foam is correctly dressing her wound in the transparent dressing is occlusive with suction intact. There is currently no output and it does appear to be a pretty dry wound. Contact the surgeon Dr. Bassett at [facility], for any further questions or concerns. She will be evaluated and start therapy with PT and OT today and continue her swing rehabilitation as planned. Review of Systems Review of Systems: All systems reviewed & are unremarkable except as noted in HPI and below Constitutional: Constitutional: Reports as per HPI, Reports body ache(s) ( sore due to surgical incisions), Denies chills, Denies excessive sweating, Reports fatigue, Denies headache(s), Denies increased appetite, Reports lethargy, Denies snoring, Reports weakness and Denies weight gain Eyes: Eyes: Reports as per HPI, Reports no additional eye complaints, Denies exophthalmos, Denies diplopia, Denies floaters and Denies loss of peripheral vision ENT: Reports as per HPI, Reports Normal hearing present, Denies facial pain, Denies headache(s), Denies epistaxis, Denies nasal congestion, Denies odynophagia and Denies tinnitus Cardiovascular: Cardiovascular: Reports as per HPI, Denies chest pain, Denies diaphoresis, Denies pedal edema, Denies leg edema, Denies lightheadedness and Denies palpitations Respiratory: Respiratory: Reports as per HPI, Reports chest congestion, Denies cough, Denies hemoptysis, Denies dyspnea, Reports dyspnea on exertion, Denies snoring and Denies wheezing Gastrointestinal: Gastrointestinal: Reports as per HPI, Denies abdominal pain, Denies melena, Denies bloating, Denies hematochezia, Denies constipation, Denies heartburn, Denies diarrhea, Denies nausea, Denies odynophagia, Denies vomiting and Denies hematemesis Genitourinary: Genitourinary: Reports as per HPI, Denies hematuria, Denies urinary frequency, Denies nocturia, Denies flank pain and Denies urinary incontinence Musculoskeletal: Musculoskeletal: Reports as per HPI, Reports back pain, Reports myalgias and Denies neck pain Integumentary/Breasts: Skin/Breast: Reports as per HPI and Denies breast pain Neurologic: Reports as per HPI, Denies Abnormal speech present, Denies confusion, Denies headache(s) and Denies numbness Psych
[2019-10-27 09:19] LABS: Hematocrit 35.5 % (35.0-42.0); Hemoglobin 10.7 g/dL (11.7-13.8); Immature Platelet Fraction Pct 0.6 % (1.0-7.0); Mean Corpuscular HGB Conc 30.1 g/dL (32.0-36.0); Mean Corpuscular Hemoglobin 24.6 pg (27.0-31.0); Mean Corpuscular Volume 81.6 fL (78.0-102.0); Mean Platelet Volume 9.2 fl (9.2-11.8); Platelet Count Result 624 K/mm3 (150-420); Red Blood Count 4.35 M/mm3 (4.20-5.40); White Blood Count 13.5 K/mm3 (4.8-10.8)
[2019-10-27 09:32] LABS: Alanine Aminotransferase 7 U/L (14-59); Alkaline Phosphatase 142 U/L (46-116); Anion Gap 15.9 mmol/L (7-16); Aspartate Amino Transferase 33 U/L (15-37); Bilirubin,Total 0.3 mg/dL (0.00-1.00); Blood Urea Nitrogen 12 mg/dL (7-18); CRP 5.4 mg/dL (0.0-0.9); Calcium 8.1 mg/dL (8.5-10.1); Carbon Dioxide 22 mmol/L (21-32); Chloride 108 mmol/L (98-108); Estimated Glomerular Filt Rate 36; Glucose 150 mg/dL (70-99); Magnesium 1.8 mg/dL (1.8-2.4); Osmolality Calculated 296 mOsm/kg (285-295); Phosphorus 2.8 mg/dL (2.6-4.7); Potassium 3.9 mmol/L (3.5-5.1); Sodium 142 mmol/L (136-145); Total Protein 6.1 g/dL (6.4-8.2)
[2019-10-27 09:33] LABS: Band Neutrophils Percent 1 % (0-6); Basophils Percent Manual 0 % (0-1); Eosinophils Absolute Manual 0.27 K/mm3 (0.02-0.5); Eosinophils Percent Manual 2 % (1-6); Lymphocytes Absolute Manual 1.89 K/mm3 (1.1-4.5); Lymphocytes Percent Manual 14 % (18-44); Monocytes Absolute Manual 0.54 K/mm3 (0.1-0.90); Monocytes Percent Manual 4 % (3-9); Myelocytes Percent 1 %; Neutrophils Absolute Manual 10.53 K/mm3 (1.7-7.2); Neutrophils Percent Manual 77 % (46-73); Promyelocytes Percent 1 %; Total Cells Counted 100
[2019-10-27 09:35] LABS: BNP 461 pg/mL (0-100)
[2019-10-27 09:43] LABS: Platelet Estimate Increased (Adequate)
[2019-10-27] MEDS: POLYSACCHARIDE IRON COMPLEX 150 MG CAPSULE PO (11:10)
[2019-10-27 15:40] VITALS: BP 143/69; PULSE 86; RESP 18; TEMP 36.4; O2SAT 99
--- NOTE | 2019-10-27 19:30 | PC.NURSE ---
Patient resting quietly in bed. No distress noted. Call light at side.
--- NOTE | 2019-10-27 22:25 | PC.NURSE ---
Patient resting quietly in bed. Drainage container remains at 25ml. Wound vac suctioning well, no air leak noted. Patient denies any needs. Call light at side.
[2019-10-27 23:00] VITALS: BP 145/84; PULSE 86; RESP 16; TEMP 36.3; O2SAT 97
[2019-10-28] MEDS: metroNIDAZOLE 250 MG TABLET 500 MG PO ×3 (04:19→20:21)
--- NOTE | 2019-10-28 05:46 | PC.NURSE ---
[facility] care provided.
[2019-10-28 05:47] VITALS: BP 150/88; PULSE 89; RESP 16; TEMP 36.2; O2SAT 99
--- NOTE | 2019-10-28 07:45 | PC.NURSE ---
PT walking with patient in hallway.
[2019-10-28] MEDS: AMLODIPINE BESYLATE 5 MG TABLET 2.5 MG PO (08:32)
[2019-10-28] MEDS: SERTRALINE HCL 50 MG TABLET 100 MG PO (08:32)
[2019-10-28] MEDS: POLYSACCHARIDE IRON COMPLEX 150 MG CAPSULE PO (08:33)
[2019-10-28] MEDS: PANTOPRAZOLE 40 MG TABLET PO (08:33)
--- NOTE | 2019-10-28 11:20 | PC.NURSE ---
Patient resting quietly in bed with hob elevated. Call light at side.
--- NOTE | 2019-10-28 13:40 | PM.IMPN ---
Progress Note: A&P Assessment and Plan (1) History of nephrectomy, left: Code(s): Z90.5 - Acquired absence of kidney Status: Acute Assessment and Plan: s/p hand assisted laparoscopic left nephrectomy on October 20 as well as washout and I & D of flank abscess at the same time , left open to heal with expected wound VAC therapy. drainage from wound VAC serous her October 15 Kidney abscess cultures showed a growth of bacterioides fragilis, beta lactamase positive, October 15 blood cultures x2 showed no growth. Dscharged from [facility] on Cefdinir 300 mg PO twice a day for 4 days and Flagyl 500 mg p.o. t.i.d. for 5 days. 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 treated with nephrectomy Followed by Surgeon Dr. Bassett at [facility]. (3) Generalized weakness: Code(s): R53.1 - Weakness Status: Acute Assessment and Plan: Exhibit tolerance during physical activity as evidenced by a normal fluctuation of vital signs during physical activity. Patient will be ability to perform required activities of daily living. Provide appropriate nutrition for healing and strength. Use appropriate to prevent falls. Continue physical therapy/occupational therapy. Subjective Date/time seen: 10/28/19 13:40 Mrs. Dexetr continues to have abdominal tenderness her incisional site on her right upper quadrant are clean dry and intact in her wound VAC is in place which is located on her left lower back Darshan is T is serous. patient noted that she has overnight is able to tolerate all her meals, physical therapy is going well and she feels a lot better. she will continue physical therapy occupational therapy in the swing bed. she has no obvious signs and symptoms of infection Review of Systems Review of Systems: All systems reviewed & are unremarkable except as noted in HPI and below Constitutional: Constitutional: Reports as per HPI, Reports body ache(s) ( sore due to surgical incisions), Denies chills, Denies excessive sweating, Reports fatigue, Denies headache(s), Denies increased appetite, Reports lethargy, Denies snoring, Reports weakness and Denies weight gain Eyes: Eyes: Reports as per HPI, Reports no additional eye complaints, Denies exophthalmos, Denies diplopia, Denies floaters and Denies loss of peripheral vision ENT: Reports as per HPI, Reports Normal hearing present, Denies facial pain, Denies headache(s), Denies epistaxis, Denies nasal congestion, Denies neck pain, Denies odynophagia and Denies tinnitus Cardiovascular: Cardiovascular: Reports as per HPI, Denies chest pain, Denies diaphoresis, Denies pedal edema, Denies leg edema, Denies lightheadedness, Denies palpitations, Denies dyspnea and Reports dyspnea on exertion Respiratory: Respiratory: Reports as per HPI, Reports chest congestion, Denies cough, Denies hemoptysis, Denies dyspnea, Reports dyspnea on exertion, Denies snoring and Denies wheezing Gastrointestinal: Gastrointestinal: Reports as per HPI, Denies abdominal pain, Denies melena, Denies bloating, Denies hematochezia, Denies constipation, Denies heartburn, Denies diarrhea, Denies nausea, Denies odynophagia, Denies vomiting, Denies hematemesis and Reports other ( abdominal tenderness) Genitourinary: Genitourinary: Reports as per HPI, Denies hematuria, Denies urinary frequency, Denies nocturia, Denies flank pain and Denies urinary incontinence Musculoskeletal: Musculoskeletal: Reports as per HPI, Reports back pain, Reports myalgias, Denies neck pain and Denies numbness Integumentary/Breasts: Skin/Breast: Reports as per HPI and Denies breast pain Godfrey
--- NOTE | 2019-10-28 14:31 | PC.NURSE ---
Patient resting quietly in bed. Call light and belongings provided. Covered with blanket per request. Denies any needs.
--- NOTE | 2019-10-28 15:47 | PM.EVENT ---
Event Note Event Note Event Note: Swing admission for weakness and continued antibiotic treatment of left flank subcutaneous abscess/urinoma. Pt denies pain. Ate breakfast, walked to end of soliz and back. Pt. started on metronidazole, 5 d. course; cefdinir 300 mg BID has not been started. O) Vitals stable. NAD, laying in bed. Minor epigastric tenderness. Right epigastric incision suture sight without inflammation. Left flank drainage tube exit sight. Several ml of very light pink non-viscous fluid in drainage bag. Discussed with Vinny Will, agree with assessment and plan in note. Start cefdinir.
[2019-10-28 15:50] VITALS: BP 133/79; PULSE 87; RESP 16; TEMP 36.6; O2SAT 98
--- NOTE | 2019-10-28 18:30 | PC.NURSE ---
Patient resting quietly in bed with hob elevated. Call light and belongings at side. Denies any needs.
[2019-10-28] MEDS: CEFDINIR 300 MG CAPSULE PO (20:21)
[2019-10-28 23:00] VITALS: BP 147/86; PULSE 86; RESP 18; TEMP 36.3; O2SAT 98
[2019-10-29] MEDS: metroNIDAZOLE 250 MG TABLET 500 MG PO ×3 (05:26→21:12)
[2019-10-29] MEDS: POLYSACCHARIDE IRON COMPLEX 150 MG CAPSULE PO (07:37)
[2019-10-29 07:40] VITALS: BP 147/94; PULSE 91; RESP 20; TEMP 37.2; O2SAT 98
[2019-10-29] MEDS: ONDANSETRON HCL ODT 4 MG TABLET PO (08:45)
[2019-10-29] MEDS: AMLODIPINE BESYLATE 5 MG TABLET 2.5 MG PO (09:28)
[2019-10-29] MEDS: PANTOPRAZOLE 40 MG TABLET PO (09:28)
[2019-10-29] MEDS: CEFDINIR 300 MG CAPSULE PO ×2 (09:28→21:13)
[2019-10-29] MEDS: SERTRALINE HCL 50 MG TABLET 100 MG PO (09:28)
--- NOTE | 2019-10-29 09:45 | PC.NURSE ---
pt resting per bed. m denies nausea at this time.
--- NOTE | 2019-10-29 10:16 | PC.NURSE ---
Addendum entered by Ivy Denton RN 10/29/19 10:17: pt complaint of nausea at 0845 and was given zofran at that time. Original Note: pt complains of nausea. zofran 4mg given po.
[2019-10-29] MEDS: TRAMADOL HCL 50 MG TABLET PO (12:43)
--- NOTE | 2019-10-29 14:10 | PC.NURSE ---
PT WALKING PATIENT IN THE EASON.
[2019-10-29 15:37] VITALS: BP 116/68; PULSE 88; RESP 20; TEMP 36.5; O2SAT 99
[2019-10-30] VITALS: BP 128/79; PULSE 82; RESP 18; TEMP 36.7; O2SAT 97
[2019-10-30] MEDS: metroNIDAZOLE 250 MG TABLET 500 MG PO ×3 (05:09→20:14)
[2019-10-30 08:00] VITALS: BP 112/68; PULSE 74; RESP 18; TEMP 36.3; O2SAT 92
[2019-10-30] MEDS: PANTOPRAZOLE 40 MG TABLET PO (09:00)
[2019-10-30] MEDS: AMLODIPINE BESYLATE 5 MG TABLET 2.5 MG PO (09:00)
[2019-10-30] MEDS: POLYSACCHARIDE IRON COMPLEX 150 MG CAPSULE PO (09:00)
[2019-10-30] MEDS: SERTRALINE HCL 50 MG TABLET 100 MG PO (09:00)
[2019-10-30] MEDS: CEFDINIR 300 MG CAPSULE PO ×2 (09:00→20:14)
[2019-10-30 16:00] VITALS: BP 98/48; PULSE 76; RESP 18; TEMP 36.6; O2SAT 93
--- NOTE | 2019-10-30 19:17 | PC.NURSE ---
1615 wound redressed to back. area is red. no odor. tunnels 4.8cmx 2.8cm x 4.2cm. hooked back up to wound vac. tolerated well.
[2019-10-30 19:20] VITALS: BP 124/76; PULSE 94; RESP 18; TEMP 36.9; O2SAT 98
--- NOTE | 2019-10-30 22:29 | PC.NURSE ---
Patient sleeping quietly in bed. Breathing even and unlabored. Call light at side. Wound vac cont. per orders.
[2019-10-31] VITALS: BP 160/82; PULSE 82; RESP 20; TEMP 36.4; O2SAT 98
--- NOTE | 2019-10-31 03:23 | PC.NURSE ---
Sleeping, resp even. Call galloway in reach.
[2019-10-31] MEDS: metroNIDAZOLE 250 MG TABLET 500 MG PO ×3 (04:28→21:09)
--- NOTE | 2019-10-31 04:54 | PC.NURSE ---
Inc care provided. Barrier cream applied.
[2019-10-31 05:38] LABS: Hematocrit 33.5 % (35.0-42.0); Hemoglobin 10.1 g/dL (11.7-13.8); Mean Corpuscular HGB Conc 30.1 g/dL (32.0-36.0); Mean Corpuscular Hemoglobin 25.2 pg (27.0-31.0); Mean Corpuscular Volume 83.5 fL (78.0-102.0); Mean Platelet Volume 9.7 fl (9.2-11.8); Platelet Count Result 480 K/mm3 (150-420); Red Blood Count 4.01 M/mm3 (4.20-5.40); White Blood Count 9.5 K/mm3 (4.8-10.8)
[2019-10-31 06:06] LABS: Alanine Aminotransferase 19 U/L (14-59); Albumin Level 2.2 g/dL (3.4-5.0); Alkaline Phosphatase 118 U/L (46-116); Anion Gap 13.9 mmol/L (7-16); Aspartate Amino Transferase 40 U/L (15-37); Bilirubin,Total 0.3 mg/dL (0.00-1.00); Blood Urea Nitrogen 19 mg/dL (7-18); Calcium 7.9 mg/dL (8.5-10.1); Carbon Dioxide 26 mmol/L (21-32); Chloride 108 mmol/L (98-108); Estimated Glomerular Filt Rate 35; Glucose 89 mg/dL (70-99); Osmolality Calculated 297 mOsm/kg (285-295); Potassium 4.9 mmol/L (3.5-5.1); Sodium 143 mmol/L (136-145); Total Protein 5.4 g/dL (6.4-8.2)
[2019-10-31 08:00] VITALS: BP 118/77; PULSE 108; RESP 20; TEMP 37.1
[2019-10-31] MEDS: AMLODIPINE BESYLATE 5 MG TABLET 2.5 MG PO (08:19)
[2019-10-31] MEDS: SERTRALINE HCL 50 MG TABLET 100 MG PO (08:20)
[2019-10-31] MEDS: POLYSACCHARIDE IRON COMPLEX 150 MG CAPSULE PO (08:20)
[2019-10-31] MEDS: TRAMADOL HCL 50 MG TABLET PO (08:20)
[2019-10-31] MEDS: CEFDINIR 300 MG CAPSULE PO ×2 (08:20→21:10)
[2019-10-31] MEDS: PANTOPRAZOLE 40 MG TABLET PO (08:20)
[2019-10-31] MEDS: ONDANSETRON HCL ODT 4 MG TABLET PO (09:08)
--- NOTE | 2019-10-31 12:25 | PC.NURSE ---
COMPLAINS OF FEELING NAUSEA AND DIZZINESS. TO BED WITH ASSIST PER PATIENT REQUEST. CALL [facility] IN REACH, REMINDED TO CALL WITH NEEDS.
[2019-10-31 16:00] VITALS: BP 103/63; PULSE 96; RESP 18; TEMP 36.7; O2SAT 95
[2019-11-01] VITALS: BP 120/69; PULSE 87; RESP 16; TEMP 36.7; O2SAT 99
--- NOTE | 2019-11-01 02:30 | PC.NURSE ---
Sleeping, skin pink, no distress noted. Wound Vac connected and operating.
[2019-11-01] MEDS: metroNIDAZOLE 250 MG TABLET 500 MG PO ×3 (04:52→20:42)
--- NOTE | 2019-11-01 04:56 | PC.NURSE ---
Awake watching TV. Denies pain.Medications taken without difficulty.
--- NOTE | 2019-11-01 04:58 | PC.NURSE ---
no increase in drainage from wound vac. collection device
[2019-11-01 08:00] VITALS: BP 134/85; PULSE 91; RESP 16; TEMP 37; O2SAT 98
[2019-11-01] MEDS: PANTOPRAZOLE 40 MG TABLET PO (08:22)
[2019-11-01] MEDS: POLYSACCHARIDE IRON COMPLEX 150 MG CAPSULE PO (08:22)
[2019-11-01] MEDS: SERTRALINE HCL 50 MG TABLET 100 MG PO (08:22)
[2019-11-01] MEDS: AMLODIPINE BESYLATE 5 MG TABLET 2.5 MG PO (08:23)
[2019-11-01] MEDS: CEFDINIR 300 MG CAPSULE PO ×2 (08:25→20:42)
--- NOTE | 2019-11-01 11:02 | PC.NURSE ---
PT AMBULATED IN HALLWAY WITH THERAPY THIS MORNING, DID VERY WELL. NO COMPLAINTS. SITTING UP IN CHAIR.
[2019-11-01 15:46] VITALS: BP 113/76; PULSE 87; RESP 14; TEMP 39.2; O2SAT 96
[2019-11-01 17:12] VITALS: TEMP 39.2
[2019-11-01] MEDS: ACETAMINOPHEN 325 MG TABLET 650 MG PO (17:12)
[2019-11-01 18:00] VITALS: TEMP 36.9
[2019-11-01 18:13] LABS: Hematocrit 34.1 % (35.0-42.0); Hemoglobin 10.2 g/dL (11.7-13.8); Mean Corpuscular HGB Conc 29.9 g/dL (32.0-36.0); Mean Corpuscular Hemoglobin 25.5 pg (27.0-31.0); Mean Corpuscular Volume 85.3 fL (78.0-102.0); Mean Platelet Volume 9.8 fl (9.2-11.8); Platelet Count Result 474 K/mm3 (150-420); White Blood Count 11.5 K/mm3 (4.8-10.8)
[2019-11-01 18:27] LABS: Alanine Aminotransferase 17 U/L (14-59); Albumin Level 2.2 g/dL (3.4-5.0); Alkaline Phosphatase 111 U/L (46-116); Anion Gap 12.6 mmol/L (7-16); Aspartate Amino Transferase 37 U/L (15-37); Bilirubin,Total 0.2 mg/dL (0.00-1.00); Blood Urea Nitrogen 24 mg/dL (7-18); Carbon Dioxide 27 mmol/L (21-32); Chloride 106 mmol/L (98-108); Estimated Glomerular Filt Rate 35; Glucose 122 mg/dL (70-99); Osmolality Calculated 297 mOsm/kg (285-295); Potassium 4.6 mmol/L (3.5-5.1); Sodium 141 mmol/L (136-145); Total Protein 6.1 g/dL (6.4-8.2)
[2019-11-01 18:29] LABS: Anisocytosis 1+ (NORMAL); Band Neutrophils Percent 0 % (0-6); Eosinophils Absolute Manual 0.34 K/mm3 (0.02-0.5); Eosinophils Percent Manual 3 % (1-6); Lymphocytes Absolute Manual 1.03 K/mm3 (1.1-4.5); Lymphocytes Percent Manual 9 % (18-44); Monocytes Absolute Manual 0.92 K/mm3 (0.1-0.90); Monocytes Percent Manual 8 % (3-9); Neutrophils Percent Manual 80 % (46-73); Platelet Estimate Adequate (Adequate); Total Cells Counted 100
[2019-11-01 18:32] LABS: Lactic Acid 1.2 mmol/L (0.4-2.0)
--- NOTE | 2019-11-01 18:37 | PM.EVENT ---
Event Note Event Note Event Note: Temp 39.2 at 15:46. No change after 2 hours. Pt. states she feels fine, denies any new symptoms: no h.a., sore throat, cough, SOB, chest, abdominal, flank, back pain, dysuria. or diarrhea. On exam 113/76 - 87 - 14. A&O, laying supine. Respirations not labored. Decreased b.s., no wheezes/rales. Cor: RR &R without g/m. Back: wound vac tubing exit site from left flank is not swollen, red or tender. Abd. Flat, soft and non-tender. Nurse states questionable enough fluid in wound vac to even culture. Medical decision process for new onset fever. Off of cefdinir and metronidazole since yesterday, possible recurrent wound infection. Could be new onset pneumonia or UTI. Possible Covid-19. Findings Cxr: Interval development of silhouetting of the left hemidiaphragm behind the heart, suspicious for subsegmental retrocardiac consolidation. CT chest: IMPRESSION: 1. Small to moderate left pleural effusion, adjacent compressive atelectasis. 2. Mild to moderate emphysema. 3. Moderate sized gastroesophageal hiatal hernia. CBC: WBC 11.5, 80% neutrophils, no bands. Abs neutrophils 9.2K. U.A. 7-9 WBC, 1+ bact, +nitrate A/ 1. Fever. 2. UTI P) Monitor temp every 4 hours. Start TMP/SMX. No evidence of pneumonia or Covid.
[2019-11-01 22:49] LABS: Add Urine Microscopic? YES; Appearance Urine Clear (Clear); Bilirubin Urine Negative (Negative); Blood Urine Negative (Negative); Color Urine Yellow (Yellow); Glucose Urine UA Negative (Negative); Ketones Urine Negative (Negative); Leukocyte Esterase Ur Trace (Negative); Nitrate Urine Positive (Negative); Protein Urine Trace (Negative); Urobilinogen Urine 0.2 mg/dL (0.2-1.0)
[2019-11-01 22:56] LABS: Bacteria Urine 1+ /hpf; RBC Urine None seen /hpf (0-2); Squamous Epithelial Cell Urine Few /hpf (Few)
[2019-11-01 22:57] LABS: Mucus Urine None seen /lpf
[2019-11-02] VITALS: BP 138/82; PULSE 86; RESP 20; TEMP 36.4; O2SAT 98
--- NOTE | 2019-11-02 00:02 | PC.NURSE ---
Called Dr. Henderson to clarify orders.
[2019-11-02] MEDS: metroNIDAZOLE 250 MG TABLET 500 MG PO ×2 (05:26→13:30)
[2019-11-02 06:34] LABS: Hematocrit 33.5 % (35.0-42.0); Mean Corpuscular HGB Conc 29.9 g/dL (32.0-36.0); Mean Corpuscular Hemoglobin 25.3 pg (27.0-31.0); Mean Corpuscular Volume 84.8 fL (78.0-102.0); Mean Platelet Volume 9.8 fl (9.2-11.8); Platelet Count Result 463 K/mm3 (150-420); Red Blood Count 3.95 M/mm3 (4.20-5.40); Red Cell Distribution Width 31.5 % (11.6-14.4); White Blood Count 11.5 K/mm3 (4.8-10.8)
[2019-11-02 07:03] LABS: Alanine Aminotransferase 21 U/L (14-59); Albumin Level 2.3 g/dL (3.4-5.0); Alkaline Phosphatase 110 U/L (46-116); Anion Gap 13.9 mmol/L (7-16); Aspartate Amino Transferase 37 U/L (15-37); Bilirubin,Total 0.3 mg/dL (0.00-1.00); Blood Urea Nitrogen 23 mg/dL (7-18); Calcium 8.1 mg/dL (8.5-10.1); Carbon Dioxide 26 mmol/L (21-32); Chloride 107 mmol/L (98-108); Estimated Glomerular Filt Rate 36; Glucose 93 mg/dL (70-99); Osmolality Calculated 297 mOsm/kg (285-295); Potassium 4.9 mmol/L (3.5-5.1); Sodium 142 mmol/L (136-145); Total Protein 5.7 g/dL (6.4-8.2)
[2019-11-02 08:00] VITALS: BP 128/80; PULSE 88; RESP 18; TEMP 36.6; O2SAT 98
[2019-11-02] MEDS: PANTOPRAZOLE 40 MG TABLET PO (08:15)
[2019-11-02] MEDS: AMLODIPINE BESYLATE 5 MG TABLET 2.5 MG PO (08:16)
[2019-11-02] MEDS: SERTRALINE HCL 50 MG TABLET 100 MG PO (08:35)
[2019-11-02] MEDS: POLYSACCHARIDE IRON COMPLEX 150 MG CAPSULE PO (08:36)
[2019-11-02] MEDS: SACCHAROMYCES BOULARDII 250 MG CAPSULE PO ×3 (08:36→16:18)
[2019-11-02] MEDS: CEFDINIR 300 MG CAPSULE PO ×2 (08:39→20:54)
[2019-11-02 16:00] VITALS: BP 115/72; PULSE 86; RESP 14; TEMP 36.4; O2SAT 98
--- NOTE | 2019-11-02 22:46 | PC.NURSE ---
This nurse changed wound vac canister.
[2019-11-03] VITALS: BP 140/85; PULSE 87; RESP 18; TEMP 35.7; O2SAT 97
--- NOTE | 2019-11-03 00:32 | PC.NURSE ---
Pt asleep and no signs of discomfort noted. Wound vac in place as ordered.
--- NOTE | 2019-11-03 02:25 | PC.NURSE ---
Pt asleep and no signs of discomfort noted.
--- NOTE | 2019-11-03 03:37 | PC.NURSE ---
Pt incontinent of urine; Pt cleaned, changed and repositioned.
--- NOTE | 2019-11-03 04:29 | PC.NURSE ---
Pt asleep and no signs of discomfort noted.
[2019-11-03 06:40] LABS: Hematocrit 34.4 % (35.0-42.0); Hemoglobin 10.4 g/dL (11.7-13.8); Mean Corpuscular HGB Conc 30.2 g/dL (32.0-36.0); Mean Corpuscular Hemoglobin 25.6 pg (27.0-31.0); Mean Corpuscular Volume 84.5 fL (78.0-102.0); Platelet Count Result 463 K/mm3 (150-420); Red Blood Count 4.07 M/mm3 (4.20-5.40)
--- NOTE | 2019-11-03 07:04 | PC.NURSE ---
Pt dozing quietly and no signs of discomfort noted
[2019-11-03 08:00] VITALS: BP 136/82; PULSE 75; RESP 16; TEMP 36.4; O2SAT 97
[2019-11-03] MEDS: SACCHAROMYCES BOULARDII 250 MG CAPSULE PO ×3 (08:09→16:22)
[2019-11-03] MEDS: AMLODIPINE BESYLATE 5 MG TABLET 2.5 MG PO (08:10)
[2019-11-03] MEDS: POLYSACCHARIDE IRON COMPLEX 150 MG CAPSULE PO (08:10)
[2019-11-03] MEDS: PANTOPRAZOLE 40 MG TABLET PO (08:12)
[2019-11-03] MEDS: SERTRALINE HCL 50 MG TABLET 100 MG PO (08:12)
[2019-11-03 15:31] LABS: SARS-CoV-2 RNA PCR Negative
[2019-11-03 16:00] VITALS: BP 113/70; PULSE 83; RESP 14; TEMP 36.6; O2SAT 99
--- NOTE | 2019-11-03 22:31 | PC.NURSE ---
notified that after removing wound vac dressing it was observed that area was smaller and that in tunneled areas smaller. The depth on the main area is shallow and black foam would not fit in area. New order to leave wound vac off until Hospitalist can look at it tomorrow. Iodoform placed in the tunneled area and wet to dry placed in wound bed.
--- NOTE | 2019-11-03 22:49 | PC.NURSE ---
Patient and belongings moved to room 201.
[2019-11-04] VITALS: BP 118/60; PULSE 76; RESP 18; TEMP 36.7; O2SAT 95
[2019-11-04 08:00] VITALS: BP 138/86; PULSE 88; RESP 18; TEMP 36.3; O2SAT 98
[2019-11-04] MEDS: POLYSACCHARIDE IRON COMPLEX 150 MG CAPSULE PO (09:13)
[2019-11-04] MEDS: SERTRALINE HCL 50 MG TABLET 100 MG PO (09:14)
[2019-11-04] MEDS: SACCHAROMYCES BOULARDII 250 MG CAPSULE PO ×3 (09:14→17:06)
[2019-11-04] MEDS: AMLODIPINE BESYLATE 5 MG TABLET 2.5 MG PO (09:16)
[2019-11-04] MEDS: PANTOPRAZOLE 40 MG TABLET PO (09:16)
--- NOTE | 2019-11-04 12:00 | PC.NURSE ---
In chair eating lunch
--- NOTE | 2019-11-04 13:39 | PC.NURSE ---
dry gauze applied over iodoform packing, done per hospitalist, not to remove packing at this time
--- NOTE | 2019-11-04 15:36 | PM.EVENT ---
Event Note Event Note Event Note: Kaylen is doing well today. I went to examine her, took down her dressing to see her wound on the left side of her lower back. It does have some tunneling with the deepest spot at 3 cm deep, with granulation tissue present, no erythema no purulence drainage, no redness, and no significant pain with examination. I would like the surgeon who completed her Nephrectomy to examine the patient and her wound prior to stopping her wound VAC therapy, so I have telephoned her surgeon MayelinBamalina Bassett at [phone]. She is otherwise doing well with her white count yesterday at 12.0, her creatinine 1.42 on November 01, per her urinalysis on October 31 she was positive for urinary track infection, but a culture was not sent.
--- NOTE | 2019-11-04 15:43 | PM.IMPN ---
Progress Note: A&P Assessment and Plan (1) History of nephrectomy, left: Code(s): Z90.5 - Acquired absence of kidney <Kelsie Monet NP - Last Filed: 11/04/19 15:57> Status: Acute <Kelsie Monet NP - Last Filed: 11/04/19 15:57> Assessment and Plan: status post a hand assisted laparoscopic left nephrectomy on October 20 as well as washout and I & D of flank abscess at the same time , left open to heal with expected wound VAC therapy. her October 15 Kidney abscess cultures showed a growth of bacterioides fragilis, beta lactamase positive, October 15 blood cultures x2 showed no growth. Dscharged from [facility] on Cefdinir 300 mg PO twice a day for 4 days and Flagyl 500 mg p.o. t.i.d. for 5 days. white count was 12.0 on November 02, much improved No fevers noted, and no chills. creatinine at 1.42 was better. CRP was 5.4 at admission wound on the left side of her lower back, Nephrectomy site. It does have some tunneling with the deepest spot at 3 cm deep, with granulation tissue present, no erythema no purulence drainage, no redness, and no significant pain with examination. Want to consult her surgeon prior to stopping her wound VAC therapy, so I have telephoned her surgeon Abigail Bassett at [phone] Currently packed with xeroform strip gauze, then wet to dry outside. Wound vac on hold at this time, as nursing staff is unable to get the black foam into her her narrow wound at this time. 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 treated with nephrectomy Controlled/treated Followed by Surgeon Dr. Bassett at [facility]. <Kelsie Monet NP - Last Filed: 11/04/19 15:57> (3) Generalized weakness: Code(s): R53.1 - Weakness <Kelsie Monet NP - Last Filed: 11/04/19 15:57> Status: Acute <Kelsie Monet NP - Last Filed: 11/04/19 15:57> Assessment and Plan: PT OT evaluation ordered may participate in therapeutic activities admitted for swing rehabilitation add protein supplements as needed to improve dietary intake and protein intake for healing regular diet to improve intake. Improving <Kelsie Monet NP - Last Filed: 11/04/19 15:57> Subjective Date/time seen: 11/04/19 15:43 Kaylen is doing well today. I went to examine her, took down her dressing to see her wound on the left side of her lower back. It does have some tunneling with the deepest spot at 3 cm deep, with granulation tissue present, no erythema no purulence drainage, no redness, and no significant pain with examination. I would like the surgeon who completed her Nephrectomy to examine the patient and her wound prior to stopping her wound VAC therapy, so I have telephoned her surgeon NoB[facility] Dr. Isak Bassett at [phone]. She is otherwise doing well with her white count yesterday at 12.0, her creatinine 1.42 on November 01, per her urinalysis on October 31 she was positive for urinary track infection, Dr. Henderson's had ordered a UA but not a culture. She was started on oral Bactrim by Dr. Henderson for this UTI which will be completed the . Her vital signs are stable, she has no fevers, and although her chest and lungs sound clear, due to her October 31 left pleural effusion and atelectasis I have encouraged her to use her incentive spirometer every hour. I witnessed her ambulating in the hallway with this therapist today, and she seemed in great spirits, smiling and able to carry on a conversation w
[2019-11-04 16:00] VITALS: BP 111/69; PULSE 85; RESP 22; TEMP 36.6; O2SAT 100
[2019-11-05] VITALS: BP 134/74; PULSE 86; RESP 20; TEMP 36.8; O2SAT 99
--- NOTE | 2019-11-05 00:30 | PC.NURSE ---
Inc care provided. Barrier cream applied.
[2019-11-05 07:40] VITALS: BP 128/76; PULSE 100; RESP 14; TEMP 37; O2SAT 97
[2019-11-05] MEDS: SERTRALINE HCL 50 MG TABLET 100 MG PO (08:12)
[2019-11-05] MEDS: SACCHAROMYCES BOULARDII 250 MG CAPSULE PO ×3 (08:12→16:18)
[2019-11-05] MEDS: POLYSACCHARIDE IRON COMPLEX 150 MG CAPSULE PO (08:13)
[2019-11-05] MEDS: AMLODIPINE BESYLATE 5 MG TABLET 2.5 MG PO (08:13)
[2019-11-05] MEDS: PANTOPRAZOLE 40 MG TABLET PO (08:13)
[2019-11-05 09:15] VITALS: BP 116/70; PULSE 92; RESP 16; TEMP 37.1; O2SAT 97
--- NOTE | 2019-11-05 09:55 | PC.NURSE ---
0915 Pearl OT working with patient. Patient in bathroom having bowel movement- vagal out for few seconds. Once nurse got down to room, patient alert and orientated, just tired. Got off the toilet was able to ambulated safely with walker to sink to wash hands and back to bed. Vitals stable. Dressing change to left posterior. Denies any uneasy feelings at present. upon questioning. Will continue to monitor.
--- NOTE | 2019-11-05 15:20 | PC.NURSE ---
PT WORKING WITH PT AT THIS TIME, AMBULATING IN HALLWAY.
[2019-11-05 16:00] VITALS: BP 118/77; PULSE 89; RESP 16; TEMP 36.8; O2SAT 97
[2019-11-05] MEDS: TRAMADOL HCL 50 MG TABLET PO (20:33)
[2019-11-06] VITALS: BP 141/57; PULSE 90; RESP 18; TEMP 37; O2SAT 94
[2019-11-06 07:15] VITALS: BP 120/76; PULSE 91; RESP 18; TEMP 36.9; O2SAT 96
--- NOTE | 2019-11-06 08:46 | PC.NURSE ---
OT in room to work with patient.
[2019-11-06] MEDS: SACCHAROMYCES BOULARDII 250 MG CAPSULE PO ×3 (09:53→16:45)
[2019-11-06] MEDS: AMLODIPINE BESYLATE 5 MG TABLET 2.5 MG PO (09:54)
[2019-11-06] MEDS: SERTRALINE HCL 50 MG TABLET 100 MG PO (09:54)
[2019-11-06] MEDS: POLYSACCHARIDE IRON COMPLEX 150 MG CAPSULE PO (09:54)
[2019-11-06] MEDS: PANTOPRAZOLE 40 MG TABLET PO (09:54)
[2019-11-06 15:20] VITALS: BP 115/62; PULSE 83; RESP 18; TEMP 36.8; O2SAT 96
--- NOTE | 2019-11-06 15:20 | P.PNCROSS_ITS ---
Event Note Event Note Event Note: I was able to speak with the wound clinic at [facility] and they graciously agreed to consult with us on her wound VAC. Yesterday, Mely calderon nurse from the wound clinic at [place] was able to come here to assist our nurse Lynn with reattached to the wound VAC. The dressing changes have now been updated as such: Change this dressing only 3 times each WEEK. Use Wound vac set to 150 in pressure. Remove old/former dressing. Cleanse wound with wound cleanser, place 1 piece of WHITE (vinegar) moist FOAM into tunneled areas, place 1 piece of BLACK dry foam across the top of the opening/white foam, apply OCCLUSIVE transparent wound vac dressing, then make sure suction/wound vac working properly before leaving patient. It needs to be able to hold suction. The patient has been tolerating this well. Today, I did note some clear serous drainage in the container of the wound VAC, minimal of about 30-50 mils. Both myself and the critical care nurse Christi has attempted to contact and speak with her surgeon Dr. Bassett at [facility], but both of us have been without success. I have left messages with his nurse as well, hoping to discuss with him the wound and/or if he wants at least 1 surgical postop follow-up visit with the patient. At this time there is no follow-up visit scheduled. We will continue to reach out to the surgeon to arrange that. We will continue wound VAC therapy as described above. If there are any questions or concerns, we will reach out to the [facility] again.
[2019-11-06] MEDS: TRAMADOL HCL 50 MG TABLET PO (16:45)
[2019-11-06 23:48] VITALS: BP 116/72; PULSE 81; RESP 18; TEMP 37; O2SAT 97
[2019-11-07 07:20] VITALS: BP 111/72; PULSE 86; RESP 18; TEMP 36.7; O2SAT 98
[2019-11-07] MEDS: AMLODIPINE BESYLATE 5 MG TABLET 2.5 MG PO (09:39)
[2019-11-07] MEDS: SERTRALINE HCL 50 MG TABLET 100 MG PO (09:39)
[2019-11-07] MEDS: SACCHAROMYCES BOULARDII 250 MG CAPSULE PO ×3 (09:39→17:10)
[2019-11-07] MEDS: PANTOPRAZOLE 40 MG TABLET PO (09:39)
[2019-11-07] MEDS: POLYSACCHARIDE IRON COMPLEX 150 MG CAPSULE PO (09:39)
--- NOTE | 2019-11-07 14:06 | PM.IMPN ---
Progress Note: A&P Assessment and Plan (1) History of nephrectomy, left: Code(s): Z90.5 - Acquired absence of kidney <Kelsie Monet NP - Last Filed: 11/07/19 14:37> Status: Acute <Kelsie Monet NP - Last Filed: 11/07/19 14:37> Assessment and Plan: status post a hand assisted laparoscopic left nephrectomy on October 20 as well as washout and I & D of flank abscess at the same time , left open to heal with curent wound VAC therapy. her October 15 Kidney abscess cultures showed a growth of bacterioides fragilis, beta lactamase positive, October 15 blood cultures x2 showed no growth. Discharged from [facility] on Cefdinir 300 mg PO twice a day for 4 days and Flagyl 500 mg p.o. t.i.d. for 5 days. white count was 12.0 on November 02, much improved No fevers noted, and no chills. creatinine at 1.42 was better. CRP was 5.4 at admission wound on the left side of her lower back, Nephrectomy site. It does have some tunneling with the deepest spot at 3 cm deep, with granulation tissue present, no erythema no purulence drainage, no redness, and no significant pain with examination. Currently packed with white foam, then black foam on surface, then wound vac occlusive transparent dressing with tubing attached and to suction of the wound vac. Improving.Healing. 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 treated with nephrectomy Controlled/treated Followed by Surgeon Dr. Bassett at [facility]. <Kelsie Monet NP - Last Filed: 11/07/19 14:37> (3) Generalized weakness: Code(s): R53.1 - Weakness <Kelsie Monet NP - Last Filed: 11/07/19 14:37> Status: Acute <Kelsie Monet NP - Last Filed: 11/07/19 14:37> Assessment and Plan: PT OT evaluation ordered may participate in therapeutic activities admitted for swing rehabilitation add protein supplements as needed to improve dietary intake and protein intake for healing regular diet to improve intake. Improving <Kelsie Monet NP - Last Filed: 11/07/19 14:37> Subjective Date/time seen: 11/07/19 14:07 Kaylen was resting in bed when I went to see her this morning. Her wound VAC was connected and appropriately dressed and suction was intact. Her wound dressing was occlusive, her wound without redness and without erythema and without purulence drainage. Her drainage output is serous and clear in nature with a yellow tint. I called her surgeon and urologist that completed her Nephrectomy at [facility] to see if they wanted a follow-up visit and that is scheduled for November 12 at 11:[address] Isak Bassett at the [facility] located at the address of [address] [place] [address], [place] [address]. His office phone number is [phone]. According to the resident care aid Christi, physical therapy is planning on her discharge to take place next SundayNovember 13. It is unsure whether she will be going home or to a jail or to her son's home. She is doing very well with her therapy, eating well, voiding without difficulty. She denied have any concerns or complaints this time. She denies pain to palpation around the surgical wound, and denies pain to her back and flank area. Her bony surfaces of her backside, particularly her spine have some redness to them, no open areas or wounds noted at this time; I encouraged her to lay on her side when resting in bed, either her left side or her right
[2019-11-07 15:45] VITALS: BP 129/71; PULSE 77; RESP 16; TEMP 37.3; O2SAT 98
[2019-11-08] VITALS: BP 138/73; PULSE 82; RESP 16; TEMP 37.1; O2SAT 98
[2019-11-08 08:00] VITALS: BP 119/71; PULSE 88; RESP 18; TEMP 37.1; O2SAT 98
[2019-11-08] MEDS: PANTOPRAZOLE 40 MG TABLET PO (09:22)
[2019-11-08] MEDS: SERTRALINE HCL 50 MG TABLET 100 MG PO (09:22)
[2019-11-08] MEDS: SACCHAROMYCES BOULARDII 250 MG CAPSULE PO ×3 (09:22→17:00)
[2019-11-08] MEDS: POLYSACCHARIDE IRON COMPLEX 150 MG CAPSULE PO (09:22)
[2019-11-08] MEDS: AMLODIPINE BESYLATE 5 MG TABLET 2.5 MG PO (09:23)
[2019-11-08 15:35] VITALS: BP 118/72; PULSE 90; RESP 16; TEMP 36.8; O2SAT 98
[2019-11-09] VITALS: BP 139/65; PULSE 86; RESP 16; TEMP 36.8; O2SAT 99
[2019-11-09 08:00] VITALS: BP 110/65; PULSE 86; RESP 16; TEMP 36.8; O2SAT 98
[2019-11-09] MEDS: POLYSACCHARIDE IRON COMPLEX 150 MG CAPSULE PO (08:57)
[2019-11-09] MEDS: PANTOPRAZOLE 40 MG TABLET PO (08:57)
[2019-11-09] MEDS: SERTRALINE HCL 50 MG TABLET 100 MG PO (08:57)
[2019-11-09] MEDS: AMLODIPINE BESYLATE 5 MG TABLET 2.5 MG PO (08:58)
[2019-11-09] MEDS: SACCHAROMYCES BOULARDII 250 MG CAPSULE PO ×3 (08:58→16:37)
[2019-11-09 16:00] VITALS: BP 102/64; PULSE 74; RESP 16; TEMP 36.9; O2SAT 96
[2019-11-10] VITALS: BP 144/76; PULSE 76; RESP 12; TEMP 36.8; O2SAT 99
[2019-11-10 07:50] VITALS: BP 140/83; PULSE 88; RESP 14; TEMP 37; O2SAT 95
[2019-11-10] MEDS: PANTOPRAZOLE 40 MG TABLET PO (08:12)
[2019-11-10] MEDS: AMLODIPINE BESYLATE 5 MG TABLET 2.5 MG PO (08:12)
[2019-11-10] MEDS: SERTRALINE HCL 50 MG TABLET 100 MG PO (08:12)
[2019-11-10] MEDS: POLYSACCHARIDE IRON COMPLEX 150 MG CAPSULE PO (08:12)
[2019-11-10] MEDS: SACCHAROMYCES BOULARDII 250 MG CAPSULE PO ×3 (08:13→16:36)
[2019-11-10 16:00] VITALS: PULSE 85; RESP 14; TEMP 36.4; O2SAT 98
[2019-11-10 17:48] VITALS: BP 122/70
[2019-11-11] VITALS: BP 126/79; PULSE 84; RESP 16; TEMP 36.8; O2SAT 99
--- NOTE | 2019-11-11 00:37 | PC.NURSE ---
Pt asleep and no signs of discomfort noted.
--- NOTE | 2019-11-11 01:46 | PC.NURSE ---
Pt asleep and no signs of discomfort noted.
--- NOTE | 2019-11-11 02:18 | PC.NURSE ---
Pt incontinent of urine; Pt cleaned, changed and positioned to comfort.
--- NOTE | 2019-11-11 03:11 | PC.NURSE ---
Pt asleep and no signs of discomfort noted.
--- NOTE | 2019-11-11 04:29 | PC.NURSE ---
Pt asleep and no signs of discomfort noted.
--- NOTE | 2019-11-11 05:38 | PC.NURSE ---
Pt asleep and no signs of discomfort noted.
[2019-11-11 05:40] LABS: Basophils Absolute Auto 0.13 K/mm3 (0.00-0.10); Basophils Percent Auto 1.8 % (0.0-1.0); Eosinophils Absolute Auto 0.42 K/mm3 (0.02-0.50); Eosinophils Percent Auto 5.9 % (1.0-6.0); Hematocrit 34.3 % (35.0-42.0); Hemoglobin 10.5 g/dL (11.7-13.8); Immature Granulocyte Absolute 0.15 K/mm3 (0.00-0.00); Immature Granulocyte Percent A 2.1 % (0.0-0.0); Lymphocytes Absolute Auto 1.56 K/mm3 (1.10-4.50); Lymphocytes Percent Auto 22.1 % (18.0-42.0); Mean Corpuscular HGB Conc 30.6 g/dL (32.0-36.0); Mean Corpuscular Hemoglobin 26.9 pg (27.0-31.0); Mean Corpuscular Volume 87.9 fL (78.0-102.0); Mean Platelet Volume 10.5 fl (9.2-11.8); Monocytes Absolute Auto 0.64 K/mm3 (0.10-0.90); Monocytes Percent Auto 9.1 % (2.0-11.0); Neutrophils Absolute Auto 4.2 K/mm3 (1.7-7.2); Platelet Count Result 368 K/mm3 (150-420); Red Cell Distribution Width 25.9 % (11.6-14.4); White Blood Count 7.1 K/mm3 (4.8-10.8)
[2019-11-11 06:23] LABS: Alanine Aminotransferase 23 U/L (14-59); Albumin Level 2.7 g/dL (3.4-5.0); Alkaline Phosphatase 82 U/L (46-116); Anion Gap 15.6 mmol/L (7-16); Aspartate Amino Transferase 27 U/L (15-37); Bilirubin,Total 0.2 mg/dL (0.00-1.00); Blood Urea Nitrogen 35 mg/dL (7-18); CRP 0.8 mg/dL (0.0-0.9); Calcium 8.2 mg/dL (8.5-10.1); Carbon Dioxide 23 mmol/L (21-32); Chloride 109 mmol/L (98-108); Estimated Glomerular Filt Rate 30; Folic Acid 17.1 ng/mL (8.6->20); Glucose 89 mg/dL (70-99); Osmolality Calculated 303 mOsm/kg (285-295); Potassium 4.6 mmol/L (3.5-5.1); Sodium 143 mmol/L (136-145); Thyroid Stimulating Hormone 1.73 uIU/mL (0.36-3.74); Total Protein 6.8 g/dL (6.4-8.2); Vitamin B12 877 pg/mL (193-986)
[2019-11-11 06:46] LABS: Erythrocyte Sedimentation Rate 48 mm/hr (0-20)
[2019-11-11 07:28] VITALS: BP 127/73; PULSE 85; RESP 18; TEMP 37.1; O2SAT 99
--- NOTE | 2019-11-11 08:05 | PC.NURSE ---
Up to chair with assist, attends changed, wet and incontinent of formed stool, black in color
[2019-11-11] MEDS: PANTOPRAZOLE 40 MG TABLET PO (09:08)
[2019-11-11] MEDS: POLYSACCHARIDE IRON COMPLEX 150 MG CAPSULE PO (09:08)
[2019-11-11] MEDS: AMLODIPINE BESYLATE 5 MG TABLET 2.5 MG PO (09:09)
[2019-11-11] MEDS: SERTRALINE HCL 50 MG TABLET 100 MG PO (09:09)
[2019-11-11] MEDS: SACCHAROMYCES BOULARDII 250 MG CAPSULE PO ×3 (09:09→16:43)
[2019-11-11 09:15] LABS: Magnesium 2.1 mg/dL (1.8-2.4); Phosphorus 3.6 mg/dL (2.6-4.7)
--- NOTE | 2019-11-11 10:49 | PC.NURSE ---
Resting in bed, denies needs, wound vac in place
--- NOTE | 2019-11-11 12:47 | PC.NURSE ---
Loose stool in toilet, able to clean self and change own clothes states this wore her out, to be with side rails up and call light in reach
--- NOTE | 2019-11-11 13:10 | PC.NURSE ---
Clean urine hat to room, advised that hospitalist would like repeat urine sample with next void, patient verbalized understanding
--- NOTE | 2019-11-11 14:32 | PC.NURSE ---
Resting in bed, wound vac in place, states worn out from therapy today
[2019-11-11 15:34] VITALS: BP 110/78; PULSE 85; RESP 18; TEMP 37.1; O2SAT 95
[2019-11-11] MEDS: TRAMADOL HCL 50 MG TABLET PO (16:19)
--- NOTE | 2019-11-11 16:34 | PC.NURSE ---
Up to void, ua obtained and taken to lab, back to bed with HOB elevated
[2019-11-11 16:35] LABS: Add Urine Microscopic? YES; Appearance Urine Sl Cloudy (Clear); Bilirubin Urine Negative (Negative); Blood Urine Negative (Negative); Color Urine Yellow (Yellow); Glucose Urine UA Negative (Negative); Ketones Urine Negative (Negative); Leukocyte Esterase Ur 1+ LEU/UL (Negative); Nitrate Urine Negative (Negative); Protein Urine Trace (Negative); Urobilinogen Urine 0.2 mg/dL (0.2-1.0)
[2019-11-11 16:42] LABS: Bacteria Urine 1+ /hpf; RBC Urine 0-2 /hpf (0-2); Squamous Epithelial Cell Urine Few /hpf (Few); WBC Urine 16-20 /hpf (0-3)
--- NOTE | 2019-11-11 18:25 | PC.NURSE ---
Resting in bed with HOB elevated for comfort, wound vac continues and dressing to back dry and intact, incision to abdomen open to air, glue in place, denies needs, personal items and call light in reach of patient
[2019-11-12] VITALS: BP 132/78; PULSE 80; RESP 18; TEMP 36.8; O2SAT 100
[2019-11-12] MEDS: TRAMADOL HCL 50 MG TABLET PO ×2 (01:41→17:52)
[2019-11-12 07:11] VITALS: BP 118/66; PULSE 72; RESP 18; TEMP 36.8; O2SAT 95
--- NOTE | 2019-11-12 08:03 | PC.NURSE ---
Assisted up to chair for breakfast, attends changed
[2019-11-12] MEDS: PANTOPRAZOLE 40 MG TABLET PO (08:20)
[2019-11-12] MEDS: SERTRALINE HCL 50 MG TABLET 100 MG PO (08:20)
[2019-11-12] MEDS: POLYSACCHARIDE IRON COMPLEX 150 MG CAPSULE PO (08:21)
[2019-11-12] MEDS: SACCHAROMYCES BOULARDII 250 MG CAPSULE PO ×3 (08:21→16:51)
[2019-11-12] MEDS: AMLODIPINE BESYLATE 5 MG TABLET 2.5 MG PO (08:21)
--- NOTE | 2019-11-12 09:40 | PC.NURSE ---
SBA from chair to bathroom to void, wound vac clamped while up
--- NOTE | 2019-11-12 11:42 | PM.IMPN ---
Progress Note: A&P Assessment and Plan (1) History of nephrectomy, left: Code(s): Z90.5 - Acquired absence of kidney <IRA Willard - Last Filed: 11/12/19 12:02> Status: Acute <IRA Willard - Last Filed: 11/12/19 12:02> Assessment and Plan: s/p lapwith left nephrectomy on October 20 and washout and I & D of flank abscess. wound vac in place, Abscess cultures Indicated bacterioides fragilis, beta lactamase positive, antibiotic treatment completed WBCs within normal limits creatinine is slightly elevated from previous results. will continue to monitor. 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 Bassett at [facility]. <IRA Willard - Last Filed: 11/12/19 12:02> (3) Generalized weakness: Code(s): R53.1 - Weakness <IRA Willard - Last Filed: 11/12/19 12:02> Status: Acute <IRA Willard - Last Filed: 11/12/19 12:02> Assessment and Plan: Exhibit tolerance during physical activity as evidenced by a normal fluctuation of vital signs during physical activity. Patient will be ability to perform required activities of daily living. Provide appropriate nutrition for healing and strength. Use appropriate to prevent falls. Continue physical therapy/occupational therapy. <IRA Willard - Last Filed: 11/12/19 12:02> Subjective Date/time seen: 11/12/19 11:42 Mrs. Dexter notes that she feels well today, she also believes that she has gained weight and noted that her appetite has improved. She also noted physical therapy/ occupational therapy is going well. Her wound VAC on her left back side is in place with a small amount serous fluid. no obvious signs and symptoms of infection noted to surgical site on her abdominal site C/D/I and area or surrounding the wound VAC. she is aware that she will be discharging possibly Sunday. she noted that she will go to short-term rehab and after hours reside in a assisted living facility . Patient able to tolerate all meals ,and slept well Patient denies SOB, CP, palpitation, extremity numbness, lightheadness, dizziness, constipation, diarrhea, chills or fever. <LOULOU Willard - Last Filed: 11/12/19 12:02> Review of Systems Review of Systems: All systems reviewed & are unremarkable except as noted in HPI and below <MAGGI Willard - Last Filed: 11/12/19 12:02> Constitutional: Constitutional: Reports as per HPI, Denies chills, Denies excessive sweating, Reports fatigue, Denies headache(s), Reports increased appetite, Reports lethargy, Denies snoring, Reports weakness and Reports weight gain <[facility] - Last Filed: 11/12/19 12:02> Eyes: Eyes: Reports as per HPI, Reports no additional eye complaints, Denies exophthalmos, Denies diplopia, Denies floaters and Denies loss of peripheral vision <[facility] - Last Filed: 11/12/19 12:02> ENT: Reports as per HPI, Reports Normal hearing present, Denies facial pain, Denies headache(s), Denies epistaxis, Denies nasal congestion, Denies neck pain, Denies odynophagia and Denies tinnitus <[facility] - Last Filed: 11/12/19 12:02> Cardiovascular: Cardiovascular: Reports as per HPI, Denies chest pain, Denies diaphoresis, Denies pedal edema, Denies leg edema, Denies lightheadedness, Denies palpitations and Denies dyspnea <[facility] - Last Filed: 11/12/19 12:02> Respiratory: Respiratory: Reports as per HPI, Reports chest congestion, Denies cough, Denies hemoptysis, Denies dyspnea, Report
[2019-11-12 16:00] VITALS: BP 136/74; PULSE 68; RESP 16; TEMP 36.7; O2SAT 100
[2019-11-12] MEDS: ONDANSETRON HCL ODT 4 MG TABLET PO (17:52)
[2019-11-12 23:18] VITALS: BP 105/54; PULSE 72; RESP 16; TEMP 36.5; O2SAT 98
[2019-11-13 07:25] VITALS: BP 119/71; PULSE 75; RESP 18; TEMP 36.7; O2SAT 95
[2019-11-13] MEDS: PANTOPRAZOLE 40 MG TABLET PO (09:03)
[2019-11-13] MEDS: SERTRALINE HCL 50 MG TABLET 100 MG PO (09:03)
[2019-11-13] MEDS: SACCHAROMYCES BOULARDII 250 MG CAPSULE PO ×3 (09:03→17:02)
[2019-11-13] MEDS: POLYSACCHARIDE IRON COMPLEX 150 MG CAPSULE PO (09:03)
[2019-11-13] MEDS: AMLODIPINE BESYLATE 5 MG TABLET 2.5 MG PO (09:04)
--- NOTE | 2019-11-13 10:25 | PC.NURSE ---
Patient has Appt. with Dr. Isak Bassett to follow up with wound vac. Nurse assisted patient dress in street clothes. Temporary Absence form signed by patient. Patient accompanied to front door via wheelchair by this nurse. Left in private vehicle with friend JO. Dr. araiza at 1115 at [facility].
--- NOTE | 2019-11-13 14:10 | PC.NURSE ---
Patient back from Dr. Office visit. New order received for dressing. Wound Vac discontinued. Wet to dry dressing applied to site at office. Site remains clean dry and intact. Patient resting in bed. Call light and belongings within reach.
[2019-11-13 15:07] VITALS: BP 134/74; PULSE 78; RESP 16; TEMP 37.2; O2SAT 99
[2019-11-13 20:00] VITALS: BP 138/85; PULSE 86; RESP 14; TEMP 36.8; O2SAT 100
[2019-11-13 23:38] VITALS: BP 141/75; PULSE 75; RESP 18; TEMP 36.4; O2SAT 99
[2019-11-14 07:20] VITALS: BP 156/84; PULSE 80; RESP 18; TEMP 36.8; O2SAT 95
--- NOTE | 2019-11-14 07:40 | PC.NURSE ---
Up in soliz with physical therapy
--- NOTE | 2019-11-14 08:17 | PC.NURSE ---
Eating breakfast in chair, denies needs
[2019-11-14] MEDS: SERTRALINE HCL 50 MG TABLET 100 MG PO (09:01)
[2019-11-14] MEDS: PANTOPRAZOLE 40 MG TABLET PO (09:02)
[2019-11-14] MEDS: AMLODIPINE BESYLATE 5 MG TABLET 2.5 MG PO (09:02)
[2019-11-14] MEDS: POLYSACCHARIDE IRON COMPLEX 150 MG CAPSULE PO (09:02)
[2019-11-14] MEDS: SACCHAROMYCES BOULARDII 250 MG CAPSULE PO ×2 (09:03→13:31)
[2019-11-14 09:07] LABS: Hemoglobin 11.8 g/dL (11.7-13.8); Mean Corpuscular HGB Conc 30.3 g/dL (32.0-36.0); Mean Corpuscular Volume 89.2 fL (78.0-102.0); Platelet Count Result 398 K/mm3 (150-420); Red Blood Count 4.37 M/mm3 (4.20-5.40); Red Cell Distribution Width 24.3 % (11.6-14.4); White Blood Count 7.5 K/mm3 (4.8-10.8)
[2019-11-14 09:15] LABS: Alanine Aminotransferase 23 U/L (14-59); Albumin Level 3.1 g/dL (3.4-5.0); Alkaline Phosphatase 87 U/L (46-116); Anion Gap 13.1 mmol/L (7-16); Aspartate Amino Transferase 24 U/L (15-37); Bilirubin,Total 0.3 mg/dL (0.00-1.00); Blood Urea Nitrogen 38 mg/dL (7-18); Calcium 8.7 mg/dL (8.5-10.1); Carbon Dioxide 26 mmol/L (21-32); Chloride 107 mmol/L (98-108); Estimated Glomerular Filt Rate 32; Glucose 141 mg/dL (70-99); Osmolality Calculated 305 mOsm/kg (285-295); Potassium 4.1 mmol/L (3.5-5.1); Sodium 142 mmol/L (136-145); Total Protein 7.7 g/dL (6.4-8.2)
[2019-11-14] MEDS: AMOXICILLIN 500 MG CAPSULE PO (09:19)
[2019-11-14 10:02] LABS: Erythrocyte Sedimentation Rate 42 mm/hr (0-20)
--- NOTE | 2019-11-14 11:30 | P.DS_ITS ---
DS: Admitting Diagnosis Admitting Diagnosis Admitting Diagnosis: Acquired absence of kidney <Vinny WillIRA - Last Filed: 11/14/19 11:39> DS: Discharge Diagnosis Discharge Diagnosis (1) History of nephrectomy, left: Code(s): Z90.5 - Acquired absence of kidney <Vinny WillIRA - Last Filed: 11/14/19 11:39> Status: Acute <Vinny WillIRA - Last Filed: 11/14/19 11:39> Assessment and Plan: * s/p lapwith left nephrectomy on October 20 and washout and I & D of flank abscess. 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 * Patient will be ability to perform required activities of daily living. * Provide appropriate nutrition for healing and strength. * Use appropriate to prevent falls. * patient will discharge to a detention <Baochirag TiffanyIRA Mackey - Last Filed: 11/14/19 11:39> DS: Summary Hospital Course Hospital Course: [facility] with a diagnosis XGP on 10/03/2019, at that time multiple specialists were consulted. urology was also consulted, there was plans for future a nephrectomy. while in the swing bed at [facility] imaging indicated an renal abscess patient was transported to [facility] for procedure by her urologist Dr. Bassett on 10/27/2019 . she was readmitted back to the swing bed status post nephrectomy with washout and I and D of abscess. patient had a follow-up appointment with Dr. Bassett 11/13/19 , her wound VAC was discontinued at that time with instructions to have wet to dry dressing. patient is discharging to a detention today once her COVID-19 tests is negative. Patient able to tolerate all meals , and slept well . Patient denies SOB, CP, palpitation, extremity numbness, lightheadness, dizziness, constipation, diarrhea, chills or fever. Patient agree that they are ready for discharge and discharge plan. <IRA Willard - Last Filed: 11/14/19 11:39> Time Spent with Patient Time attestation: Total time spent providing and/or coordinating discharge services:60 <IRA Willard - Last Filed: 11/14/19 11:39> Exam Const: General: comfortable and no acute distress; No confusion <IRA Willard - Last Filed: 11/14/19 11:39> Orientation/consciousness: No confusion <IRA Willard - Last Filed: 11/14/19 11:39> HENMT: General nose exam: Normal nares present and no epistaxis <IRA Willard - Last Filed: 11/14/19 11:39> Mouth: Yes moist mucous membranes <IRA Willard - Last Filed: 11/14/19 11:39> Eyes: Gen
--- NOTE | 2019-11-14 11:30 | PM.DS ---
DS: Admitting Diagnosis Admitting Diagnosis Admitting Diagnosis: Acquired absence of kidney <IRA Willard - Last Filed: 11/14/19 11:39> DS: Discharge Diagnosis Discharge Diagnosis (1) History of nephrectomy, left: Code(s): Z90.5 - Acquired absence of kidney <Vinny TiffanyIRA Mackey - Last Filed: 11/14/19 11:39> Status: Acute <Vinny TiffanyIRA Mackey - Last Filed: 11/14/19 11:39> Assessment and Plan: s/p lapwith left nephrectomy on October 20 and washout and I & D of flank abscess. 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 Patient will be ability to perform required activities of daily living. Provide appropriate nutrition for healing and strength. Use appropriate to prevent falls. patient will discharge to a usp <IRA Willard - Last Filed: 11/14/19 11:39> DS: Summary Hospital Course Hospital Course: patient was admitted to [facility] from [facility] with a diagnosis XGP on 10/03/2019, at that time multiple specialists were consulted. urology was also consulted, there was plans for future a nephrectomy. while in the swing bed at [facility] imaging indicated an renal abscess patient was transported to [facility] for procedure by her urologist Dr. Bassett on 10/27/2019 . she was readmitted back to the swing bed status post nephrectomy with washout and I and D of abscess. patient had a follow-up appointment with Dr. Bassett 11/13/19 , her wound VAC was discontinued at that time with instructions to have wet to dry dressing. patient is discharging to a usp today once her COVID-19 tests is negative. Patient able to tolerate all meals , and slept well . Patient denies SOB, CP, palpitation, extremity numbness, lightheadness, dizziness, constipation, diarrhea, chills or fever. Patient agree that they are ready for discharge and discharge plan. <IRA Willard - Last Filed: 11/14/19 11:39> Time Spent with Patient Time attestation: Total time spent providing and/or coordinating discharge services:60 <MAGGI WillardC - Last Filed: 11/14/19 11:39> Exam Const: General: comfortable and no acute distress; No confusion <IRA Willard - Last Filed: 11/14/19 11:39> Orientation/consciousness: No confusion <IRA Willard - Last Filed: 11/14/19 11:39> HENMT: General nose exam: Normal nares present and no epistaxis <IRA Willard - Last Filed: 11/14/19 11:39> Mouth: Yes moist mucous membranes <IRA Willard - Last Filed: 11/14/19 11:39> Eyes: General: appearance normal, both eyes and all related structures <IRA Willard - Last Filed: 11/14/19 11:39> Pupils: Equal, round and reactive pupils present <IRA Willard - Last Filed: 11/14/19 11:39> EOM: EOMs intact bilaterally <IRA Willard - Last Filed: 11/14/19 11:39> Resp: Effort & Inspection: normal respi
[2019-11-14 13:36] LABS: SARS-CoV-2 RNA PCR Negative
[2019-11-14] MEDS: TRAMADOL HCL 50 MG TABLET PO (15:53)
--- NOTE | 2019-12-15 11:32 | PCOTNOTE ---
Patient is discharged from skilled OT services as she has been discharged home with assistance. See last treatment note for details on patient's skills and function. MS
== END 2019-11-14 16:30 | DRG 949 ==
PROVIDERS: Family Medicine; Nurse Practitioner; Admitting Provider Emergency Medicine; Visit Provider Emergency Medicine
DX: Z48.817 Encounter for surgical aftercare following surgery on the skin and subcutaneous tissue (principal); L02.211 Cutaneous abscess of abdominal wall; N39.0 Urinary tract infection, site not specified; Z48.816 Encounter for surgical aftercare following surgery on the genitourinary system; Z46.89 Encounter for fitting and adjustment of other specified devices; Z90.5 Acquired absence of kidney; R53.1 Weakness; Z20.828 Contact with and (suspected) exposure to other viral communicable diseases; J43.9 Emphysema, unspecified; K21.9 Gastro-esophageal reflux disease without esophagitis; I10 Essential (primary) hypertension; M81.0 Age-related osteoporosis without current pathological fracture; Z87.891 Personal history of nicotine dependence
CPT/HCPCS: 36415; 71045; 71250; 80053; 81001; 82607; 82746; 83605; 83735; 83880; 84100; 84443; 85025; 85027; 85055; 85652; 86140; 87040; 87077; 87086; 87088; 87186; 87635; 97110; 97116; 97161; 97165; 97530; 97535; A9270; C9803; U0003

== ENCOUNTER 2020-02-14 16:03 | Inpatient (IN) | payer MEDICARE, SELFPAY ==
--- NOTE | ~2020-02-14 | CT_ITS ---
EXAMINATION: CT cervical spine wo con DATE: 02/14/2020 16:51 INDICATION: Fall with posterior head injury TECHNIQUE: Computed tomography (CT) of the cervical spine was performed without intravenous contrast. Automated exposure control and iterative reconstruction technique were employed. The dose-length pro duct was 107.20 mGy-cm. COMPARISON: Chest CT dated 11/01/2019 FINDINGS: Mild cervical levocurvature. Sagittal alignment is normal. Unchanged chronic mild anterior wedging at C7 and minimal anterior wedging at T1. Remaining vertebral body heights are normal. Mild disc height loss at C5-C6. Mild disc bulges are seen at C2-C3 through C5-C6 resulting in multilevel minimal cent ral canal stenosis. Moderate uncovertebral osteoarthritis results in mild neural foraminal stenosis o n the left at C5-C6. There is also mild to moderate bilateral multilevel facet osteoarthritis in the cervical and upper thoracic spine. Atherosclerotic calcifications at the bilateral carotid bulbs. Mul tinodular goiter with a few bilateral subcentimeter nodules. Visualized airway and apices of lungs ar e clear. IMPRESSION: 1. Mild cervical spondylosis with chronic mild anterior wedging at C7 and T1. No acute osseous abnorm ality. Reviewed, dictated and finalized at location A. IMPRESSION: 1. Mild cervical spondylosis with chronic mild anterior wedging at C7 and T1. N o acute osseous abnormality.
--- NOTE | ~2020-02-14 | US_ITS ---
EXAMINATION: US right upper quadrant DATE: 02/16/2020 08:41 INDICATION: Elevated liver function tests TECHNIQUE: Multiple grayscale and Doppler ultrasound images of the abdomen were obtained. COMPARISON: CT abdomen and pelvis dated 10/15/2019 FINDINGS: The pancreatic head and body are normal in appearance. The pancreatic tail is not visualized. Liver has normal echogenicity and contour, with a smooth surface. No liver lesion identified. No intrahepat ic biliary duct dilation suspected. Portal venous flow was seen in the hepatopetal, normal direction and has normal Doppler waveform. The gallbladder is normal in appearance. There is no cholelithiasis . The common bile duct measures 3 mm, which is normal. Sonographic Munoz sign was reported as negati ve by the riddler operator. IMPRESSION: 1. Normal right upper quadrant ultrasound. Reviewed, dictated and finalized at location A.
--- NOTE | ~2020-02-14 | CT_ITS ---
EXAMINATION: CT brain wo con DATE: 02/14/2020 16:50 INDICATION: Fall with trauma to the posterior head TECHNIQUE: Computed tomography (CT) of the head was performed without intravenous contrast. Sagittal and coronal reconstructions were performed. The mA was adjusted according to patient size. Iterative reconstruction technique was employed. The dose-length product was 605.33 mGy-cm. COMPARISON: head CT dated 09/27/2019 FINDINGS: No fracture. No acute intracranial hemorrhage, acute infarction or abnormal extra axial fluid collect ion. There is moderate to severe scattered white matter hypoattenuation consistent with chronic small vessel ischemic disease. Symmetric prominence of the sulci consistent with mild age-appropriate diff use cerebral volume loss. Ventricles are normal and symmetric. No mass/mass effect. Chronic trace rig ht mastoid effusion. The orbits, paranasal sinuses and left mastoid air cells are normal. Intracrania l calcified cerebral atherosclerosis is noted. IMPRESSION: 1. No fracture or acute intracranial process. 2. Age-related changes including mild diffuse volume loss and moderate to severe scattered white whitley er hypoattenuation consistent with chronic small vessel ischemic disease. Reviewed, dictated and finalized at location A. IMPRESSION: 1. No fracture or acute intracranial process. 2. Age-related changes including mild diffuse volume loss and moderate to sever e scattered white matter hypoattenuation consistent with chronic small vessel i schemic disease.
--- NOTE | ~2020-02-14 | XR_ITS ---
EXAMINATION: XR lumbar spine 2-3V DATE: 02/15/2020 13:43 INDICATION: Back pain and fall TECHNIQUE: Anteroposterior and lateral views of the lumbar spine, and cone-down lateral view of the l umbosacral junction were obtained. COMPARISON: 10/15/2019 FINDINGS: There is a compression fracture of L2 with slight interval worsening since the comparison e xamination. Fractures of T10 and L5 with vertebroplasty change are again noted. There is also a chron ic burst fracture of T12. A stable T11 compression fracture is noted. No new fracture is identified. There is severe facet osteoarthritis at L5-S1. Calcified atherosclerosis is noted. There are multiple pelvic phleboliths. There is been interval surgical change in the left abdomen and pelvis. IMPRESSION: 1. Slight worsening of a previously described L2 compression fracture, otherwise stable compression b urst fractures of the lower thoracic and lumbar spine as detailed above. Reviewed, dictated and finalized at location A. IMPRESSION: 1. Slight worsening of a previously described L2 compression fracture, otherwis e stable compression burst fractures of the lower thoracic and lumbar spine as detailed above.
--- NOTE | ~2020-02-14 | XR_ITS ---
EXAMINATION: XR chest 1V portable DATE: 02/14/2020 16:56 INDICATION: Shortness of breath post fall TECHNIQUE: frontal view of the chest was obtained. COMPARISON: Chest radiograph and CT dated 11/01/2019 FINDINGS: Again seen is mild linear discoid atelectasis/scarring at the left lower lung zone. Unchanged scarrin g with blunting at the right costophrenic angle. Surgical clip projects over the right lung base. Ski n folds project over the left hemithorax. No new airspace opacities, pulmonary edema, pleural effusio n or pneumothorax. Mild cardiomegaly. Moderate-sized hiatal hernia. Chronic T12 burst fracture and ch darnell of vertebroplasty at T10. Surgical clips in the left upper quadrant. Visualized bones and soft t issues are unremarkable. IMPRESSION: 1. Chronic mild atelectasis/scarring at the bilateral lower lung zones. No acute cardiopulmonary dise ase. Reviewed, dictated and finalized at location A. IMPRESSION: 1. Chronic mild atelectasis/scarring at the bilateral lower lung zones. No acut e cardiopulmonary disease.
--- NOTE | ~2020-02-14 | XR_ITS ---
EXAMINATION: XR thoracic spine 2V DATE: 02/15/2020 13:43 INDICATION: Back pain after fall TECHNIQUE: AP, lateral and lateral swimmer's views of the thoracic spine were obtained. COMPARISON: 12/30/2018 FINDINGS: The bones are osteopenic. There is a chronic and unchanged burst fracture of T12. Stable T6 and T11 compression fractures are noted. There is a T10 compression fracture with vertebroplasty marina nge. Calcified atherosclerosis is noted. IMPRESSION: 1. Stable thoracic fractures as described above without acute interval change identified, sensitivity limited by osteopenia. Reviewed, dictated and finalized at location A. IMPRESSION: 1. Stable thoracic fractures as described above without acute interval change i dentified, sensitivity limited by osteopenia.
[2020-02-14 16:00] VITALS: BP 137/74; PULSE 74; RESP 16; TEMP 36.9; O2SAT 98
--- NOTE | 2020-02-14 16:34 | ECG_ITS ---
Measurements Intervals [place] Rate: 73 P: 21 NM: 141 QRS: -34 QRSD: 94 T: 218 QT: 438 QTc: 485 Interpretive Statements SINUS RHYTHM LEFT AXIS DEVIATION LEFT VENTRICULAR HYPERTROPHY AND ST-T CHANGE BORDERLINE T WAVE ABNORMALITY- INF/LAT LEADS BASELINE WANDER- I, II, V1 BORDERLINE ECG Electronically Signed On 02-15-2020 13:35:24 CDT by Miguel Macias D.O.
[2020-02-14 17:08] LABS: Basophils Absolute Auto 0.1 K/mm3 (0.0-0.1); Basophils Percent Auto 0.3 % (0.2-1.2); Eosinophils Percent Auto 0.3 % (0-4.4); Hematocrit 40.8 % (37.0-47.0); Hemoglobin 13.1 g/dL (12.0-15.0); Immature Granulocyte Absolute 0.17 K/mm3 (0.00-0.031); Immature Granulocyte Percent A 1.1 % (0-0.5); Lymphocytes Absolute Auto 0.26 K/mm3 (0.9-3.2); Lymphocytes Percent Auto 1.7 % (18.3-44.2); Mean Corpuscular HGB Conc 32.1 g/dl (32-36); Mean Corpuscular Hemoglobin 27.8 pg (26-34); Mean Corpuscular Volume 86.6 fl (80-100); Mean Platelet Volume 10.2 fl (7.4-10.4); Monocytes Absolute Auto 0.6 K/mm3 (0.1-0.6); Monocytes Percent Auto 4.2 % (2.6-8.5); Neutrophils Absolute Auto 13.9 K/mm3 (1.3-6.7); Neutrophils Percent Auto 92.4 % (45.5-73.1); Platelet Count Result 234 k/mm3 (150-375); Red Blood Count 4.71 M/mm3 (4.2-5.4); Red Cell Distribution Width 15.5 % (11.5-14.5); White Blood Count 15.1 K/mm3 (4.5-10.0)
[2020-02-14 17:20] LABS: Alanine Aminotransferase 126 U/L (4-35); Albumin Level 3.8 g/dL (3.5-5.1); Alkaline Phosphatase 141 U/L (38-126); Anion Gap 7 mmol/L (8-16); Aspartate Amino Transferase 205 U/L (14-36); Bilirubin,Total 0.6 mg/dL (0.2-1.3); Blood Urea Nitrogen 46 mg/dL (7-17); Calcium 8.1 mg/dL (8.4-10.2); Carbon Dioxide 25 mmol/L (22-30); Chloride 106 mmol/L (98-107); Estimated Glomerular Filt Rate 26; Glucose 114 mg/dL (65-105); Potassium 4.6 mmol/L (3.4-5.0); Sodium 138 mmol/L (137-145)
[2020-02-14 17:24] LABS: INR 1.1; Prothrombin Time 13.9 Seconds (11.1-14.7)
[2020-02-14 17:32] LABS: Troponin I 0.017 ng/mL (0.000-0.034)
[2020-02-14 18:01] LABS: Add Urine Microscopic? YES; Appearance Urine Cloudy (Clear); Bacteria Urine Trace /hpf; Bilirubin Urine Negative (Negative); Blood Urine 3+ (Negative); Color Urine Yellow (Yellow); Glucose Urine UA Negative (Negative); Ketones Urine Negative (Negative); Leukocyte Esterase Ur 3+ LEU/UL (Negative); Mucus Urine Rare /lpf; Nitrate Urine Negative (Negative); Protein Urine 1+ mg/dL (Negative); RBC Urine 51-75 /hpf (0-2); Specific Grav Ur 1.013 (1.001-1.035); Squamous Epithelial Cell Urine Occasional /hpf (Few); Urobilinogen Urine Negative mg/dL (<2.0); WBC Clumps Urine Present /HPF; WBC Urine >75 /hpf
[2020-02-14] MEDS: SODIUM CHLORIDE 0.9% IV 1,000 ML 150 ML IV CONT (18:25)
--- NOTE | 2020-02-14 18:43 | ED.GENADULT ---
HPI - General Adult General Chief complaint: Fall Stated complaint: fall Time Seen by Provider: 02/14/20 16:22 Source: patient and family Mode of arrival: EMS Limitations: no limitations History of Present Illness HPI narrative: 69-year-old history of hypertension hyperlipidemia, anemia, s/p nephrectomy secondary to abscess presently living in assisted living facility here with complaints of fall. Patient states that she was sitting on the toilet while trying to get up felt extremely weak and fell. No history of loss of consciousness. Complains of neck pain. She denies any chest pain, shortness of breath abdominal pain Onset (ago): hour(s) (1) Location: neck Radiation: non-radiation Severity: moderate Severity scale (1-10): 5 Quality: aching Exacerbating factors: none Associated symptoms: denies other symptoms Related Data Home Medications Medication Instructions Recorded Confirmed ondansetron HCl [Zofran] 4 mg PO Q6H PRN 10/26/19 10/26/19 acetaminophen 500 mg PO Q8-10H PRN 02/14/20 alendronate 70 mg PO WEEKLY 02/14/20 02/14/20 atorvastatin 10 mg PO DAILY 02/14/20 02/14/20 tramadol 50 mg PO TID PRN 02/14/20 Allergies Allergy/AdvReac Type Severity Reaction Status Date / Time No Known Allergies Allergy Unknown Verified 09/27/19 13:12 Review of Systems Review of Systems: All systems reviewed & are unremarkable except as noted in HPI and below Constitutional: Constitutional: Reports as per HPI Eyes: Eyes: Reports as per HPI ENT: Reports system reviewed and no additional complaints, except as documented Cardiovascular: Cardiovascular: Reports no additional cardiovascular complaints Respiratory: Respiratory: Reports as per HPI Gastrointestinal: Gastrointestinal: Reports as per HPI Musculoskeletal: Musculoskeletal: Reports no additional musculoskeletal complaints Integumentary/Breasts: Skin/Breast: Reports system reviewed and no additional complaints, except as docu Neurologic: Reports system reviewed and no additional complaints, except as documented Hematologic/Lymphatic: Hematologic/Lymphatic: Reports no additional hematologic/lymphatic complaints PMFSH Past Medical History Medical History C. difficile diarrhea Chronic back pain Depression Emphysema of lung Empyema Patient stated she had her lung script at least 3 times GERD (gastroesophageal reflux disease) History of blood transfusion HTN (hypertension) Kidney stones With a history of 2 lithotripsies and chronic kidney stones Myelitis Osteoarthritis Osteoporosis Pleural effusion Rectal polyp Shingles Shoulder fracture, left No surgery performed Transverse myelitis UTI (urinary tract infection) Surgical History Surgical History H/O kyphoplasty History of section X1 History of lithotripsy X2 Family History Family History Mother Diabetes mellitus, Onset Age: 89 Cerebrovascular accident Hypertension Father Family history of cardiovascular disease, Onset Age: 87 Acute myocardial infarction, Onset Age: 87 Family history of heart disease in male family member before age 55 Hypertension Social History Social History Smoking packs per day: 0.5 Smoking cigarettes per day: 10.0 Years smoked: 30 Smoking pack-years: 15.00 Smoking status: Former smoker Tobacco type: cigarettes Second hand tobacco smoke exposure: No Alcohol intake: never Substance use: never Substance use type: does not use Gender identity (if verbalized by the patient): Female Spiritual care concerns: No Agree to blood products: Yes Exam Narrative: Exam Narrative: GENERAL: Well-appearing, thin, and in no acute distress. HEAD: Normocephalic, atraumatic. EYES: PERRLA and EOMI. ENT: Nares clear, no rhinorrhea
[2020-02-14 18:57] VITALS: BP 120/61; PULSE 78; RESP 20; O2SAT 99
[2020-02-14] MEDS: MORPHINE SULFATE 4 MG/ML INJ IV PUSH (19:55)
[2020-02-14 20:02] VITALS: BP 100/58; PULSE 75; RESP 18; TEMP 36.7; O2SAT 98
[2020-02-14 20:20] VITALS: BP 112/96; PULSE 72; RESP 16; TEMP 36.3; O2SAT 98; BMI 20.6
[2020-02-14] MEDS: SODIUM CHLORIDE 0.9% IV 1,000 ML 125 ML IV CONT (21:50)
--- NOTE | 2020-02-14 22:44 | ADMGEN ---
This patient, Kaylen Alva, was admitted to [facility] Surg Room 324-01. Patient/family oriented to hospital policies and general routines including ID bracelet, bed and alarms, visiting hours, pain management, procedures, bathroom and other care routines, personal items, smoking policy, room service/diet, and visiting hours. Valuables list has been completed. Information on how to activate the Rapid Response Team has been discussed. Patient/Family are encouraged to report perceived risks to care and to ask questions if they do not understand what they are told or what they should do.
[2020-02-15] MEDS: SODIUM CHLORIDE 0.9% IV 1,000 ML 125 ML IV CONT (05:36)
[2020-02-15 06:00] VITALS: BP 122/57; PULSE 68; RESP 16; TEMP 36.3; O2SAT 95
[2020-02-15 06:32] LABS: Basophils Absolute Auto 0.1 K/mm3 (0.0-0.1); Basophils Percent Auto 0.7 % (0.2-1.2); Eosinophils Absolute Auto 0.3 K/mm3 (0-0.3); Eosinophils Percent Auto 3.6 % (0-4.4); Hematocrit 34.4 % (37.0-47.0); Hemoglobin 10.9 g/dL (12.0-15.0); Immature Granulocyte Percent A 1.1 % (0-0.5); Lymphocytes Absolute Auto 0.53 K/mm3 (0.9-3.2); Mean Corpuscular HGB Conc 31.7 g/dl (32-36); Mean Corpuscular Volume 88.4 fl (80-100); Mean Platelet Volume 10.6 fl (7.4-10.4); Monocytes Absolute Auto 0.5 K/mm3 (0.1-0.6); Monocytes Percent Auto 5.9 % (2.6-8.5); Neutrophils Absolute Auto 7.3 K/mm3 (1.3-6.7); Neutrophils Percent Auto 82.7 % (45.5-73.1); Platelet Count Result 187 k/mm3 (150-375); Red Blood Count 3.89 M/mm3 (4.2-5.4); Red Cell Distribution Width 15.6 % (11.5-14.5); White Blood Count 8.8 K/mm3 (4.5-10.0)
[2020-02-15 07:18] LABS: Anion Gap 5 mmol/L (8-16); Blood Urea Nitrogen 40 mg/dL (7-17); Calcium 7.2 mg/dL (8.4-10.2); Carbon Dioxide 23 mmol/L (22-30); Chloride 110 mmol/L (98-107); Estimated Glomerular Filt Rate 30; Glucose 89 mg/dL (65-105); Potassium 4.2 mmol/L (3.4-5.0); Sodium 138 mmol/L (137-145)
--- NOTE | 2020-02-15 08:24 | PM.IMHP ---
H&P: HPI History of Present Illness Date/Time: 02/15/20 08:24 Chief complaint: Weakness,Pyelonephritis,Dehydration Narrative: Kaylen Alva is a 69 year old female with a past medical history of hypertension, recent nephrectomy, and C diff 3 years ago who presented emergency room due to fall and weakness. Patient states she was in the bathroom and finished urinating and was on her way out when she got weak, slightly dizzy, and lost her balance and fell backwards. She said she hit the back of her head and her back and she continues to have back pain. She never lost any consciousness. She denies chest pain, diaphoresis, diarrhea, constipation, fevers, chills, shortness of breath, cough, nausea, vomiting, numbness or tingling to her lower extremities, loss of bowel or bladder function, dysuria, foul odor or hematuria. She has an abrasion wound on her right arm from her walker when she fell. Patient states she was hospitalized and had nephrectomy a couple months ago and has been doing well. She has gained weight but is only working with physical therapy once a week at her assisted living and she has gradually been getting weaker. She takes Ensure once or twice a day to help gain weight. A few years back when she was hospitalized for pneumonia she contracted C diff but has not had any since. Review of Systems Review of Systems: All systems reviewed & are unremarkable except as noted in HPI and below PMFSH Past Medical History Medical History (Updated 02/15/20 @ 12:33 by Sunitha Ying PA-C) C. difficile diarrhea Chronic back pain CKD (chronic kidney disease) stage 3, GFR 30-59 ml/min Depression Emphysema of lung Empyema Patient stated she had her lung script at least 3 times GERD (gastroesophageal reflux disease) History of blood transfusion Kidney stones With a history of 2 lithotripsies and chronic kidney stones Myelitis Osteoarthritis Osteoporosis Pleural effusion Rectal polyp Shingles Shoulder fracture, left No surgery performed Transverse myelitis UTI (urinary tract infection) Surgical History Surgical History (Updated 02/15/20 @ 12:25 by Sunitha Ying PA-C) H/O kyphoplasty History of section X1 History of left nephrectomy History of lithotripsy X2 Family History Family History Mother Diabetes mellitus, Onset Age: 89 Cerebrovascular accident Hypertension Father Family history of cardiovascular disease, Onset Age: 87 Acute myocardial infarction, Onset Age: 87 Family history of heart disease in male family member before age 55 Hypertension Social History Social History (Updated 02/15/20 @ 12:26 by Sunitha Ying PA-C) Social History: Patient quit smoking 4 years ago and states she smoked half a pack a day for 25 years. She denies marijuana, drug or alcohol use. 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 She would like to be a full code. If she is unable to make decisions for herself she appoints her son Messi Dexter as her surrogate decision maker Smoking packs per day: 1.5 Smoking cigarettes per day: 30.0 Years smoked: 25 Smoking pack-years: 37.50 Smoking status: Former smoker Tobacco type: cigarettes Second hand tobacco smoke exposure: No Alcohol intake: never Substance use: never Substance use type: painkillers Other substance usage details: Goes to [facility] Started 02/04/2020 Gender identity (if verbalized by the patient): Female Spiritual care concerns: No Agree to blood products: Yes Meds Home Medications and Allergies Home Medications Medication Instructions Recorded Confirmed Type pantoprazole 40 mg PO QAM #5 tablet 11/14/19 02/14/20 Rx polyethylene glycol 3350 [Miralax] 17 g PO DAILY PRN 5 Days each 11/14/19 02/14/20 Rx polysaccharide iron complex 150 mg PO DAILY@0800 #30 cap 11/14/19 02/14/20 Rx sertraline [Zoloft] 100 mg PO DAILY 5 Days #10 tablet
[2020-02-15] MEDS: SERTRALINE HCL 50 MG TABLET 100 MG PO (10:34)
[2020-02-15] MEDS: PANTOPRAZOLE 40 MG TABLET PO (10:34)
[2020-02-15] MEDS: POLYSACCHARIDE IRON COMPLEX 150 MG CAPSULE PO (10:34)
[2020-02-15] MEDS: metroNIDAZOLE 250 MG TABLET 500 MG PO ×2 (14:09→21:08)
[2020-02-15 14:36] VITALS: BP 150/66; PULSE 82; RESP 16; TEMP 36.7; O2SAT 97
[2020-02-15] MEDS: ATORVASTATIN 10 MG TABLET PO (21:08)
[2020-02-15] MEDS: SODIUM CHLORIDE 0.9% IV 1,000 ML 80 ML IV CONT (21:08)
[2020-02-15 22:00] VITALS: BP 154/69; PULSE 77; RESP 16; TEMP 36.6; O2SAT 98
[2020-02-16 06:00] VITALS: BP 149/77; PULSE 83; RESP 18; TEMP 36.7; O2SAT 98
--- NOTE | 2020-02-16 06:01 | PM.DS ---
DS: Admitting Diagnosis Admitting Diagnosis Admitting Diagnosis: Weakness,Pyelonephritis,Dehydration DS: Discharge Diagnosis Discharge Diagnosis (1) Fall: Code(s): W19.XXXA - Unspecified fall, initial encounter Status: Acute Assessment and Plan: -----patient fell backwards at the assisted living and is having pain in her thoracic and superior portion of the lumbar spine. No bowel or bladder inconstance or paraesthesias reported. No new fracture, no She is on alendronate. She has significant kyphosis. Continue PT and OT outpt. (2) Generalized weakness: Code(s): R53.1 - Weakness Status: Acute Assessment and Plan: -----Continue PT and OT (3) CKD (chronic kidney disease) stage 3, GFR 30-59 ml/min: Code(s): N18.3 - Chronic kidney disease, stage 3 (moderate) Status: Acute Assessment and Plan: -----Last Cr 1.7 which is around her average. Monitor. (4) Depression: Code(s): F32.9 - Major depressive disorder, single episode, unspecified Status: Chronic Assessment and Plan: -----Continue zoloft. Pt has no acute symptoms of depression today. (5) GERD (gastroesophageal reflux disease): Code(s): K21.9 - Gastro-esophageal reflux disease without esophagitis Status: Acute Assessment and Plan: -----Chronic. Continue zoloft. (6) Anemia: Qualifiers: Anemia type: unspecified type Qualified Code(s): D64.9 - Anemia, unspecified Code(s): D64.9 - Anemia, unspecified Status: Acute Assessment and Plan: -----Hgb 11.2 which is around her baseline. Will continue home iron therapy. Monitor. (7) Transaminitis: Code(s): R74.0 - Nonspecific elevation of levels of transaminase and lactic acid dehydrogenase [LDH] Status: Acute Assessment and Plan: -----In november of this year AST 86 and ALT 78. When she was admitted 02/13 AST 205 and ALT 126 with alk phos 141. No reports of pain. RUQ u/s normal as was her hepatitis screen. No obvious medicatiosn on her home list seem to be the cause. I suggest these be repeated outpt. I called her pcp, Tatiana Miranda and discussed this with her. She is not in our system so she will order the repeat lab when she sees her in follow up. DS: Summary Hospital Course Reason for hospitalization: Fall Hospital Course: Patient is a 69-year-old female who was walking back from the bathroom who lost her balance and fell backwards and hit her head and back. She denied loss of consciousness. Vitals within normal limits. Initial white blood cell count 15.1, hemoglobin 13.1, hematocrit 40.8, platelets 234. BMP reveals chronic kidney disease BUN 46 with creatinine 1.9. Head CT and cervical spine CT with No acute abnormalities. X-rays of the lumbar and thoracic spine did not reveal any new fractures. Initial UA suspicious for UTI and she was started on antibiotics. Patient was admitted to the hospitalist service but her urine culture was negative and antibiotics were stopped. She worked with physical therapy and did fairly well. Since the patient was previously hospitalized, it was suspected that her weakness was due from that and advancing age. PT and OT were set up at discharge. She did have elevated liver enzymes as stated above which I spoke to her primary care physician about %. Patient was educated about the worrisome signs and symptoms to come back to emergency room for was discharged in stable condition Status at Discharge Functional status at discharge: uses cane/walker Overall status at discharge: patient is progressing back to baseline Time Spent with Patient Time attestation: Total time spent providing and/or coordinating discharge services:34 min Time spent: Greater than 30 minutes Exam Narrative: Exam Narrative: General:Well developed well nourished patient resting comfortably in bed in no acute distress HEENT: Normocephalic, atraumatic
[2020-02-16] MEDS: metroNIDAZOLE 250 MG TABLET 500 MG PO (06:27)
[2020-02-16 06:51] LABS: Hematocrit 35.1 % (37.0-47.0); Hemoglobin 11.2 g/dL (12.0-15.0); Mean Corpuscular HGB Conc 31.9 g/dl (32-36); Mean Corpuscular Hemoglobin 27.9 pg (26-34); Mean Corpuscular Volume 87.5 fl (80-100); Mean Platelet Volume 10.2 fl (7.4-10.4); Platelet Count Result 172 k/mm3 (150-375); Red Blood Count 4.01 M/mm3 (4.2-5.4); Red Cell Distribution Width 15.3 % (11.5-14.5); White Blood Count 6.1 K/mm3 (4.5-10.0)
[2020-02-16 07:10] LABS: Alanine Aminotransferase 68 U/L (4-35); Albumin Level 2.9 g/dL (3.5-5.1); Alkaline Phosphatase 133 U/L (38-126); Anion Gap 4 mmol/L (8-16); Aspartate Amino Transferase 68 U/L (14-36); Bilirubin,Total 0.2 mg/dL (0.2-1.3); Blood Urea Nitrogen 33 mg/dL (7-17); Calcium 7.2 mg/dL (8.4-10.2); Carbon Dioxide 21 mmol/L (22-30); Chloride 114 mmol/L (98-107); Estimated Glomerular Filt Rate 34; Glucose 91 mg/dL (65-105); Potassium 4.3 mmol/L (3.4-5.0); Sodium 139 mmol/L (137-145)
[2020-02-16] MEDS: POLYSACCHARIDE IRON COMPLEX 150 MG CAPSULE PO (09:14)
[2020-02-16] MEDS: SERTRALINE HCL 50 MG TABLET 100 MG PO (09:14)
[2020-02-16] MEDS: PANTOPRAZOLE 40 MG TABLET PO (09:15)
[2020-02-16 09:16] LABS: Hepatitis B Surface Antigen Negative (Negative)
[2020-02-16 09:21] LABS: HAV RESULT Negative (Negative); Hepatitis B Core IgM Result Negative (Negative)
[2020-02-16 09:33] LABS: Hepatitis C Virus Antibody Negative (Negative)
[2020-02-16 12:40] LABS: SARS-CoV-2 RNA PCR Negative
--- NOTE | 2020-02-24 12:20 | PC.NURSE ---
Blood cx are negative.
== END 2020-02-16 15:09 | disposition home health service (06) | DRG 690 ==
LOC: ANHED 19:15 → ANH3MEDSUR 19:50
PROVIDERS: Internal Medicine; Physician Assistant; Admitting Provider Family Medicine; Emergency Provider Family Medicine; Visit Provider Family Medicine
DX: N10 Acute pyelonephritis (principal); I12.9 Hypertensive chronic kidney disease with stage 1 through stage 4 chronic kidney disease, or unspecified chronic kidney disease; N18.3 Chronic kidney disease, stage 3 (moderate); Z20.828 Contact with and (suspected) exposure to other viral communicable diseases; M19.90 Unspecified osteoarthritis, unspecified site; M81.0 Age-related osteoporosis without current pathological fracture; K21.9 Gastro-esophageal reflux disease without esophagitis; J43.9 Emphysema, unspecified; F32.9 Major depressive disorder, single episode, unspecified; D64.9 Anemia, unspecified; E86.0 Dehydration; E78.5 Hyperlipidemia, unspecified; R79.89 Other specified abnormal findings of blood chemistry; S40.811A Abrasion of right upper arm, initial encounter; W19.XXXA Unspecified fall, initial encounter; Z90.5 Acquired absence of kidney; Z87.891 Personal history of nicotine dependence
CPT/HCPCS: 36415; 70450; 71045; 72070; 72100; 72125; 76705; 80048; 80053; 80074; 80076; 81001; 84484; 85025; 85027; 85610; 87040; 87086; 87635; 93005; 96361; 96365; 96375; 97110; 97161; 97165; 97530; 99285; A9270; C9803; G0378; J0696; J2270; J3370; J7030; L0140; U0003

== ENCOUNTER 2020-05-06 13:03 | Emergency (ER) | payer MEDICARE, SELFPAY ==
--- NOTE | ~2020-05-06 | CT_ITS ---
EXAMINATION: CT thoracic spine wo con DATE: 05/06/2020 14:41 INDICATION: Back pain. Fall. TECHNIQUE: Computed tomography (CT) of the thoracic spine was performed without intravenous contrast. Automated exposure control and iterative reconstruction technique were employed. The dose-length pro duct was 545.13 mGy-cm. COMPARISON: Chest CT 11/01/2019, thoracic spine radiographs 02/15/20 FINDINGS: There is smooth septal thickening in the lungs, consistent with mild pulmonary edema. No pl eural effusion. There is a moderate-sized sliding hiatal hernia. The heart size is normal. There are coronary artery calcifications. No pericardial effusion. There is kyphosis of thoracic spine. There a re healing compression fractures of C7 and T1 with 1/5 loss of height. There is a burst fracture of T 3 with 1/5 loss of height without retropulsion of bone into the central spinal canal. There is a it generalist alix burst fracture of T4 with 2/5 loss of height without retropulsion of bone. There is a chronic bur st fracture of T6 with 2/5 loss of height and retropulsion of bone 2 mm into central spinal canal. Th ere is a compression fracture of T7 without significant height loss, new from 11/01/19. There is a burs t fracture of T8 with 3/5 loss of height and retropulsion of bone 3 mm into central spinal canal, wor sened from 02/15/20. There is a chronic burst fracture of T10 with changes of vertebroplasty. There is a chronic compression fracture of T11 with 2/5 loss of height. There is a chronic burst fracture of T12 with greater than 4/5 loss of height and retropulsion of bone 3 mm into central spinal canal. The re is a chronic burst fracture of L2 with 2/5 loss of height and retropulsion of bone 2 mm into centr al spinal canal. The intervertebral disc heights are normal. There is multilevel facet joint osteoart hritis, severe at many levels. There is multilevel mild neural foraminal stenosis bilaterally. There is moderate bilateral neural foraminal stenosis at T8-T9. IMPRESSION: 1. Subacute compression fractures of C7 and T1 and burst fracture of T8. 2. Acute versus subacute burst fracture of T3 and compression fracture of T7. Reviewed, dictated and finalized at location B. CEMENTER
--- NOTE | ~2020-05-06 | CT_ITS ---
EXAMINATION: CT cervical spine wo con DATE: 05/06/2020 13:29 INDICATION: Head injury. TECHNIQUE: Computed tomography (CT) of the cervical spine was performed without intravenous contrast. Automated exposure control and iterative reconstruction technique were employed. The dose-length pro duct was 96.99 mGy-cm. COMPARISON: CT cervical spine 02/14/2020, chest CT 11/01/19 FINDINGS: There are nodules in the thyroid measuring up to 6 mm, likely not clinically significant. T here is 14 degrees levoscoliosis of cervical spine. There is hypolordosis of cervical spine. There ar e compression fractures of C7 and T1 vertebral bodies with 1/5 loss of height. There is a burst fract ure of T3 vertebral body with 1/5 loss of height without retropulsion of bone. Partially visualized i s a chronic burst fracture of T4. There is mildly decreased disc height at C5-C6 and C6-C7. The follo wing disc levels are specifically discussed: C2-C3: There is no uncovertebral joint osteoarthritis. There is mild bilateral facet joint osteoarthr itis. There is no neural foraminal stenosis. There is no central canal stenosis. C3-C4: There is no uncovertebral joint osteoarthritis. There is mild bilateral facet joint osteoarthr itis. There is no neural foraminal stenosis. There is no central canal stenosis. C4-C5: There is mild bilateral uncovertebral joint osteoarthritis. There is mild bilateral facet join t osteoarthritis. There is no neural foraminal stenosis. There is no central canal stenosis. C5-C6: There is moderate bilateral uncovertebral joint osteoarthritis. There is mild bilateral facet joint osteoarthritis. There is mild bilateral neural foraminal stenosis. There is mild central canal stenosis. C6-C7: There is no uncovertebral joint osteoarthritis. There is mild bilateral facet joint osteoarthr itis. There is no neural foraminal stenosis. There is no central canal stenosis. C7-T1: There is no uncovertebral joint osteoarthritis. There is mild bilateral facet joint osteoarthr itis. There is no neural foraminal stenosis. There is no central canal stenosis. IMPRESSION: 1. Healing subacute compression fractures of C7 and T1. Acute versus subacute burst fracture of T3. 2. Mild cervical spondylosis. Reviewed, dictated and finalized at location B. ING WORKER IMPRESSION: 1. Healing subacute compression fractures of C7 and T1. Acute versus subacute b urst fracture of T3. 2. Mild cervical spondylosis.
--- NOTE | ~2020-05-06 | CT_ITS ---
EXAMINATION: CT brain wo con DATE: 05/06/2020 13:29 INDICATION: Head injury. Headache. TECHNIQUE: Computed tomography (CT) of the head was performed without intravenous contrast. The mA wa s adjusted according to patient size. Iterative reconstruction technique was employed. The dose-lengt h product was 605.33 mGy-cm. COMPARISON: Head CT 02/14/2020 FINDINGS: There are scattered areas of low attenuation in the cerebral white matter. There is an old lacunar infarct in right lentiform nucleus. There is no intracranial hemorrhage, acute infarction, or abnormal intracranial mass lesion. The ventricles are normal in size. The orbits are normal. The par anasal sinuses are clear. The mastoid air cells are normal. There is posterior scalp soft tissue swel ling. IMPRESSION: 1. Old lacunar infarct in right lentiform nucleus. 2. Stable extensive nonspecific cerebral white matter disease, which likely represents chronic small vessel ischemic disease. Reviewed, dictated and finalized at location B. ENT ACTIVITIES DIRECTOR IMPRESSION: 1. Old lacunar infarct in right lentiform nucleus. 2. Stable extensive nonspecific cerebral white matter disease, which likely rep resents chronic small vessel ischemic disease.
[2020-05-06 13:04] VITALS: BP 198/88; PULSE 65; RESP 20; TEMP 36.8; O2SAT 98
--- NOTE | 2020-05-06 13:39 | ED.HEATRA ---
HPI - Head Injury General Chief complaint: Head Injury Stated complaint: FALL/HIT HEAD Time Seen by Provider: 05/06/20 13:08 Source: patient Mode of arrival: EMS Limitations: no limitations History of Present Illness HPI Narrative: 69 years old white female who lost her balance while transferring from a scooter to a chair. Landed backward, complaining of occipital headache and shoulder pain. No loss of consciousness, no blood, history of frequent fall secondary to balance disorder Patient denies any fever, chills, nausea, vomiting, shortness of breath, coughing, sore throat, back pain Related Data Home Medications Medication Instructions Recorded Confirmed acetaminophen 500 mg PO Q8-10H PRN 02/14/20 02/14/20 alendronate 70 mg PO WEEKLY 02/14/20 02/14/20 atorvastatin 10 mg PO HS 02/14/20 02/14/20 Allergies Allergy/AdvReac Type Severity Reaction Status Date / Time No Known Allergies Allergy Unknown Verified 09/27/19 13:12 Review of Systems Review of Systems: Narrative: CONSTITUTIONAL: Denies fever, chills, or sweats. EYES: Denies visual changes, redness, or discharge. ENT: Denies rhinorrhea, congestion, sore throat, or otalgia. CARDIOVASCULAR: Denies chest pain, palpitations, or edema. RESPIRATORY: Denies cough or dyspnea. GASTROINTESTINAL: Denies abdominal pain, nausea, vomiting, or diarrhea. GENITOURINARY: Denies dysuria or hematuria. SKIN: Denies rash or itching. MUSCULOSKELETAL: Denies back pain, joint pain, or myalgia. NEUROLOGIC: Occipital headache PSYCHIATRIC: Denies anxiety or depression. [facility] Past Medical History Medical History C. difficile diarrhea Chronic back pain CKD (chronic kidney disease) stage 3, GFR 30-59 ml/min Depression Emphysema of lung Empyema Patient stated she had her lung script at least 3 times GERD (gastroesophageal reflux disease) History of blood transfusion Kidney stones With a history of 2 lithotripsies and chronic kidney stones Myelitis Osteoarthritis Osteoporosis Pleural effusion Rectal polyp Shingles Shoulder fracture, left No surgery performed Transverse myelitis Surgical History Surgical History H/O kyphoplasty History of section X1 History of left nephrectomy History of lithotripsy X2 Family History Family History Mother Diabetes mellitus, Onset Age: 89 Cerebrovascular accident Hypertension Father Family history of cardiovascular disease, Onset Age: 87 Acute myocardial infarction, Onset Age: 87 Family history of heart disease in male family member before age 55 Hypertension Social History Social History Social History: Patient quit smoking 4 years ago and states she smoked half a pack a day for 25 years. She denies marijuana, drug or alcohol use. 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 She would like to be a full code. If she is unable to make decisions for herself she appoints her son Messi Dexter as her surrogate decision maker Smoking packs per day: 1.5 Smoking cigarettes per day: 30.0 Years smoked: 25 Smoking pack-years: 37.50 Smoking status: Former smoker Tobacco type: cigarettes Second hand tobacco smoke exposure: No Alcohol intake: never Substance use: never Substance use type: painkillers Other substance usage details: Goes to [facility] Started 02/04/2020 Gender identity (if verbalized by the patient): Female Spiritual care concerns: No Agree to blood products: Yes Exam Narrative: Exam Narrative: General appearance: Well-developed, well-nourished Skin: Normal color Head: Normocephalic, occipital hematoma Eyes: Clear conjunctiva ENT: Oropharynx normal, ears normal, nose normal Neck: Supple, nontender Chest and respiratory: Airway patent, no respiratory distress, no accessor
[2020-05-06] MEDS: ONDANSETRON INJ 4 MG/2 ML VIAL IV PUSH (14:01)
[2020-05-06] MEDS: MORPHINE SULFATE (*CRX) 4 MG/ML INJ IV PUSH (14:01)
[2020-05-06 16:02] VITALS: BP 162/88; PULSE 66; RESP 20; O2SAT 99
--- NOTE | 2020-05-06 17:23 | PC.NURSE ---
Darlyn Ems accepted transfer to [facility] ETA [address] # [id number]
[2020-05-06 18:13] VITALS: BP 172/68; PULSE 76; RESP 20; O2SAT 99
== END 2020-05-06 18:15 | disposition short-term general hospital (02) ==
PROVIDERS: Emergency Provider Emergency Medicine
DX: S06.0X0A Concussion without loss of consciousness, initial encounter (principal); S12.690A Other displaced fracture of seventh cervical vertebra, initial encounter for closed fracture; S22.018A Other fracture of first thoracic vertebra, initial encounter for closed fracture; S22.031A Stable burst fracture of third thoracic vertebra, initial encounter for closed fracture; S22.061A Stable burst fracture of T7-T8 vertebra, initial encounter for closed fracture; S22.068A Other fracture of T7-T8 thoracic vertebra, initial encounter for closed fracture; N18.30 Chronic kidney disease, stage 3 unspecified; J43.9 Emphysema, unspecified; K21.9 Gastro-esophageal reflux disease without esophagitis; Z87.442 Personal history of urinary calculi; M19.90 Unspecified osteoarthritis, unspecified site; Z87.19 Personal history of other diseases of the digestive system; Z90.5 Acquired absence of kidney; Z87.891 Personal history of nicotine dependence; R90.82 White matter disease, unspecified; M47.812 Spondylosis without myelopathy or radiculopathy, cervical region; W05.2XXA Fall from non-moving motorized mobility scooter, initial encounter
CPT/HCPCS: 70450; 72125; 72128; 96374; 96375; 99285; J2270; J2405

== ENCOUNTER 2020-12-31 06:15 | Inpatient (IN) | payer MEDICARE, SELFPAY ==
[2020-12-31] VITALS (20 sets, daily range): BP systolic 139–192; BP diastolic 59–132; PULSE 57–76; RESP 12–25; TEMP 36.2–37.1; O2SAT 97–100; BMI 19.0
--- NOTE | ~2020-12-31 | US_ITS ---
EXAMINATION: US carotid duplex BI DATE: 01/01/2021 09:19 INDICATION: Syncope. TECHNIQUE: Grayscale, color Doppler, and pulsed Doppler images of the cervical carotid arteries were obtained. The degree of vessel stenosis is placed in one of the following categories: normal, <50%, 5 0-69%, >=70% but less than near-occlusion, near-occlusion, or total occlusion. Note that percent sten osis relative to normal distal artery lumen diameter is indirectly measured from velocity measurement s as described by Rj, et al. Radiology 2003; 229:340-346. COMPARISON: None. FINDINGS: RIGHT: The right common carotid artery (CCA) peak systolic velocity (PSV) is 65 cm/s. The right internal car otid artery (ICA) PSV is 132 cm/s. The right ICA end-diastolic velocity (EDV) is 16 cm/s. The right I CA/CCA PSV ratio is 2.0. Grayscale and color Doppler images yield an estimate of >=50% diameter reduc tion from plaque in the ICA. There is antegrade flow in the right vertebral artery. LEFT: The left CCA PSV is 75 cm/s. The left ICA PSV is 123 cm/s. The left ICA EDV is 25 cm/s. The left ICA/ CCA PSV ratio is 1.6. Grayscale and color Doppler images yield an estimate of <50% diameter reduction from plaque in the ICA. There is antegrade flow in the left vertebral artery. IMPRESSION: 1. 50-69% stenosis in the right internal carotid artery. 2. <50% stenosis in the left internal carotid artery. Reviewed, dictated and finalized at location A.
--- NOTE | ~2020-12-31 | XR_ITS ---
EXAMINATION: XR barium swallow modified DATE: 01/02/2021 10:34 INDICATION: Dysphagia. TECHNIQUE: The patient was given barium-containing material of multiple consistencies to swallow by t colten speech pathologist while I performed fluoroscopy. Fluoroscopy exposure time was 3.0 minutes. The n umber of fluoroscopy images saved to the PACS was 2. Dose-area product was 1.6 Gy-cm^2. FINDINGS: There was reduced laryngeal elevation, reduced laryngeal adduction, and reduced tongue base retractio n. Vallecular residue was cleared with multiple swallows. There was laryngeal penetration and aspirat ion during the swallow. IMPRESSION: 1. Laryngeal penetration and aspiration. 2. Please refer to the speech therapy report for recommendations. Reviewed, dictated and finalized at location A.
--- NOTE | ~2020-12-31 | CT_ITS ---
EXAMINATION: CT brain wo con DATE: 01/01/2021 12:07 INDICATION: Decreased level consciousness. Confusion. TECHNIQUE: Computed tomography (CT) of the head was performed without intravenous contrast. The mA wa s adjusted according to patient size. Iterative reconstruction technique was employed. The dose-lengt h product was 605.33 mGy-cm. COMPARISON: Head CT 05/06/2020 FINDINGS: There are scattered areas of low attenuation in the cerebral white matter. There is an old lacunar infarct in right lentiform nucleus. There is no intracranial hemorrhage, acute infarction, or abnormal intracranial mass lesion. The ventricles are normal in size. The orbits are normal. The par anasal sinuses are clear. The mastoid air cells are normal. IMPRESSION: 1. Old lacunar infarct in the right lentiform nucleus. 2. Stable extensive nonspecific cerebral white matter disease, which likely represents chronic small vessel ischemic disease. Reviewed, dictated and finalized at location A. IMPRESSION: 1. Old lacunar infarct in the right lentiform nucleus. 2. Stable extensive nonspecific cerebral white matter disease, which likely rep resents chronic small vessel ischemic disease.
--- NOTE | ~2020-12-31 | XR_ITS ---
XR hip RT 2V w AP pelvis DATE: 12/31/2020 07:47 INDICATION: Fall from golf cart one day ago. Right hip pain. TECHNIQUE: AP pelvis. AP and lateral views of right hip COMPARISON: 10/15/2019 CT abdomen pelvis lumbar spine examination FINDINGS: Status post vertebroplasty at L5 compression fracture. Diffuse osteopenia. The pubic symphysis and sacroiliac joints appear intact. No pelvic fracture or bone destruction is ev ident. No fracture or dislocation, avascular necrosis or bone destruction of the right hip. Surgical clips overlie the left lower quadrant of the abdomen. There is extensive severe calcification of the abdominal aorta, iliac, common femoral and femoral art eries. IMPRESSION: Diffuse osteopenia Chronic L5 compression fracture and vertebroplasty Severe calcified atherosclerosis of the abdominal aorta, iliac, common femoral and femoral arteries Reviewed, dictated and finalized at location A.
--- NOTE | 2020-12-31 06:54 | ECG_ITS ---
Measurements Intervals [place] Rate: 61 P: 41 OH: 152 QRS: -31 QRSD: 72 T: -11 QT: 399 QTc: 404 Interpretive Statements SINUS RHYTHM LEFT AXIS DEVIATION BORDERLINE T WAVE ABNORMALITY- INFERIOR LEADS BORDERLINE ECG Electronically Signed On 12-31-2020 8:12:55 CDT by Miguel Macias D.O.
[2020-12-31] MEDS: MECLIZINE HCL 25 MG TABLET PO (08:09)
[2020-12-31] MEDS: SODIUM CHLORIDE 0.9% IV 1,000 ML 999 ML IV CONT (08:09)
[2020-12-31] MEDS: ONDANSETRON INJ 4 MG/2 ML VIAL IV PUSH (08:09)
[2020-12-31 08:26] LABS: Basophils Absolute Auto 0.1 K/mm3 (0.0-0.1); Basophils Percent Auto 0.6 % (0.2-1.2); Eosinophils Absolute Auto 0.1 K/mm3 (0-0.3); Eosinophils Percent Auto 0.4 % (0-4.4); Hematocrit 40.4 % (37.0-47.0); Immature Granulocyte Absolute 0.11 K/mm3 (0.00-0.031); Immature Granulocyte Percent A 0.9 % (0-0.5); Lymphocytes Absolute Auto 0.68 K/mm3 (0.9-3.2); Lymphocytes Percent Auto 5.6 % (18.3-44.2); Mean Corpuscular HGB Conc 32.2 g/dl (32-36); Mean Corpuscular Hemoglobin 29.3 pg (26-34); Mean Corpuscular Volume 91.2 fl (80-100); Mean Platelet Volume 10.5 fl (7.4-10.4); Monocytes Absolute Auto 0.7 K/mm3 (0.1-0.6); Monocytes Percent Auto 5.6 % (2.6-8.5); Neutrophils Absolute Auto 10.5 K/mm3 (1.3-6.7); Neutrophils Percent Auto 86.9 % (45.5-73.1); Platelet Count Result 207 k/mm3 (150-375); Red Blood Count 4.43 M/mm3 (4.2-5.4); Red Cell Distribution Width 13.7 % (11.5-14.5); White Blood Count 12.1 K/mm3 (4.5-10.0)
[2020-12-31 08:29] LABS: Alanine Aminotransferase 19 U/L (4-35); Albumin Level 4.4 g/dL (3.5-5.1); Alkaline Phosphatase 68 U/L (38-126); Anion Gap 9 mmol/L (8-16); Aspartate Amino Transferase 35 U/L (14-36); Bilirubin,Total 0.6 mg/dL (0.2-1.3); Blood Urea Nitrogen 43 mg/dL (7-17); Carbon Dioxide 28 mmol/L (22-30); Chloride 104 mmol/L (98-107); Estimated Glomerular Filt Rate 34; Glucose 107 mg/dL (65-105); Potassium 4.5 mmol/L (3.4-5.0); Sodium 141 mmol/L (137-145)
[2020-12-31 09:15] LABS: Add Urine Microscopic? YES; Appearance Urine Cloudy (Clear); Bacteria Urine Trace /hpf; Bilirubin Urine Negative (Negative); Color Urine Yellow (Yellow); Glucose Urine UA Negative (Negative); Ketones Urine Negative (Negative); Leukocyte Esterase Ur Negative LEU/UL (Negative); Mucus Urine Rare /lpf; Nitrate Urine Negative (Negative); Protein Urine 2+ mg/dL (Negative); Specific Grav Ur 1.018 (1.001-1.035); Squamous Epithelial Cell Urine Many /hpf (Few); Urobilinogen Urine Negative mg/dL (<2.0); WBC Urine 51-75 /hpf
[2020-12-31 09:26] LABS: Blood Urine Negative (Negative)
[2020-12-31] MEDS: METOPROLOL TARTRATE 25 MG TABLET PO (09:42)
[2020-12-31] MEDS: amLODIPine BESYLATE 5 MG TABLET 10 MG PO (09:42)
--- NOTE | 2020-12-31 10:49 | ED.GENADULT ---
HPI - General Adult General Chief complaint: Fall Stated complaint: FALL/ R LEG PAIN Time Seen by Provider: 12/31/20 06:52 History of Present Illness HPI narrative: Patient is a 70-year-old female who presents ER after a fall. Patient reports last night a 2-year-old knocked a mattress on her right hip which caused her some pain. She not fall at that time. Today she had a bed became very dizzy and nauseated. It was a spinning sensation. No history of vertigo. She reports she sat down her rolling walker and was so weak she could not get back up and fell down to the ground. She did not strike her head or lose consciousness. She did suffer skin tears to her arms. She lives in the basement of her son's house who is a mounted police in [place]. Related Data Home Medications Medication Instructions Recorded Confirmed acetaminophen 500 mg PO Q8-10H PRN 02/14/20 12/31/20 alendronate 70 mg PO WEEKLY 02/14/20 12/31/20 amlodipine 10 mg PO DAILY 12/31/20 12/31/20 atorvastatin 10 mg PO HS 12/31/20 12/31/20 ergocalciferol (vitamin D2) 50,000 unit PO WEEKLY 12/31/20 12/31/20 metoprolol succinate 25 mg PO DAILY 12/31/20 12/31/20 mirtazapine 15 mg PO DAILY 12/31/20 12/31/20 Allergies Allergy/AdvReac Type Severity Reaction Status Date / Time No Known Allergies Allergy Unknown Verified 12/31/20 15:21 Review of Systems Review of Systems: All systems reviewed & are unremarkable except as noted in HPI and below Constitutional: Constitutional: Denies chills, Reports fatigue, Denies fever(s) and Reports weakness Respiratory: Respiratory: Denies cough, Denies dyspnea and Denies wheezing Gastrointestinal: Gastrointestinal: Denies abdominal pain, Denies diarrhea, Denies nausea and Denies vomiting Genitourinary: Genitourinary: Denies nocturia and Denies dysuria [facility] Past Medical History Medical History (Updated 12/31/20 @ 18:33 by Darryl Comer MD) C. difficile diarrhea Chronic back pain Chronic kidney disease, stage 3 Creatinine ranges between 1.4 and 1.70. Depression Emphysema of lung Empyema Gastroesophageal reflux History of blood transfusion Hypertension Kidney stones Osteoarthritis Osteoporosis Rectal polyp Shingles Transverse myelitis Surgical History Surgical History (Updated 12/31/20 @ 15:04 by Xuan Ni PA-C) History of section History of colonoscopy with polypectomy History of kyphoplasty History of left nephrectomy History of lithotripsy Family History Family History Mother Diabetes mellitus, Onset Age: 89 Cerebrovascular accident Hypertension Father Family history of cardiovascular disease, Onset Age: 87 Acute myocardial infarction, Onset Age: 87 Family history of heart disease in male family member before age 55 Hypertension Social History Social History (Updated 12/31/20 @ 15:05 by Xuan Ni PA-C) Social History: The patient is and lives in [place]. 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 She smoked up to 1.5 packs of cigarettes a day for 25 years and quit around 2013. No alcohol or illicit substance abuse. She designates her son, Messi Dexter, as her surrogate decision maker. Code status: Full code. Smoking packs per day: 1 Smoking cigarettes per day: 20.0 Years smoked: 30 Smoking pack-years: 30.00 Smoking status: Former smoker Tobacco type: cigarettes Second hand tobacco smoke exposure: Yes Alcohol intake: never Substance use: never Substance use type: does not use Spiritual care concerns: No Exam Narrative: Exam Narrative: GENERAL: Chronically ill-appearing, well-nourished, and in no acute distress. HEAD: Normocephalic, atraumatic. EYES: PERRL and EOMI. no nystagmus. CHEST: Clear to auscultation. No respiratory distress. HEART: Regular rate and rhythm. Normal peripheral pulses. ABDOMEN: Soft, nontender, nondistended. EXTREMITIES: Normal range of motion. No edema. SKIN: Warm,
--- NOTE | 2020-12-31 12:45 | ADMGEN ---
This patient, Kaylen Alva, was admitted to 2 Medical Room 260-. Patient/family oriented to hospital policies and general routines including ID bracelet, bed and alarms, visiting hours, pain management, procedures, bathroom and other care routines, personal items, smoking policy, room service/diet, and visiting hours. Information on how to activate the Rapid Response Team has been discussed. Patient/Family are encouraged to report perceived risks to care and to ask questions if they do not understand what they are told or what they should do.
[2020-12-31] MEDS: SODIUM CHLORIDE 0.9% IV 1,000 ML 125 ML IV CONT (14:24)
--- NOTE | 2020-12-31 15:30 | PM.IMHP ---
H&P: HPI History of Present Illness Date/Time: 12/31/20 15:30 Chief Complaint: Fall. Narrative: This is a 70-year-old female with history of transverse myelitis with residual lower extremity weakness and hypertension who presented to the emergency department earlier today via EMS from home for evaluation after a fall. Not long prior to arrival she was using her walker to ambulate to the bathroom when she began feeling dizzy and lightheaded so she sat on the chair on her rollator. Unfortunately she continued to feel dizzy and she fell forward on to the ground where she sustained skin tears on her upper extremities. Additionally the patient reports that a mattress fell on to her right leg couple of nights ago and she has had discomfort in the right anteromedial hip region. she had difficulties ambulating in the emergency department it was felt that she would be safer to be admitted to the hospital for observation as well as PT/OT consult. She also has an abnormal urinalysis and reports strong smelling urine however has no symptoms to suggest UTI. She denies fever, chills, sweats, cold and flu symptoms, chest pain, shortness of breath, nausea, vomiting, diarrhea, dysuria, and any other symptoms of UTI. She had no head trauma or loss of consciousness in the fall. She has not had focal weakness or paresthesias. No saddle anesthesia. No bowel or bladder incontinence. Review of Systems Review of Systems: Narrative: Twelve systems were reviewed with pertinent positives and negatives as per HPI. She has always been thin and has not had any recent change in weight. Her appetite is not always good but that is unchanged. She has occasional dysphagia with food but denies concerns for aspiration. She does report that she coughs quite a bit chronically. No recent change in medications. Except as documented, all other systems were reviewed and are negative. [facility] Past Medical History Medical History C. difficile diarrhea Chronic back pain Chronic kidney disease, stage 3 Creatinine ranges between 1.4 and 1.70. Depression Emphysema of lung Empyema Gastroesophageal reflux History of blood transfusion Hypertension Kidney stones Osteoarthritis Osteoporosis Rectal polyp Shingles Transverse myelitis Surgical History Surgical History History of section History of colonoscopy with polypectomy History of kyphoplasty History of left nephrectomy History of lithotripsy Family History Family History Mother Diabetes mellitus, Onset Age: 89 Cerebrovascular accident Hypertension Father Family history of cardiovascular disease, Onset Age: 87 Acute myocardial infarction, Onset Age: 87 Family history of heart disease in male family member before age 55 Hypertension Social History Social History (Updated 01/01/21 @ 00:31 by Xuan Ni PA-C) Social History: The patient is and lives in [place] with her son. 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 Ambulates with a walker. She smoked up to 1.5 packs of cigarettes a day for 30 years and quit around 2013. No alcohol or illicit substance abuse. She designates her son, Messi Dexter, as her surrogate decision maker. Code status: Full code. Meds Home Medications and Allergies Home Medications Medication Instructions Recorded Confirmed Type pantoprazole 40 mg PO QAM #5 tablet 11/14/19 12/31/20 Rx polyethylene glycol 3350 [Miralax] 17 g PO DAILY PRN 5 Days each 11/14/19 12/31/20 Rx polysaccharide iron complex 150 mg PO DAILY@0800 #30 cap 11/14/19 12/31/20 Rx sertraline [Zoloft] 100 mg PO DAILY 5 Days #10 tablet 11/14/19 12/31/20 Rx acetaminophen 500 mg PO Q8-10H PRN 02/14/20 12/31/20 History alendronate 70 mg PO WEEKLY 02/14/20 12/31/20 History tramadol 50 mg PO Q8H PRN #0 tablet 02/16/20 12/31/20 Rx amlodipine 10 mg PO DAILY 12/31
[2021-01-01] VITALS (13 sets, daily range): BP systolic 137–174; BP diastolic 59–127; PULSE 54–85; RESP 16–20; TEMP 35.9–36.4; O2SAT 97–100
--- NOTE | 2021-01-01 00:38 | ECHO_ITS ---
Patient Info Name: Kaylen Alva Age: 70 years : 1950 Gender: Female Ht: 57 in Wt: 87 lbs BSA: 1.26 m2 HR: 56 bpm BP: 171 / 100 mmHg Heart Rhythm: Sinus Rhythm Technical Quality: Good Exam Date: 01/01/2021 1:35 PM Exam Location: [facility] Pulmonary Patient Status: Inpatient Admit Date: 01/01/2021 Staff Ordering Physician: Xuan Ni PA-C Medical Donation Professional: Xiomara Bazan RDCS Attending Provider: Kevin Vidal MD Referring Physician: Last CHRISTIANSON; Exam Type: CA echo doppler color flow Study Info Complete two-dimensional, color flow and Doppler transthoracic echocardiogram is performed. Summary 1. Complete two-dimensional, color flow and Doppler transthoracic echocardiogram is performed. 2. Left ventricular chamber dimension is normal. 3. Left ventricular systolic function is normal, estimated at 55-60%. 4. There is mildly increased left ventricular wall thickness. 5. The left ventricular diastolic function is grade I diastolic dysfunction. 6. Left atrial chamber dimension is mildly enlarged. 7. There is mild mitral valve regurgitation. 8. There is mild tricuspid valve regurgitation. Left Ventricle Left ventricular chamber dimension is normal. Left ventricular systolic function is normal, estimated at 55-60%. There is mildly increased left ventricular wall thickness. The left ventricular diastolic function is grade I diastolic dysfunction. Right Ventricle Right ventricular chamber dimension is normal. Right ventricular systolic function is normal. Left Atria Left atrial chamber dimension is mildly enlarged. Right Atria Right atrial chamber dimension is normal. Atrial Septum Intact interatrial septum visualized by color flow imaging. Aortic Valve The aortic valve is probable trileaflet. There is mild aortic valve sclerosis. There is no aortic valve stenosis. There is trace aortic valve regurgitation. Pulmonic Valve The pulmonic valve is normal. There is no pulmonic valve stenosis. There is trace pulmonic regurgitation. Mitral Valve The mitral valve has normal leaflets. There is no mitral valve stenosis. There is mild mitral valve regurgitation. Tricuspid Valve The tricuspid valve leaflets are normal. There is no significant tricuspid valve stenosis. There is mild tricuspid valve regurgitation. No pulmonary hypertension, estimated pulmonary arterial systolic pressure is 19 mmHg. Pericardium/Pleural The pericardium appears normal. There is trivial pericardial effusion. Inferior Vena Cava Normal inferior vena cava with >50% collapse upon inspiration consistent with normal right atrial pressure, 5 mmHg. Aorta The aortic root size at the sinus of Valsalva is normal. The prox ascending aorta size is normal. Left Ventricular Outflow Tract Name Value Normal LVOT 2D LVOT Diameter 1.9 cm LVOT Doppler LVOT Peak Gradient 3 mmHg LVOT Mean Gradient 1 mmHg LVOT VTI 18 cm LVOT VTI/AV VTI Ratio 0.7 LVOT Stroke Volume
[2021-01-01 05:43] LABS: Hematocrit 36.6 % (37.0-47.0); Hemoglobin 11.2 g/dL (12.0-15.0); Mean Corpuscular HGB Conc 30.6 g/dl (32-36); Mean Corpuscular Hemoglobin 28.6 pg (26-34); Mean Corpuscular Volume 93.4 fl (80-100); Mean Platelet Volume 10.7 fl (7.4-10.4); Platelet Count Result 189 k/mm3 (150-375); Red Blood Count 3.92 M/mm3 (4.2-5.4); Red Cell Distribution Width 14.2 % (11.5-14.5); White Blood Count 8.6 K/mm3 (4.5-10.0)
[2021-01-01 05:59] LABS: Anion Gap 9 mmol/L (8-16); Blood Urea Nitrogen 36 mg/dL (7-17); Carbon Dioxide 21 mmol/L (22-30); Chloride 111 mmol/L (98-107); Estimated Glomerular Filt Rate 34; Glucose 85 mg/dL (65-105); Potassium 4.4 mmol/L (3.4-5.0); Sodium 141 mmol/L (137-145)
[2021-01-01 06:55] LABS: Thyroid Stimulating Hormone Reflex 0.584 uIU/mL (0.465-4.68)
[2021-01-01] MEDS: POLYSACCHARIDE IRON COMPLEX 150 MG CAPSULE PO (08:23)
[2021-01-01] MEDS: MIRTAZAPINE 15 MG TABLET PO (08:23)
[2021-01-01] MEDS: PANTOPRAZOLE 40 MG TABLET PO (08:23)
[2021-01-01] MEDS: amLODIPine BESYLATE 5 MG TABLET 10 MG PO (08:23)
[2021-01-01] MEDS: SERTRALINE HCL 50 MG TABLET 100 MG PO (08:23)
[2021-01-01] MEDS: METOPROLOL SUCCINATE EXT REL 25 MG TABCR PO (08:23)
[2021-01-01] MEDS: ACETAMINOPHEN 325 MG TABLET 650 MG PO (08:27)
--- NOTE | 2021-01-01 11:30 | PC.NURSE ---
Patient [place] [facility] [place] Received call from speech therapist stating patient was difficult to arouse in radiology and was continually falling asleep and unable to complete test. P Patient returned to floor. Very difficult to keep awake. Arouses to name and is oriented to place and time. Patient states she does not have any recollection of going down to xray or attempts at MBS. VS stable - HR 54, BP 172/71, O2 sat 100% on room air. No neuro deficits noted other than patient very lethargic and having difficulty staying awake. Spoke with Dr. Mcarthur and notified him of all of the above. Orders received for STAT CT of brain.
--- NOTE | 2021-01-01 13:48 | PCSTNOTE ---
MBS attempted twice on this date. Pt. lethargic, falling asleep, limited arousal for assessment. Spoke with nursing and will attempt MBS on the morning of 01/02/21.
--- NOTE | 2021-01-01 14:13 | PM.IMPN ---
Progress Note: A&P Assessment and Plan (1) Fall from ground level: Code(s): W18.30XA - Fall on same level, unspecified, initial encounter Status: Acute Assessment and Plan: 01/01/21 14:13 The patient presents today for evaluation after ground level fall. She was feeling lightheaded and dizzy prior to and initially I was concerned that she possibly was orthostatic however her blood pressures have been quite elevated. She will be monitored on telemetry overnight to rule out cardiac dysrhythmia which seems to be less likely. Echocardiogram and carotid Doppler ultrasounds have been ordered for a.m. she does have some white cells in her urine however squamous cells were noted and I suspect this is likely contamination as she gives no history to suggest infection. She has generalized weakness as a rule related to history of transverse myelitis though she was having difficulties ambulating in the emergency department thus will consult PT/ OT. As mentioned above her blood pressures are not ideally controlled. For now will continue with her antihypertensives and monitor closely as she may be adjustments in her medications. Her creatinine is stable on review of previous labs. Home medications will reviewed and resumed as appropriate. Given intermittent dysphagia and witnessed coughing episode after drinking will order swallow study 01/01 patient states after she fell, complains of right lower extremity pain, emergency depart patient had x-ray hip and pelvis. no acute injury and showed chronic L5 compression fracture and vertebroplasty, similarly thoracic and cervical spine showed chronic and subacute compression fracture, nursing. Staff spoke with the patient's, son patient is not cooperative intaking her medications, does not eat does not want to participate any activity at home, patient has not seen neurologist for transverse myelitis, will start the patient short course of steroid and gabapentin and have PT OT evaluate the patient. (2) Abnormal urinalysis: Code(s): R82.90 - Unspecified abnormal findings in urine Status: Acute Assessment and Plan: patient started on Rocephin will follow-up culture and sensitivity (3) Generalized weakness: Code(s): R53.1 - Weakness Status: Acute Assessment and Plan: will have a PT OT evaluate the patient (4) Chronic kidney disease, stage 3: Code(s): N18.30 - Chronic kidney disease, stage 3 unspecified Status: Chronic Assessment and Plan: acute on chronic kidney disease most likely secondary to dehydration due to poor p.o. intake will gently hydrate the patient and monitor kidney function (5) Hypertension: Code(s): I10 - Essential (primary) hypertension Status: Chronic Assessment and Plan: will continue home regimen (6) Dysphagia: Code(s): R13.10 - Dysphagia, unspecified Status: Acute Assessment and Plan: patient had a modified swallow study today pending results (7) Ambulatory dysfunction: Code(s): R26.2 - Difficulty in walking, not elsewhere classified Status: Acute Assessment and Plan: most likely secondary to transverse myelitis, and is status post fall, will have PT OT evaluate the patient. Additional Plan The patient presents today for evaluation after ground level fall. She was feeling lightheaded and dizzy prior to and initially I was concerned that she possibly was orthostatic however her blood pressures have been quite elevated. She will be monitored on telemetry overnight to rule out cardiac dysrhythmia which seems to be less likely. Echocardiogram and carotid Doppler ultrasounds have been ordered for a.m. she does have some white cells in her urine however squamous cells were noted and I suspect this is likely contamination as she gives no history to suggest infection. She has generalized weakness as a rule related to history of transverse myelitis though she was hav
[2021-01-01] MEDS: methylPREDNISolone SOD SUCC 125 MG VIAL 80 MG IV PUSH (15:12)
--- NOTE | 2021-01-01 17:38 | PC.NURSE ---
Patient now awake and alert - eating supper. States she was just really tired today and couldn't stay awake. Still unable to remember going to radiology earlier today.
[2021-01-01] MEDS: ATORVASTATIN 10 MG TABLET PO (21:12)
[2021-01-02] VITALS (12 sets, daily range): BP systolic 124–176; BP diastolic 59–100; PULSE 66–94; RESP 16; TEMP 36.1–36.2; O2SAT 97–98
[2021-01-02] MEDS: methylPREDNISolone SOD SUCC 125 MG VIAL 60 MG IV PUSH ×3 (05:35→21:27)
[2021-01-02] MEDS: POLYSACCHARIDE IRON COMPLEX 150 MG CAPSULE PO (08:41)
[2021-01-02] MEDS: PANTOPRAZOLE 40 MG TABLET PO (08:41)
[2021-01-02] MEDS: amLODIPine BESYLATE 5 MG TABLET 10 MG PO (08:41)
[2021-01-02] MEDS: SERTRALINE HCL 50 MG TABLET 100 MG PO (08:41)
[2021-01-02] MEDS: METOPROLOL SUCCINATE EXT REL 25 MG TABCR PO (08:42)
[2021-01-02] MEDS: MIRTAZAPINE 15 MG TABLET PO (08:42)
--- NOTE | 2021-01-02 10:06 | PCOTNOTE ---
Attempted to see patient for skilled OT session at this time. Was not able to be completed at this time d/t patient being taken for swallow study. Will attempt to see patient for a second time this date. Will plan to continue treatment per plan of care.
[2021-01-02] MEDS: traMADol HCL (*CRX) 50 MG TABLET PO (11:54)
[2021-01-02 11:58] LABS: Hematocrit 37.4 % (37.0-47.0); Hemoglobin 11.9 g/dL (12.0-15.0); Mean Corpuscular HGB Conc 31.8 g/dl (32-36); Mean Corpuscular Volume 91.2 fl (80-100); Mean Platelet Volume 10.7 fl (7.4-10.4); Platelet Count Result 225 k/mm3 (150-375); Red Cell Distribution Width 13.7 % (11.5-14.5)
[2021-01-02 12:09] LABS: Anion Gap 8 mmol/L (8-16); Blood Urea Nitrogen 35 mg/dL (7-17); Calcium 8.5 mg/dL (8.4-10.2); Carbon Dioxide 24 mmol/L (22-30); Chloride 109 mmol/L (98-107); Estimated Glomerular Filt Rate 44; Glucose 276 mg/dL (65-105); Magnesium 1.9 mg/dL (1.6-2.3); Potassium 4.1 mmol/L (3.4-5.0); Sodium 141 mmol/L (137-145)
--- NOTE | 2021-01-02 12:47 | PM.IMPN ---
Progress Note: A&P Assessment and Plan (1) Fall from ground level: Code(s): W18.30XA - Fall on same level, unspecified, initial encounter Status: Acute Assessment and Plan: 01/02/21 12:47 The patient presents today for evaluation after ground level fall. She was feeling lightheaded and dizzy prior to and initially I was concerned that she possibly was orthostatic however her blood pressures have been quite elevated. She will be monitored on telemetry overnight to rule out cardiac dysrhythmia which seems to be less likely. Echocardiogram and carotid Doppler ultrasounds have been ordered for a.m. she does have some white cells in her urine however squamous cells were noted and I suspect this is likely contamination as she gives no history to suggest infection. She has generalized weakness as a rule related to history of transverse myelitis though she was having difficulties ambulating in the emergency department thus will consult PT/ OT. As mentioned above her blood pressures are not ideally controlled. For now will continue with her antihypertensives and monitor closely as she may be adjustments in her medications. Her creatinine is stable on review of previous labs. Home medications will reviewed and resumed as appropriate. Given intermittent dysphagia and witnessed coughing episode after drinking will order swallow study 01/01 patient states after she fell, complains of right lower extremity pain, emergency depart patient had x-ray hip and pelvis. no acute injury and showed chronic L5 compression fracture and vertebroplasty, similarly thoracic and cervical spine showed chronic and subacute compression fracture, nursing. Staff spoke with the patient's, son patient is not cooperative intaking her medications, does not eat does not want to participate any activity at home, patient has not seen neurologist for transverse myelitis, will start the patient short course of steroid and gabapentin and have PT OT evaluate the patient. 01/02 patient was started on Solu-Medrol, today patient states the pain is persisting will bit better, will continue Solu-Medrol 60 mg every 6 hours will have a PT OT evaluate the patient and further recommendation to follow. (2) Abnormal urinalysis: Code(s): R82.90 - Unspecified abnormal findings in urine Status: Acute Assessment and Plan: patient started on Rocephin will follow-up culture and sensitivity (3) Generalized weakness: Code(s): R53.1 - Weakness Status: Acute Assessment and Plan: will have a PT OT evaluate the patient (4) Chronic kidney disease, stage 3: Code(s): N18.30 - Chronic kidney disease, stage 3 unspecified Status: Chronic Assessment and Plan: acute on chronic kidney disease most likely secondary to dehydration due to poor p.o. intake will gently hydrate the patient and monitor kidney function (5) Hypertension: Code(s): I10 - Essential (primary) hypertension Status: Chronic Assessment and Plan: will continue home regimen (6) Dysphagia: Code(s): R13.10 - Dysphagia, unspecified Status: Acute Assessment and Plan: patient had a modified swallow study today pending results (7) Ambulatory dysfunction: Code(s): R26.2 - Difficulty in walking, not elsewhere classified Status: Acute Assessment and Plan: most likely secondary to transverse myelitis, and is status post fall, will have PT OT evaluate the patient. Additional Plan The patient presents today for evaluation after ground level fall. She was feeling lightheaded and dizzy prior to and initially I was concerned that she possibly was orthostatic however her blood pressures have been quite elevated. She will be monitored on telemetry overnight to rule out cardiac dysrhythmia which seems to be less likely. Echocardiogram and carotid Doppler ultrasounds have been ordered for a.m. she does have some white cells in h
--- NOTE | 2021-01-02 15:31 | PCSTNOTE ---
MBS completed. Please see ST evaluation for details and recommendations.
[2021-01-02] MEDS: ATORVASTATIN 10 MG TABLET PO (21:28)
[2021-01-03] VITALS (11 sets, daily range): BP systolic 134–148; BP diastolic 56–86; PULSE 63–145; RESP 16–20; TEMP 36.3–36.6; O2SAT 98–100
[2021-01-03] MEDS: traMADol HCL (*CRX) 50 MG TABLET PO ×2 (03:57→22:50)
[2021-01-03] MEDS: methylPREDNISolone SOD SUCC 125 MG VIAL 60 MG IV PUSH ×3 (05:14→20:36)
[2021-01-03] MEDS: POLYSACCHARIDE IRON COMPLEX 150 MG CAPSULE PO (08:43)
[2021-01-03] MEDS: MIRTAZAPINE 15 MG TABLET PO (08:43)
[2021-01-03] MEDS: PANTOPRAZOLE 40 MG TABLET PO (08:43)
[2021-01-03] MEDS: SERTRALINE HCL 50 MG TABLET 100 MG PO (08:43)
[2021-01-03] MEDS: amLODIPine BESYLATE 5 MG TABLET 10 MG PO (08:43)
[2021-01-03] MEDS: METOPROLOL SUCCINATE EXT REL 25 MG TABCR PO (08:43)
--- NOTE | 2021-01-03 13:49 | PCDIET ---
Nutrition Follow-Up Complete: Inadequate oral intake related to reduced appetite as evidence by BMI of 19 and potential weight loss PO intake of 75% or greater of meals to maintain weight Goal:Goal met. Continue goal. Pt current nutrition is Soft and Bite Sized regular diet + Ensure compact BID Nutrition recommendation: agree Last recorded weight is 39.8 kg, recommend updated wt Bowel Motility: 01/02 +BM Labs Reviewed:WBC 16, Hgb 11.9, GFR 44, Cr 1.20, Glucose 276 Meds Noted:Tramadol, Niferex, Protonix, Remeron, SoluMedrol, Lipitor Additional Notes: Pt states appetite is better. Intakes of 100%x 2, 75, and 50%. On remeron which can increase appetite. Glucose elevated, potentially 2/2 to steroids. Recommend consistent carb diet if elevated blood sugars continue. We will continue to monitor for adequate PO intake, weight, labs, BMs every five days.
--- NOTE | 2021-01-03 13:56 | PM.IMPN ---
Progress Note: A&P Assessment and Plan (1) Fall from ground level: Code(s): W18.30XA - Fall on same level, unspecified, initial encounter Status: Acute Assessment and Plan: 01/03/21 13:56 The patient presents today for evaluation after ground level fall. She was feeling lightheaded and dizzy prior to and initially I was concerned that she possibly was orthostatic however her blood pressures have been quite elevated. She will be monitored on telemetry overnight to rule out cardiac dysrhythmia which seems to be less likely. Echocardiogram and carotid Doppler ultrasounds have been ordered for a.m. she does have some white cells in her urine however squamous cells were noted and I suspect this is likely contamination as she gives no history to suggest infection. She has generalized weakness as a rule related to history of transverse myelitis though she was having difficulties ambulating in the emergency department thus will consult PT/ OT. As mentioned above her blood pressures are not ideally controlled. For now will continue with her antihypertensives and monitor closely as she may be adjustments in her medications. Her creatinine is stable on review of previous labs. Home medications will reviewed and resumed as appropriate. Given intermittent dysphagia and witnessed coughing episode after drinking will order swallow study 01/01 patient states after she fell, complains of right lower extremity pain, emergency depart patient had x-ray hip and pelvis. no acute injury and showed chronic L5 compression fracture and vertebroplasty, similarly thoracic and cervical spine showed chronic and subacute compression fracture, nursing. Staff spoke with the patient's, son patient is not cooperative intaking her medications, does not eat does not want to participate any activity at home, patient has not seen neurologist for transverse myelitis, will start the patient short course of steroid and gabapentin and have PT OT evaluate the patient. 01/02 patient was started on Solu-Medrol, today patient states the pain is persisting will bit better, will continue Solu-Medrol 60 mg every 6 hours will have a PT OT evaluate the patient and further recommendation to follow. 01/03 patient was started on Solu-Medrol on 01/01 , today patient states pain is improving and she was able to participate in PT, will consult Neurology for further recommendation,will continue Solu-Medrol 60 mg every 6 hours, will begin to taper Solu-Medrol slowly from tomorrow, will have a PT OT evaluate the patient and further recommendation to follow. (2) Abnormal urinalysis: Code(s): R82.90 - Unspecified abnormal findings in urine Status: Acute Assessment and Plan: patient started on Rocephin will follow-up culture and sensitivity (3) Generalized weakness: Code(s): R53.1 - Weakness Status: Acute Assessment and Plan: will have a PT OT evaluate the patient (4) Chronic kidney disease, stage 3: Code(s): N18.30 - Chronic kidney disease, stage 3 unspecified Status: Chronic Assessment and Plan: acute on chronic kidney disease most likely secondary to dehydration due to poor p.o. intake will gently hydrate the patient and monitor kidney function (5) Hypertension: Code(s): I10 - Essential (primary) hypertension Status: Chronic Assessment and Plan: will continue home regimen (6) Dysphagia: Code(s): R13.10 - Dysphagia, unspecified Status: Acute Assessment and Plan: patient had a modified swallow study today pending results (7) Ambulatory dysfunction: Code(s): R26.2 - Difficulty in walking, not elsewhere classified Status: Acute Assessment and Plan: most likely secondary to transverse myelitis, and is status post fall, will have PT OT evaluate the patient. Subjective Date/time seen: 01/03/21 13:56 The patient presents today for evaluation after ground le
[2021-01-03] MEDS: ATORVASTATIN 10 MG TABLET PO (20:36)
[2021-01-04] VITALS (13 sets, daily range): BP systolic 108–175; BP diastolic 56–114; PULSE 58–79; RESP 16–18; TEMP 36.1–36.3; O2SAT 96–100
[2021-01-04 05:41] LABS: Hematocrit 37.5 % (37.0-47.0); Mean Corpuscular Hemoglobin 29.3 pg (26-34); Mean Corpuscular Volume 91.7 fl (80-100); Mean Platelet Volume 10.5 fl (7.4-10.4); Platelet Count Result 266 k/mm3 (150-375); Red Blood Count 4.09 M/mm3 (4.2-5.4); Red Cell Distribution Width 13.9 % (11.5-14.5)
[2021-01-04 05:57] LABS: Anion Gap 9 mmol/L (8-16); Blood Urea Nitrogen 47 mg/dL (7-17); Calcium 8.7 mg/dL (8.4-10.2); Carbon Dioxide 24 mmol/L (22-30); Chloride 109 mmol/L (98-107); Estimated Glomerular Filt Rate 37; Glucose 107 mg/dL (65-105); Potassium 4.3 mmol/L (3.4-5.0); Sodium 142 mmol/L (137-145)
[2021-01-04] MEDS: methylPREDNISolone SOD SUCC 125 MG VIAL 60 MG IV PUSH ×2 (06:11→14:33)
[2021-01-04] MEDS: PANTOPRAZOLE 40 MG TABLET PO (09:03)
[2021-01-04] MEDS: SERTRALINE HCL 50 MG TABLET 100 MG PO (09:03)
[2021-01-04] MEDS: POLYSACCHARIDE IRON COMPLEX 150 MG CAPSULE PO (09:03)
[2021-01-04] MEDS: amLODIPine BESYLATE 5 MG TABLET 10 MG PO (09:03)
[2021-01-04] MEDS: MIRTAZAPINE 15 MG TABLET PO (09:04)
[2021-01-04] MEDS: METOPROLOL SUCCINATE EXT REL 25 MG TABCR PO (09:04)
[2021-01-04] MEDS: traMADol HCL (*CRX) 50 MG TABLET PO ×2 (11:14→20:12)
--- NOTE | 2021-01-04 11:35 | WPDNEURCNPN ---
Assessment and Plan Additional Plan lady with history of transverse myelitis in the 5 passed, history of chronic L5 compression fracture and vertebroplasty, and findings of severe calcified atherosclerosis of the abdominal aorta including EEG common femoral and femoral arteries and the examination today consistent with generalized weakness with more involvement of the lower extremities will benefit from the physical therapy and other studies to rule out the possibility of or incidental pathology as already ordered Consult date: 01/04/21 Time Seen: 11:30 HPI: Kaylen Alva is a 70 year old female admitted to the hospital because of the fall in addition to the history of transverse myelitis with residual lower extremity weakness and also history of hypertension. She was brought to the emergency room by the EMS from home. Per the information available just prior to the arrival she was using walker and ambulating to the bathroom when she began feeling dizzy lightheaded so she sat on the chair on her Rollator but as she continued to feel dizzy she fell forward onto the ground where she sustained skin tears on her upper extremities and it was reported a mattress fell on to her right leg couple of nights ago as well and she has been complaining of discomfort in her right lower extremity with difficulties in ambulating there was no history of any other associated symptomatology. She does have ongoing history of 1. Chronic back 2. Chronic renal disease stage III 3. Emphysema 4. GERD 5. Hypertension 6. Osteoarthritis with osteoporosis never 7 history of transverse myelitis Review of Systems Review of Systems: All systems reviewed & are unremarkable except as noted in HPI and below PMFSH Past Medical History Medical History C. difficile diarrhea Chronic back pain Chronic kidney disease, stage 3 Creatinine ranges between 1.4 and 1.70. Depression Emphysema of lung Empyema Gastroesophageal reflux History of blood transfusion Hypertension Kidney stones Osteoarthritis Osteoporosis Rectal polyp Shingles Transverse myelitis Surgical History Surgical History History of section History of colonoscopy with polypectomy History of kyphoplasty History of left nephrectomy History of lithotripsy Family History Family History Mother Diabetes mellitus, Onset Age: 89 Cerebrovascular accident Hypertension Father Family history of cardiovascular disease, Onset Age: 87 Acute myocardial infarction, Onset Age: 87 Family history of heart disease in male family member before age 55 Hypertension Social History Social History Social History: The patient is and lives in [place] with her son. 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 Ambulates with a walker. She smoked up to 1.5 packs of cigarettes a day for 30 years and quit around 2013. No alcohol or illicit substance abuse. She designates her son, Messi Dexter, as her surrogate decision maker. Code status: Full code. Meds Home Medications and Allergies Home Medications Medication Instructions Recorded Confirmed Type pantoprazole 40 mg PO QAM #5 tablet 11/14/19 12/31/20 Rx polyethylene glycol 3350 [Miralax] 17 g PO DAILY PRN 5 Days each 11/14/19 12/31/20 Rx polysaccharide iron complex 150 mg PO DAILY@0800 #30 cap 11/14/19 12/31/20 Rx sertraline [Zoloft] 100 mg PO DAILY 5 Days #10 tablet 11/14/19 12/31/20 Rx acetaminophen 500 mg PO Q8-10H PRN 02/14/20 12/31/20 History alendronate 70 mg PO WEEKLY 02/14/20 12/31/20 History tramadol 50 mg PO Q8H PRN #0 tablet 02/16/20 12/31/20 Rx amlodipine 10 mg PO DAILY 12/31/20 12/31/20 History atorvastatin 10 mg PO HS 12/31/20 12/31/20 History ergocalciferol (vitamin D2) 50,000 unit PO WEEKLY 12/31/20 12/31/20 History metoprolol succinate 25 mg PO DAILY 12/31/20 12/31/20
[2021-01-04 12:00] LABS: Glucose Point of Care 164 mg/dl (65-105)
--- NOTE | 2021-01-04 15:08 | PM.IMPN ---
Progress Note: A&P Assessment and Plan (1) Fall from ground level: Code(s): W18.30XA - Fall on same level, unspecified, initial encounter Status: Acute Assessment and Plan: The patient presents for evaluation after ground level fall. She was feeling lightheaded and dizzy prior to and initially I was concerned that she possibly was orthostatic however her blood pressures have been quite elevated. She will be monitored on telemetry overnight to rule out cardiac dysrhythmia which seems to be less likely. Echocardiogram and carotid Doppler ultrasounds have been ordered and was unremarkable. she does have some white cells in her urine however squamous cells were noted and I suspect this is likely contamination as she gives no history to suggest infection. She has generalized weakness as a rule related to history of transverse myelitis though she was having difficulties ambulating in the emergency department thus will consult PT/ OT. As mentioned above her blood pressures are not ideally controlled. For now will continue with her antihypertensives and monitor closely as she may be adjustments in her medications. Her creatinine is stable on review of previous labs. Home medications will reviewed and resumed as appropriate. Given intermittent dysphagia and witnessed coughing episode after drinking will order swallow study 01/01 patient states after she fell, complains of right lower extremity pain, emergency depart patient had x-ray hip and pelvis. no acute injury and showed chronic L5 compression fracture and vertebroplasty, similarly thoracic and cervical spine showed chronic and subacute compression fracture, nursing. Staff spoke with the patient's, son patient is not cooperative in taking her medications, does not eat does not want to participate any activity at home, patient has not seen neurologist for transverse myelitis, will start the patient short course of steroid and gabapentin and have PT OT evaluate the patient. 01/02 patient was started on Solu-Medrol, today patient states the pain is persisting will bit better, will continue Solu-Medrol 60 mg every 6 hours will have a PT OT evaluate the patient and further recommendation to follow. 01/03 patient was started on Solu-Medrol on 01/01 , today patient states pain is improving and she was able to participate in PT, will consult Neurology for further recommendation,will continue Solu-Medrol 60 mg every 6 hours, will begin to taper Solu-Medrol slowly from tomorrow, will have a PT OT evaluate the patient and further recommendation to follow. 01/04 will switch or Solu-Medrol to prednisone. 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 PT OT to continue and did well will plan for home health at discharge anticipate in the morning. Neurology note reviewed (2) Abnormal urinalysis: Code(s): R82.90 - Unspecified abnormal findings in urine Status: Acute Assessment and Plan: patient started on Rocephin will follow-up culture and sensitivity culture has been no growth (3) Generalized weakness: Code(s): R53.1 - Weakness Status: Acute Assessment and Plan: unlikely transverse myelitis (4) Chronic kidney disease, stage 3: Code(s): N18.30 - Chronic kidney disease, stage 3 unspecified Status: Chronic Assessment and Plan: acute on chronic kidney disease most likely secondary to dehydration due to poor p.o. intake will gently hydrate the patient and monitor kidney function (5) Hypertension: Code(s): I10 - Essential (primary) hypertension Status: Chronic Assessment and Plan: will continue home regimen (6) Dysphagia: Code(s): R13.10 - Dysphagia, unspecified Status: Acute Assessment and Plan: patient had a modified swallow study today pending results (7) Ambulatory dysfunction: Code(s): R26.2 - Difficulty in walking, not elsewhere classified Status: Acu
--- NOTE | 2021-01-04 18:44 | PC.NURSE ---
Care observed by this RN for graduate nurse Hailey Serrano.
[2021-01-04] MEDS: ATORVASTATIN 10 MG TABLET PO (20:12)
[2021-01-05] VITALS (7 sets, daily range): BP systolic 137–139; BP diastolic 65–66; PULSE 61–70; RESP 12–18; TEMP 36.1–36.4; O2SAT 98–100
[2021-01-05 06:28] LABS: Hematocrit 36.6 % (37.0-47.0); Hemoglobin 11.8 g/dL (12.0-15.0); Mean Corpuscular HGB Conc 32.2 g/dl (32-36); Mean Corpuscular Hemoglobin 29.6 pg (26-34); Mean Corpuscular Volume 91.7 fl (80-100); Mean Platelet Volume 10.7 fl (7.4-10.4); Platelet Count Result 251 k/mm3 (150-375); Red Blood Count 3.99 M/mm3 (4.2-5.4); Red Cell Distribution Width 13.9 % (11.5-14.5); White Blood Count 16.4 K/mm3 (4.5-10.0)
[2021-01-05 06:38] LABS: Anion Gap 6 mmol/L (8-16); Blood Urea Nitrogen 57 mg/dL (7-17); Calcium 8.1 mg/dL (8.4-10.2); Carbon Dioxide 27 mmol/L (22-30); Chloride 110 mmol/L (98-107); Estimated Glomerular Filt Rate 37; Glucose 90 mg/dL (65-105); Potassium 4.2 mmol/L (3.4-5.0); Sodium 143 mmol/L (137-145)
[2021-01-05] MEDS: POLYSACCHARIDE IRON COMPLEX 150 MG CAPSULE PO (09:34)
[2021-01-05] MEDS: predniSONE 40 MG, predniSONE 10 MG 50 MG PO (09:35)
[2021-01-05] MEDS: METOPROLOL SUCCINATE EXT REL 25 MG TABCR PO (09:35)
[2021-01-05] MEDS: amLODIPine BESYLATE 5 MG TABLET 10 MG PO (09:35)
[2021-01-05] MEDS: PANTOPRAZOLE 40 MG TABLET PO (09:36)
[2021-01-05] MEDS: SERTRALINE HCL 50 MG TABLET 100 MG PO (09:36)
[2021-01-05] MEDS: MIRTAZAPINE 15 MG TABLET PO (09:36)
--- NOTE | 2021-01-05 13:01 | PM.DS ---
DS: Admitting Diagnosis Admitting Diagnosis Admitting Diagnosis: fall /syncope DS: Discharge Diagnosis Discharge Diagnosis (1) Dysphagia: Code(s): R13.10 - Dysphagia, unspecified Status: Acute (2) Ambulatory dysfunction: Code(s): R26.2 - Difficulty in walking, not elsewhere classified Status: Acute (3) Generalized weakness: Code(s): R53.1 - Weakness Status: Acute (4) Hypertension: Code(s): I10 - Essential (primary) hypertension Status: Chronic (5) Abnormal urinalysis: Code(s): R82.90 - Unspecified abnormal findings in urine Status: Acute (6) Fall from ground level: Code(s): W18.30XA - Fall on same level, unspecified, initial encounter Status: Acute (7) Chronic kidney disease, stage 3: Code(s): N18.30 - Chronic kidney disease, stage 3 unspecified Status: Chronic (8) Gastroesophageal reflux: Code(s): K21.9 - Gastro-esophageal reflux disease without esophagitis Status: Chronic (9) Multiple falls: Code(s): R29.6 - Repeated falls Status: Acute DS: Summary Hospital Course Hospital Course: The patient presents for evaluation after ground level fall. She was feeling lightheaded and dizzy prior to and initially I was concerned that she possibly was orthostatic however her blood pressures have been quite elevated. She will be monitored on telemetry overnight to rule out cardiac dysrhythmia which seems to be less likely. Echocardiogram and carotid Doppler ultrasounds have been ordered and was unremarkable. she does have some white cells in her urine however squamous cells were noted and I suspect this is likely contamination as she gives no history to suggest infection. She has generalized weakness as a rule related to history of transverse myelitis though she was having difficulties ambulating in the emergency department thus will consult PT/ OT. As mentioned above her blood pressures are not ideally controlled. For now will continue with her antihypertensives and monitor closely as she may be adjustments in her medications. Her creatinine is stable on review of previous labs. Home medications will reviewed and resumed as appropriate. Given intermittent dysphagia and witnessed coughing episode after drinking will order swallow study she complained of right lower extremity pain. X-ray of the right hip and pelvis showed new acute injury along with chronic L5 compression fracture and history vertebroplasty. She has history of chronic compression fractures in the thoracic and cervical spine per CT scans from April 2020. He has chronically been evaluated with physical therapy and occupational therapy at home which she discontinued recently about 2 weeks ago. With her history of transverse myelitis she was empirically started on Solu Medrol and was also evaluated by Dr. Stanley for the same is advised to switch Solu-Medrol to prednisone for next few days and to continue with physical therapy in outpatient therapy at home. She also reports he has been to [facility] in the past and had workup for multiple sclerosis in the past with without any definitive diagnosis. she improved significantly with facet pain and increase mobility with physical therapy and prednisone. It was advised that she continue with her physical therapy and follow-up with neurology as an outpatient basis for continued evaluation. (2) Abnormal urinalysis: Patient was in very good she was empirically started on Rocephin however culture showed probable contamination and hence was discontinued (3) Generalized weakness: unlikely transverse myelitis (4) Chronic kidney disease, stage 3: acute on chronic kidney disease most likely secondary to dehydration due to poor p.o. intake will gently hydrate the patient and monitor kidney function (5) Hypertension: will continue home regimen (6) Dysphagia: patient had a modified swallow study and suggested to have modifi
== END 2021-01-05 15:40 | disposition home health service (06) | DRG 99 ==
LOC: ANHED 06:52 → ANH2MED 11:52
PROVIDERS: Family Medicine; Physician Assistant; Admitting Provider Internal Medicine; Emergency Provider Emergency Medicine; PCP Nurse Practitioner Family; Visit Provider Internal Medicine
DX: G37.3 Acute transverse myelitis in demyelinating disease of central nervous system (principal); W18.30XA Fall on same level, unspecified, initial encounter; I12.9 Hypertensive chronic kidney disease with stage 1 through stage 4 chronic kidney disease, or unspecified chronic kidney disease; N18.30 Chronic kidney disease, stage 3 unspecified; R82.90 Unspecified abnormal findings in urine; R53.1 Weakness; R26.2 Difficulty in walking, not elsewhere classified; R13.10 Dysphagia, unspecified; J43.9 Emphysema, unspecified; K21.9 Gastro-esophageal reflux disease without esophagitis; M19.90 Unspecified osteoarthritis, unspecified site; M81.0 Age-related osteoporosis without current pathological fracture; Z87.891 Personal history of nicotine dependence
CPT/HCPCS: 36415; 70450; 73502; 80048; 80053; 81001; 82948; 83735; 84443; 85025; 85027; 87086; 87088; 92526; 92611; 93005; 93306; 93880; 96361; 96365; 96375; 97110; 97162; 97165; 97530; 97535; 99285; A9270; G0378; J0696; J2405; J2930; J7030; J7512

== ENCOUNTER 2021-01-08 11:52 | Inpatient (IN) | payer MEDICARE, SELFPAY ==
[2021-01-08] VITALS (20 sets, daily range): BP systolic 122–169; BP diastolic 75–100; PULSE 83–100; RESP 12–26; TEMP 36.1–37.2; O2SAT 93–95; BMI 19.7
--- NOTE | ~2021-01-08 | XR_ITS ---
XR chest 2V DATE: 01/11/2021 16:43 INDICATION: Productive cough, pneumonia. Emphysema. Hypertension. TECHNIQUE: AP and COMPARISON: 01/08/2021 CT diagnostic chest 01/08/2021 portable AP chest FINDINGS: There is patchy infiltrate and/atelectasis in the left lower lobe and mild infiltrates or a telectasis at the right lung base. The remaining lung porter are clear. There is chronic elevation of the right diaphragm and chronic right costophrenic angle blunting. Heart size is within normal range. There is thoracic and abdominal aortic calcification. No pleural effusion or pulmonary vascular congestion or pneumothorax. Diffuse osteopenia. There is dextroscoliosis of the thoracolumbar spine. There are multiple thoracic and lumbar lumbar ve rtebral body fractures. There is vertebroplasty at T10. IMPRESSION: Patchy left lower lobe infiltrate and/atelectasis and mild right basilar atelectasis or i nfiltrate Reviewed, dictated and finalized at location A. IMPRESSION: Patchy left lower lobe infiltrate and/atelectasis and mild right ba silar atelectasis or infiltrate
--- NOTE | ~2021-01-08 | MR_ITS ---
EXAMINATION: MR hip RT wo con DATE: 01/09/2021 09:17 INDICATION: Inability to move or walk due to right hip pain TECHNIQUE: Magnetic resonance imaging (MRI) of the right hip was performed without intravenous contr ast. Sequences included full-field axial PD-weighted FS FSE and T1-weighted FSE, coronal of the pelvi s with PD-weighted FS FSE, T1-weighted FSE and T2-weighted FS FSE, small field of view of the right hip with axial PD-weighted FS FSE, sagittal PD-weighted FS FSE and coronal PD weighted FS FSE. Additi onal radial T1-weighted FGR oriented orthogonal to the acetabular rim were obtained for evaluation of the labrum. COMPARISON: None FINDINGS: Bones/labrum/cartilage: Marrow edema surrounding nondisplaced fractures at the mid inferior pubic ramus and in the right supe rior pubic ramus extending to the pubic body. Alignment remains essentially anatomic. No other acute fractures identified. Chronic L2, L4 and L5 compression fractures with L5 vertebroplasty. Otherwise n ormal marrow signal. No avascular necrosis. Mild osteoarthritis at the right hip with posterior predo minant partial thickness cartilage loss with mild underlying subarticular edema at the posterior acet abulum. Mild degeneration of the right acetabular labrum without discrete tear. Fluid: Symmetric physiologic amount of fluid within both hip joints. Soft tissues: Asymmetric muscular atrophy of the pelvis and proximal thighs. There is likely reactive edema in the right obturator and proximal abductor musculature related to the adjacent pubic fractures. Otherwise normal muscle signal. The iliopsoas, gluteal and proximal hamstring tendons are normal. Limited evalu ation of visceral organs of the pelvis is unremarkable. No pathologically enlarged pelvic/inguinal l ymphadenopathy. IMPRESSION: 1. Nondisplaced right superior and inferior pubic rami fractures. Reviewed, dictated and finalized at location A.
--- NOTE | ~2021-01-08 | CT_ITS ---
EXAMINATION: CT diagnostic chest wo con DATE: 01/08/2021 16:50 INDICATION: dyspnea and cough TECHNIQUE: Computed tomography (CT) of the chest was performed without intravenous contrast. Addition al 3D reconstructions utilizing coronal maximum intensity projection (MIP) were performed. Automated exposure control and iterative reconstruction technique were employed. The dose-length product was 11 1.35 mGy-cm. COMPARISON: Chest CT dated 11/01/2019 FINDINGS: Mild emphysema. There is diffuse bronchial wall thickening throughout both lungs with mucous plugging in multiple bilateral lower lobar bronchi. Chronic volume loss with atelectasis/scarring in the righ t middle lobe. Additional bandlike discoid atelectasis/scarring in the left lower lobe. Linear densit y likely representing embolized methylmethacrylate within the right middle lobe. No focal lung diseas e to suggest pneumonia. No pulmonary edema or pleural effusion. Heart size is normal. Atherosclerotic coronary artery calcifications. Atherosclerotic calcific lesion along the normal caliber thoracic ao rta. Moderate-sized sliding-type hiatal hernia. No pathologically enlarged thoracic lymphadenopathy. Chronic T11 compression fracture with change of prior vertebroplasty. Additional chronic burst fractu res at T9 and L1 and chronic compression fractures at T1, T2, T4, T5, T7 and T12. All are without sig nificant interval change since thoracic spine CT dated 05/06/2020. Postoperative change of prior left nephrectomy. Visualized upper abdomen is otherwise unremarkable. IMPRESSION: 1. Likely bronchitis with diffuse bronchial wall thickening and scattered mucous plugging the bilater al lower lobes. 2. Mild emphysema. 3. Moderate-sized sliding-type hiatal hernia. Reviewed, dictated and finalized at location A. IMPRESSION: 1. Likely bronchitis with diffuse bronchial wall thickening and scattered mucou s plugging the bilateral lower lobes. 2. Mild emphysema. 3. Moderate-sized sliding-type hiatal hernia.
--- NOTE | ~2021-01-08 | CT_ITS ---
EXAMINATION: CT abdomen pelvis wo con EXAM DATE: 01/13/2021 15:31 INDICATION: Elevated WBC. TECHNIQUE: Spiral CT of the abdomen and pelvis was performed without contrast. Axial, coronal and s agittal images of the abdomen and pelvis were reviewed. The dose-length product (DLP) for this exami nation was 166.81 mGy-cm. The exposure was tailored according to patient size (auto mA exposure cont rol), and iterative reconstruction (ASIR) was used as additional dose reduction technique. Comparison is made to prior examination from 10/15/2019. FINDINGS: The liver, spleen, adrenal glands and pancreas are unremarkable. Gallbladder is unremarka ble. No biliary obstruction. Status post left nephrectomy. No right nephrolithiasis or hydronephros is. Bladder is severely distended. The uterus is unremarkable. The bladder is unremarkable. There is no retroperitoneal or pelvic lymphadenopathy. There is severe scattered arteriosclerotic diseas e. The appendix is not positively visualized. There is no pericecal inflammatory change to suggest appe ndicitis. There is moderate-sized gastroesophageal hiatal hernia. There is moderate amount of colo alix stool. No free intraperitoneal gas. The heart is normal in size. There are no pericardial or pleural effusions. There is moderate basilar bronchiectasis. Scattered basilar airspace disease, pr edominantly atelectasis but some more ill-defined opacities more consistent with infection. Acute appearing fracture right inferior ramus with only minimal displacement, and a nondisplaced righ t superior ramus fracture. No other pelvic fractures Chronic-appearing burst fracture of T12 with sev ere loss of height centrally, moderate loss posteriorly, 6 mm of retropulsion causing moderate centra l canal stenosis. This is unchanged. Mild burst fracture of L2 appears chronic. Mild to moderate comp ression fracture of T11, probably chronic. Treated fractures of T10 and L5. Old left rib fractures. IMPRESSION: 1. Progression of bibasilar subsegmental atelectasis and probably developing pneumonia. 2. Severely distended bladder, could be phasic but consider pre and post void pelvic sonogram if any associated urinary symptoms. 3. Acute right superior and inferior rami fractures. 4. Moderate hiatal hernia. 5. Moderate colonic stool. 6. No acute intra-abdominal findings. Reviewed, dictated and finalized at location A. IMPRESSION: 1. Progression of bibasilar subsegmental atelectasis and probably developing p neumonia. 2. Severely distended bladder, could be phasic but consider pre and post void pelvic sonogram if any associated urinary symptoms. 3. Acute right superior and inferior rami fractures. 4. Moderate hiatal hernia. 5. Moderate colonic stool. 6. No acute intra-abdominal findings.
--- NOTE | ~2021-01-08 | XR_ITS ---
EXAMINATION: XR chest 1V portable DATE: 01/08/2021 14:20 INDICATION: Leukocytosis. Cough and mucus congestion. TECHNIQUE: frontal view of the chest was obtained. COMPARISON: Chest radiograph dated 02/14/2020 and chest radiograph and CT dated 11/01/2019. FINDINGS: No significant change in mild streaky atelectasis at the bilateral lung bases with chronic blunting a t the right costophrenic angle. No new airspace opacities, pulmonary edema, pleural effusion or pneum othorax. The cardiomediastinal silhouette is normal. Atherosclerotic and tortuous thoracic aorta. Chr onic compression and burst fractures in the thoracic spine and at L1 with change of prior vertebropla sty at T11. IMPRESSION: 1. Mild streaky atelectasis/scarring in the bilateral lower lung zones. Reviewed, dictated and finalized at location A.
--- NOTE | 2021-01-08 13:05 | ECG_ITS ---
Measurements Intervals [place] Rate: 89 P: 44 [place]: 135 QRS: -39 QRSD: 81 T: 28 QT: 345 QTc: 422 Interpretive Statements SINUS RHYTHM POSSIBLE LEFT ATRIAL ENLARGEMENT LEFT AXIS DEVIATION BASELINE ARTIFACT- II, III, AVR, AVF, V1, V3-V6 BORDERLINE ECG Electronically Signed On 01-08-2021 16:04:52 CDT by Miguel Macias D.O.
--- NOTE | 2021-01-08 13:06 | ED.WEAKNESS ---
HPI - Weakness General Chief complaint: Extremity Injury, Lower Stated complaint: r hip pain Time Seen by Provider: 01/08/21 12:18 Source: patient and family Mode of arrival: ambulatory Limitations: no limitations History of Present Illness HPI Narrative: 70-year-old female Patient was discharged 3 days ago after being admitted with a fall and a UTI and right hip pain There was apparently some thought that she was supposed to be discharged to rehab but she was in fact sent to her home Her son reports that since returning home she has been in bed the entire time urinating on herself and unable to provide any kind of self-care activities and that her hip still causes her considerable discomfort if she tries to walk It looks like she got some inpatient PT and OT but no advanced imaging of the painful areas On the bright side it does seem like her UTI symptoms have improved Related Data Home Medications Medication Instructions Recorded Confirmed acetaminophen 500 mg PO Q8-10H PRN 02/14/20 12/31/20 alendronate 70 mg PO WEEKLY 02/14/20 12/31/20 amlodipine 10 mg PO DAILY 12/31/20 12/31/20 atorvastatin 10 mg PO HS 12/31/20 12/31/20 ergocalciferol (vitamin D2) 50,000 unit PO WEEKLY 12/31/20 12/31/20 metoprolol succinate 25 mg PO DAILY 12/31/20 12/31/20 mirtazapine 15 mg PO DAILY 12/31/20 12/31/20 Allergies Allergy/AdvReac Type Severity Reaction Status Date / Time No Known Allergies Allergy Unknown Verified 12/31/20 15:21 Review of Systems Review of Systems: All systems reviewed & are unremarkable except as noted in HPI and below Constitutional: Constitutional: Reports no additional constitutional complaints, Denies chills, Reports fatigue, Denies fever(s), Denies headache(s) and Reports weakness Eyes: Eyes: Reports no additional eye complaints and Denies change in vision ENT: Denies headache(s) and Denies sore throat Cardiovascular: Cardiovascular: Denies chest pain and Denies dyspnea Respiratory: Respiratory: Reports chest congestion and Denies dyspnea Gastrointestinal: Gastrointestinal: Denies abdominal pain, Denies diarrhea and Denies vomiting Genitourinary: Genitourinary: Denies urinary frequency, Denies dysuria and Reports urinary incontinence Musculoskeletal: Musculoskeletal: Reports back pain, Denies deformity, Reports arthralgias, Denies joint swelling and Denies numbness Integumentary/Breasts: Skin/Breast: Denies rash and Denies wounds Neurologic: Denies headache(s), Denies focal weakness and Denies numbness Psychiatric: Psychiatric: Reports no additional psychiatric complaints Endocrine: Endocrine: Reports no additional endocrine complaints Hematologic/Lymphatic: Hematologic/Lymphatic: Reports no additional hematologic/lymphatic complaints Allergic/Immunologic: Allergic/Immunologic: Reports no additional allergic/immunologic complaints PMFSH Past Medical History Medical History C. difficile diarrhea Chronic back pain Chronic kidney disease, stage 3 Creatinine ranges between 1.4 and 1.70. Depression Emphysema of lung Empyema Gastroesophageal reflux History of blood transfusion Hypertension Kidney stones Osteoarthritis Osteoporosis Rectal polyp Shingles Transverse myelitis Surgical History Surgical History History of section History of colonoscopy with polypectomy History of kyphoplasty History of left nephrectomy History of lithotripsy Family History Family History Mother Diabetes mellitus, Onset Age: 89 Cerebrovascular accident Hypertension Father Family history of cardiovascular disease, Onset Age: 87 Acute myocardial infarction, Onset Age: 87 Family history of heart disease in male family member before age 55 Hypertension Social History Social History Social His
[2021-01-08 13:30] LABS: Hematocrit 38.2 % (37.0-47.0); Hemoglobin 12.6 g/dL (12.0-15.0); Mean Corpuscular Volume 87.8 fl (80-100); Mean Platelet Volume 10.3 fl (7.4-10.4); Platelet Count Result 250 k/mm3 (150-375); Red Blood Count 4.35 M/mm3 (4.2-5.4); White Blood Count 17.7 K/mm3 (4.5-10.0)
[2021-01-08 13:39] LABS: Anion Gap 10 mmol/L (8-16); Blood Urea Nitrogen 43 mg/dL (7-17); Calcium 8.5 mg/dL (8.4-10.2); Carbon Dioxide 24 mmol/L (22-30); Chloride 102 mmol/L (98-107); Creatine Kinase 30 U/L (30-135); Estimated Glomerular Filt Rate 37; Glucose 159 mg/dL (65-110); Potassium 4.4 mmol/L (3.4-5.0); Sodium 136 mmol/L (137-145)
[2021-01-08 13:43] LABS: Anisocytosis 1+ (NORMAL); Band Neutrophils Percent 4 % (0-6); Eosinophils Absolute Manual 0.17 K/mm3 (0.02-0.5); Eosinophils Percent Manual 1 % (0-4); Monocytes Absolute Manual 0.53 K/mm3 (0.1-0.90); Monocytes Percent Manual 3 % (3-9); Neutrophils Absolute Manual 14.69 K/mm3 (1.7-7.2); Neutrophils Percent Manual 79 % (46-73); Ovalocytes 1+ (NORMAL); Platelet Estimate Adequate (Adequate); Total Cells Counted 100
[2021-01-08 13:52] LABS: Troponin I 0.029 ng/mL (0.000-0.034)
--- NOTE | 2021-01-08 14:09 | PCCCNOTE ---
Care Coordination was asked to visit pt and her son Messi. Pt was an patient at [facility] on 01/01-01/04/2021 following a fall hurting her hip. She was discharged home with [facility]. Pt was seen by nurse Sunday and to proceed with therapy this coming week. Pt has regressed and is now unable to bear weight on her hip. Messi states she was to go to rehab before going home and is upset no one communicated with him. Pt currently living with Messi and his family. She is needing SNF placement. List of [facility] approved facilities given to pt and son. Pt requests [facility] as first choice and [facility] as second choice. Unable to get her placed from ED due to authorization needed from [facility]. Pt has had both Covid immunizations [employer] on 08/15 and 08/27/2020.
--- NOTE | 2021-01-08 15:04 | PC.NURSE ---
Pt straight cath'd for 200 cc, clear yellow urine. Tubes sent to lab
--- NOTE | 2021-01-08 15:05 | PC.NURSE ---
Pt approved son Messi Alva ([phone]) to receive medical updates during hospital stay.
[2021-01-08 15:13] LABS: Add Urine Microscopic? YES; Appearance Urine Cloudy (Clear); Bilirubin Urine Negative (Negative); Blood Urine Negative (Negative); Color Urine Yellow (Yellow); Glucose Urine UA Negative (Negative); Ketones Urine Negative (Negative); Leukocyte Esterase Ur 2+ LEU/UL (Negative); Nitrate Urine Negative (Negative); Protein Urine 1+ mg/dL (Negative); Specific Grav Ur 1.014 (1.001-1.035); Squamous Epithelial Cell Urine Many /hpf (Few); Urobilinogen Urine Negative mg/dL (<2.0); WBC Urine 21-30 /hpf
--- NOTE | 2021-01-08 15:18 | PM.IMHP ---
H&P: HPI History of Present Illness Date/Time: 01/08/21 14:25 Chief Complaint: lower extremity pain and increased weakness Narrative: patient is 68-year-old female with a past medical history transverse myelitis, osteoporosis, osteoarthritis, hypertension who presented to the ED today for evaluation of increased weakness and failure to thrive. Patient was here about 3 days ago and was admitted for a fall in UTI. According to the son the patient was post be discharged to rehab however she was discharged home. when she did get home he was able to get her in the house where she was able to get her Bedroom in the basement. since she has been home she was unable to get out of bed she was lying in her own urine and developed a cough. Patient stated that she has not been able to take good deep breaths and has had a cough for she feels that she is not strong enough to get Any sputum out. She stated that the cough has started from when she was discharged from the hospital and sometimes when she does get sputum it is rasmussen. On a side note the son did explain to me that she had fallen at home she had went into a storage room where a mattress was propped up against the wall. When her granddaughter had followed her and there the mattress was bumped and fell into the patient which he found her on the floor that next morning covered in bloody arms and was unable to move her legs. The son also told me that she was being treated for depression and that she has voice concerns about further life. He also stated she has stopped eating and has no thrive. She has recently been put on Zoloft by her primary care physician and her primary care and her was also going to put her on another drug however has been unable to do that. She has also signed up for medical marijuana which was to help her with her appetite and depression. At this time patient does deny nausea, vomiting, abdominal pain, lightheadedness, dizziness, syncope, headache, chest pain, or numbness and tingling. Since the last admission the patient, she does not have any further urinary disfunction. Review of Systems Review of Systems: All systems reviewed & are unremarkable except as noted in HPI and below PMFSH Past Medical History Medical History C. difficile diarrhea Chronic back pain Chronic kidney disease, stage 3 Creatinine ranges between 1.4 and 1.70. CVA (cerebral vascular accident) Depression Emphysema of lung Empyema Gastroesophageal reflux History of blood transfusion Hypertension Kidney stones Osteoarthritis Osteoporosis Rectal polyp Shingles Transverse myelitis Surgical History Surgical History History of section History of colonoscopy with polypectomy History of kyphoplasty History of left nephrectomy History of lithotripsy Family History Family History Mother Diabetes mellitus, Onset Age: 89 Cerebrovascular accident Hypertension Father Family history of cardiovascular disease, Onset Age: 87 Acute myocardial infarction, Onset Age: 87 Family history of heart disease in male family member before age 55 Hypertension Social History Social History Social History: The patient is and lives in [place] with her son. 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 Ambulates with a walker. She smoked up to 1.5 packs of cigarettes a day for 40 years and quit around 2017. No alcohol or illicit substance abuse. She designates her son, Messi Dexter, as her surrogate decision maker. Code status: Full code. Smoking packs per day: 1 Smoking cigarettes per day: 20.0 Years smoked: 40 Smoking pack-years: 40.00 Smoking status: Former smoker Tobacco type: cigarettes Second hand tobacco smoke exposure: Yes Alcohol intake: never Substance use: current Substa
--- NOTE | 2021-01-08 16:33 | PC.NURSE ---
Call patient's son, Messi, to inform him patient is getting admitted to room 316.
--- NOTE | 2021-01-08 16:45 | PC.NURSE ---
Report called to [facility] 0400. Patient will be taken to CT scan and then taken to floor. BERNADINE Stoddard, aware
[2021-01-08 17:16] LABS: NT Pro B Type Natriuretic Pept 1870 pg/mL (5-100)
--- NOTE | 2021-01-08 17:37 | PC.NURSE ---
This patient, Kaylen Alva, was admitted to [facility] Room 316-01 at 1730. Patient/family oriented to hospital policies and general routines including ID bracelet, bed and alarms, visiting hours, pain management, procedures, bathroom and other care routines, personal items, smoking policy, room service/diet, and visiting hours. Information on how to activate the Rapid Response Team has been discussed. Patient/Family are encouraged to report perceived risks to care and to ask questions if they do not understand what they are told or what they should do.
[2021-01-08] MEDS: LACTATED RINGERS 1,000 ML 125 ML IV CONT (17:58)
[2021-01-08] MEDS: ATORVASTATIN 10 MG TABLET PO (21:02)
[2021-01-09] VITALS (7 sets, daily range): BP systolic 145–174; BP diastolic 80–98; PULSE 76–88; RESP 14–20; TEMP 35.7–37.1; O2SAT 91–93
[2021-01-09] MEDS: LACTATED RINGERS 1,000 ML 125 ML IV CONT (02:25)
[2021-01-09] MEDS: HYDROcodone/acetaminophen (*CRX) 5-325 MG TABLET 1 TAB PO ×2 (03:05→21:13)
[2021-01-09 07:13] LABS: Basophils Absolute Auto 0.2 K/mm3 (0.0-0.1); Basophils Percent Auto 0.9 % (0.2-1.2); Eosinophils Absolute Auto 0.1 K/mm3 (0-0.3); Eosinophils Percent Auto 0.4 % (0-4.4); Hematocrit 36.4 % (37.0-47.0); Hemoglobin 11.8 g/dL (12.0-15.0); Lymphocytes Absolute Auto 0.95 K/mm3 (0.9-3.2); Lymphocytes Percent Auto 5.7 % (18.3-44.2); Mean Corpuscular HGB Conc 32.4 g/dl (32-36); Mean Corpuscular Hemoglobin 28.4 pg (26-34); Mean Corpuscular Volume 87.7 fl (80-100); Mean Platelet Volume 10.5 fl (7.4-10.4); Monocytes Absolute Auto 1.4 K/mm3 (0.1-0.6); Monocytes Percent Auto 8.1 % (2.6-8.5); Neutrophils Absolute Auto 12.7 K/mm3 (1.3-6.7); Neutrophils Percent Auto 75.9 % (45.5-73.1); Platelet Count Result 265 k/mm3 (150-375); Red Blood Count 4.15 M/mm3 (4.2-5.4); Red Cell Distribution Width 13.9 % (11.5-14.5); White Blood Count 16.7 K/mm3 (4.5-10.0)
[2021-01-09 07:24] LABS: Alanine Aminotransferase 102 U/L (4-35); Albumin Level 3.2 g/dL (3.5-5.1); Alkaline Phosphatase 75 U/L (38-126); Anion Gap 5 mmol/L (8-16); Aspartate Amino Transferase 36 U/L (14-36); Bilirubin,Total 0.4 mg/dL (0.2-1.3); Blood Urea Nitrogen 38 mg/dL (7-17); Calcium 8.3 mg/dL (8.4-10.2); Carbon Dioxide 26 mmol/L (22-30); Chloride 105 mmol/L (98-107); Estimated Glomerular Filt Rate 44; Glucose 99 mg/dL (65-110); Magnesium 1.9 mg/dL (1.6-2.3); Potassium 4.3 mmol/L (3.4-5.0); Sodium 136 mmol/L (137-145)
[2021-01-09 07:42] LABS: Anisocytosis 1+ (NORMAL); Ovalocytes 1+ (NORMAL); Platelet Estimate Adequate (Adequate)
--- NOTE | 2021-01-09 07:47 | PM.CNOR ---
Assessment and Plan Assessment and plan (1) Hip pain, right: Code(s): M25.551 - Pain in right hip Status: Acute Assessment and Plan: New patient evaluation for chief complaint Right hip pain after fall. History, physical exam and radiographs reviewed with the patient. Discussed the condition, nature, etiology and course of natural history with the patient. Treatment options including surgical and nonoperative treatment were reviewed. Risks and benefits of each as well as alternatives reviewed. The patient's questions were answered. Conservative treatment ice, compression and elevation. Patient is scheduled to have an MRI to rule out occult fracture of the right hip. We will review results and discuss indicated treatment. Bed rest with DVT prophylaxis and conservative treatment in the interim. (2) Ambulatory dysfunction: Code(s): R26.2 - Difficulty in walking, not elsewhere classified Status: Acute History of Present Illness HPI Consult date: 01/09/21 Requesting physician: Johann Dao MD Chief complaint: weakness, hip pain Narrative: 70-year-old woman history of several recent falls mainly onto the right side. Most recent 2 days ago while at home. Mattress which was leaning on the wall fell against her and pushed her down to the ground. She had previous right hip pain and was evaluated during a previous hospitalization but found to have no fracture at that time. She now has increasing right hip and groin pain and difficulty putting any weight on the right leg. She was readmitted to the hospital. I have been asked to see her for her right hip pain. Review of Systems Review of Systems: All systems reviewed & are unremarkable except as noted in HPI and below Constitutional: Constitutional: Reports no additional constitutional complaints, Denies chills, Reports fatigue, Denies fever(s), Denies headache(s) and Reports weakness Eyes: Eyes: Reports no additional eye complaints and Denies change in vision ENT: Denies headache(s) and Denies sore throat Cardiovascular: Cardiovascular: Denies chest pain and Denies dyspnea Respiratory: Respiratory: Reports chest congestion and Denies dyspnea Gastrointestinal: Gastrointestinal: Denies abdominal pain, Denies diarrhea and Denies vomiting Genitourinary: Genitourinary: Denies urinary frequency, Denies dysuria and Reports urinary incontinence Musculoskeletal: Musculoskeletal: Reports back pain, Denies deformity, Reports arthralgias, Denies joint swelling and Denies numbness Integumentary/Breasts: Skin/Breast: Denies rash and Denies wounds Neurologic: Denies headache(s), Denies focal weakness and Denies numbness Psychiatric: Psychiatric: Reports no additional psychiatric complaints Endocrine: Endocrine: Reports no additional endocrine complaints Hematologic/Lymphatic: Hematologic/Lymphatic: Reports no additional hematologic/lymphatic complaints Allergic/Immunologic: Allergic/Immunologic: Reports no additional allergic/immunologic complaints PMFSH Past Medical History Medical History C. difficile diarrhea Chronic back pain Chronic kidney disease, stage 3 Creatinine ranges between 1.4 and 1.70. CVA (cerebral vascular accident) Depression Emphysema of lung Empyema Gastroesophageal reflux History of blood transfusion Hypertension Kidney stones Osteoarthritis Osteoporosis Rectal polyp Shingles Transverse myelitis Surgical History Surgical History History of section History of colonoscopy with polypectomy History of kyphoplasty History of left nephrectomy History of lithotripsy Family History Family History Mother Diabetes mellitus, Onset Age: 89 Cerebrovascular accident Hypertension Father Family history of cardiovascular disease, Onset Age: 87 Acute my
[2021-01-09] MEDS: predniSONE 10 MG TABLET 50 MG PO (09:27)
[2021-01-09] MEDS: amLODIPine BESYLATE 5 MG TABLET 10 MG PO (09:28)
[2021-01-09] MEDS: METOPROLOL SUCCINATE EXT REL 25 MG TABCR PO ×2 (09:28→14:56)
[2021-01-09] MEDS: SERTRALINE HCL 50 MG TABLET 100 MG PO (09:28)
[2021-01-09] MEDS: POLYSACCHARIDE IRON COMPLEX 150 MG CAPSULE PO (09:29)
[2021-01-09] MEDS: FUROSEMIDE INJ 40 MG/4 ML VIAL IV PUSH (09:29)
[2021-01-09] MEDS: PANTOPRAZOLE 40 MG TABLET PO (09:29)
[2021-01-09] MEDS: MIRTAZAPINE 15 MG TABLET PO (09:30)
--- NOTE | 2021-01-09 12:54 | P.PNIM_ITS ---
Progress Note: A&P Assessment and Plan (1) Generalized weakness: Code(s): R53.1 - Weakness Status: Acute Assessment and Plan: * Had a fall at home * Hip pain is worse * She does have a new cough * WBC is elevated at 16.7 * PT/OT eval and treat * Will need rehab * Care coordination consult (2) Hip pain, right: Code(s): M25.551 - Pain in right hip Status: Acute Assessment and Plan: * Fell at home * Hip xray does not show any fractures * Ortho is consulted thank you for recommendations * MRI ordered and pending * PT/OT eval and treat * Tylenol for pain control (3) Hypertension: Code(s): I10 - Essential (primary) hypertension Status: Chronic Assessment and Plan: * Current Blood pressure 174/98 * Continue home Metoprolol 25mg PO Daily, amlodipine 10mg PO daily * onetime dose of 25mg metoprolol and will increase metoprolol to 50mg PO daily * Trend blood pressure * Adjust medications as needed (4) Chronic kidney disease, stage 3: Code(s): N18.30 - Chronic kidney disease, stage 3 unspecified Status: Chronic Assessment and Plan: * BUN/Cr 38/1.20 * History of left nephrectomy * Currently looks to be at baseline * Trend labs * Labs in the am (5) Depression: Code(s): F32.9 - Major depressive disorder, single episode, unspecified Status: Chronic Assessment and Plan: * Failure to thrive * Not eating * Has thoughts of suicide * Continue home Zoloft 50mg PO daily * Monitor mood * Adjust medications as needed (6) Leukocytosis: Qualifiers: Leukocytosis type: unspecified Qualified Code(s): D72.829 - Elevated white blood cell count, unspecified Code(s): D72.829 - Elevated white blood cell count, unspecified Status: Acute Assessment and Plan: * WBC 17.7 down to 16.7 * New cough-patient reports that it is better since she has gotten the lasix * Sputum production * Chest xray does not give indication of new infection * Wonder if this is pulmonary edema * blood cultures and urine cultures pending * Patient unable to take deep breaths * BNP is 1870 * Trend WBC * Breathing treatments * Could be a COPD exacerbation, thinking more like CHF however patient does not have a history of CHF * Will get Echo for fluid status * No O2 requirement * Labs in the am * Will hold off on antibiotics until cultures come back (7) UTI (urinary tract infection): Code(s): N39.0 - Urinary tract infection, site not specified Status: Acute Assessment and Plan: * Does not complain of any urinary symptoms * UA suspicious of of UTI (Cloudy, 2+ Leuko esterase, WBC 21-30), however, has many squamous Epith cells * Urine culture pending * Patient recently on Rocephin 1gm last admission * WBC is elevated at 16.7 however patient has new cough Time Spent With Patient Time with patient: Greater than 35 minutes Subjective Date/time seen: 01/09/21 12:35 Interval history: Patient is 68-year-old female with a past medical history transverse myelitis, osteoporosis, osteoarthritis, hypertension who presented to the ED today for evaluation of increased weakness and failure to thrive. Today she stated that she is doing better. She still has a cough that is productive. She also stated that she can hear herself breathe as well as hear the harsh breath sound
--- NOTE | 2021-01-09 12:54 | PM.IMPN ---
Progress Note: A&P Assessment and Plan (1) Generalized weakness: Code(s): R53.1 - Weakness Status: Acute Assessment and Plan: Had a fall at home Hip pain is worse She does have a new cough WBC is elevated at 16.7 PT/OT eval and treat Will need rehab Care coordination consult (2) Hip pain, right: Code(s): M25.551 - Pain in right hip Status: Acute Assessment and Plan: Fell at home Hip xray does not show any fractures Ortho is consulted thank you for recommendations MRI ordered and pending PT/OT eval and treat Tylenol for pain control (3) Hypertension: Code(s): I10 - Essential (primary) hypertension Status: Chronic Assessment and Plan: Current Blood pressure 174/98 Continue home Metoprolol 25mg PO Daily, amlodipine 10mg PO daily onetime dose of 25mg metoprolol and will increase metoprolol to 50mg PO daily Trend blood pressure Adjust medications as needed (4) Chronic kidney disease, stage 3: Code(s): N18.30 - Chronic kidney disease, stage 3 unspecified Status: Chronic Assessment and Plan: BUN/Cr 38/1.20 History of left nephrectomy Currently looks to be at baseline Trend labs Labs in the am (5) Depression: Code(s): F32.9 - Major depressive disorder, single episode, unspecified Status: Chronic Assessment and Plan: Failure to thrive Not eating Has thoughts of suicide Continue home Zoloft 50mg PO daily Monitor mood Adjust medications as needed (6) Leukocytosis: Qualifiers: Leukocytosis type: unspecified Qualified Code(s): D72.829 - Elevated white blood cell count, unspecified Code(s): D72.829 - Elevated white blood cell count, unspecified Status: Acute Assessment and Plan: WBC 17.7 down to 16.7 New cough-patient reports that it is better since she has gotten the lasix Sputum production Chest xray does not give indication of new infection Wonder if this is pulmonary edema blood cultures and urine cultures pending Patient unable to take deep breaths BNP is 1870 Trend WBC Breathing treatments Could be a COPD exacerbation, thinking more like CHF however patient does not have a history of CHF Will get Echo for fluid status No O2 requirement Labs in the am Will hold off on antibiotics until cultures come back (7) UTI (urinary tract infection): Code(s): N39.0 - Urinary tract infection, site not specified Status: Acute Assessment and Plan: Does not complain of any urinary symptoms UA suspicious of of UTI (Cloudy, 2+ Leuko esterase, WBC 21-30), however, has many squamous Epith cells Urine culture pending Patient recently on Rocephin 1gm last admission WBC is elevated at 16.7 however patient has new cough Time Spent With Patient Time with patient: Greater than 35 minutes Subjective Date/time seen: 01/09/21 12:35 Interval history: Patient is 68-year-old female with a past medical history transverse myelitis, osteoporosis, osteoarthritis, hypertension who presented to the ED today for evaluation of increased weakness and failure to thrive. Today she stated that she is doing better. She still has a cough that is productive. She also stated that she can hear herself breathe as well as hear the harsh breath sounds. She also stated that the shortness of breath is better. She denies chest pain, nausea, vomiting, abdominal pain, urinary dysfunction, frequency or urgency, dizziness, lightheadedness, fevers, chills or sweats. Review of Systems Review of Systems: All systems reviewed & are unremarkable except as noted in HPI and below Exam Const: General: cooperative, healthy appearing, comfortable, no acute distress, well developed, alert, awake, Physically active and tired appearing Nutritional Appearance: malnourished, thin and underweight Orientation/consci
--- NOTE | 2021-01-09 13:48 | PCPTNOTE ---
Per Dr. Mcallister note on 01/09 pt is on bedrest. Spoke with RN who stated to hold for today due to no changes/updates in Dr. Mcallister's note.
[2021-01-09] MEDS: ENOXAPARIN 30 MG/0.3 ML SYRINGE SUB-Q (17:51)
[2021-01-09] MEDS: ATORVASTATIN 10 MG TABLET PO (21:09)
[2021-01-10 06:00] VITALS: BP 166/92; PULSE 64; RESP 20; TEMP 36.6; O2SAT 90
[2021-01-10 07:01] LABS: Hematocrit 38.2 % (37.0-47.0); Hemoglobin 12.5 g/dL (12.0-15.0); Mean Corpuscular HGB Conc 32.7 g/dl (32-36); Mean Corpuscular Hemoglobin 28.9 pg (26-34); Mean Corpuscular Volume 88.4 fl (80-100); Mean Platelet Volume 10.6 fl (7.4-10.4); Platelet Count Result 316 k/mm3 (150-375); Red Blood Count 4.32 M/mm3 (4.2-5.4); Red Cell Distribution Width 14.1 % (11.5-14.5); White Blood Count 19.6 K/mm3 (4.5-10.0)
[2021-01-10 07:09] LABS: Alanine Aminotransferase 94 U/L (4-35); Albumin Level 3.4 g/dL (3.5-5.1); Alkaline Phosphatase 91 U/L (38-126); Anion Gap 9 mmol/L (8-16); Aspartate Amino Transferase 45 U/L (14-36); Bilirubin,Total 0.5 mg/dL (0.2-1.3); Blood Urea Nitrogen 47 mg/dL (7-17); Calcium 8.6 mg/dL (8.4-10.2); Carbon Dioxide 30 mmol/L (22-30); Chloride 98 mmol/L (98-107); Estimated Glomerular Filt Rate 32; Glucose 93 mg/dL (65-110); Magnesium 1.8 mg/dL (1.6-2.3); Potassium 3.9 mmol/L (3.4-5.0); Sodium 137 mmol/L (137-145)
--- NOTE | 2021-01-10 09:15 | PM.PNORT ---
Progress Note: A&P Assessment and Plan (1) Pubic ramus fracture: Qualifiers: Encounter type: initial encounter Fracture type: closed Laterality: right Qualified Code(s): S32.591A - Other specified fracture of right pubis, initial encounter for closed fracture Code(s): S32.599A - Other specified fracture of unspecified pubis, initial encounter for closed fracture Status: Acute Assessment and Plan: MRI of the right hip reveals nondisplaced right superior and inferior pubic rami fractures. The fracture type and injury as well as radiographs discussed with the patient and family. Operative and nonoperative treatment options reviewed. The patient elects for non operative treatment. Risk of nonunion, malunion or late displacement discussed. Stiffness, pain and possible dysfunction of the joint discussed. Fracture precautions and activity restrictions reviewed. The patient verbalizes understanding. Recommended initiating conservative treatment at this time with pain control and PT/OT for WBAT. Walker may be utilized for balance and pressure offloading. Patient would likely benefit from acute rehab vs. home health for assistance with PT/OT. Rehab may be more suitable is inability to ambulate with PT/OT. Incentive spirometry. SCDs. Ice as needed. Subjective Subjective Date/Time Seen: 01/10/21 0850 Still with complaints of right groin pain. Pain well controlled at rest. Has had some difficulty getting on bed carrasco. No new concerns. Review of Systems Review of Systems: All systems reviewed & are unremarkable except as noted in HPI and below Constitutional: Constitutional: Reports no additional constitutional complaints, Denies chills, Reports fatigue, Denies fever(s), Denies headache(s) and Reports weakness Eyes: Eyes: Reports no additional eye complaints and Denies change in vision ENT: Denies headache(s) and Denies sore throat Cardiovascular: Cardiovascular: Denies chest pain and Denies dyspnea Respiratory: Respiratory: Reports chest congestion and Denies dyspnea Gastrointestinal: Gastrointestinal: Denies abdominal pain, Denies diarrhea and Denies vomiting Genitourinary: Genitourinary: Denies urinary frequency, Denies dysuria and Reports urinary incontinence Musculoskeletal: Musculoskeletal: Reports back pain, Denies deformity, Reports arthralgias, Denies joint swelling and Denies numbness Integumentary/Breasts: Skin/Breast: Denies rash and Denies wounds Neurologic: Denies headache(s), Denies focal weakness and Denies numbness Psychiatric: Psychiatric: Reports no additional psychiatric complaints Endocrine: Endocrine: Reports no additional endocrine complaints Hematologic/Lymphatic: Hematologic/Lymphatic: Reports no additional hematologic/lymphatic complaints Allergic/Immunologic: Allergic/Immunologic: Reports no additional allergic/immunologic complaints Exam Const: General: No confusion Orientation/consciousness: patient oriented x3 and No confusion HENMT: Head: normal to inspection, normocephalic and atraumatic Eyes: Conjunctivae: conjunctivae normal Sclera: sclerae normal Neck: Neck: supple and nontender Chest: Chest palpation & inspection: normal inspection of the chest Resp: Effort & Inspection: normal respiratory effort and no audible wheezes Cardio: Rate: regular rate Rhythm: regular rhythm GI: GI Palp: No abdominal tenderness and Yes Soft to palpation : General: Yes deferred Skin: General skin exam: no rashes or lesions noted Neuro: General: patient oriented x3 and No confusion Extrem: General: capillary refill normal Right upper extremity: normal to inspection Left upper extremity: normal to inspection Right lower extremity: hip/thigh Details: tenderness Location: of the hip Location: laterally and swelling Location: at the hip ( mild), ankle ( able to actively flex and extend ankle) Details: no tenderness and foot Details: normal capillary refill, toes with lukas
[2021-01-10] MEDS: HYDROcodone/acetaminophen (*CRX) 5-325 MG TABLET 1 TAB PO (09:24)
[2021-01-10] MEDS: MIRTAZAPINE 15 MG TABLET PO (09:24)
[2021-01-10] MEDS: amLODIPine BESYLATE 5 MG TABLET 10 MG PO (09:30)
[2021-01-10] MEDS: PANTOPRAZOLE 40 MG TABLET PO (09:30)
[2021-01-10] MEDS: METOPROLOL SUCCINATE EXT REL 50 MG TABCR PO (09:30)
[2021-01-10] MEDS: SERTRALINE HCL 50 MG TABLET 100 MG PO (09:30)
[2021-01-10] MEDS: FUROSEMIDE INJ 40 MG/4 ML VIAL IV PUSH (09:31)
[2021-01-10] MEDS: MAGNESIUM SULF 2 GM/WATER 50ML 2 GM/50 ML BAG IVPB (09:31)
[2021-01-10] MEDS: POLYSACCHARIDE IRON COMPLEX 150 MG CAPSULE PO (09:31)
[2021-01-10] MEDS: predniSONE 10 MG TABLET 50 MG PO (09:31)
--- NOTE | 2021-01-10 10:27 | P.PNIM_ITS ---
Progress Note: A&P Assessment and Plan (1) Pelvis fracture: Code(s): S32.9XXA - Fracture of unspecified parts of lumbosacral spine and pelvis, initial encounter for closed fracture Status: Acute Assessment and Plan: * MRI showed Nondisplaced right superior and inferior pubic rami fractures. * Ortho consulted * PT/OT eval and treat * Weight bearing status is as tolerated (2) Generalized weakness: Code(s): R53.1 - Weakness Status: Acute Assessment and Plan: * Had a fall at home * Hip pain is worse * She does have a new cough * WBC is elevated at 16.7 * PT/OT eval and treat * Will need rehab * Care coordination consult * MRI shows a nondisplaced right superior and inferior pubic rami fractures (3) Hip pain, right: Code(s): M25.551 - Pain in right hip Status: Acute Assessment and Plan: * Fell at home * Hip xray does not show any fractures * Ortho is consulted thank you for recommendations * MRI ordered and pending * PT/OT eval and treat * Tylenol for pain control (4) Hypertension: Code(s): I10 - Essential (primary) hypertension Status: Chronic Assessment and Plan: * Current Blood pressure 174/98 * Continue home Metoprolol 25mg PO Daily, amlodipine 10mg PO daily * onetime dose of 25mg metoprolol and will increase metoprolol to 50mg PO daily * Trend blood pressure * Adjust medications as needed (5) Chronic kidney disease, stage 3: Code(s): N18.30 - Chronic kidney disease, stage 3 unspecified Status: Chronic Assessment and Plan: * BUN/Cr 38/1.20 * History of left nephrectomy * Currently looks to be at baseline * Trend labs * Labs in the am (6) Depression: Code(s): F32.9 - Major depressive disorder, single episode, unspecified Status: Chronic Assessment and Plan: * Failure to thrive * Not eating * Has thoughts of suicide * Continue home Zoloft 50mg PO daily * Monitor mood * Adjust medications as needed (7) Leukocytosis: Qualifiers: Leukocytosis type: unspecified Qualified Code(s): D72.829 - Elevated white blood cell count, unspecified Code(s): D72.829 - Elevated white blood cell count, unspecified Status: Acute Assessment and Plan: * WBC 17.7 down to 16.7 * New cough-patient reports that it is better since she has gotten the lasix * Sputum production * Chest xray does not give indication of new infection * Wonder if this is pulmonary edema * blood cultures pending * urine cultures enterococcus species * Sputum culture pending * Patient unable to take deep breaths * BNP is 1870 * Trend WBC * Breathing treatments * Could be a COPD exacerbation, thinking more like CHF however patient does not have a history of CHF * Will get Echo for fluid status * No O2 requirement * Labs in the am (8) UTI (urinary tract infection): Code(s): N39.0 - Urinary tract infection, site not specified Status: Acute Assessment and Plan: * Does not complain of any urinary symptoms * UA suspicious of of UTI (Cloudy, 2+ Leuko esterase, WBC 21-30), however, has many squamous Epith cells * Urine culture Enterococcus species * Started on ampicillin 500mg PO Q6hr * Patient recently on Rocephin 1gm last admission * WBC is elevated and trending at 19.6 however patient has new cough
--- NOTE | 2021-01-10 10:27 | PM.IMPN ---
Progress Note: A&P Assessment and Plan (1) Pelvis fracture: Code(s): S32.9XXA - Fracture of unspecified parts of lumbosacral spine and pelvis, initial encounter for closed fracture Status: Acute Assessment and Plan: MRI showed Nondisplaced right superior and inferior pubic rami fractures. Ortho consulted PT/OT eval and treat Weight bearing status is as tolerated (2) Generalized weakness: Code(s): R53.1 - Weakness Status: Acute Assessment and Plan: Had a fall at home Hip pain is worse She does have a new cough WBC is elevated at 16.7 PT/OT eval and treat Will need rehab Care coordination consult MRI shows a nondisplaced right superior and inferior pubic rami fractures (3) Hip pain, right: Code(s): M25.551 - Pain in right hip Status: Acute Assessment and Plan: Fell at home Hip xray does not show any fractures Ortho is consulted thank you for recommendations MRI ordered and pending PT/OT eval and treat Tylenol for pain control (4) Hypertension: Code(s): I10 - Essential (primary) hypertension Status: Chronic Assessment and Plan: Current Blood pressure 174/98 Continue home Metoprolol 25mg PO Daily, amlodipine 10mg PO daily onetime dose of 25mg metoprolol and will increase metoprolol to 50mg PO daily Trend blood pressure Adjust medications as needed (5) Chronic kidney disease, stage 3: Code(s): N18.30 - Chronic kidney disease, stage 3 unspecified Status: Chronic Assessment and Plan: BUN/Cr 38/1.20 History of left nephrectomy Currently looks to be at baseline Trend labs Labs in the am (6) Depression: Code(s): F32.9 - Major depressive disorder, single episode, unspecified Status: Chronic Assessment and Plan: Failure to thrive Not eating Has thoughts of suicide Continue home Zoloft 50mg PO daily Monitor mood Adjust medications as needed (7) Leukocytosis: Qualifiers: Leukocytosis type: unspecified Qualified Code(s): D72.829 - Elevated white blood cell count, unspecified Code(s): D72.829 - Elevated white blood cell count, unspecified Status: Acute Assessment and Plan: WBC 17.7 down to 16.7 New cough-patient reports that it is better since she has gotten the lasix Sputum production Chest xray does not give indication of new infection Wonder if this is pulmonary edema blood cultures pending urine cultures enterococcus species Sputum culture pending Patient unable to take deep breaths BNP is 1870 Trend WBC Breathing treatments Could be a COPD exacerbation, thinking more like CHF however patient does not have a history of CHF Will get Echo for fluid status No O2 requirement Labs in the am (8) UTI (urinary tract infection): Code(s): N39.0 - Urinary tract infection, site not specified Status: Acute Assessment and Plan: Does not complain of any urinary symptoms UA suspicious of of UTI (Cloudy, 2+ Leuko esterase, WBC 21-30), however, has many squamous Epith cells Urine culture Enterococcus species Started on ampicillin 500mg PO Q6hr Patient recently on Rocephin 1gm last admission WBC is elevated and trending at 19.6 however patient has new cough Subjective Date/time seen: 01/10/21 09:55 Interval history: Patient is 68-year-old female with a past medical history transverse myelitis, osteoporosis, osteoarthritis, hypertension who presented to the ED today for evaluation of increased weakness and failure to thrive. Today the patient feels better. She still has the cough and it is very wet. She was able to cough something up and a sample was sent for culture. She did not complain of any shortness of breath, chest pain, nausea, vomiting, diarrhea, constipation, or increase in swelling. The MRI showed a non-displaced fracture o
[2021-01-10] MEDS: AMPICILLIN TRIHYDRATE 500 MG CAPSULE PO ×2 (12:16→17:36)
[2021-01-10 14:00] VITALS: BP 99/53; PULSE 60; RESP 16; TEMP 37.1; O2SAT 95
[2021-01-10] MEDS: ENOXAPARIN 30 MG/0.3 ML SYRINGE SUB-Q (17:35)
[2021-01-10 20:00] VITALS: PULSE 60; RESP 14; O2SAT 93
[2021-01-10] MEDS: ATORVASTATIN 10 MG TABLET PO (20:25)
[2021-01-10 22:00] VITALS: BP 128/71; PULSE 60; RESP 14; TEMP 37.1; O2SAT 93
[2021-01-11] VITALS (7 sets, daily range): BP systolic 109–151; BP diastolic 58–75; PULSE 62–71; RESP 14–18; TEMP 36.2–36.8; O2SAT 93–94
[2021-01-11] MEDS: AMPICILLIN TRIHYDRATE 500 MG CAPSULE PO ×3 (00:07→12:33)
[2021-01-11] MEDS: amLODIPine BESYLATE 5 MG TABLET 10 MG PO (08:36)
[2021-01-11] MEDS: METOPROLOL SUCCINATE EXT REL 50 MG TABCR PO (08:36)
[2021-01-11] MEDS: PANTOPRAZOLE 40 MG TABLET PO (08:36)
[2021-01-11] MEDS: POLYSACCHARIDE IRON COMPLEX 150 MG CAPSULE PO (08:37)
[2021-01-11] MEDS: SERTRALINE HCL 50 MG TABLET 100 MG PO (08:37)
[2021-01-11] MEDS: predniSONE 10 MG TABLET 50 MG PO (08:37)
[2021-01-11] MEDS: MIRTAZAPINE 15 MG TABLET PO (08:37)
--- NOTE | 2021-01-11 09:40 | PM.PNORT ---
Progress Note: A&P Assessment and Plan (1) Pubic ramus fracture: Qualifiers: Encounter type: initial encounter Fracture type: closed Laterality: right Qualified Code(s): S32.591A - Other specified fracture of right pubis, initial encounter for closed fracture Code(s): S32.599A - Other specified fracture of unspecified pubis, initial encounter for closed fracture Status: Acute Assessment and Plan: MRI of the right hip revealed nondisplaced fractures of the superior and inferior pubic rami. Recommended conservative treatment. Patient may be weight-bearing as tolerated. Recommended PT and OT. Patient to utilize a walker for balance and pressure offloading. Patient would benefit from acute rehab. Continue ice. Continue pain control. Continue incentive spirometer and SCDs. Dispo: Acute Rehab when medically stable. Subjective Subjective Date/Time Seen: 01/11/21 09:40 Interval history: Patient reports improvement in right hip pain. Pain well controlled. She did get up to the chair yesterday with PT and she reports that she did well with that. No new concerns today. Review of Systems Review of Systems: All systems reviewed & are unremarkable except as noted in HPI and below Constitutional: Constitutional: Reports no additional constitutional complaints, Denies chills, Reports fatigue, Denies fever(s), Denies headache(s) and Reports weakness Eyes: Eyes: Reports no additional eye complaints and Denies change in vision ENT: Denies headache(s) and Denies sore throat Cardiovascular: Cardiovascular: Denies chest pain and Denies dyspnea Respiratory: Respiratory: Reports chest congestion and Denies dyspnea Gastrointestinal: Gastrointestinal: Denies abdominal pain, Denies diarrhea and Denies vomiting Genitourinary: Genitourinary: Denies urinary frequency, Denies dysuria and Reports urinary incontinence Musculoskeletal: Musculoskeletal: Reports back pain, Denies deformity, Reports arthralgias, Denies joint swelling and Denies numbness Integumentary/Breasts: Skin/Breast: Denies rash and Denies wounds Neurologic: Denies headache(s), Denies focal weakness and Denies numbness Psychiatric: Psychiatric: Reports no additional psychiatric complaints Endocrine: Endocrine: Reports no additional endocrine complaints Hematologic/Lymphatic: Hematologic/Lymphatic: Reports no additional hematologic/lymphatic complaints Allergic/Immunologic: Allergic/Immunologic: Reports no additional allergic/immunologic complaints Exam Const: General: No confusion Orientation/consciousness: patient oriented x3 and No confusion HENMT: Head: normal to inspection, normocephalic and atraumatic Eyes: Conjunctivae: conjunctivae normal Sclera: sclerae normal Neck: Neck: supple and nontender Chest: Chest palpation & inspection: normal inspection of the chest Resp: Effort & Inspection: normal respiratory effort and no audible wheezes Cardio: Rate: regular rate Rhythm: regular rhythm GI: GI Palp: No abdominal tenderness and Yes Soft to palpation : General: Yes deferred Skin: General skin exam: no rashes or lesions noted Neuro: General: patient oriented x3 and No confusion Extrem: General: capillary refill normal Right upper extremity: normal to inspection Left upper extremity: normal to inspection Right lower extremity: hip/thigh Details: tenderness Location: of the hip Location: laterally and swelling Location: at the hip ( mild), ankle ( able to actively flex and extend ankle) Details: no tenderness and foot Details: normal capillary refill, toes with normal ROM, vascular exam Details: dorsalis pedis pulse present and normal capillary refill and motor-sensory exam Details: light-touch normal Location: in all toes; no tenderness Left lower extremity: normal to inspection, hip/thigh Details: no tenderness and no swelling, lower leg, ankle (no calf tenderness) Details: normal ROM; no tenderness and foot Details
[2021-01-11] MEDS: ENOXAPARIN 30 MG/0.3 ML SYRINGE SUB-Q (12:33)
--- NOTE | 2021-01-11 16:01 | P.PNIM_ITS ---
Progress Note: A&P Assessment and Plan (1) Pelvis fracture: Code(s): S32.9XXA - Fracture of unspecified parts of lumbosacral spine and pelvis, initial encounter for closed fracture Status: Acute Assessment and Plan: * MRI showed Nondisplaced right superior and inferior pubic rami fractures. * Ortho consulted * PT/OT eval and treat * Weight bearing status is as tolerated (2) Generalized weakness: Code(s): R53.1 - Weakness Status: Acute Assessment and Plan: * Had a fall at home * Hip pain is worse * cough and respiratory congestion * WBC is further elevated at 16.7 to 19.6 * PT/OT eval and treat * Will need rehab * Care coordination consult * MRI shows a nondisplaced right superior and inferior pubic rami fractures (3) Hip pain, right: Code(s): M25.551 - Pain in right hip Status: Acute Assessment and Plan: * Fell at home * Hip xray does not show any fractures * Ortho is consulted thank you for recommendations * non-surgical * MRI - Nondisplaced right superior and inferior pubic rami fractures. * PT/OT eval and treat * Tylenol for pain control (4) Hypertension: Code(s): I10 - Essential (primary) hypertension Status: Chronic Assessment and Plan: * Current Blood pressures 99/53 to 151/66 today * Continue higher dose of Metoprolol 50mg PO Daily (home dose was 25mg daily) , but monitor closely especially if any more lasix given. * continue amlodipine 10mg PO daily * Trend blood pressure * Adjust medications as needed * keep well hydrated (5) Chronic kidney disease, stage 3: Code(s): N18.30 - Chronic kidney disease, stage 3 unspecified Status: Chronic Assessment and Plan: * Creatinine 1.6 * History of left nephrectomy * Currently looks to be at baseline * Trend labs * Labs in the am * IV vanc and IV Levaquin RENAL dosing per pharmacy. * will need MAPS 65-70 and to be adequately hydrated due to IV antibiotics now - keep kidneys perfused. (6) Depression: Code(s): F32.9 - Major depressive disorder, single episode, unspecified Status: Chronic Assessment and Plan: * Failure to thrive - changed from heart healthy to Regular Diet to encourage patient to eat * monitor I/O * Has thoughts of suicide * Continue home Zoloft 50mg PO daily * Monitor mood - was euthymic today - pleasant and participating in care. * no concerns (7) Leukocytosis: Qualifiers: Leukocytosis type: unspecified Qualified Code(s): D72.829 - Elevated white blood cell count, unspecified Code(s): D72.829 - Elevated white blood cell count, unspecified Status: Acute Assessment and Plan: * WBC 17.7, 16.7 then up to 19.6 now * New productive cough with chest congestion/bronchitis * Sputum production * may need another CXR on 01/13 to see if any pneumonia developing * treated with lasix as pulmonary edema was suspected * blood cultures pending * urine cultures enterococcus species - treated with IV Vanc now. * Sputum culture REPEATED. * needs pulmonary toilet * added IS more often, DuoNebs Q 4 hours, Mucinex BID * BNP is 1870, repeating BNP level in morning * Trend WBC * if possible COPD exacerbation, may need steroids to improve. * ECHO was without concern and without CHF. * No O2 requirement * Labs in the am (8) UTI (urinary tract infection): Code(s): N39.0 - Urinary tract infection, site not specified Status: Acute Assessment and Plan:
--- NOTE | 2021-01-11 16:01 | PM.IMPN ---
Progress Note: A&P Assessment and Plan (1) Pelvis fracture: Code(s): S32.9XXA - Fracture of unspecified parts of lumbosacral spine and pelvis, initial encounter for closed fracture Status: Acute Assessment and Plan: MRI showed Nondisplaced right superior and inferior pubic rami fractures. Ortho consulted PT/OT eval and treat Weight bearing status is as tolerated (2) Generalized weakness: Code(s): R53.1 - Weakness Status: Acute Assessment and Plan: Had a fall at home Hip pain is worse cough and respiratory congestion WBC is further elevated at 16.7 to 19.6 PT/OT eval and treat Will need rehab Care coordination consult MRI shows a nondisplaced right superior and inferior pubic rami fractures (3) Hip pain, right: Code(s): M25.551 - Pain in right hip Status: Acute Assessment and Plan: Fell at home Hip xray does not show any fractures Ortho is consulted thank you for recommendations non-surgical MRI - Nondisplaced right superior and inferior pubic rami fractures. PT/OT eval and treat Tylenol for pain control (4) Hypertension: Code(s): I10 - Essential (primary) hypertension Status: Chronic Assessment and Plan: Current Blood pressures 99/53 to 151/66 today Continue higher dose of Metoprolol 50mg PO Daily (home dose was 25mg daily) , but monitor closely especially if any more lasix given. continue amlodipine 10mg PO daily Trend blood pressure Adjust medications as needed keep well hydrated (5) Chronic kidney disease, stage 3: Code(s): N18.30 - Chronic kidney disease, stage 3 unspecified Status: Chronic Assessment and Plan: Creatinine 1.6 History of left nephrectomy Currently looks to be at baseline Trend labs Labs in the am IV vanc and IV Levaquin RENAL dosing per pharmacy. will need MAPS 65-70 and to be adequately hydrated due to IV antibiotics now - keep kidneys perfused. (6) Depression: Code(s): F32.9 - Major depressive disorder, single episode, unspecified Status: Chronic Assessment and Plan: Failure to thrive - changed from heart healthy to Regular Diet to encourage patient to eat monitor I/O Has thoughts of suicide Continue home Zoloft 50mg PO daily Monitor mood - was euthymic today - pleasant and participating in care. no concerns (7) Leukocytosis: Qualifiers: Leukocytosis type: unspecified Qualified Code(s): D72.829 - Elevated white blood cell count, unspecified Code(s): D72.829 - Elevated white blood cell count, unspecified Status: Acute Assessment and Plan: WBC 17.7, 16.7 then up to 19.6 now New productive cough with chest congestion/bronchitis Sputum production may need another CXR on 01/13 to see if any pneumonia developing treated with lasix as pulmonary edema was suspected blood cultures pending urine cultures enterococcus species - treated with IV Vanc now. Sputum culture REPEATED. needs pulmonary toilet added IS more often, DuoNebs Q 4 hours, Mucinex BID BNP is 1870, repeating BNP level in morning Trend WBC if possible COPD exacerbation, may need steroids to improve. ECHO was without concern and without CHF. No O2 requirement Labs in the am (8) UTI (urinary tract infection): Code(s): N39.0 - Urinary tract infection, site not specified Status: Acute Assessment and Plan: has a known history of urinary retention, no current complaints of burning or pain with urination UA suspicious of of UTI (Cloudy, 2+ Leuko esterase, WBC 21-30), Urine culture Enterococcus species, Started on ORAL ampicillin 500mg Q6hr on 01/10 to 01/11, WBC continued to climb to 19.6, so patient changed to IV Vanc (renal dosing) Will need 7-10 days of IV Vanc. Patient recently on Rocephin 1gm last admission WBC is elevated plus patient has new cough patient will need bladder t
[2021-01-11] MEDS: guaiFENesin 12 HR 600 MG TABCR 1200 MG PO (20:02)
[2021-01-11] MEDS: ATORVASTATIN 10 MG TABLET PO (20:03)
[2021-01-11] MEDS: IPRATROPIUM BR 0.02% INH SOLN 0.5 MG/2.5 ML VIAL INHALATION (21:08)
[2021-01-11] MEDS: ALBUTEROL SULFATE NEB 2.5 MG/0.5 ML INH INHALATION (21:10)
[2021-01-12] VITALS (19 sets, daily range): BP systolic 100–130; BP diastolic 62–72; PULSE 58–78; RESP 15–20; TEMP 36.1–36.6; O2SAT 93–98
[2021-01-12] MEDS: ALBUTEROL SULFATE NEB 2.5 MG/0.5 ML INH INHALATION ×6 (00:10→23:39)
[2021-01-12] MEDS: IPRATROPIUM BR 0.02% INH SOLN 0.5 MG/2.5 ML VIAL INHALATION ×6 (00:10→23:40)
[2021-01-12 07:09] LABS: Basophils Absolute Auto 0.2 K/mm3 (0.0-0.1); Basophils Percent Auto 0.7 % (0.2-1.2); Hematocrit 35.6 % (37.0-47.0); Hemoglobin 11.1 g/dL (12.0-15.0); Immature Granulocyte Absolute 1.55 K/mm3 (0.00-0.031); Immature Granulocyte Percent A 5.6 % (0-0.5); Immature Platelet Fraction Pct 5.4 % (0.9-11.2); Lymphocytes Absolute Auto 1.49 K/mm3 (0.9-3.2); Lymphocytes Percent Auto 5.4 % (18.3-44.2); Mean Corpuscular HGB Conc 31.2 g/dl (32-36); Mean Corpuscular Hemoglobin 28.8 pg (26-34); Mean Corpuscular Volume 92.5 fl (80-100); Mean Platelet Volume 10.9 fl (7.4-10.4); Monocytes Absolute Auto 1.3 K/mm3 (0.1-0.6); Monocytes Percent Auto 4.8 % (2.6-8.5); Neutrophils Percent Auto 83.5 % (45.5-73.1); Platelet Count Result 268 k/mm3 (150-375); Red Blood Count 3.85 M/mm3 (4.2-5.4); Red Cell Distribution Width 14.2 % (11.5-14.5); White Blood Count 27.6 K/mm3 (4.5-10.0)
[2021-01-12 07:28] LABS: NT Pro B Type Natriuretic Pept 548 pg/mL (5-100)
[2021-01-12 07:33] LABS: Alanine Aminotransferase 85 U/L (4-35); Albumin Level 3.3 g/dL (3.5-5.1); Alkaline Phosphatase 86 U/L (38-126); Anion Gap 8 mmol/L (8-16); Aspartate Amino Transferase 56 U/L (14-36); Bilirubin,Total 0.3 mg/dL (0.2-1.3); Blood Urea Nitrogen 64 mg/dL (7-17); Carbon Dioxide 27 mmol/L (22-30); Chloride 103 mmol/L (98-107); Estimated Glomerular Filt Rate 30; Glucose 93 mg/dL (65-110); Potassium 4.1 mmol/L (3.4-5.0); Sodium 138 mmol/L (137-145)
[2021-01-12 07:50] LABS: Ovalocytes 1+ (NORMAL); Platelet Estimate Adequate (Adequate)
[2021-01-12 07:51] LABS: Burr Cells 1+ (NORMAL)
[2021-01-12] MEDS: guaiFENesin 12 HR 600 MG TABCR 1200 MG PO ×2 (08:15→21:15)
[2021-01-12] MEDS: SACCHAROMYCES BOULARDII 250 MG CAPSULE PO ×2 (08:15→17:13)
[2021-01-12] MEDS: ENOXAPARIN 30 MG/0.3 ML SYRINGE SUB-Q (08:16)
[2021-01-12] MEDS: predniSONE 10 MG TABLET 50 MG PO (09:48)
[2021-01-12] MEDS: POLYSACCHARIDE IRON COMPLEX 150 MG CAPSULE PO (09:48)
[2021-01-12] MEDS: METOPROLOL SUCCINATE EXT REL 50 MG TABCR PO (09:48)
[2021-01-12] MEDS: amLODIPine BESYLATE 5 MG TABLET 10 MG PO (09:49)
[2021-01-12] MEDS: SERTRALINE HCL 50 MG TABLET 100 MG PO (09:49)
[2021-01-12] MEDS: PANTOPRAZOLE 40 MG TABLET PO (09:49)
[2021-01-12] MEDS: MIRTAZAPINE 15 MG TABLET PO (09:49)
[2021-01-12] MEDS: HYDROcodone/acetaminophen (*CRX) 5-325 MG TABLET 1 TAB PO (11:56)
[2021-01-12] MEDS: FUROSEMIDE INJ 40 MG/4 ML VIAL IV PUSH ×2 (13:08→21:15)
--- NOTE | 2021-01-12 13:53 | PCRCNOTE ---
Past window of treatment time.
--- NOTE | 2021-01-12 14:13 | PM.IMPN ---
Progress Note: A&P Assessment and Plan (1) Pelvis fracture: Code(s): S32.9XXA - Fracture of unspecified parts of lumbosacral spine and pelvis, initial encounter for closed fracture Status: Acute Assessment and Plan: MRI showed Nondisplaced right superior and inferior pubic rami fractures. Ortho consulted PT/OT eval and treat Weight bearing status is as tolerated (2) Generalized weakness: Code(s): R53.1 - Weakness Status: Acute Assessment and Plan: Had a fall at home Hip pain is worse cough and respiratory congestion WBC is further elevated at 19.6 to 27.6 PT/OT eval and treat Will need rehab Care coordination consult MRI shows a nondisplaced right superior and inferior pubic rami fractures (3) Hip pain, right: Code(s): M25.551 - Pain in right hip Status: Acute Assessment and Plan: Fell at home Hip xray does not show any fractures Ortho is consulted thank you for recommendations non-surgical MRI - Nondisplaced right superior and inferior pubic rami fractures. PT/OT eval and treat Tylenol and norco for pain control (4) Hypertension: Code(s): I10 - Essential (primary) hypertension Status: Chronic Assessment and Plan: Current Blood pressures 130/72 today Continue higher dose of Metoprolol 50mg PO Daily continue amlodipine 10mg PO daily Trend blood pressure Adjust medications as needed (5) Chronic kidney disease, stage 3: Code(s): N18.30 - Chronic kidney disease, stage 3 unspecified Status: Chronic Assessment and Plan: Creatinine 1.7 History of left nephrectomy Currently looks to be at baseline Trend labs Labs in the am (6) Depression: Code(s): F32.9 - Major depressive disorder, single episode, unspecified Status: Chronic Assessment and Plan: Failure to thrive - changed from heart healthy to Regular Diet to encourage patient to eat monitor I/O Has thoughts of suicide Continue home Zoloft 50mg PO daily Monitor mood - was euthymic today - pleasant and participating in care. no concerns (7) Leukocytosis: Qualifiers: Leukocytosis type: unspecified Qualified Code(s): D72.829 - Elevated white blood cell count, unspecified Code(s): D72.829 - Elevated white blood cell count, unspecified Status: Acute Assessment and Plan: WBC continue to trend up to 27.6 New productive cough with chest congestion/bronchitis Sputum production may need another CXR on 01/13 to see if any pneumonia developing treated with lasix as pulmonary edema was suspected blood cultures pending urine cultures enterococcus species - treated with IV Vanc now. Sputum culture REPEATED. needs pulmonary toilet added IS more often, DuoNebs Q 4 hours, Mucinex BID BNP is 548 Trend WBC if possible COPD exacerbation, may need steroids to improve. ECHO was without concern from last visit cough is new to this visit No O2 requirement Labs in the am (8) UTI (urinary tract infection): Code(s): N39.0 - Urinary tract infection, site not specified Status: Acute Assessment and Plan: has a known history of urinary retention, no current complaints of burning or pain with urination UA suspicious of of UTI (Cloudy, 2+ Leuko esterase, WBC 21-30), Urine culture Enterococcus species, Started on ORAL ampicillin 500mg Q6hr Patient recently on Rocephin 1gm last admission WBC is elevated plus patient has new cough patient will need bladder training, nursing staff to encourage voiding every 2-3 hours. probiotics started (9) Pubic ramus fracture: Qualifiers: Encounter type: initial encounter Fracture type: closed Laterality: right Qualified Code(s): S32.591A - Other specified fracture of right pubis, initial encounter for closed fracture Code(s): S32.599A - Other specified fracture of unspecifi
--- NOTE | 2021-01-12 15:33 | PM.PNORT ---
Progress Note: A&P Assessment and Plan (1) Pubic ramus fracture: Qualifiers: Encounter type: subsequent encounter Fracture type: closed Laterality: right Fracture healing: with routine healing Qualified Code(s): S32.591D - Other specified fracture of right pubis, subsequent encounter for fracture with routine healing Code(s): S32.599A - Other specified fracture of unspecified pubis, initial encounter for closed fracture Status: Acute Assessment and Plan: Patient still with pain right hip which is to be expected for the next 1 to 2 weeks. May continue with PT/OT. Weightbearing as tolerated right leg. Okay for discharge. Use of walker for safety. Follow up in 6 weeks in Orthopedic office. Subjective Subjective Date/Time Seen: 01/12/21 15:33 alert and oriented x3. Complains of right hip pain. Exam Const: General: No confusion Orientation/consciousness: patient oriented x3 and No confusion HENMT: Head: normal to inspection, normocephalic and atraumatic Eyes: Conjunctivae: conjunctivae normal Sclera: sclerae normal Neck: Neck: supple and nontender Chest: Chest palpation & inspection: normal inspection of the chest Resp: Effort & Inspection: normal respiratory effort and no audible wheezes Cardio: Rate: regular rate Rhythm: regular rhythm GI: GI Palp: No abdominal tenderness and Yes Soft to palpation : General: Yes deferred Skin: General skin exam: no rashes or lesions noted Neuro: General: patient oriented x3 and No confusion Extrem: General: capillary refill normal Right upper extremity: normal to inspection Left upper extremity: normal to inspection Right lower extremity: hip/thigh Details: tenderness Location: of the hip Location: laterally and swelling Location: at the hip ( mild), ankle ( able to actively flex and extend ankle) Details: no tenderness and foot Details: normal capillary refill, toes with normal ROM, vascular exam Details: dorsalis pedis pulse present and normal capillary refill and motor-sensory exam Details: light-touch normal Location: in all toes; no tenderness Left lower extremity: normal to inspection, hip/thigh Details: no tenderness and no swelling, lower leg, ankle (no calf tenderness) Details: normal ROM; no tenderness and foot Details: normal capillary refill, vascular exam Details: dorsalis pedis pulse present and normal capillary refill and motor-sensory exam light-touch normal in all toes Psych: Affect: normal affect Objective Data Vital Signs Vital Signs: Vital Signs - 24 hr 01/11/21 20:00 01/11/21 21:10 01/11/21 21:24 Temperature Pulse Rate 71 69 71 Respiratory Rate 18 18 18 Blood Pressure Pulse Oximetry 94 01/11/21 22:00 01/12/21 00:11 01/12/21 00:20 Temperature 98.1 F Pulse Rate 71 67 68 Respiratory Rate 18 18 18 Blood Pressure 109/58 L Pulse Oximetry 94 01/12/21 03:39 01/12/21 03:47 01/12/21 06:00 Temperature 97.7 F Pulse Rate 71 69 74 Respiratory Rate 18 18 20 Blood Pressure 130/72 Pulse Oximetry 93 01/12/21 07:38 01/12/21 07:50 01/12/21 09:48 Temperature Pulse Rate 78 73 78 Respiratory Rate 18 18 Blood Pressure Pulse Oximetry 01/12/21 14:52 01/12/21 15:04 Temperature Pulse Rate 72 75 Respiratory Rate 18 18 Blood Pressure Pulse Oximetry Intake/Output Intake/Output: Intake & Output 01/09/21 01/10/21 01/11/21 01/12/21 23:59 23:59 23:59 23:59 Intake Total 2850 940 1920 480 Balance 2850 940 1920 480 Meds/Results Medications: Active Medications Generic Name Dose Route Start Last Admin Trade Name Freq PRN Reason Stop Dose Admin Acetaminophen 1,000 mg 01/11/21 15:58 Acetaminophen 500 Mg Tablet PO Q8H PRN Pain Rated 5 or Less Hydrocodone Bitart/Acetaminophen 1 tab 01/11/21 15:59 01/12/21 11:56 Hydrocodone/Acetaminophen (*Crx) 5-325 Mg Tablet PO 1 tab Q4H PRN Administration PAIN RATED 7-10 Albuterol 2.5 mg 12/24
[2021-01-12] MEDS: AMPICILLIN TRIHYDRATE 500 MG CAPSULE PO ×2 (18:18→23:43)
[2021-01-12] MEDS: ATORVASTATIN 10 MG TABLET PO (21:15)
[2021-01-13] VITALS (9 sets, daily range): BP systolic 98–130; BP diastolic 55–75; PULSE 71–84; RESP 16–20; TEMP 36.9–37.1; O2SAT 90–95
[2021-01-13] MEDS: IPRATROPIUM BR 0.02% INH SOLN 0.5 MG/2.5 ML VIAL INHALATION ×2 (03:06→09:25)
[2021-01-13] MEDS: ALBUTEROL SULFATE NEB 2.5 MG/0.5 ML INH INHALATION ×2 (03:07→09:25)
[2021-01-13] MEDS: AMPICILLIN TRIHYDRATE 500 MG CAPSULE PO ×4 (05:12→23:58)
[2021-01-13 06:47] LABS: Basophils Absolute Auto 0.2 K/mm3 (0.0-0.1); Basophils Percent Auto 0.5 % (0.2-1.2); Hematocrit 36.4 % (37.0-47.0); Hemoglobin 11.6 g/dL (12.0-15.0); Immature Granulocyte Absolute 1.77 K/mm3 (0.00-0.031); Immature Granulocyte Percent A 6.4 % (0-0.5); Lymphocytes Absolute Auto 1.34 K/mm3 (0.9-3.2); Lymphocytes Percent Auto 4.9 % (18.3-44.2); Mean Corpuscular HGB Conc 31.9 g/dl (32-36); Mean Corpuscular Hemoglobin 28.9 pg (26-34); Mean Corpuscular Volume 90.5 fl (80-100); Mean Platelet Volume 10.4 fl (7.4-10.4); Monocytes Absolute Auto 0.9 K/mm3 (0.1-0.6); Monocytes Percent Auto 3.2 % (2.6-8.5); Neutrophils Absolute Auto 23.4 K/mm3 (1.3-6.7); Platelet Count Result 327 k/mm3 (150-375); Red Blood Count 4.02 M/mm3 (4.2-5.4); Red Cell Distribution Width 14.6 % (11.5-14.5); White Blood Count 27.5 K/mm3 (4.5-10.0)
[2021-01-13 07:02] LABS: Alanine Aminotransferase 84 U/L (4-35); Albumin Level 3.6 g/dL (3.5-5.1); Alkaline Phosphatase 92 U/L (38-126); Anion Gap 13 mmol/L (8-16); Aspartate Amino Transferase 48 U/L (14-36); Bilirubin,Total 0.4 mg/dL (0.2-1.3); Blood Urea Nitrogen 77 mg/dL (7-17); Calcium 8.1 mg/dL (8.4-10.2); Carbon Dioxide 27 mmol/L (22-30); Chloride 98 mmol/L (98-107); Estimated Glomerular Filt Rate 23; Glucose 110 mg/dL (65-110); Magnesium 1.9 mg/dL (1.6-2.3); Potassium 3.9 mmol/L (3.4-5.0); Sodium 138 mmol/L (137-145)
[2021-01-13] MEDS: guaiFENesin 12 HR 600 MG TABCR 1200 MG PO ×2 (09:51→20:27)
[2021-01-13] MEDS: METOPROLOL SUCCINATE EXT REL 50 MG TABCR PO (09:52)
[2021-01-13] MEDS: SERTRALINE HCL 50 MG TABLET 100 MG PO (09:52)
[2021-01-13] MEDS: PANTOPRAZOLE 40 MG TABLET PO (09:52)
[2021-01-13] MEDS: SACCHAROMYCES BOULARDII 250 MG CAPSULE PO ×2 (09:52→16:28)
[2021-01-13] MEDS: traMADol HCL (*CRX) 50 MG TABLET PO (09:52)
[2021-01-13] MEDS: POLYSACCHARIDE IRON COMPLEX 150 MG CAPSULE PO (09:53)
[2021-01-13] MEDS: ENOXAPARIN 30 MG/0.3 ML SYRINGE SUB-Q (09:53)
[2021-01-13] MEDS: MIRTAZAPINE 15 MG TABLET PO (09:53)
[2021-01-13] MEDS: amLODIPine BESYLATE 5 MG TABLET 10 MG PO (09:53)
[2021-01-13] MEDS: SODIUM CHLORIDE 0.9% IV 250 ML 100 ML IV CONT (11:55)
[2021-01-13 12:00] LABS: EDCOVIDSCREEN Negative (Negative)
[2021-01-13 12:54] LABS: Hematocrit 36.7 % (37.0-47.0); Hemoglobin 11.9 g/dL (12.0-15.0); Mean Corpuscular HGB Conc 32.4 g/dl (32-36); Mean Corpuscular Hemoglobin 29.2 pg (26-34); Mean Corpuscular Volume 90.2 fl (80-100); Mean Platelet Volume 10.1 fl (7.4-10.4); Platelet Count Result 353 k/mm3 (150-375); Red Blood Count 4.07 M/mm3 (4.2-5.4); Red Cell Distribution Width 14.6 % (11.5-14.5); White Blood Count 30.6 K/mm3 (4.5-10.0)
--- NOTE | 2021-01-13 12:56 | P.CDI_ITS ---
CDI Query Clarification Request - New cough and treated with Lasix as pulmonary edema suspected documented -Lasix 40mg IV given 01/09, 01/10 and 01/12 Please clarify acuity of suspected pulmonary edema: * Acute * Chronic * Acute on chronic * Unable to determine <Xiomara Raza RN - Last Filed: 01/13/21 13:07> Unable to determine as the BNP is elevated <ELI cShwarz - Last Filed: 01/13/21 14:10>
--- NOTE | 2021-01-13 12:56 | WPDCDIQUERY2 ---
CDI Query Clarification Request - New cough and treated with Lasix as pulmonary edema suspected documented -Lasix 40mg IV given 01/09, 01/10 and 01/12 Please clarify acuity of suspected pulmonary edema: Acute Chronic Acute on chronic Unable to determine <Xiomara Raza RN - Last Filed: 01/13/21 13:07> Unable to determine as the BNP is elevated <ELI Schwarz - Last Filed: 01/13/21 14:10>
[2021-01-13 13:09] LABS: Anion Gap 12 mmol/L (8-16); Blood Urea Nitrogen 76 mg/dL (7-17); Carbon Dioxide 27 mmol/L (22-30); Chloride 102 mmol/L (98-107); Estimated Glomerular Filt Rate 22; Glucose 104 mg/dL (65-110); Potassium 3.7 mmol/L (3.4-5.0); Sodium 141 mmol/L (137-145)
--- NOTE | 2021-01-13 17:33 | P.PNIM_ITS ---
Progress Note: A&P Assessment and Plan (1) Pelvis fracture: Code(s): S32.9XXA - Fracture of unspecified parts of lumbosacral spine and pelvis, initial encounter for closed fracture Status: Acute Assessment and Plan: * MRI showed Nondisplaced right superior and inferior pubic rami fractures. * Ortho consulted * PT/OT eval and treat * Weight bearing status is as tolerated * walked the halls and in the chair (2) Generalized weakness: Code(s): R53.1 - Weakness Status: Acute Assessment and Plan: * Had a fall at home * Hip pain is worse * cough and respiratory congestion * WBC is further elevated at 19.6 to 27.6 * PT/OT eval and treat * Will need rehab * Care coordination consult * MRI shows a nondisplaced right superior and inferior pubic rami fractures (3) Hip pain, right: Code(s): M25.551 - Pain in right hip Status: Acute Assessment and Plan: * Fell at home * Hip xray does not show any fractures * Ortho is consulted thank you for recommendations * non-surgical * MRI - Nondisplaced right superior and inferior pubic rami fractures. * PT/OT eval and treat * Tylenol and norco for pain control (4) Hypertension: Code(s): I10 - Essential (primary) hypertension Status: Chronic Assessment and Plan: * Current Blood pressures 130/72 today * Continue higher dose of Metoprolol 50mg PO Daily * continue amlodipine 10mg PO daily * Trend blood pressure * Adjust medications as needed (5) Chronic kidney disease, stage 3: Code(s): N18.30 - Chronic kidney disease, stage 3 unspecified Status: Chronic Assessment and Plan: * Creatinine 1.7 * History of left nephrectomy * Currently looks to be at baseline * Trend labs * Labs in the am (6) Depression: Code(s): F32.9 - Major depressive disorder, single episode, unspecified Status: Chronic Assessment and Plan: * Failure to thrive - changed from heart healthy to Regular Diet to encourage patient to eat * monitor I/O * Has thoughts of suicide * Continue home Zoloft 50mg PO daily * Monitor mood - was euthymic today - pleasant and participating in care. * no concerns (7) Leukocytosis: Qualifiers: Leukocytosis type: unspecified Qualified Code(s): D72.829 - Elevated white blood cell count, unspecified Code(s): D72.829 - Elevated white blood cell count, unspecified Status: Acute Assessment and Plan: * WBC continue to trend up to 27.6 * New productive cough with chest congestion/bronchitis * Sputum production * may need another CXR on 01/13 to see if any pneumonia developing * treated with lasix as pulmonary edema was suspected * blood cultures pending * urine cultures enterococcus species - treated with IV Vanc now. * Sputum culture REPEATED. * needs pulmonary toilet * added IS more often, DuoNebs Q 4 hours, Mucinex BID * BNP is 548 * Trend WBC * if possible COPD exacerbation, may need steroids to improve. * ECHO was without concern from last visit cough is new to this visit * No O2 requirement * Labs in the am (8) UTI (urinary tract infection): Code(s): N39.0 - Urinary tract infection, site not specified Status: Acute Assessment and Plan: * has a known history of urinary retention, no current complaints of burning or pain with urination * UA suspicious of of UTI (Cloudy, 2+ Leuko esterase, WBC 21-30), * Urine culture Enterococcus species, * Started
--- NOTE | 2021-01-13 17:33 | PM.IMPN ---
Progress Note: A&P Assessment and Plan (1) Pelvis fracture: Code(s): S32.9XXA - Fracture of unspecified parts of lumbosacral spine and pelvis, initial encounter for closed fracture Status: Acute Assessment and Plan: MRI showed Nondisplaced right superior and inferior pubic rami fractures. Ortho consulted PT/OT eval and treat Weight bearing status is as tolerated walked the halls and in the chair (2) Generalized weakness: Code(s): R53.1 - Weakness Status: Acute Assessment and Plan: Had a fall at home Hip pain is worse cough and respiratory congestion WBC is further elevated at 19.6 to 27.6 PT/OT eval and treat Will need rehab Care coordination consult MRI shows a nondisplaced right superior and inferior pubic rami fractures (3) Hip pain, right: Code(s): M25.551 - Pain in right hip Status: Acute Assessment and Plan: Fell at home Hip xray does not show any fractures Ortho is consulted thank you for recommendations non-surgical MRI - Nondisplaced right superior and inferior pubic rami fractures. PT/OT eval and treat Tylenol and norco for pain control (4) Hypertension: Code(s): I10 - Essential (primary) hypertension Status: Chronic Assessment and Plan: Current Blood pressures 130/72 today Continue higher dose of Metoprolol 50mg PO Daily continue amlodipine 10mg PO daily Trend blood pressure Adjust medications as needed (5) Chronic kidney disease, stage 3: Code(s): N18.30 - Chronic kidney disease, stage 3 unspecified Status: Chronic Assessment and Plan: Creatinine 1.7 History of left nephrectomy Currently looks to be at baseline Trend labs Labs in the am (6) Depression: Code(s): F32.9 - Major depressive disorder, single episode, unspecified Status: Chronic Assessment and Plan: Failure to thrive - changed from heart healthy to Regular Diet to encourage patient to eat monitor I/O Has thoughts of suicide Continue home Zoloft 50mg PO daily Monitor mood - was euthymic today - pleasant and participating in care. no concerns (7) Leukocytosis: Qualifiers: Leukocytosis type: unspecified Qualified Code(s): D72.829 - Elevated white blood cell count, unspecified Code(s): D72.829 - Elevated white blood cell count, unspecified Status: Acute Assessment and Plan: WBC continue to trend up to 27.6 New productive cough with chest congestion/bronchitis Sputum production may need another CXR on 01/13 to see if any pneumonia developing treated with lasix as pulmonary edema was suspected blood cultures pending urine cultures enterococcus species - treated with IV Vanc now. Sputum culture REPEATED. needs pulmonary toilet added IS more often, DuoNebs Q 4 hours, Mucinex BID BNP is 548 Trend WBC if possible COPD exacerbation, may need steroids to improve. ECHO was without concern from last visit cough is new to this visit No O2 requirement Labs in the am (8) UTI (urinary tract infection): Code(s): N39.0 - Urinary tract infection, site not specified Status: Acute Assessment and Plan: has a known history of urinary retention, no current complaints of burning or pain with urination UA suspicious of of UTI (Cloudy, 2+ Leuko esterase, WBC 21-30), Urine culture Enterococcus species, Started on ORAL ampicillin 500mg Q6hr Patient recently on Rocephin 1gm last admission WBC is elevated plus patient has new cough patient will need bladder training, nursing staff to encourage voiding every 2-3 hours. probiotics started (9) Pubic ramus fracture: Qualifiers: Encounter type: subsequent encounter Fracture healing: with routine healing Fracture type: closed Laterality: right Qualified Code(s): S32.591D - Other specified fracture of right pubis, subsequent encounter for
[2021-01-13] MEDS: ATORVASTATIN 10 MG TABLET PO (20:27)
[2021-01-14] MEDS: HYDROcodone/acetaminophen (*CRX) 5-325 MG TABLET 1 TAB PO (04:37)
[2021-01-14] MEDS: AMPICILLIN TRIHYDRATE 500 MG CAPSULE PO ×2 (05:45→12:23)
[2021-01-14] MEDS: ALENDRONATE SODIUM 70 MG TABLET PO (05:46)
[2021-01-14 06:00] VITALS: BP 145/77; PULSE 62; RESP 16; TEMP 36.6; O2SAT 94
[2021-01-14 06:50] LABS: Hematocrit 35.7 % (37.0-47.0); Hemoglobin 11.3 g/dL (12.0-15.0); Mean Corpuscular HGB Conc 31.7 g/dl (32-36); Mean Corpuscular Hemoglobin 28.8 pg (26-34); Mean Corpuscular Volume 90.8 fl (80-100); Mean Platelet Volume 10.1 fl (7.4-10.4); Platelet Count Result 321 k/mm3 (150-375); Red Blood Count 3.93 M/mm3 (4.2-5.4); Red Cell Distribution Width 14.7 % (11.5-14.5); White Blood Count 19.1 K/mm3 (4.5-10.0)
[2021-01-14 07:04] LABS: Alanine Aminotransferase 123 U/L (4-35); Albumin Level 3.2 g/dL (3.5-5.1); Alkaline Phosphatase 90 U/L (38-126); Anion Gap 10 mmol/L (8-16); Aspartate Amino Transferase 83 U/L (14-36); Bilirubin,Total 0.4 mg/dL (0.2-1.3); Blood Urea Nitrogen 71 mg/dL (7-17); Calcium 7.9 mg/dL (8.4-10.2); Carbon Dioxide 25 mmol/L (22-30); Chloride 106 mmol/L (98-107); Estimated Glomerular Filt Rate 28; Glucose 84 mg/dL (65-110); Magnesium 2.1 mg/dL (1.6-2.3); Potassium 4.4 mmol/L (3.4-5.0); Sodium 141 mmol/L (137-145)
[2021-01-14] MEDS: ENOXAPARIN 30 MG/0.3 ML SYRINGE SUB-Q (08:25)
[2021-01-14] MEDS: SERTRALINE HCL 50 MG TABLET 100 MG PO (08:26)
[2021-01-14] MEDS: guaiFENesin 12 HR 600 MG TABCR 1200 MG PO (08:26)
[2021-01-14] MEDS: amLODIPine BESYLATE 5 MG TABLET 10 MG PO (08:26)
[2021-01-14] MEDS: POLYSACCHARIDE IRON COMPLEX 150 MG CAPSULE PO (08:26)
[2021-01-14] MEDS: ERGOCALCIFEROL 50,000 UNIT CAPSULE 50000 UNITS PO (08:27)
[2021-01-14] MEDS: MIRTAZAPINE 15 MG TABLET PO (08:27)
[2021-01-14] MEDS: PANTOPRAZOLE 40 MG TABLET PO (08:27)
[2021-01-14] MEDS: SACCHAROMYCES BOULARDII 250 MG CAPSULE PO (08:27)
[2021-01-14] MEDS: METOPROLOL SUCCINATE EXT REL 50 MG TABCR PO (08:27)
--- NOTE | 2021-01-14 08:30 | PM.DS ---
DS: Admitting Diagnosis Admitting Diagnosis Admitting Diagnosis: Pelvis fracture DS: Discharge Diagnosis Discharge Diagnosis (1) Pelvis fracture: Code(s): S32.9XXA - Fracture of unspecified parts of lumbosacral spine and pelvis, initial encounter for closed fracture Status: Acute Assessment and Plan: MRI showed Nondisplaced right superior and inferior pubic rami fractures. Ortho consulted PT/OT eval and treat Weight bearing status is as tolerated Will need PT/OT outpatient Tramadol PO Q8hr for pain (2) Generalized weakness: Code(s): R53.1 - Weakness Status: Acute Assessment and Plan: Had a fall at home Hip pain is worse cough and respiratory congestion WBC is further elevated at 19.6 to 27.6 PT/OT eval and treat Will need rehab Care coordination consult MRI shows a nondisplaced right superior and inferior pubic rami fractures (3) Hip pain, right: Code(s): M25.551 - Pain in right hip Status: Acute Assessment and Plan: Fell at home Hip xray does not show any fractures Ortho is consulted thank you for recommendations non-surgical MRI - Nondisplaced right superior and inferior pubic rami fractures. PT/OT eval and treat Tylenol and norco for pain control DC with tylenol and tramadol (4) Hypertension: Code(s): I10 - Essential (primary) hypertension Status: Chronic Assessment and Plan: Current Blood pressures 103/68 today Continue higher dose of Metoprolol 50mg PO Daily continue amlodipine 10mg PO daily Trend blood pressure Adjust medications as needed (5) Chronic kidney disease, stage 3: Code(s): N18.30 - Chronic kidney disease, stage 3 unspecified Status: Chronic Assessment and Plan: Creatinine 1.8 History of left nephrectomy Currently looks to be at baseline Trend labs Labs in the am (6) Depression: Code(s): F32.9 - Major depressive disorder, single episode, unspecified Status: Chronic Assessment and Plan: Failure to thrive - changed from heart healthy to Regular Diet to encourage patient to eat monitor I/O Has thoughts of suicide Continue home Zoloft 50mg PO daily Monitor mood - was euthymic today - pleasant and participating in care. no concerns (7) Leukocytosis: Qualifiers: Leukocytosis type: unspecified Qualified Code(s): D72.829 - Elevated white blood cell count, unspecified Code(s): D72.829 - Elevated white blood cell count, unspecified Status: Acute Assessment and Plan: WBC down to 19.1 today from 30.6 New productive cough with chest congestion/bronchitis Sputum production may need another CXR on 01/13 to see if any pneumonia developing treated with lasix as pulmonary edema was suspected blood cultures pending urine cultures enterococcus species - treated with IV Vanc now. Sputum culture REPEATED. needs pulmonary toilet added IS more often, DuoNebs Q 4 hours, Mucinex BID BNP is 548 Trend WBC if possible COPD exacerbation, may need steroids to improve. ECHO was without concern from last visit cough is new to this visit No O2 requirement Labs in the am (8) UTI (urinary tract infection): Code(s): N39.0 - Urinary tract infection, site not specified Status: Acute Assessment and Plan: has a known history of urinary retention, no current complaints of burning or pain with urination UA suspicious of of UTI (Cloudy, 2+ Leuko esterase, WBC 21-30), Urine culture Enterococcus species, Started on ORAL ampicillin 500mg Q6hr Patient recently on Rocephin 1gm last admission WBC is elevated plus patient has new cough patient will need bladder training, nursing staff to encourage voiding every 2-3 hours. probiotics started (9) Pubic ramus fracture: Qualifiers: Encounter type: subsequent encounter Fracture healing: with r
--- NOTE | 2021-01-14 08:30 | P.DS_ITS ---
DS: Admitting Diagnosis Admitting Diagnosis Admitting Diagnosis: Pelvis fracture DS: Discharge Diagnosis Discharge Diagnosis (1) Pelvis fracture: Code(s): S32.9XXA - Fracture of unspecified parts of lumbosacral spine and pelvis, initial encounter for closed fracture Status: Acute Assessment and Plan: * MRI showed Nondisplaced right superior and inferior pubic rami fractures. * Ortho consulted * PT/OT eval and treat * Weight bearing status is as tolerated Will need PT/OT outpatient Tramadol PO Q8hr for pain (2) Generalized weakness: Code(s): R53.1 - Weakness Status: Acute Assessment and Plan: * Had a fall at home * Hip pain is worse * cough and respiratory congestion * WBC is further elevated at 19.6 to 27.6 * PT/OT eval and treat * Will need rehab * Care coordination consult * MRI shows a nondisplaced right superior and inferior pubic rami fractures (3) Hip pain, right: Code(s): M25.551 - Pain in right hip Status: Acute Assessment and Plan: * Fell at home * Hip xray does not show any fractures * Ortho is consulted thank you for recommendations * non-surgical * MRI - Nondisplaced right superior and inferior pubic rami fractures. * PT/OT eval and treat * Tylenol and norco for pain control DC with tylenol and tramadol (4) Hypertension: Code(s): I10 - Essential (primary) hypertension Status: Chronic Assessment and Plan: * Current Blood pressures 103/68 today * Continue higher dose of Metoprolol 50mg PO Daily * continue amlodipine 10mg PO daily * Trend blood pressure * Adjust medications as needed (5) Chronic kidney disease, stage 3: Code(s): N18.30 - Chronic kidney disease, stage 3 unspecified Status: Chronic Assessment and Plan: * Creatinine 1.8 * History of left nephrectomy * Currently looks to be at baseline * Trend labs * Labs in the am (6) Depression: Code(s): F32.9 - Major depressive disorder, single episode, unspecified Status: Chronic Assessment and Plan: * Failure to thrive - changed from heart healthy to Regular Diet to encourage patient to eat * monitor I/O * Has thoughts of suicide * Continue home Zoloft 50mg PO daily * Monitor mood - was euthymic today - pleasant and participating in care. * no concerns (7) Leukocytosis: Qualifiers: Leukocytosis type: unspecified Qualified Code(s): D72.829 - Elevated white blood cell count, unspecified Code(s): D72.829 - Elevated white blood cell count, unspecified Status: Acute Assessment and Plan: * WBC down to 19.1 today from 30.6 * New productive cough with chest congestion/bronchitis * Sputum production * may need another CXR on 01/13 to see if any pneumonia developing * treated with lasix as pulmonary edema was suspected * blood cultures pending * urine cultures enterococcus species - treated with IV Vanc now. * Sputum culture REPEATED. * needs pulmonary toilet * added IS more often, DuoNebs Q 4 hours, Mucinex BID * BNP is 548 * Trend WBC * if possible COPD exacerbation, may need steroids to improve. * ECHO was without concern from last visit cough is new to this visit * No O2 requirement * Labs in the am (8) UTI (urinary tract infection): Code(s): N39.0 - Urinary tract infection, site not specified Status: Acute Assessment and Plan: * has a known history of urinary
[2021-01-14 08:40] VITALS: BP 129/69; PULSE 63; O2SAT 95
[2021-01-14 08:45] VITALS: BP 143/97; PULSE 72; O2SAT 93
[2021-01-14 08:50] VITALS: BP 103/68; PULSE 95; O2SAT 98
[2021-01-14] MEDS: traMADol HCL (*CRX) 50 MG TABLET PO (09:00)
[2021-01-14 11:20] LABS: Hepatitis B Surface Antigen Negative (Negative)
[2021-01-14 11:26] LABS: HAV RESULT Negative (Negative); Hepatitis B Core IgM Result Negative (Negative)
[2021-01-14 11:37] LABS: Hepatitis C Virus Antibody Negative (Negative)
[2021-01-14] MEDS: levoFLOXacin 500 MG TABLET PO (12:22)
== END 2021-01-14 12:40 | DRG 535 ==
LOC: ANHED 14:49 → ANH3MEDSUR 15:48
PROVIDERS: Nurse Practitioner; Admitting Provider Internal Medicine Critical Care Medicine; Emergency Provider Emergency Medicine; PCP Nurse Practitioner Family; Visit Provider Nurse Practitioner
DX: S32.591A Other specified fracture of right pubis, initial encounter for closed fracture (principal); J18.9 Pneumonia, unspecified organism; N39.0 Urinary tract infection, site not specified; Z68.1 Body mass index [BMI] 19.9 or less, adult; J44.1 Chronic obstructive pulmonary disease with (acute) exacerbation; J44.0 Chronic obstructive pulmonary disease with (acute) lower respiratory infection; S32.511A Fracture of superior rim of right pubis, initial encounter for closed fracture; W19.XXXA Unspecified fall, initial encounter; Z20.822 Contact with and (suspected) exposure to COVID-19; R62.7 Adult failure to thrive; I12.9 Hypertensive chronic kidney disease with stage 1 through stage 4 chronic kidney disease, or unspecified chronic kidney disease; N18.30 Chronic kidney disease, stage 3 unspecified; F32.9 Major depressive disorder, single episode, unspecified; D72.829 Elevated white blood cell count, unspecified; B95.2 Enterococcus as the cause of diseases classified elsewhere; K21.9 Gastro-esophageal reflux disease without esophagitis; M81.0 Age-related osteoporosis without current pathological fracture; M19.90 Unspecified osteoarthritis, unspecified site; Z90.5 Acquired absence of kidney; Z87.891 Personal history of nicotine dependence
CPT/HCPCS: 36415; 51701; 71045; 71046; 71250; 73721; 74176; 80048; 80053; 80074; 81001; 82550; 83735; 83880; 84484; 85025; 85027; 85055; 87040; 87070; 87077; 87086; 87088; 87186; 87205; 87426; 93005; 94640; 96361; 96372; 96374; 96375; 96376; 97110; 97116; 97161; 97165; 97530; 97535; 99285; A9270; C9803; G0378; J1650; J1940; J1956; J3370; J3475; J7050; J7120; J7512

== ENCOUNTER 2022-04-14 13:40 | Emergency (ER) | payer MEDICARE, SELFPAY ==
[2022-04-14] VITALS (21 sets, daily range): BP systolic 90–191; BP diastolic 61–107; PULSE 53–84; RESP 13–22; TEMP 36.3; O2SAT 99–100
--- NOTE | ~2022-04-14 | XR_ITS ---
EXAMINATION: XR chest 1V portable INDICATION: Pain after fall TECHNIQUE: Portable AP chest at 1451 hours COMPARISON: 01/11/2021 FINDINGS: The lungs are free of acute opacities. No pleural effusion or pneumothorax. Vertebroplasty changes noted in the thoracic spine. The heart size is normal. IMPRESSION: 1. No acute cardiopulmonary abnormality. Reviewed, dictated and finalized at location B.
--- NOTE | ~2022-04-14 | CT_ITS ---
EXAMINATION: CT brain wo con DATE: 04/14/2022 15:15 INDICATION: Fall with head injury TECHNIQUE: Computed tomography (CT) of the head was performed without intravenous contrast. Sagittal and coronal reconstructions were performed. Automated exposure control and iterative reconstruction t echnique were employed. The dose-length product was 605.33 mGy-cm. COMPARISON: head CT dated 01/01/21 FINDINGS: Large right frontal scalp hematoma. No fracture. Small old lacunar infarct at the right lentiform nuc leus. No acute intracranial hemorrhage, acute infarction or abnormal extra axial fluid collection. Th ere is moderate scattered white matter hypoattenuation consistent with chronic small vessel ischemic disease. Ventricles are normal and symmetric. No mass/mass effect. Intracranial calcified cerebral a therosclerosis is noted. The orbits, paranasal sinuses and mastoid air cells are normal. IMPRESSION: 1. No fracture or acute intracranial process. 2. Small old lacunar infarct at the right lentiform nucleus and stable appearance of moderate scatter ed white matter hypoattenuation consistent with chronic small vessel ischemic disease. Reviewed, dictated and finalized at location A. IMPRESSION: 1. No fracture or acute intracranial process. 2. Small old lacunar infarct at the right lentiform nucleus and stable appearan ce of moderate scattered white matter hypoattenuation consistent with chronic s mall vessel ischemic disease.
--- NOTE | ~2022-04-14 | CT_ITS ---
EXAMINATION: CT cervical spine wo con DATE: 04/14/2022 15:16 INDICATION: Fall with head injury TECHNIQUE: Computed tomography (CT) of the cervical spine was performed without intravenous contrast. Automated exposure control and iterative reconstruction technique were employed. The dose-length pro duct was 141.55 mGy-cm. COMPARISON: None FINDINGS: Mild cervical levocurvature. Sagittal alignment is normal. No interval change in chronic compression fractures at C7 and T1 with 20% anterior vertebral body height loss, and chronic burst fractures at T 3 and the partially visualized T4 vertebral body, both with 20% central vertebral body height loss an d minimal retropulsion. No acute fractures identified. Mild cervical and upper thoracic spondylosis i ncluding mild disc height loss at C5-C6 and C6-C7 and multilevel mild to moderate cervical facet and uncovertebral osteoarthritis and moderate to severe upper thoracic facet osteoarthritis. Atherosclero tic calcifications at the bilateral carotid bulbs. Mild biapical pleural-parenchymal scarring. No sig nificant change in likely benign bilateral subcentimeter thyroid nodules. IMPRESSION: 1. Chronic compression and burst fractures at C7, T1, T3 and T4. No acute osseous abnormality. 2. Mild cervical levocurvature with mild spondylosis. Reviewed, dictated and finalized at location A. IMPRESSION: 1. Chronic compression and burst fractures at C7, T1, T3 and T4. No acute osseo us abnormality. 2. Mild cervical levocurvature with mild spondylosis.
--- NOTE | 2022-04-14 13:48 | ED.FALL ---
HPI - Fall General Chief Complaint: Fall Stated Complaint: dizzy, GLF Time Seen by Provider: 04/14/22 13:47 History of Present Illness HPI Narrative: Patient is a 71-year-old female with a history of hypertension, CKD, GERD presenting after a fall. Patient states that she went to the bathroom and as she was getting up and leaving the bathroom she felt lightheaded and fell. States that this is happened in the past. States that she struck the right side of her head. Did not lose consciousness. Currently, complaining of right-sided headache. Patient states that she has had diarrhea for the last several weeks. Patient's son is concerned patient has not been drinking enough fluids. She denies chest pain, palpitations, shortness of breath, abdominal pain, nausea or vomiting, leg swelling. Patient does complain of increased urinary frequency. Related Data Home Medications Medication Instructions Recorded Confirmed acetaminophen 500 mg tablet 500 mg PO Q8-10H PRN Pain (Scale 02/14/20 01/08/21 Score 4-6) alendronate 70 mg tablet 70 mg PO WEEKLY 02/14/20 01/08/21 amlodipine 10 mg tablet 10 mg PO DAILY 12/31/20 01/08/21 atorvastatin 10 mg tablet 10 mg PO HS 12/31/20 01/08/21 ergocalciferol (vitamin D2) 1,250 50,000 unit PO WEEKLY 12/31/20 01/08/21 mcg (50,000 unit) capsule metoprolol succinate 25 mg 25 mg PO DAILY 12/31/20 01/08/21 tablet,extended release 24 hr mirtazapine 15 mg tablet 15 mg PO DAILY 12/31/20 01/08/21 Allergies Allergy/AdvReac Type Severity Reaction Status Date / Time No Known Allergies Allergy Unknown Verified 04/14/22 13:51 Review of Systems Review of Systems: All systems reviewed & are unremarkable except as noted in HPI and below PMFSH Past Medical History Medical History C. difficile diarrhea Chronic back pain Chronic kidney disease, stage 3 Creatinine ranges between 1.4 and 1.70. CVA (cerebral vascular accident) Depression Emphysema of lung Empyema Gastroesophageal reflux History of blood transfusion Hypertension Kidney stones Osteoarthritis Osteoporosis Pubic ramus fracture Rectal polyp Shingles Transverse myelitis Surgical History Surgical History History of section History of colonoscopy with polypectomy History of kyphoplasty History of left nephrectomy History of lithotripsy Family History Family History Mother Diabetes mellitus, Onset Age: 89 Cerebrovascular accident Hypertension Father Family history of cardiovascular disease, Onset Age: 87 Acute myocardial infarction, Onset Age: 87 Family history of heart disease in male family member before age 55 Hypertension Social History Social History Social History: The patient is and lives in [place] with her son. 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 Ambulates with a walker. She smoked up to 1.5 packs of cigarettes a day for 40 years and quit around 2018. No alcohol or illicit substance abuse. She designates her son, Messi Dexter, as her surrogate decision maker. Code status: Full code. 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
--- NOTE | 2022-04-14 14:23 | ECG_ITS ---
Measurements Intervals [place] Rate: 66 P: 23 AR: 162 QRS: -39 QRSD: 80 T: -4 QT: 378 QTc: 398 Interpretive Statements SINUS RHYTHM MARKED LEFT AXIS DEVIATION [QRS AXIS < -30] COMPARED TO ECG 01/08/2021 13:57:52 NO SIGNIFICANT CHANGES Electronically Signed On 04-15-2022 8:48:59 CDT by Génesis Alcazar M.D.
[2022-04-14] MEDS: SODIUM CHLORIDE 0.9% IV 1,000 ML 999 ML IV CONT ×2 (14:31→17:37)
[2022-04-14 14:45] LABS: Basophils Absolute Auto 0.1 K/mm3 (0.0-0.1); Basophils Percent Auto 0.5 % (0.2-1.2); Eosinophils Absolute Auto 0.1 K/mm3 (0-0.3); Eosinophils Percent Auto 0.7 % (0-4.4); Hematocrit 44.6 % (37.0-47.0); Hemoglobin 14.5 g/dL (12.0-15.0); Immature Granulocyte Absolute 0.21 K/mm3 (0.00-0.031); Immature Granulocyte Percent A 1.3 % (0-0.5); Lymphocytes Absolute Auto 0.97 K/mm3 (0.9-3.2); Lymphocytes Percent Auto 5.9 % (18.3-44.2); Mean Corpuscular HGB Conc 32.5 g/dl (32-36); Mean Corpuscular Hemoglobin 30.1 pg (26-34); Mean Corpuscular Volume 92.7 fl (80-100); Mean Platelet Volume 10.2 fl (7.4-10.4); Monocytes Absolute Auto 0.7 K/mm3 (0.1-0.6); Neutrophils Absolute Auto 14.3 K/mm3 (1.3-6.7); Neutrophils Percent Auto 87.6 % (45.5-73.1); Platelet Count Result 207 k/mm3 (150-375); Red Blood Count 4.81 M/mm3 (4.2-5.4); Red Cell Distribution Width 13.2 % (11.5-14.5); White Blood Count 16.3 K/mm3 (4.5-10.0)
[2022-04-14 15:00] LABS: Alanine Aminotransferase 26 U/L (6-35); Albumin Level 4.6 g/dL (3.5-5.1); Alkaline Phosphatase 79 U/L (38-126); Anion Gap 15 mmol/L (8-16); Aspartate Amino Transferase 42 U/L (14-36); Bilirubin,Total 0.5 mg/dL (0.2-1.3); Blood Urea Nitrogen 34 mg/dL (7-17); Calcium 9.2 mg/dL (8.4-10.2); Carbon Dioxide 25 mmol/L (22-30); Chloride 103 mmol/L (98-107); Estimated Glomerular Filt Rate 34; Glucose 115 mg/dL (65-110); Potassium 4.5 mmol/L (3.4-5.0); Sodium 143 mmol/L (137-145)
[2022-04-14 15:11] LABS: Troponin I < 0.012 ng/mL (0.000-0.034)
[2022-04-14 16:53] LABS: Add Urine Microscopic? YES; Appearance Urine Turbid (Clear); Bacteria Urine 3+ /hpf; Bilirubin Urine Negative (Negative); Blood Urine 1+ (Negative); Color Urine Yellow (Yellow); Glucose Urine UA Negative (Negative); Ketones Urine Negative (Negative); Leukocyte Esterase Ur 2+ LEU/UL (Negative); Mucus Urine Few /lpf; Nitrate Urine Positive (Negative); Protein Urine 2+ mg/dL (Negative); RBC Urine 21-50 /hpf (0-2); Specific Grav Ur 1.019 (1.001-1.035); Squamous Epithelial Cell Urine Many /hpf (Few); Urobilinogen Urine Negative mg/dL (<2.0); WBC Urine >75 /hpf
== END 2022-04-14 21:20 ==
PROVIDERS: Emergency Provider Emergency Medicine; PCP Nurse Practitioner Family
DX: N39.0 Urinary tract infection, site not specified (principal); I95.1 Orthostatic hypotension; W19.XXXA Unspecified fall, initial encounter; I12.9 Hypertensive chronic kidney disease with stage 1 through stage 4 chronic kidney disease, or unspecified chronic kidney disease; K21.9 Gastro-esophageal reflux disease without esophagitis; N18.30 Chronic kidney disease, stage 3 unspecified; Z87.891 Personal history of nicotine dependence
CPT/HCPCS: 36415; 70450; 71045; 72125; 80053; 81001; 84484; 85025; 87086; 87088; 93005; 96365; 96367; 99284; J0131; J0696; J7030

== ENCOUNTER → 2022-05-01 11:30 | Outpatient (CLI) | payer MEDICARE, SELFPAY ==
--- NOTE | ~2022-05-01 | DEXA_ITS ---
Bone Density Report Name: DORITA TUTTLE Age: 71 Sex: Female Ethnicity: White Date of : 1950 Indication: postmenopausal; screening for osteoporosis; parental hip fracture; height loss; prior fracture; Referring Provider: MARU, KASANDRA De Dios Study: Bone densitometry was performed. Exam Date: May 01, 2022 Accession number: [id number] Bone Density: Region BMD T-score Z-score Classification AP Spine (L1-L4) 0.773 -2.5 -0.2 Osteoporosis Femoral Neck (Left) 0.443 -3.7 -1.6 Osteoporosis Total Hip (Left) 0.507 -3.6 -1.9 Osteoporosis Femoral Neck (Right) 0.403 -4.0 -2.0 Osteoporosis Total Hip (Right) 0.447 -4.1 -2.3 Osteoporosis Total Hip Mean 0.477 -3.9 -2.1 Osteoporosis World Health Organization criteria for BMD impression classify patients as: Normal (T-score at or above -1.0), Osteopenia (T-score between -1.0 and -2.5), or Osteoporosis (T-score at or below -2.5). 10-year Fracture Risk: FRAX not reported because: Some T-score for Spine Total or Hip Total or Femoral Neck at or below -2.5 Prior hip or vertebral fracture Treated for osteopor Clinical Information Provided by Patient: Have had a previous hip or vertebral fracture Has had a low trauma fracture Parent has had a hip fracture Is being treated for osteoporosis Has used the following medications: Fosamax (i.e. alendronate), [employer] Patient maximum height was 62.0 Menopause Age: 55 Drinks caffeinated beverages Onset of menses at age 13 Number of children 1 Impression: The patient has established osteoporosis, based on the Right Total Hip T-score and the existence of a prior fracture. The patient has risk factors, including: parental hip fracture, previous fracture. Discussion: It is important to ask patients whether they are taking their medications and to encourage continued and appropriate compliance with their osteoporosis therapies to reduce fracture risk. It is also important to review their risk factors and encourage appropriate calcium and vitamin D intakes, exercise, fall prevention and other lifestyle measures. Follow-Up: Consider a repeat BMD and Vertebral Fracture Assessment (VFA) exam in 2 years or sooner if medically necessary, to reassess this patient's status. Reported by: JONEL on 05/01/2022 12:03:00 PM. Reviewed, dictated and finalized at location ARashid WILKINSON
== END ==
PROVIDERS: PCP Nurse Practitioner Family; Visit Provider Nurse Practitioner Family
DX: M81.0 Age-related osteoporosis without current pathological fracture (principal)
CPT/HCPCS: 77080

== ENCOUNTER 2023-01-26 11:09 | Outpatient (NON) | payer MEDICARE, SELFPAY ==
[2023-01-26 12:55] LABS: Basophils Absolute Auto 0.1 K/mm3 (0.0-0.1); Basophils Percent Auto 1.4 % (0.2-1.2); Eosinophils Absolute Auto 0.3 K/mm3 (0-0.3); Eosinophils Percent Auto 3.6 % (0-4.4); Hematocrit 42.5 % (37.0-47.0); Hemoglobin 13.4 g/dL (12.0-15.0); Immature Granulocyte Absolute 0.18 K/mm3 (0.00-0.031); Immature Granulocyte Percent A 2.4 % (0-0.5); Lymphocytes Absolute Auto 1.48 K/mm3 (0.9-3.2); Lymphocytes Percent Auto 19.5 % (18.3-44.2); Mean Corpuscular HGB Conc 31.5 g/dl (32-36); Mean Corpuscular Hemoglobin 30.7 pg (26-34); Mean Corpuscular Volume 97.5 fl (80-100); Mean Platelet Volume 10.9 fl (7.4-10.4); Monocytes Absolute Auto 0.7 K/mm3 (0.1-0.6); Monocytes Percent Auto 8.7 % (2.6-8.5); Neutrophils Absolute Auto 4.9 K/mm3 (1.3-6.7); Neutrophils Percent Auto 64.4 % (45.5-73.1); Platelet Count Result 283 k/mm3 (150-375); Red Blood Count 4.36 M/mm3 (4.2-5.4); Red Cell Distribution Width 13.5 % (11.5-14.5); White Blood Count 7.6 K/mm3 (4.5-10.0)
[2023-01-26 13:11] LABS: Alanine Aminotransferase 23 U/L (6-35); Albumin Level 4.4 g/dL (3.5-5.1); Alkaline Phosphatase 78 U/L (38-126); Anion Gap 12 mmol/L (8-16); Aspartate Amino Transferase 39 U/L (14-36); Bilirubin,Total 0.5 mg/dL (0.2-1.3); Blood Urea Nitrogen 37 mg/dL (7-17); Calcium 9.3 mg/dL (8.4-10.2); Carbon Dioxide 26 mmol/L (22-30); Chloride 104 mmol/L (98-107); Cholesterol 147 mg/dL (0-200); Estimated Glomerular Filt Rate 44; Glucose 90 mg/dL (65-110); HDL Direct 53 mg/dL; Potassium 3.8 mmol/L (3.4-5.0); Sodium 142 mmol/L (137-145); Triglycerides 159 mg/dL (<150)
[2023-01-26 13:12] LABS: Iron 81 ug/dL (37-170)
[2023-01-26 13:22] LABS: LDL Cholesterol Direct 45 mg/dL
[2023-01-26 13:23] LABS: Percent Iron Saturation 27 % (20-50)
[2023-01-26 13:33] LABS: Appearance Urine Turbid (Clear); Bacteria Urine 4+ /hpf; Bilirubin Urine Negative (Negative); Blood Urine Trace (Negative); Color Urine Yellow (Yellow); Glucose Urine UA Negative (Negative); Ketones Urine Trace mg/dL (Negative); Leukocyte Esterase Ur 3+ LEU/UL (Negative); Need Manual Microscopic Reviewed; Nitrate Urine Positive (Negative); Protein Urine 2+ mg/dL (Negative); RBC Urine >100 /hpf (0-2); Specific Grav Ur 1.028 (1.001-1.035); Squamous Epithelial Cell Urine Many /hpf (Few); Urobilinogen Urine 0.2 mg/dL (<2.0); WBC Urine >100 /hpf; pH Urine 6.5 (5.0-9.0)
[2023-01-26 13:38] LABS: Add Urine Microscopic? YES
[2023-01-26 14:09] LABS: Vitamin D 25 Hydroxy 75.2 ng/mL
== END 2023-01-26 11:10 | disposition home or self-care (01) ==
PROVIDERS: PCP Nurse Practitioner Family; Visit Provider Nurse Practitioner Family
DX: G37.3 Acute transverse myelitis in demyelinating disease of central nervous system (principal); D64.9 Anemia, unspecified; R53.1 Weakness; L89.101 Pressure ulcer of unspecified part of back, stage 1; E78.5 Hyperlipidemia, unspecified; I10 Essential (primary) hypertension; E55.9 Vitamin D deficiency, unspecified; R82.90 Unspecified abnormal findings in urine
CPT/HCPCS: 80048; 80061; 80076; 81001; 82306; 82728; 83540; 83550; 84443; 85025; 87086; 87088